=== PATIENT | male | born 1950 | race Caucasian/White ===

== ENCOUNTER 2017-01-21 13:36 | Emergency (ER) | payer MEDICARE ==
--- NOTE | 2017-01-21 13:55 | Emergency Department Record ---
History of Present Illness - General Chief Complaint: Shortness of breath Stated Complaint: SOB,SWELLING IN HAND AND LOWER LEGS Time Seen by Provider: 01/21/17 13:48 Source: Patient, Family Mode of Arrival: Ambulatory Limitations: No limitations - History of Present Illness Initial Comments: 66 yo male presents with shortness of breath. He has developed symptoms over the last three weeks. He has noted shortness of breath with activity. His lower legs have had some swelling the last 2 months but he noticed a significant twisting frame changer the last three weeks. No fever. No significant cough. He denies chest pain. He denies any history of known CAD or CHF. No rash. He has a history of rheumatoid arthritis. He correlates the swelling with taking Madelaine that was last taken about three weeks prior. No syncope. PCP is at the [facility] in [place]. Complaint: Pain with inspiration, Shortness of breath -: Week(s) (3) Severity: Moderate Quality: Other Consistency: Constant Improves With: Rest Worsens With: Exertion, Lying flat, Movement Associated Symptoms: Edema, lower extremity pain, Orthopnia Treatments Prior to Arrival: None - Related Data Home Medications Medication Instructions Recorded Confirmed Last Taken Aspirin 81 mg PO DAILY 01/21/17 01/21/17 1 Day Ago ~01/20/17 Atorvastatin Calcium 20 mg PO DAILY 01/21/17 01/21/17 1 Day Ago ~01/20/17 Carvedilol [Coreg] 12.5 mg PO DAILY 01/21/17 01/21/17 1 Day Ago ~01/20/17 Cholecalciferol (Vitamin D3) 2,000 unit PO DAILY 01/21/17 01/21/17 1 Day Ago [Vitamin D3] ~01/20/17 Cyclobenzaprine HCl 10 mg PO TID 01/21/17 01/21/17 1 Day Ago ~01/20/17 Duloxetine HCl [Cymbalta] 60 mg PO QHS 01/21/17 01/21/17 1 Day Ago ~01/20/17 Fluticasone Propionate [Flonase 15.8 ml NS BID 01/21/17 01/21/17 1 Day Ago Allergy Relief] ~01/20/17 Hydroxychloroquine Sulfate 200 mg PO DAILY 01/21/17 01/21/17 1 Day Ago [Plaquenil] ~01/20/17 Insulin Aspart Protam & Aspart 34 unit SQ BID 01/21/17 01/21/17 1 Day Ago [Novolog Mix 70-30 Flexpen Syrn] ~01/20/17 Metformin HCl 1,000 mg PO BID 01/21/17 01/21/17 1 Day Ago ~01/20/17 Morphine Sulfate [Morphine Sulfate 60 mg PO Q12H 01/21/17 01/21/17 1 Day Ago Cr] ~01/20/17 Tiotropium [place] [Spiriva] 2 cap IH BID 01/21/17 01/21/17 1 Day Ago ~01/20/17 Allergies Allergy/AdvReac Type Severity Reaction Status Date / Time methotrexate Allergy SHORTNESS Verified 01/21/17 13:53 OF BREATH pregabalin [From Lyrica] Allergy SHORTNESS Verified 01/21/17 13:53 OF BREATH Review of Systems Constitutional: Reports: Malaise. Denies: Chills, Fever Eyes: Denies: Eye discharge, Eye pain, Photophobia ENT: Denies: Congestion, Epistaxis, Throat pain Respiratory: Reports: Dyspnea. Denies: Cough, Hemoptysis, Stridor, Wheezes Cardiovascular: Denies: Chest pain, Palpitations, Syncope Endocrine: Reports: Fatigue Gastrointestinal: Denies: Abdominal pain, Diarrhea, Nausea, Vomiting Genitourinary: Denies: Dysuria, Frequency, Hematuria Musculoskeletal: Denies: Arthralgia, Back pain, Joint swelling, Myalgia, Neck pain Skin: Denies: Bruising, Change in color, Rash Neurological: Denies: Headache, Numbness, Weakness Psychiatric: Denies: Anxiety Hematological/Lymphatic: Denies: Blood Clots, Easy bleeding, Easy bruising, Swollen glands Physical Exam - General General Appearance: Alert, Oriented x3, Cooperative, No acute distress Limitations: No limitations - Head Head exam: Normal inspection - Eye Eye exam: Normal appearance. negative: Conjunctival injection, Periorbital swelling, Scleral icterus - ENT ENT exam: Normal exam, Mucous membranes moist Ear exam: Normal external inspection Nasal Exam: Normal inspection Mouth exam: Normal external inspection Teeth exam: Normal inspection Throat exam: Normal inspection - Neck Neck exam: Normal inspection, Full ROM. negative: Tenderness - Respiratory Respiratory exam: Decreased breath sounds, Rales, Rhonchi. negative: Normal lung sounds bilaterally, Accessory muscle use, Chest wall tenderness, Prolonged expiratory, Respiratory distress, Stridor, Wheezes - Cardiovascular Cardiovascular Exam: Irregular rhythm, Tachycardia. negative: Normal heart sounds Peripheral Pulses: 2+: Radial (R), Radial (L) - GI/Abdominal GI/Abdominal exam: Soft. negative: Tenderness - Rectal Rectal exam: Deferred - exam: Deferred - Extremities Extremities exam: Normal capillary refill, Pedal edema (bilaterl 2+ to the knees symmetric, no abnormal warth or redness), Tenderness. negative: Normal inspection, Joint swelling - Back Back exam: Reports: Normal inspection, Full ROM. Denies: CVA tenderness (R), CVA tenderness (L), Muscle spasm, Paraspinal tenderness, Rash noted, Tenderness , Vertebral tenderness - Neurological Neurological exam: Alert, Normal gait, Oriented X3 - Psychiatric Psychiatric exam: Normal affect, Normal mood - Skin Skin exam: Dry, Intact, Normal color, Warm Course - Reevaluation(s) Reevaluation #1: EMR reviewed. No prior records at [facility] 01/21/17 13:55 Reevaluation #2: EKG sinus tach with bigemeny, RBBB, Qtc 550, axis normal, NS ST changes , No prior EKG on EMR 01/21/17 14:19 Reevaluation #3: The labs were reviewed Indeterminate Troponin of 0.046 Elevated BNP 2280 No acute changes on the CMP Hgb is 11.2 I discussed the results with the patient I recommend admission and work up. There is not available ECHO at [facility] until Friday so I recommend transfer I request [facility]. 01/21/17 14:30 Reevaluation #4: I SW Dr Horton of [facility] He accepts the patient for further work up of new onset CHF with Ventricular bigemeny 01/21/17 14:56 Reevaluation #5: CXR read as Mild to mod PVC with signs of fluid overload, CMG. 01/21/17 14:58 Medical Decision Making - Lab Data Result diagrams: 01/21/17 13:53 01/21/17 13:53 Disposition Disposition: Transfer Clinical Impression: Ventricular bigeminy, Elevated troponin CHF (congestive heart failure) Qualifiers: Congestive heart failure type: unspecified congestive heart failure type Congestive heart failure chronicity: acute Qualified Code(s): I50.9 - Heart failure, unspecified Disposition: Acute Care Hospital Transfer Transfer To: [facility] Reason For Transfer: New Onset CHF, Elevated Troponin Accepting Physician: Clifford Time Discussed w/Accepting Physician: 14:51 Condition: (2) Stable Forms: Patient Portal Access Time of Disposition: 14:51
[2017-01-21 13:58] LABS: BASO % 0.6 % (0-6); EOS % 3.7 % (0-6); GRAN % 73.9 % (47-80); HEMATOCRIT 37.1 % (42.0-52.0); HEMOGLOBIN 11.2 gm/dl (14.0-18.0); LYMPH % 12.7 % (16-45); MEAN CELL VOLUME 78.6 fl (81-97); MEAN CORPUSCULAR HEMOGLOBIN 23.7 pg (27-33); MEAN CORPUSCULAR HGB CONC 30.2 g/dl (32-36); MEAN PLATELET VOLUME 8.9 fl (7.4-10.4); MONO % 9.1 % (0-9); PLATELET COUNT 402 K/uL (130-400); RED BLOOD COUNT 4.72 M/uL (4.40-5.70); RED CELL DISTRIBUTION WIDTH 16.1 % (11.5-14.5); WHITE BLOOD COUNT W/O DIFF 8.3 K/uL (4.2-12.2)
[2017-01-21 14:10] LABS: ALB/GLOB RATIO 0.9 (1.1-1.8); ALBUMIN 3.7 gm/dL (3.5-5.0); ALKALINE PHOSPHATASE 154 U/L (38-126); ALT/SGPT 20 U/L (21-72); ANION GAP 11.6 (7-16); AST/SGOT 18 U/L (17-59); BILIRUBIN,TOTAL 0.53 mg/dL (0.2-1.3); BLOOD UREA NITROGEN 15 mg/dL (9-20); CARBON DIOXIDE 23.4 mmol/L (22-30); CREATINE PHOSPHOKINASE 25 U/L (55-170); EST GLOMERULAR FILTRATION RATE > 60 ml/min; GLUCOSE,RANDOM 138 mg/dL (70-110); TOTAL PROTEIN 7.9 gm/dL (6.3-8.2)
[2017-01-21 14:11] LABS: PARTIAL THROMBOPLASTIN TIME 27.6 SECONDS (24.5-39.1); PROTHROMBIN TIME (PATIENT) 11.3 SECONDS (9.5-12.1)
[2017-01-21 14:21] LABS: CKMB 1.7 ug/L (0-6); TROPONIN I 0.046 ng/mL (0.00-0.034)
[2017-01-21] MEDS ORDERED: FUROSEMIDE IV 40MG/4ML VIAL IVP ONE (14:29)
[2017-01-21] MEDS ORDERED: ASPIRIN 81 MG CHEWABLE TABLET PO ONE (14:29)
[2017-01-21] MEDS ORDERED: MAGNESIUM SULFATE 16 MEQ in 0.9 % SODIUM CHLORIDE 100ML 100 ML IV ONE (14:49)
--- NOTE | 2017-01-22 12:35 | RADIOLOGY REPORT ---
EXAM: PORTABLE CHEST HISTORY: SHORTNESS OF BREATH. LOWER EXTREMITY EDEMA. TECHNIQUE: A single mobile upright view of the chest was obtained. Comparison: None. FINDINGS: The cardiac silhouette projects mildly enlarged with borderline pulmonary venous hypertension. There right lateral costophrenic angle blunting consistent with small right basilar pleural effusion. These findings may relate to fluid overload/CHF. Patchy mixed opacities are noted in each lung base consistent with atelectasis, infiltrate or atypical edema. The lungs and pleural spaces are otherwise clear. There are mild degenerative changes of the visualized spine. IMPRESSION: 1. MILD CARDIOMEGALY WITH BORDERLINE TO MILD PULMONARY VENOUS HYPERTENSION AND SMALL RIGHT BASILAR PLEURAL EFFUSION SUSPICIOUS FOR FLUID OVERLOAD/CHF. 2. PATCHY MIXED OPACITIES IN EACH LUNG BASE CONSISTENT WITH ATELECTASIS, INFILTRATE OR ATYPICAL EDEMA. JOB NUMBER: [id number] [facility]
== END 2017-01-21 18:23 | disposition short-term general hospital (02) ==
LOC: ER 13:36
DX: I50.9 Heart failure, unspecified (principal); R00.8 Other abnormalities of heart beat; R79.89 Other specified abnormal findings of blood chemistry; R06.02 Shortness of breath; E11.9 Type 2 diabetes mellitus without complications; I10 Essential (primary) hypertension; Z87.891 Personal history of nicotine dependence; Z79.4 Long term (current) use of insulin
CPT/HCPCS: 71010; 80053; 82550; 82553; 83735; 83880; 84484; 85025; 85610; 85730; 93005; 93010; 96365; 96375; 99285; J1940

== ENCOUNTER 2017-01-31 00:09 | Inpatient (IN) | payer MEDICARE ==
[2017-01-31] MEDS ORDERED: ASPIRIN 325 MG TABLET PO ONE (00:14)
[2017-01-31] MEDS ORDERED: FUROSEMIDE IV 40MG/4ML VIAL IV ONE (00:14)
[2017-01-31] MEDS ORDERED: MORPHINE SULFATE 5 MG/ML PFS IVP ONE (00:14)
--- NOTE | 2017-01-31 00:19 | Emergency Department Record ---
History of Present Illness - General Chief Complaint: Shortness of breath Stated Complaint: SOB Time Seen by Provider: 01/31/17 00:14 Source: Patient, Family - History of Present Illness Initial Comments: The patient was admitted here and discharged Friday01-26-17 for CHF. Since being home he has continued to worsen: his swollen feet have increased into swelling up to below his knees, he has gained 7 pounds of weight in 5 days, and he has been sleeping upright in his chair, unable to sleep at all. He has had brief episodes of CP which last less than 5 minutes, but none this evening. He is a diabetic on insulin and has RA. MD Complaint: Shortness of breath - Related Data Home Medications Medication Instructions Recorded Confirmed Last Taken Aspirin 81 mg PO DAILY 01/21/17 01/31/17 01/30/17 Atorvastatin Calcium 20 mg PO DAILY 01/21/17 01/31/17 01/30/17 Carvedilol [Coreg] 12.5 mg PO DAILY 01/21/17 01/31/17 01/30/17 Cholecalciferol (Vitamin D3) 2,000 unit PO DAILY 01/21/17 01/31/17 01/30/17 [Vitamin D3] Cyclobenzaprine HCl 10 mg PO TID 01/21/17 01/31/17 01/30/17 Duloxetine HCl [Cymbalta] 60 mg PO QHS 01/21/17 01/31/17 01/30/17 Fluticasone Propionate [Flonase 15.8 ml NS BID 01/21/17 01/31/17 01/30/17 Allergy Relief] Hydroxychloroquine Sulfate 200 mg PO DAILY 01/21/17 01/31/17 01/30/17 [Plaquenil] Insulin Aspart Protam & Aspart 34 unit SQ BID 01/21/17 01/31/17 01/30/17 [Novolog Mix 70-30 Flexpen Syrn] Metformin HCl 1,000 mg PO BID 01/21/17 01/31/17 01/30/17 Morphine Sulfate [Morphine Sulfate 60 mg PO Q12H 01/21/17 01/31/17 01/30/17 Cr] Tiotropium [place] [Spiriva] 2 cap IH BID 01/21/17 01/31/17 01/30/17 Furosemide [Lasix] 40 mg PO DAILY 01/31/17 01/31/17 01/30/17 Lisinopril 2.5 mg PO DAILY 01/31/17 01/31/17 01/30/17 Potassium Chloride [Klor-Con] 20 meq PO DAILY 01/31/17 01/31/17 01/30/17 Allergies Allergy/AdvReac Type Severity Reaction Status Date / Time methotrexate Allergy SHORTNESS Verified 01/21/17 13:53 OF BREATH pregabalin [From Lyrica] Allergy SHORTNESS Verified 01/21/17 13:53 OF BREATH Review of Systems Reviewed: No additional complaints except as noted below Constitutional: Reports: As per HPI. Denies: Chills, Fever, Malaise, Night sweats, Weakness, Weight change Eyes: Reports: As per HPI. Denies: Eye discharge, Eye pain, Photophobia, Vision change ENT: Reports: As per HPI. Denies: Congestion, Dental pain, Ear pain, Epistaxis , Hearing loss, Throat pain Respiratory: Reports: As per HPI. Denies: Cough, Dyspnea, Hemoptysis, Stridor, Wheezes Cardiovascular: Reports: As per HPI. Denies: Arrhythmia, Chest pain, Dyspnea on exertion, Edema, Murmurs, Orthopnea, Palpitations, Paroxysmal nocturnal dyspnea, Rheumatic Fever, Syncope Endocrine: Reports: As per HPI. Denies: Fatigue, Heat or cold intolerance, Polydipsia, Polyuria Gastrointestinal: Reports: As per HPI. Denies: Abdominal pain, Constipation, Diarrhea, Hematemesis, Hematochezia, Melena, Nausea, Vomiting Genitourinary: Reports: As per HPI. Denies: Dysuria, Frequency, Hematuria, Incontinence, Retention, Testicular pain, Testicular mass, Urgency Musculoskeletal: Reports: As per HPI. Denies: Arthralgia, Back pain, Gout, Joint swelling, Myalgia, Neck pain Skin: Reports: As per HPI. Denies: Bruising, Change in color, Change in hair/ nails, Lesions, Pruritus, Rash Neurological: Reports: As per HPI. Denies: Abnormal gait, Confusion, Headache, Numbness, Paresthesias, Seizure, Tingling, Tremors, Vertigo, Weakness Psychiatric: Reports: As per HPI. Denies: Anxiety, Auditory hallucinations, Depression, Homicidal thoughts, Suicidal thoughts, Visual hallucinations Hematological/Lymphatic: Reports: As per HPI. Denies: Anemia, Blood Clots, Easy bleeding, Easy bruising, Swollen glands Past Medical History - SOCIAL HISTORY Smoking Status: Former smoker Drug Use: None - RESPIRATORY Hx Sleep Apnea: Yes (issues) - CARDIOVASCULAR Hx Hypertension: Yes - NEURO Hx Neuro Disorders: No - GI Hx Reflux: Yes - Hx Genitourinary Disorders: No - ENDOCRINE Hx Diabetes: Yes Hx Thyroid Disease: No - MUSCULOSKELETAL Hx Arthritis: Yes Comment:: Rheumatoid - PSYCH Hx Psych Problems: No Physical Exam - General General Appearance: Alert, Oriented x3, Cooperative, Moderate distress ( breathless speech, appears exhausted from lack of sleep) - Head Head exam: Normal inspection - Eye Eye exam: Normal appearance, PERRL Pupils: Normal accommodation - ENT ENT exam: Normal exam, Mucous membranes moist, Normal external ear exam, Normal orophraynx, TM's normal bilaterally Ear exam: Normal external inspection. negative: External canal tenderness Nasal Exam: Normal inspection. negative: Discharge, Sinus tenderness Mouth exam: Normal external inspection, Tongue normal Teeth exam: Normal inspection. negative: Dental caries Throat exam: Normal inspection. negative: Tonsillar erythema, Tonsillar exudate - Neck Neck exam: Normal inspection, Full ROM. negative: Tenderness - Respiratory Respiratory exam: Rales (1/3 way up lung buck posteriorly). negative: Respiratory distress - Cardiovascular Cardiovascular Exam: Normal heart sounds, Irregular rhythm, JVD (trace JVD sitting upright), Tachycardia - GI/Abdominal GI/Abdominal exam: Soft, Normal bowel sounds. negative: Tenderness - Rectal Rectal exam: Deferred - exam: Deferred - Extremities Extremities exam: Normal inspection, Full ROM, Normal capillary refill, Pedal edema (up to below knees bilaterally.). negative: Tenderness - Back Back exam: Reports: Normal inspection, Full ROM. Denies: Muscle spasm, Rash noted, Tenderness - Neurological Neurological exam: Alert, Normal gait, Oriented X3, Reflexes normal - Psychiatric Psychiatric exam: Normal affect, Normal mood - Skin Skin exam: Dry, Intact, Normal color, Warm Course - Reevaluation(s) Reevaluation #1: Reviewed old rec. from [facility] 01-21-17 last week: ECHO: global hypokinesis with specifically hypokinetic jefry-lateral childs. LV ejection fraction 30-35%. LEft ventricle appears borderline dilated. Restrictive pattern of LV diastolic filling. Mild-mod mitral regurg. Thickened and calcified mitral valve leaflets. Trivial pericardial effusion. 01/31/17 00:34 Reevaluation #2: Urine output is 700 cc after 40 lasix IV. 01/31/17 02:20 Reevaluation #3: Discussed case with Dr. Manuel HOLLAND who is comfortable with him being treated for CHF at [facility]. He will see the patient next week in the [facility] office for follow up after his diuresis here. Dr. Jackson states there is no indication for another ECHO , and the rhythm he currently is in does not need anti arrhythmic medication. the patient is in agreement with staying here, and is feeling better after his diuresis of 700 cc urine after 40 mg IV lasix. 01/31/17 02:33 Medical Decision Making - Management Options MDM Management: Additional Work-up Planned (e.g. ADM/Transfer/OP Study) (Admit to [facility]) - Data Complexity MDM Data: Labs Ordered and/or Reviewed, X-Ray Ordered and/or Reviewed (CXR two view: trace of cephalization with fluid in fissure, lungs otherwise clear. Per ED physician.), EKG Ordered and/or Reviewed - Lab Data Result diagrams: 01/31/17 00:15 01/31/17 00:15 - EKG Data -: EKG Interpreted by Mi EKG: Unchanged From Previous (Ventricular Bigeminy with RBBB as before from 01-21.) Disposition Disposition: Admit Clinical Impression: Ventricular bigeminy CHF (congestive heart failure) Qualifiers: Congestive heart failure type: systolic Congestive heart failure chronicity: unspecified congestive heart failure chronicity Qualified Code(s): I50.20 - Unspecified systolic (congestive) heart failure Disposition: Still a Patient at [facility] Decision to Admit: Admit from ER Decision to Admit Date: 01/31/17 Decision to Admit Time: 02:37 Accepting Physician: Dr. Rogel/Camilla Iyer Condition: (2) Stable Forms: Patient Portal Access
[2017-01-31 00:30] LABS: BASO % 0.6 % (0-6); EOS % 3.4 % (0-6); HEMATOCRIT 39.7 % (42.0-52.0); HEMOGLOBIN 12.1 gm/dl (14.0-18.0); LYMPH % 17.7 % (16-45); MEAN CELL VOLUME 77.8 fl (81-97); MEAN CORPUSCULAR HEMOGLOBIN 23.7 pg (27-33); MEAN CORPUSCULAR HGB CONC 30.5 g/dl (32-36); MEAN PLATELET VOLUME 9.2 fl (7.4-10.4); MONO % 11.3 % (0-9); PLATELET COUNT 497 K/uL (130-400); RED CELL DISTRIBUTION WIDTH 16.6 % (11.5-14.5); WHITE BLOOD COUNT W/O DIFF 10.3 K/uL (4.2-12.2)
[2017-01-31 00:51] LABS: INR 0.95; PARTIAL THROMBOPLASTIN TIME 26.9 SECONDS (24.5-39.1); PROTHROMBIN TIME (PATIENT) 10.7 SECONDS (9.5-12.1)
[2017-01-31 00:54] LABS: D-DIMER 4.05 mg/L FEU (0-0.59)
[2017-01-31 01:07] LABS: ANION GAP 11.6 (7-16); BLOOD UREA NITROGEN 24 mg/dL (9-20); CARBON DIOXIDE 25.4 mmol/L (22-30); CKMB 0.8 ug/L (0-6); CREATININE 1.1 mg/dL (0.66-1.25); EST GLOMERULAR FILTRATION RATE > 60 ml/min; GLUCOSE,RANDOM 186 mg/dL (70-110)
[2017-01-31 01:08] LABS: TROPONIN I < 0.012 ng/mL (0.00-0.034)
[2017-01-31 01:13] LABS: URINE APPEARANCE CLEAR; URINE BILIRUBIN NEGATIVE (NEGATIVE); URINE BLOOD NEGATIVE (NEGATIVE); URINE COLOR YELLOW; URINE GLUCOSE (UA) NEGATIVE (NEGATIVE); URINE KETONE NEGATIVE (NEGATIVE); URINE LEUKOCYTE ESTERASE NEGATIVE (NEGATIVE); URINE NITRITE NEGATIVE (NEGATIVE); URINE PROTEIN NEGATIVE (NEGATIVE); URINE UROBILINOGEN 0.2 E.U./dL (0.20 - 1.00)
[2017-01-31] MEDS ORDERED: ACETAMINOPHEN 500 MG TABLET PO PRN (03:18)
[2017-01-31] MEDS ORDERED: AL HYDROX/MAG HYDROX 30ML UD PO PRN (03:18)
[2017-01-31] MEDS: MORPHINE SULFATE 30MG TABLET.ER PO SCH ×2 (03:38→16:11)
--- NOTE | 2017-01-31 07:31 | History & Physical ---
History of Present Illness - Date of Service Date of Service for History & Physical: 01/31/17 - History of Present Illness Admitting Diagnosis: Congestive heart failure; ventricular bigeminy History of Present Illness: 66yo male with CC of shortness of breath. He has history of T2DM, rheumatoid arthritis, DM neuropathy, irregular heart rhythm (bigeminy), HTN in addition to CHF. He was recently admitted to [facility] for fluid overload. He was discharged from [facility] on 01/26/17 on lasix 40mg po daily. Since being home he has continued to worsen: his swollen feet have increased into swelling up to below his knees, he has gained 7 pounds of weight in 5 days , and he has been sleeping upright in his chair, unable to sleep at all. He has had brief episodes of CP which last less than 5 minutes and decided to come in to the ED. While in the ED, Patient had EKG which showed no acute changes from previous visit or recent [facility] hospitalization. His CXR showed findings consistent with mild pulmonary edema due to fluid overload. His BNP was 738. CBC and CMP were unremarkable. oxygen saturation of 97% on room air. Patient did have elevated D-dimer at 4.05. ED physician Discussed case with Dr. Manuel HOLLAND who was comfortable with him being treated for CHF at [facility]. He will see the patient next week in the [facility] office for follow up after his diuresis here. Dr. Jackson states there is no indication for another ECHO, and the rhythm he currently is in does not need anti arrhythmic medication. the patient was admitted for CHF exacerbation. 01/31/17- patient states he is feeling better but not much. He says he thinks the swelling in his legs have gone down some. He says he is a little less short of breath and is urinating frequently. He denies any chest pain here as well as nausea, fatigue, sweating, jaw pain. He had echo done while hospitalized last week for CHF exacerbation and showed EF of 30-35%. He was sent home on lasix 40mg po daily. he denies missing any doses. Sister states she thinks he isn't eating the right food, sticking to a low sodium diet. He has follow up on Friday with cardiology. He does state his left foot is in pain but thinks it is from his RA. pcp: [facility]: [facility] Travel Screening - Travel/Exposure Within Last 30 Days Have you traveled within the last 30 days?: No - Travel/Exposure Within Last Year Have you traveled outside the [place] in the last year?: No - Additonal Travel Details Have you been exposed to anyone with a communicable illness?: No - Travel Symptoms Symptom Screening: Fatigue Review of Systems Constitutional: Reports: As per HPI. Denies: Chills, Fever, Malaise, Night sweats, Weakness, Weight change Eyes: Reports: As per HPI. Denies: Eye discharge, Eye pain, Photophobia, Vision change ENT: Reports: As per HPI. Denies: Congestion, Dental pain, Ear pain, Epistaxis , Hearing loss, Throat pain Respiratory: Reports: As per HPI. Denies: Cough, Dyspnea, Hemoptysis, Stridor, Wheezes Cardiovascular: Reports: As per HPI, Edema, Orthopnea, Paroxysmal nocturnal dyspnea. Denies: Arrhythmia, Chest pain, Dyspnea on exertion, Murmurs, Palpitations, Rheumatic Fever, Syncope Endocrine: Reports: As per HPI. Denies: Fatigue, Heat or cold intolerance, Polydipsia, Polyuria Gastrointestinal: Reports: As per HPI. Denies: Abdominal pain, Constipation, Diarrhea, Hematemesis, Hematochezia, Melena, Nausea, Vomiting Genitourinary: Reports: As per HPI. Denies: Dysuria, Frequency, Hematuria, Incontinence, Retention, Testicular pain, Testicular mass, Urgency Musculoskeletal: Reports: As per HPI, Arthralgia. Denies: Back pain, Gout, Joint swelling, Myalgia, Neck pain Skin: Reports: As per HPI. Denies: Bruising, Change in color, Change in hair/ nails, Lesions, Pruritus, Rash Neurological: Reports: As per HPI. Denies: Abnormal gait, Confusion, Headache, Numbness, Paresthesias, Seizure, Tingling, Tremors, Vertigo, Weakness Psychiatric: Reports: As per HPI. Denies: Anxiety, Auditory hallucinations, Depression, Homicidal thoughts, Suicidal thoughts, Visual hallucinations Hematological/Lymphatic: Reports: As per HPI. Denies: Anemia, Blood Clots, Easy bleeding, Easy bruising, Swollen glands Past Medical History - SOCIAL HISTORY Smoking Status: Former smoker Alcohol Use: None Drug Use: None - RESPIRATORY Hx Respiratory Disorders: Yes Hx Sleep Apnea: Yes (has issues but does not use C-PAP) - CARDIOVASCULAR Hx Cardio Disorders: Yes Hx Abnormal EKG: Yes (hx of bigeminy) Hx CHF: Yes Hx Edema: Yes Hx Hypertension: Yes Hx Irregular Heartbeat: Yes - NEURO Hx Neuro Disorders: No Hx Neuropathy: Yes - GI Hx GI Disorders: Yes Hx Reflux: Yes - Hx Genitourinary Disorders: No - ENDOCRINE Hx Endocrine Disorders: Yes Hx Diabetes: Yes (for 20 years) Hx Thyroid Disease: No - MUSCULOSKELETAL Hx Musculoskeletal Disorders: Yes Hx Arthritis: Yes Comment:: Rheumatoid - PSYCH Hx Psych Problems: No - HEMATOLOGY/ONCOLOGY Hx Hematology/Oncology Disorders: No Family Medical History Any Significant Family History?: Yes Family Hx Comment (NOT TO BE USED IN PLACE OF ITEMS BELOW): mom w/thyroid issues Hx Cancer: Father, Mother Hx Heart Disease: Mother H&P Meds/Allergies - Allergies Allergies: Allergies Allergy/AdvReac Type Severity Reaction Status Date / Time methotrexate Allergy SHORTNESS Verified 01/21/17 13:53 OF BREATH pregabalin [From Lyrica] Allergy SHORTNESS Verified 01/21/17 13:53 OF BREATH - Home Medications Home Medications Medication Instructions Recorded Confirmed Last Taken Aspirin 81 mg PO DAILY 01/21/17 01/31/17 01/30/17 Atorvastatin Calcium 20 mg PO DAILY 01/21/17 01/31/17 01/30/17 Carvedilol [Coreg] 12.5 mg PO BID 01/21/17 01/31/17 01/30/17 Cholecalciferol (Vitamin D3) 2,000 unit PO DAILY 01/21/17 01/31/17 01/30/17 [Vitamin D3] Cyclobenzaprine HCl 10 mg PO TID 01/21/17 01/31/17 01/30/17 Duloxetine HCl [Cymbalta] 60 mg PO QHS 01/21/17 01/31/17 01/30/17 Fluticasone Propionate [Flonase 15.8 ml NS BID 01/21/17 01/31/17 01/30/17 Allergy Relief] Hydroxychloroquine Sulfate 200 mg PO DAILY 01/21/17 01/31/17 01/30/17 [Plaquenil] Insulin Aspart Protam & Aspart 34 unit SQ BID 01/21/17 01/31/17 01/30/17 [Novolog Mix 70-30 Flexpen Syrn] Metformin HCl 1,000 mg PO BID 01/21/17 01/31/17 01/30/17 Morphine Sulfate [Morphine Sulfate 60 mg PO Q12H 01/21/17 01/31/17 01/30/17 Cr] Furosemide [Lasix] 40 mg PO DAILY 01/31/17 01/31/17 01/30/17 Lisinopril 2.5 mg PO DAILY 01/31/17 01/31/17 01/30/17 Potassium Chloride [Klor-Con] 20 meq PO DAILY 01/31/17 01/31/17 01/30/17 Tiotropium [place] [Spiriva 2 puff IH DAILY 01/31/17 01/31/17 01/30/17 08:00 Respimat] - Active Medications Active Medications: Current Medications Acetaminophen (Tylenol 500mg Tab) 500 mg PO Q6H PRN PRN Reason: PAIN/TEMP Al Hydroxide/Mg Hydroxide (Maalox) 30 ml PO Q4H PRN PRN Reason: GI UPSET Aspirin (Ecotrin (Ec)) 81 mg PO DAILY [facility] Atorvastatin Calcium (Lipitor) 20 mg PO DAILY [facility] Carvedilol (Coreg) 12.5 mg PO DAILY [facility] Cyclobenzaprine HCl (Flexeril) 10 mg PO TID [facility] Duloxetine HCl (Cymbalta) 60 mg PO QHS [facility] Fluticasone Propionate (Flonase) 1 spray NA BID [facility] Furosemide (Lasix Iv) 40 mg IVP BID [facility] Hydroxychloroquine Sulfate (Plaquenil) 200 mg PO DAILY [facility] Lisinopril (Zestril) 2.5 mg PO DAILY [facility] Metformin HCl (Glucophage Ir) 1,000 mg PO BIDWM [facility] Morphine Sulfate () 60 mg PO Q12H [facility] Last Admin: 01/31/17 03:38 Dose: 60 mg Morphine Sulfate (Morphine Sulfate) 2.5 mg IVP Q4HR PRN PRN Reason: DIFFICULTY IN BREATHING Stop: 02/07/17 03:19 Potassium Chloride (Klor-Con) 20 meq PO DAILY [facility] Tiotropium [place] (Spiriva) 2 cap INH BID [facility] Vitamin D (Vitamin D3) 2,000 unit PO DAILY [facility] Physical Exam - Vital Signs Vital Signs: Vital Signs - Last 24 Hrs Temp Pulse Resp BP Pulse Ox 01/31/17 03:18 97.5 F L 54 L 20 160/71 97 - General General Appearance: Alert, Oriented x3, Cooperative, No acute distress - Head Head exam: Normal inspection - Eye Eye exam: Normal appearance, PERRL Pupils: Normal accommodation - ENT ENT exam: Normal exam, Mucous membranes moist, Normal external ear exam, Normal orophraynx, TM's normal bilaterally Ear exam: Normal external inspection. negative: External canal tenderness Nasal Exam: Normal inspection. negative: Discharge, Sinus tenderness Mouth exam: Normal external inspection, Tongue normal Teeth exam: Normal inspection. negative: Dental caries Throat exam: Normal inspection. negative: Tonsillar erythema, Tonsillar exudate - Neck Neck exam: Normal inspection, Full ROM. negative: Tenderness - Respiratory Respiratory exam: Normal lung sounds bilaterally. negative: Decreased breath sounds, Rales, Respiratory distress - Cardiovascular Cardiovascular Exam: Normal heart sounds, Irregular rhythm, JVD (trace JVD sitting upright), Tachycardia - GI/Abdominal GI/Abdominal exam: Soft, Normal bowel sounds. negative: Tenderness - Rectal Rectal exam: Deferred - exam: Deferred - Extremities Extremities exam: Normal inspection, Full ROM, Normal capillary refill, Pedal edema (trace edema of the shins, 1+ of the feet). negative: Tenderness - Back Back exam: Reports: Normal inspection, Full ROM. Denies: Muscle spasm, Rash noted, Tenderness - Neurological Neurological exam: Alert, Normal gait, Oriented X3, Reflexes normal - Psychiatric Psychiatric exam: Normal affect, Normal mood - Skin Skin exam: Dry, Intact, Normal color, Warm Results - Labs Result Diagrams: 01/31/17 00:15 01/31/17 00:15 - Imaging and Cardiology Chest x-ray Status: Report reviewed VTE H&P Assessment - Risk for VTE Risk for VTE: Yes Risk Level: High Risk Assessment Date: 01/31/17 Risk Assessment Time: 20:46 VTE Orders Placed or Will Be Placed: Yes Plan - Inpatient Certification Inpatient Certification: Admit to inpatient care: Based on my medical assessment, after consideration of patient's risk factors (age, co-morbidities and patient presenting symptoms and acuity), I expect that this patient will remain in the hospital greater than or equal to two midnights and that the services needed warrant inpatient care because: Patient Risk Factors: [age, CHF with recent exacerbation and hospitalization, elevated D-Dimer, shortness of breath] Estimated length of stay: [48-72H] The patient may reasonably be expected to be discharged or transferred to a hospital within 96 hours after admission to [facility]. Services needed: [IV diuretics, diagnostic imaging] Post hospital care (if known): [] I certify that my determination is in accordance with my understanding of Medicare requirements for reasonable and necessary inpatient services. 01/31/17 20:47 - Detailed Diagnosis and Plan (1) CHF (congestive heart failure) Current Visit: Yes Status: Acute Qualifiers: Congestive heart failure type: systolic Congestive heart failure chronicity : unspecified congestive heart failure chronicity Qualified Code(s): I50.20 - Unspecified systolic (congestive) heart failure Base Code: I50.9 - HEART FAILURE, UNSPECIFIED Comment: 01/31/17- CXR showed mild pulmonary edema consistent with CHF. Reviewed records from recent [facility] hospitalization. He had echo on 01/24/17 showing Ef of 30-35%. He was diuresed with lasix 40mg IV BID and did quite well through his stay. -continue lasix 40mg IV bid -daily weight -2000cc fluid restriction -low sodium diet -vitals q8H -labs qam -has follow up appointment with cardiology next Friday (2) Elevated d-dimer Current Visit: Yes Status: Acute Base Code: R79.89 - OTHER SPECIFIED ABNORMAL FINDINGS OF BLOOD CHEMISTRY Comment: 01/31/17- Patient had elevated D- Dimer while in the ED. complained of left lower extremity pain. Venous doppler showed small nonocclusive thrombus of the deep femoral vein which could be cause of elevated DDimer. Other considerations being that he has had two CHF exacerbations and his ongoing RA. -CTA ordered. -treatment dose of lovenox 1mg/kg q12h ordered (3) Full code status Current Visit: Yes Status: Acute Base Code: Z78.9 - OTHER SPECIFIED HEALTH STATUS Comment: 01/31/17- patient is full code (4) DVT prophylaxis Current Visit: Yes Status: Acute Base Code: [id number] - Comment: 01/31/17- Small nonocclusive thrombus of left Deep femoral vein noted on doppler. -will be put on therapeutic dose of lovenox
[2017-01-31] MEDS: METFORMIN 500 MG TABLET PO SCH (08:29)
[2017-01-31 08:34] LABS: CKMB 0.6 ug/L (0-6)
[2017-01-31 08:35] LABS: TROPONIN I < 0.012 ng/mL (0.00-0.034)
[2017-01-31] MEDS ORDERED: TIOTROPIUM BROMIDE 5 CAPSULES INH SCH (10:00)
[2017-01-31] MEDS ORDERED: CARVEDILOL 12.5 MG TABLET PO SCH (10:00)
[2017-01-31] MEDS ORDERED: NOVOLOG 70/30 FLEXPEN 100 UNITS/ML SQ SCH (10:00)
[2017-01-31] MEDS: FLUTICASONE PROPIONATE 50MCG NASAL 16 GM BTL SCH ×2 (10:50→22:18)
[2017-01-31] MEDS: ATORVASTATIN 20 MG TABLET PO SCH (10:51)
[2017-01-31] MEDS: LISINOPRIL 5 MG TABLET PO SCH (10:51)
[2017-01-31] MEDS: CYCLOBENZAPRINE 10MG TABLET PO SCH ×3 (10:51→22:21)
[2017-01-31] MEDS: POTASSIUM CHLORIDE 20 MEQ TABLET PO SCH (10:51)
[2017-01-31] MEDS: ASPIRIN 81 MG TABEC PO SCH (10:51)
[2017-01-31] MEDS: CHOLECALCIFEROL 1,000 UNIT TABLET PO SCH (10:51)
[2017-01-31] MEDS: HYDROXYCHLOROQUINE SULFATE 200 MG TABLET PO SCH (10:52)
[2017-01-31] MEDS: FUROSEMIDE IV 40MG/4ML VIAL IVP SCH ×2 (10:53→22:20)
[2017-01-31] MEDS: MORPHINE SULFATE 5 MG/ML PFS IVP PRN ×2 (11:09→22:21)
[2017-01-31] MEDS: SPIRIVA RESPIMAT PUFF SCH (15:34)
[2017-01-31] MEDS: NOVOLOG 70/30 FLEXPEN 100 UNITS/ML SQ SCH (17:38)
[2017-01-31 17:50] LABS: CKMB 0.6 ug/L (0-6)
[2017-01-31 17:51] LABS: TROPONIN I < 0.012 ng/mL (0.00-0.034)
[2017-01-31] MEDS ORDERED: ENOXAPARIN 40 MG/0.4 ML SYR SQ SCH (22:00)
[2017-01-31] MEDS: CARVEDILOL 12.5 MG TABLET PO SCH (22:20)
[2017-01-31] MEDS: ENOXAPARIN 100 MG/ML SYR SQ SCH (22:20)
[2017-01-31] MEDS: DULOXETINE HCL 30 MG CAPSULE.DR PO SCH (22:20)
[2017-01-31] MEDS: OMEPRAZOLE 20 MG PO SCH (22:34)
[2017-02-01] MEDS: MORPHINE SULFATE 30MG TABLET.ER PO SCH ×2 (03:22→16:57)
[2017-02-01] MEDS: NOVOLOG 70/30 FLEXPEN 100 UNITS/ML SQ SCH ×2 (08:18→16:55)
[2017-02-01] MEDS: MORPHINE SULFATE 5 MG/ML PFS IVP PRN (08:24)
[2017-02-01] MEDS: SPIRIVA RESPIMAT PUFF SCH (09:41)
[2017-02-01 09:52] LABS: ALB/GLOB RATIO 0.9 (1.1-1.8); ALBUMIN 3.7 gm/dL (3.5-5.0); ANION GAP 9.4 (7-16); BILIRUBIN,TOTAL 0.88 mg/dL (0.2-1.3); CARBON DIOXIDE 26.6 mmol/L (22-30); CREATININE 1.3 mg/dL (0.66-1.25); TOTAL PROTEIN 7.7 gm/dL (6.3-8.2)
--- NOTE | 2017-02-01 11:39 | Physician Progress Note ---
Subjective - Date Date of Physician Progress Note: 02/01/17 - Subjective Subjective Comment: 02/01/17- Patient states he feels about the same as yesterday. Still feeling short of breath with exertion and just fatigued. he is not coughing up phlegm. He denies chest pain. says the swelling in his feet has gone down. No fevers, chills. Objective - Vital Signs Vital Signs: Vital Signs - Last 24 Hrs Temp Pulse Pulse Resp BP Pulse Ox 02/01/17 09:47 97.6 F 101 H 16 113/77 94 L 02/01/17 09:15 91 H 16 104/65 02/01/17 09:00 95 H 16 02/01/17 06:00 97.9 F 89 18 110/72 96 02/01/17 03:00 98.3 F 92 H 20 129/68 95 01/31/17 21:00 88 18 01/31/17 20:00 94 H 18 128/71 96 01/31/17 18:41 98.3 F 56 L 16 113/45 95 01/31/17 15:00 97.5 F L 93 H 16 101/61 93 L - General General Appearance: Alert, Oriented x3, Cooperative, No acute distress - Head Head exam: Normal inspection - Eye Eye exam: Normal appearance, PERRL Pupils: Normal accommodation - ENT ENT exam: Normal exam, Mucous membranes moist, Normal external ear exam, Normal orophraynx, TM's normal bilaterally Ear exam: Normal external inspection. negative: External canal tenderness Nasal Exam: Normal inspection. negative: Discharge, Sinus tenderness Mouth exam: Normal external inspection, Tongue normal Teeth exam: Normal inspection. negative: Dental caries Throat exam: Normal inspection. negative: Tonsillar erythema, Tonsillar exudate - Neck Neck exam: Normal inspection, Full ROM. negative: Tenderness - Respiratory Respiratory exam: Normal lung sounds bilaterally. negative: Decreased breath sounds, Rales, Respiratory distress - Cardiovascular Cardiovascular Exam: Normal heart sounds, Irregular rhythm, JVD (trace JVD sitting upright), Tachycardia - GI/Abdominal GI/Abdominal exam: Soft, Normal bowel sounds. negative: Tenderness - Rectal Rectal exam: Deferred - exam: Deferred - Extremities Extremities exam: Normal inspection, Full ROM, Normal capillary refill. negative: Pedal edema, Tenderness - Back Back exam: Reports: Normal inspection, Full ROM. Denies: Muscle spasm, Rash noted, Tenderness - Neurological Neurological exam: Alert, Normal gait, Oriented X3, Reflexes normal - Psychiatric Psychiatric exam: Normal affect, Normal mood - Skin Skin exam: Dry, Intact, Normal color, Warm Assessment and Plan - Assessment and Plan (1) Pneumonia Current Visit: Yes Status: Acute Qualifiers: Pneumonia type: due to unspecified organism Laterality: right Lung location: upper lobe of lung Qualified Code(s): J18.1 - Lobar pneumonia, unspecified organism Base Code: J18.9 - PNEUMONIA, UNSPECIFIED ORGANISM Comment: 02/01/17- CTA done last night negative for PE or fluid overload but did reveal new right upper lobe infiltrate. patient has normal WBC count and is afebrile. Oxygen saturation is 94% on 2L. 2 blood cultures obtained prior to initiating abx -start levaquin 750mg IV q24H. Discussed case with Dr. Watt. Will start with empiric CAP coverage and assess response. will add nosocomial coverage if no improvement and certainly if any worsening of symptoms with recent hospitalization -continue supplemental O2 to keep sat >92% -breathign treatment q4H prn shortness of breath -incentive spirometry -vitals q8H -labs qam (2) CHF (congestive heart failure) Current Visit: Yes Status: Acute Qualifiers: Congestive heart failure type: systolic Congestive heart failure chronicity : unspecified congestive heart failure chronicity Qualified Code(s): I50.20 - Unspecified systolic (congestive) heart failure Base Code: I50.9 - HEART FAILURE, UNSPECIFIED Comment: 02/01/17- CTA done last night shows resolution of CHF findings but new right upper lobe infiltrate. Reviewed records from recent [facility] hospitalization. He had echo on 01/24/17 showing Ef of 30-35%. He was diuresed with lasix 40mg IV BID and did quite well through his stay. -will transition back to home diuretic dose with lasix 40mg po daily as repeat imaging shows resolution of fluid overload. -daily weight -2000cc fluid restriction -low sodium diet -vitals q8H -labs qam -has follow up appointment with cardiology next Friday (3) DVT (deep venous thrombosis) Current Visit: Yes Status: Acute Qualifiers: DVT location: lower extremity Affected thrombotic vein of extremity: femoral Laterality: left Chronicity: unspecified Qualified Code(s): I82.412 - Acute embolism and thrombosis of left femoral vein Base Code: I82.409 - ACUTE EMBOLISM AND THOMBOS UNSP DEEP VN UNSP LOWER EXTREMITY Comment: 02/01/17- Patient had elevated D-Dimer while in the ED. complained of left lower extremity pain. Venous doppler showed small nonocclusive thrombus of the deep femoral vein. Radiology noted this could be chronic. Patient was recently hospitalized but had prophylactic treatment during that stay. treatment dose of lovenox 1mg/kg q12h initiated -will transition to oral anticoagulation with eliquis -will do eliquis 10mg po bid for 7 days then 5mg po bid (4) Full code status Current Visit: Yes Status: Acute Base Code: Z78.9 - OTHER SPECIFIED HEALTH STATUS Comment: 02/01/17- patient is full code Results - Labs Result Diagrams: 02/01/17 09:35 02/01/17 09:35 Labs Last 24 Hours: Laboratory Results - last 24 hr 01/31/17 01/31/17 01/31/17 11:30 17:09 17:38 Sodium Potassium Chloride Carbon Dioxide Anion Gap BUN Creatinine Estimated GFR POC Glucose 277 H 102 Random Glucose Calcium Total Bilirubin AST ALT Alkaline Phosphatase CK-MB (CK-2) 0.6 Troponin I < 0.012 Total Protein Albumin Globulin Albumin/Globulin Ratio 01/31/17 02/01/17 02/01/17 22:00 07:45 09:35 Sodium 129 L Potassium 4.1 Chloride 93 L Carbon Dioxide 26.6 Anion Gap 9.4 BUN 29 H Creatinine 1.3 H Estimated GFR 59 POC Glucose 166 H 188 H Random Glucose 230 H Calcium 9.1 Total Bilirubin 0.88 AST 37 ALT 33 Alkaline Phosphatase 127 H CK-MB (CK-2) Troponin I Total Protein 7.7 Albumin 3.7 Globulin 4.0 Albumin/Globulin Ratio 0.9 L DVT/PE Assessment - Risk for VTE Risk for VTE: No Risk Level: High Risk Assessment Date: 01/31/17 Risk Assessment Time: 20:46 VTE Orders Placed or Will Be Placed: Yes - Active Medicaitons Current Medications: Current Medications Acetaminophen (Tylenol 500mg Tab) 500 mg PO Q6H PRN PRN Reason: PAIN/TEMP Al Hydroxide/Mg Hydroxide (Maalox) 30 ml PO Q4H PRN PRN Reason: GI UPSET Aspirin (Ecotrin (Ec)) 81 mg PO DAILY [facility] Last Admin: 01/31/17 10:51 Dose: 81 mg Atorvastatin Calcium (Lipitor) 20 mg PO DAILY [facility] Last Admin: 01/31/17 10:51 Dose: 20 mg Carvedilol (Coreg) 12.5 mg PO BID [facility] Last Admin: 01/31/17 22:20 Dose: 12.5 mg Cyclobenzaprine HCl (Flexeril) 10 mg PO TID [facility] Last Admin: 01/31/17 22:21 Dose: 10 mg Duloxetine HCl (Cymbalta) 60 mg PO QHS [facility] Last Admin: 01/31/17 22:20 Dose: 60 mg Enoxaparin Sodium (Lovenox) 90 mg SQ Q12HR [facility] Last Admin: 01/31/17 22:20 Dose: 90 mg Fluticasone Propionate (Flonase) 1 spray NA BID [facility] Last Admin: 01/31/17 22:18 Dose: 1 spray Furosemide (Lasix) 40 mg PO DAILY [facility] Hydroxychloroquine Sulfate (Plaquenil) 200 mg PO DAILY [facility] Last Admin: 01/31/17 10:52 Dose: 200 mg Levofloxacin/Dextrose (Levaquin 750mg Ivpb) 750 mg in 150 mls @ 125 mls/hr IVPB Q24H [facility] Stop: 02/06/17 10:01 Lisinopril (Zestril) 2.5 mg PO DAILY [facility] Last Admin: 01/31/17 10:51 Dose: 2.5 mg Metformin HCl (Glucophage Ir) 1,000 mg PO BIDWM [facility] Last Admin: 01/31/17 08:29 Dose: 1,000 mg Morphine Sulfate () 60 mg PO Q12H [facility] Last Admin: 02/01/17 03:22 Dose: 60 mg Morphine Sulfate (Morphine Sulfate) 2.5 mg IVP Q4HR PRN PRN Reason: DIFFICULTY IN BREATHING Stop: 02/07/17 03:19 Last Admin: 02/01/17 08:24 Dose: 2.5 mg Patient Own Med: (Spiriva Respimat) 2 each PUFF DAILY [facility] Last Admin: 02/01/17 09:41 Dose: 2 each Patient Own Med: (Omeprazole 20 Mg) 1 each PO Q24H [facility] Last Admin: 01/31/17 22:34 Dose: 1 each Potassium Chloride (Klor-Con) 20 meq PO DAILY [facility] Last Admin: 01/31/17 10:51 Dose: 20 meq Vitamin D (Vitamin D3) 2,000 unit PO DAILY [facility] Last Admin: 01/31/17 10:51 Dose: 2,000 unit AMI Plan - Labs Result Diagrams: 02/01/17 09:35 02/01/17 09:35
[2017-02-01] MEDS: POTASSIUM CHLORIDE 20 MEQ TABLET PO SCH (11:43)
[2017-02-01] MEDS: CHOLECALCIFEROL 1,000 UNIT TABLET PO SCH (11:43)
[2017-02-01] MEDS: HYDROXYCHLOROQUINE SULFATE 200 MG TABLET PO SCH (11:43)
[2017-02-01] MEDS: ASPIRIN 81 MG TABEC PO SCH (11:43)
[2017-02-01] MEDS: LISINOPRIL 5 MG TABLET PO SCH (11:44)
[2017-02-01] MEDS: FUROSEMIDE 40 MG TABLET PO SCH (11:44)
[2017-02-01] MEDS: CARVEDILOL 12.5 MG TABLET PO SCH ×2 (11:44→22:18)
[2017-02-01] MEDS: FLUTICASONE PROPIONATE 50MCG NASAL 16 GM BTL SCH ×2 (11:45→22:18)
[2017-02-01] MEDS: CYCLOBENZAPRINE 10MG TABLET PO SCH ×3 (11:45→22:18)
[2017-02-01] MEDS: LEVOFLOXACIN/D5W 750 MG/150 ML BAG IVPB SCH (11:45)
[2017-02-01] MEDS: ATORVASTATIN 20 MG TABLET PO SCH (11:45)
[2017-02-01] MEDS: ENOXAPARIN 100 MG/ML SYR SQ SCH (11:46)
[2017-02-01 12:10] LABS: BASO % 0.8 % (0-6); EOS % 4.4 % (0-6); GRAN % 64.6 % (47-80); HEMATOCRIT 36.3 % (42.0-52.0); HEMOGLOBIN 11.6 gm/dl (14.0-18.0); LYMPH % 17.2 % (16-45); MEAN CELL VOLUME 78.1 fl (81-97); MEAN CORPUSCULAR HEMOGLOBIN 24.9 pg (27-33); MEAN PLATELET VOLUME 10.1 fl (7.4-10.4); PLATELET COUNT 391 K/uL (130-400); RED BLOOD COUNT 4.65 M/uL (4.40-5.70); RED CELL DISTRIBUTION WIDTH 16.3 % (11.5-14.5); WHITE BLOOD COUNT W/O DIFF 9.7 K/uL (4.2-12.2)
--- NOTE | 2017-02-01 15:42 | RADIOLOGY REPORT ---
DATE: at 0039. EXAM: CHEST, TWO VIEWS. HISTORY: Shortness of breath. Bilateral lower extremity weakness with 7-pound weight gain in 4 days. TECHNIQUE: Upright PA and lateral views of the chest are obtained. COMPARISON: Portable chest dated 01/21/2017 at 14:27. FINDINGS: The heart is no longer enlarged. The pulmonary venous hypertension and mild bilateral interstitial edema have cleared. There has been interval clearing of the right lateral costophrenic angle blunting. Degenerative changes are again noted within the visualized spine. The lungs are hyperinflated consistent with COPD. IMPRESSION: 1. THE HEART NOW PROJECTS ENLARGED, AND THERE HAS BEEN INTERVAL CLEARING OF CHANGES OF CHF. NO EVIDENCE OF AN ACUTE PULMONARY PROCESS. 2. HYPERINFLATION OF THE LUNGS CONSISTENT WITH COPD. JOB NUMBER: [id number] [facility]
[2017-02-01] MEDS: APIXABAN 5MG TABLET PO SCH (22:18)
[2017-02-01] MEDS: DULOXETINE HCL 30 MG CAPSULE.DR PO SCH (22:18)
[2017-02-01] MEDS: OMEPRAZOLE 20 MG PO SCH (22:19)
--- NOTE | 2017-02-02 00:43 | US VENOUS DOPPLER REPORT ---
EXAM: ULTRASOUND VENOUS DOPPLER LOWER EXT LT HISTORY: LEFT LOWER EXTREMITY PAIN AND SWELLING. ELEVATED D-DIMER. DIABETES. TECHNIQUE: [place] scale, color Doppler, and duplex Doppler evaluation of the deep venous structures of the left lower extremity performed from the level of the common femoral vein through the lower leg. COMPARISON: None. FINDINGS: There is a questionable isoechoic/slightly hyperechoic luminal filling defect in the anterior aspect of the deep femoral vein measuring 11 x 5 mm. This is suspicious for non-occlusive thrombus. The technologist did not feel this completely compressed. Otherwise, there is no evidence of filling defect within the deep venous structures from the common femoral vein through the popliteal vein with these segments easily compressible. Normal venous waveforms are visualized throughout and are augmentable. The deep veins of the lower leg, to the extent visualized, are without definite thrombosis. There is soft tissue edema in the lower leg. IMPRESSION: 1. APPARENT SHORT-SEGMENT NON-OCCLUSIVE THROMBUS WITHIN THE DEEP FEMORAL VEIN. NO OTHER EVIDENCE OF DEEP VENOUS THROMBOSIS WITHIN THE LEFT LOWER EXTREMITY. 2. EDEMA WITHIN THE LEFT LOWER LEG SOFT TISSUES. JOB NUMBER: [id number] [facility]
[2017-02-02] MEDS: MORPHINE SULFATE 30MG TABLET.ER PO SCH ×2 (02:47→15:17)
[2017-02-02 06:21] LABS: ALB/GLOB RATIO 0.9 (1.1-1.8); ALBUMIN 3.6 gm/dL (3.5-5.0); ANION GAP 11.2 (7-16); BILIRUBIN,TOTAL 0.72 mg/dL (0.2-1.3); CARBON DIOXIDE 25.8 mmol/L (22-30); CREATININE 1.5 mg/dL (0.66-1.25); TOTAL PROTEIN 7.4 gm/dL (6.3-8.2)
[2017-02-02 06:22] LABS: BASO % 0.5 % (0-6); EOS % 3.3 % (0-6); GRAN % 69.1 % (47-80); HEMATOCRIT 33.2 % (42.0-52.0); HEMOGLOBIN 10.7 gm/dl (14.0-18.0); MEAN CELL VOLUME 76.1 fl (81-97); MEAN CORPUSCULAR HEMOGLOBIN 24.5 pg (27-33); MEAN CORPUSCULAR HGB CONC 32.2 g/dl (32-36); MEAN PLATELET VOLUME 9.4 fl (7.4-10.4); MONO % 12.1 % (0-9); PLATELET COUNT 377 K/uL (130-400); RED BLOOD COUNT 4.36 M/uL (4.40-5.70); WHITE BLOOD COUNT W/O DIFF 10.3 K/uL (4.2-12.2)
[2017-02-02] MEDS: NOVOLOG 70/30 FLEXPEN 100 UNITS/ML SQ SCH ×2 (08:07→17:51)
[2017-02-02] MEDS ORDERED: 0.9 % SODIUM CHLORIDE 1000ML 1,000 ML IV PRN (09:22)
[2017-02-02] MEDS ORDERED: IPRATROPIUM/ALBUTEROL (0.5MG/3MG) NEB INH PRN (09:23)
--- NOTE | 2017-02-02 09:25 | Physician Progress Note ---
Subjective - Date Date of Physician Progress Note: 02/02/17 - Subjective Subjective Comment: 02/02/17- Patient states he is having chronic joint pains from his RA. Says his shoulder and knees are really bothering him today. he did sit up in his chair for breakfast but is more comfortable laying down. Thinks his breathing might be a little better compared to yesterday. He is coughing some today but not productive. denies fevers, chills, cp. He says he typically lays in bed most days when he is at his baseline. Objective - Vital Signs Vital Signs: Vital Signs - Last 24 Hrs Temp Pulse Pulse Resp BP BP Pulse Ox 02/02/17 04:31 97.6 F 93 H 18 97/57 94 L 02/02/17 00:24 97.5 F L 89 16 91/44 97 02/01/17 21:00 97.5 F L 80 16 96/57 96 02/01/17 15:00 97.5 F L 83 14 110/58 93 L 02/01/17 09:47 97.6 F 101 H 16 113/77 94 L - General General Appearance: Alert, Oriented x3, Cooperative, No acute distress - Head Head exam: Normal inspection - Eye Eye exam: Normal appearance, PERRL Pupils: Normal accommodation - ENT ENT exam: Normal exam, Mucous membranes moist, Normal external ear exam, Normal orophraynx, TM's normal bilaterally Ear exam: Normal external inspection. negative: External canal tenderness Nasal Exam: Normal inspection. negative: Discharge, Sinus tenderness Mouth exam: Normal external inspection, Tongue normal Teeth exam: Normal inspection. negative: Dental caries Throat exam: Normal inspection. negative: Tonsillar erythema, Tonsillar exudate - Neck Neck exam: Normal inspection, Full ROM. negative: Tenderness - Respiratory Respiratory exam: Decreased breath sounds (throughout). negative: Rales, Respiratory distress - Cardiovascular Cardiovascular Exam: Normal heart sounds, Irregular rhythm, JVD (trace JVD sitting upright), Tachycardia - GI/Abdominal GI/Abdominal exam: Soft, Normal bowel sounds. negative: Tenderness - Rectal Rectal exam: Deferred - exam: Deferred - Extremities Extremities exam: Normal inspection, Full ROM, Normal capillary refill. negative: Pedal edema, Tenderness - Back Back exam: Reports: Normal inspection, Full ROM. Denies: Muscle spasm, Rash noted, Tenderness - Neurological Neurological exam: Alert, Normal gait, Oriented X3, Reflexes normal - Psychiatric Psychiatric exam: Normal affect, Normal mood - Skin Skin exam: Dry, Intact, Normal color, Warm Assessment and Plan - Assessment and Plan (1) Pneumonia Current Visit: Yes Status: Acute Qualifiers: Pneumonia type: due to unspecified organism Laterality: right Lung location: upper lobe of lung Qualified Code(s): J18.1 - Lobar pneumonia, unspecified organism Base Code: J18.9 - PNEUMONIA, UNSPECIFIED ORGANISM Comment: 02/02/17- mild improvement clinically. Still feeling short of breath with exertion. CTA done negative for PE or fluid overload but did reveal new right upper lobe infiltrate. patient has normal WBC count and is afebrile. Oxygen saturation is 94% on 2L. 2 blood cultures obtained prior to initiating abx and pending. -continue levaquin 750mg IV q24H. Discussed case with Dr. Watt. Will start with empiric CAP coverage and assess response. will add nosocomial coverage if no improvement and certainly if any worsening of symptoms with recent hospitalization -Will add solumedrol wtih concomittant emphysema. loading dose today 125mg IV. 40mg daily after that. will monitor fluid status closely with addition of steroids. -continue supplemental O2 to keep sat >92% -breathing treatment q4H prn shortness of breath -incentive spirometry -mucinex 1200mg po bid -vitals q8H -labs qam (2) CHF (congestive heart failure) Current Visit: Yes Status: Acute Qualifiers: Congestive heart failure type: systolic Congestive heart failure chronicity : unspecified congestive heart failure chronicity Qualified Code(s): I50.20 - Unspecified systolic (congestive) heart failure Base Code: I50.9 - HEART FAILURE, UNSPECIFIED Comment: 02/02/17- CTA done shows resolution of CHF findings but new right upper lobe infiltrate. Reviewed records from recent [facility] hospitalization. He had echo on 01/24/17 showing Ef of 30-35%. He was diuresed with lasix 40mg IV BID and did quite well through his stay. -continue home diuretic dose with lasix 40mg po daily as repeat imaging shows resolution of fluid overload. -daily weight -2000cc fluid restriction -low sodium diet -vitals q8H -labs qam -has follow up appointment with cardiology next Friday (3) DVT (deep venous thrombosis) Current Visit: Yes Status: Acute Qualifiers: DVT location: lower extremity Affected thrombotic vein of extremity: femoral Laterality: left Chronicity: unspecified Qualified Code(s): I82.412 - Acute embolism and thrombosis of left femoral vein Base Code: I82.409 - ACUTE EMBOLISM AND THOMBOS UNSP DEEP VN UNSP LOWER EXTREMITY Comment: 02/02/17- Patient had elevated D-Dimer while in the ED. complained of left lower extremity pain. Venous doppler showed small nonocclusive thrombus of the deep femoral vein. Radiology noted this could be chronic. Patient was recently hospitalized but had prophylactic treatment during that stay. -continue oral anticoagulation with eliquis -will do eliquis 10mg po bid for 7 days then 5mg po bid (4) Full code status Current Visit: Yes Status: Acute Base Code: Z78.9 - OTHER SPECIFIED HEALTH STATUS Comment: 02/02/17- patient is full code Results - Labs Result Diagrams: 02/02/17 05:55 02/02/17 05:55 Labs Last 24 Hours: Laboratory Results - last 24 hr 02/01/17 02/01/17 02/01/17 07:45 09:35 09:35 WBC 9.7 RBC 4.65 Hgb 11.6 L Hct 36.3 L MCV 78.1 L MCH 24.9 L MCHC 32.0 RDW 16.3 H Plt Count 391 MPV 10.1 Gran % 64.6 Lymphocytes % 17.2 Monocytes % 13.0 H Eosinophils % 4.4 Basophils % 0.8 Sodium 129 L Potassium 4.1 Chloride 93 L Carbon Dioxide 26.6 Anion Gap 9.4 BUN 29 H Creatinine 1.3 H Estimated GFR 59 POC Glucose 188 H Random Glucose 230 H Calcium 9.1 Total Bilirubin 0.88 AST 37 ALT 33 Alkaline Phosphatase 127 H Total Protein 7.7 Albumin 3.7 Globulin 4.0 Albumin/Globulin Ratio 0.9 L 02/01/17 02/01/17 02/01/17 11:50 16:40 21:34 WBC RBC Hgb Hct MCV MCH MCHC RDW Plt Count MPV Gran % Lymphocytes % Monocytes % Eosinophils % Basophils % Sodium Potassium Chloride Carbon Dioxide Anion Gap BUN Creatinine Estimated GFR POC Glucose 100 80 179 H Random Glucose Calcium Total Bilirubin AST ALT Alkaline Phosphatase Total Protein Albumin Globulin Albumin/Globulin Ratio 02/02/17 02/02/17 02/02/17 05:55 05:55 06:07 WBC 10.3 RBC 4.36 L Hgb 10.7 L Hct 33.2 L MCV 76.1 L MCH 24.5 L MCHC 32.2 RDW 16.0 H Plt Count 377 MPV 9.4 Gran % 69.1 Lymphocytes % 15.0 L Monocytes % 12.1 H Eosinophils % 3.3 Basophils % 0.5 Sodium 128 L Potassium 4.5 Chloride 91 L Carbon Dioxide 25.8 Anion Gap 11.2 BUN 35 H Creatinine 1.5 H Estimated GFR 50 POC Glucose 136 H Random Glucose 129 H Calcium 9.2 Total Bilirubin 0.72 AST 29 ALT 37 Alkaline Phosphatase 139 H Total Protein 7.4 Albumin 3.6 Globulin 3.8 Albumin/Globulin Ratio 0.9 L DVT/PE Assessment - Risk for VTE Risk for VTE: No Risk Level: High Risk Assessment Date: 01/31/17 Risk Assessment Time: 20:46 VTE Orders Placed or Will Be Placed: Yes - Active Medicaitons Current Medications: Current Medications Acetaminophen (Tylenol 500mg Tab) 500 mg PO Q6H PRN PRN Reason: PAIN/TEMP Al Hydroxide/Mg Hydroxide (Maalox) 30 ml PO Q4H PRN PRN Reason: GI UPSET Albuterol/Ipratropium (Duoneb) 3 ml INH RESP.Q4H PRN PRN Reason: shortness of breath Apixaban (Eliquis) 10 mg PO BID [facility] Last Admin: 02/01/17 22:18 Dose: 10 mg Aspirin (Ecotrin (Ec)) 81 mg PO DAILY [facility] Last Admin: 02/01/17 11:43 Dose: 81 mg Atorvastatin Calcium (Lipitor) 20 mg PO DAILY [facility] Last Admin: 02/01/17 11:45 Dose: 20 mg Carvedilol (Coreg) 12.5 mg PO BID [facility] Last Admin: 02/01/17 22:18 Dose: 12.5 mg Cyclobenzaprine HCl (Flexeril) 10 mg PO TID [facility] Last Admin: 02/01/17 22:18 Dose: 10 mg Duloxetine HCl (Cymbalta) 60 mg PO QHS [facility] Last Admin: 02/01/17 22:18 Dose: 60 mg Fluticasone Propionate (Flonase) 1 spray NA BID [facility] Last Admin: 02/01/17 22:18 Dose: 1 spray Furosemide (Lasix) 40 mg PO DAILY [facility] Last Admin: 02/01/17 11:44 Dose: 40 mg Guaifenesin (Mucinex) 1,200 mg PO BID [facility] Hydroxychloroquine Sulfate (Plaquenil) 200 mg PO DAILY [facility] Last Admin: 02/01/17 11:43 Dose: 200 mg Levofloxacin/Dextrose (Levaquin 750mg Ivpb) 750 mg in 150 mls @ 125 mls/hr IVPB Q24H [facility] Stop: 02/06/17 10:01 Last Infusion: 02/01/17 13:00 Dose: Infused Sodium Chloride () 1,000 mls @ 50 mls/hr IV .Q20H PRN PRN Reason: LARGE VOLUME IV Lisinopril (Zestril) 2.5 mg PO DAILY [facility] Last Admin: 02/01/17 11:44 Dose: 2.5 mg Metformin HCl (Glucophage Ir) 1,000 mg PO BIDWM [facility] Last Admin: 01/31/17 08:29 Dose: 1,000 mg Morphine Sulfate () 60 mg PO Q12H [facility] Last Admin: 02/02/17 02:47 Dose: 60 mg Morphine Sulfate (Morphine Sulfate) 2.5 mg IVP Q4HR PRN PRN Reason: DIFFICULTY IN BREATHING Stop: 02/07/17 03:19 Last Admin: 02/01/17 08:24 Dose: 2.5 mg Patient Own Med: (Spiriva Respimat) 2 each PUFF DAILY [facility] Last Admin: 02/01/17 09:41 Dose: 2 each Patient Own Med: (Omeprazole 20 Mg) 1 each PO Q24H [facility] Last Admin: 02/01/17 22:19 Dose: 1 each Potassium Chloride (Klor-Con) 20 meq PO DAILY [facility] Last Admin: 02/01/17 11:43 Dose: 20 meq Vitamin D (Vitamin D3) 2,000 unit PO DAILY [facility] Last Admin: 02/01/17 11:43 Dose: 2,000 unit AMI Plan - Labs Result Diagrams: 02/02/17 05:55 02/02/17 05:55
[2017-02-02] MEDS: SPIRIVA RESPIMAT PUFF SCH (09:55)
[2017-02-02] MEDS ORDERED: ALBUTEROL SULFATE (0.083%) 2.5 MG/3 ML NEB INH PRN (09:57)
[2017-02-02] MEDS: DULOXETINE HCL 30 MG CAPSULE.DR PO SCH (10:36)
[2017-02-02] MEDS: CYCLOBENZAPRINE 10MG TABLET PO SCH ×3 (10:36→22:35)
[2017-02-02] MEDS: CHOLECALCIFEROL 1,000 UNIT TABLET PO SCH (10:38)
[2017-02-02] MEDS: POTASSIUM CHLORIDE 20 MEQ TABLET PO SCH (10:39)
[2017-02-02] MEDS: FUROSEMIDE 40 MG TABLET PO SCH (10:39)
[2017-02-02] MEDS: HYDROXYCHLOROQUINE SULFATE 200 MG TABLET PO SCH (10:39)
[2017-02-02] MEDS: GUAIFENESIN 1,200 MG TABLET PO SCH ×2 (10:39→22:35)
[2017-02-02] MEDS: APIXABAN 5MG TABLET PO SCH ×2 (10:40→22:35)
[2017-02-02] MEDS: CARVEDILOL 12.5 MG TABLET PO SCH ×2 (10:41→22:36)
[2017-02-02] MEDS: ASPIRIN 81 MG TABEC PO SCH (10:41)
[2017-02-02] MEDS: LEVOFLOXACIN/D5W 750 MG/150 ML BAG IVPB SCH (10:42)
[2017-02-02] MEDS: FLUTICASONE PROPIONATE 50MCG NASAL 16 GM BTL SCH ×2 (10:42→22:35)
[2017-02-02] MEDS: LISINOPRIL 5 MG TABLET PO SCH (10:43)
[2017-02-02] MEDS: ATORVASTATIN 20 MG TABLET PO SCH (10:47)
[2017-02-02] MEDS ORDERED: METHYLPREDNISOLONE PF 125MG/VIAL IVP ONE (12:51)
--- NOTE | 2017-02-02 15:06 | CT ANGIOGRAM REPORT ---
EXAM: CT ANGIOGRAM CHEST CTA w contrast HISTORY: SHORTNESS OF BREATH. 7 LB WEIGHT GAIN SINCE FRIDAY. RECENT CHF. ELEVATED D-DIMER. LOWER EXTREMITY DVT. TECHNIQUE: CT angiography of the chest was performed with postprocessing following the bolus administration of 100 mL of Omnipaque-350. Additional coronal and sagittal maximum intensity projection reformatted images were performed on an independent workstation under concurrent supervision. COMPARISON: None. FINDINGS: The heart is normal in size. There are moderate coronary artery calcifications. There are moderate to severe atherosclerotic changes within the descending thoracic aorta with no aneurysm or dissection. The pulmonary arterial tree is normal. There is no pulmonary embolus. There is no mediastinal or hilar lymphadenopathy. There is mild focal infiltrate within the right upper lobe suggesting mild pneumonia. Mild dependent atelectasis is present within both lungs. The lungs are otherwise clear. There are no pleural effusions. There are moderate emphysematous changes within the upper lung buck. There is a 9 x 5 mm noncalcified nodule within the right lower lung just above the hemidiaphragm. Follow-up is recommended. A faint stone is present within the gallbladder with no evidence for acute cholecystitis. The upper abdomen is otherwise normal. IMPRESSION: 1. NO EVIDENCE FOR PULMONARY EMBOLUS. 2. MILD FOCAL INFILTRATE WITHIN THE RIGHT UPPER LOBE CONSISTENT WITH PNEUMONIA. 3. A 9 X 5 MM NONCALCIFIED NODULE AT THE RIGHT LUNG BASE. A FOLLOW-UP CT SCAN OF THE CHEST IS RECOMMENDED IN THREE MONTHS TO CONFIRM STABILITY OF THIS AREA. 4. MODERATE EMPHYSEMATOUS CHANGES WITHIN BOTH LUNGS. 5. MODERATE TO SEVERE ATHEROSCLEROTIC CHANGES WITHIN THE DESCENDING THORACIC AORTA WITH NO ANEURYSM OR DISSECTION. 6. MODERATE CORONARY ARTERY CALCIFICATIONS. JOB NUMBER: [id number] [facility]
[2017-02-02 20:13] LABS: ANION GAP 14.6 (7-16); CARBON DIOXIDE 23.4 mmol/L (22-30); CREATININE 1.4 mg/dL (0.66-1.25)
[2017-02-02] MEDS: OMEPRAZOLE 20 MG PO SCH (22:35)
[2017-02-03] MEDS: MORPHINE SULFATE 30MG TABLET.ER PO SCH ×3 (02:23→17:35)
[2017-02-03 06:13] LABS: HEMATOCRIT 33.5 % (42.0-52.0); HEMOGLOBIN 11.1 gm/dl (14.0-18.0); MEAN CELL VOLUME 75.5 fl (81-97); MEAN CORPUSCULAR HGB CONC 33.1 g/dl (32-36); MEAN PLATELET VOLUME 9.3 fl (7.4-10.4); PLATELET COUNT 318 K/uL (130-400); RED BLOOD COUNT 4.44 M/uL (4.40-5.70); RED CELL DISTRIBUTION WIDTH 15.9 % (11.5-14.5); WHITE BLOOD COUNT W/O DIFF 11.7 K/uL (4.2-12.2)
[2017-02-03 06:27] LABS: PLATELET ESTIMATE NORMAL (NORMAL)
[2017-02-03 06:32] LABS: ALBUMIN 4.1 gm/dL (3.5-5.0); ANION GAP 16.4 (7-16); BILIRUBIN,TOTAL 0.92 mg/dL (0.2-1.3); CARBON DIOXIDE 22.6 mmol/L (22-30); CREATININE 1.3 mg/dL (0.66-1.25); TOTAL PROTEIN 8.2 gm/dL (6.3-8.2)
--- NOTE | 2017-02-03 07:26 | Physician Progress Note ---
Subjective - Date Date of Physician Progress Note: 02/03/17 - Subjective Subjective Comment: 02/03/17-Patient states he is feeling better today. Says his shortness of breath has improved. He is not getting as winded with ambulation to the bathroom and back. He denies cough, fever, chills. appetite has improved as well. Objective - Vital Signs Vital Signs: Vital Signs - Last 24 Hrs Temp Pulse Pulse Pulse Resp BP Pulse Ox 02/03/17 06:00 97.6 F 96 H 18 116/66 94 L 02/02/17 22:00 98.7 F 102 H 18 138/78 94 L 02/02/17 17:31 97.4 F L 103 H 16 130/68 92 L 02/02/17 14:00 97.9 F 105 H 16 140/73 93 L 02/02/17 10:25 96 H 16 98 02/02/17 09:00 98.3 F 99 H 16 99/59 95 - General General Appearance: Alert, Oriented x3, Cooperative, No acute distress - Head Head exam: Normal inspection - Eye Eye exam: Normal appearance, PERRL Pupils: Normal accommodation - ENT ENT exam: Normal exam, Mucous membranes moist, Normal external ear exam, Normal orophraynx, TM's normal bilaterally Ear exam: Normal external inspection. negative: External canal tenderness Nasal Exam: Normal inspection. negative: Discharge, Sinus tenderness Mouth exam: Normal external inspection, Tongue normal Teeth exam: Normal inspection. negative: Dental caries Throat exam: Normal inspection. negative: Tonsillar erythema, Tonsillar exudate - Neck Neck exam: Normal inspection, Full ROM. negative: Tenderness - Respiratory Respiratory exam: Decreased breath sounds (RUL). negative: Rales, Respiratory distress - Cardiovascular Cardiovascular Exam: Normal heart sounds, Irregular rhythm, JVD (trace JVD sitting upright), Tachycardia - GI/Abdominal GI/Abdominal exam: Soft, Normal bowel sounds. negative: Tenderness - Rectal Rectal exam: Deferred - exam: Deferred - Extremities Extremities exam: Normal inspection, Full ROM, Normal capillary refill. negative: Pedal edema, Tenderness - Back Back exam: Reports: Normal inspection, Full ROM. Denies: Muscle spasm, Rash noted, Tenderness - Neurological Neurological exam: Alert, Normal gait, Oriented X3, Reflexes normal - Psychiatric Psychiatric exam: Normal affect, Normal mood - Skin Skin exam: Dry, Intact, Normal color, Warm Assessment and Plan - Assessment and Plan (1) Pneumonia Current Visit: Yes Status: Acute Qualifiers: Pneumonia type: due to unspecified organism Laterality: right Lung location: upper lobe of lung Qualified Code(s): J18.1 - Lobar pneumonia, unspecified organism Base Code: J18.9 - PNEUMONIA, UNSPECIFIED ORGANISM Comment: 02/03/17- improving. shortness of breath improved from yesterday. CTA done 01/31/17 negative for PE or fluid overload but did reveal new right upper lobe infiltrate. patient has normal WBC count and is afebrile. Oxygen saturation is 93% on RA. 2 blood cultures obtained prior to initiating abx and pending. -continue levaquin 750mg IV q24H. -continue solumedrol 40mg IVP daily wtih concomittant emphysema. will monitor fluid status closely with addition of steroids. -continue supplemental O2 to keep sat >92% -breathing treatment q4H prn shortness of breath -incentive spirometry -mucinex 1200mg po bid -vitals q8H -labs qam (2) CHF (congestive heart failure) Current Visit: Yes Status: Acute Qualifiers: Congestive heart failure type: systolic Congestive heart failure chronicity : unspecified congestive heart failure chronicity Qualified Code(s): I50.20 - Unspecified systolic (congestive) heart failure Base Code: I50.9 - HEART FAILURE, UNSPECIFIED Comment: 02/03/17- CTA done shows resolution of CHF findings but new right upper lobe infiltrate. Reviewed records from recent [facility] hospitalization. He had echo on 01/24/17 showing Ef of 30-35%. He was diuresed with lasix 40mg IV BID and did quite well through his stay. -continue home diuretic dose with lasix 40mg po daily as repeat imaging shows resolution of fluid overload. 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 Nursing had also been holding his night time insulin appropriately due to blood sugar of 102. His metformin was held past day following contrast dye use. -will resume metformin 1000mg po bid -will resume insulin 70/30 34units bid -continue accucheck QID -will treat wtih steroid burst (5 days) vs taper to avoid prolonged hyperglycemia (4) DVT (deep venous thrombosis) Current Visit: Yes Status: Acute Qualifiers: DVT location: lower extremity Affected thrombotic vein of extremity: femoral Laterality: left Chronicity: unspecified Qualified Code(s): I82.412 - Acute embolism and thrombosis of left femoral vein Base Code: I82.409 - ACUTE EMBOLISM AND THOMBOS UNSP DEEP VN UNSP LOWER EXTREMITY Comment: 02/03/17- Patient had elevated D-Dimer while in the ED. complained of left lower extremity pain. Venous doppler showed small nonocclusive thrombus of the deep femoral vein. Radiology noted this could be chronic. Patient was recently hospitalized but had prophylactic treatment during that stay. -continue oral anticoagulation with eliquis -will do eliquis 10mg po bid for 7 days then 5mg po bid (5) Physical deconditioning Current Visit: Yes Status: Acute Base Code: R53.81 - OTHER [place] Comment : 02/03/17- patient is physically deconditioned due to sedentary lifestyle -PT/OT consult (6) Full code status Current Visit: Yes Status: Acute Base Code: Z78.9 - OTHER SPECIFIED HEALTH STATUS Comment: 02/03/17- patient is full code Results - Labs Result Diagrams: 02/03/17 06:00 02/03/17 06:00 Labs Last 24 Hours: Laboratory Results - last 24 hr 02/02/17 02/02/17 02/02/17 11:30 17:00 20:00 WBC RBC Hgb Hct MCV MCH MCHC RDW Plt Count MPV Neutrophils % Eosinophils % Basophils % Lymphocytes Monocytes Platelet Estimate RBC Morphology Sodium 129 L Potassium 4.5 Chloride 91 L Carbon Dioxide 23.4 Anion Gap 14.6 BUN 33 H Creatinine 1.4 H Estimated GFR 54 POC Glucose 102 109 Random Glucose 162 H Calcium 9.5 Total Bilirubin AST ALT Alkaline Phosphatase Total Protein Albumin Globulin Albumin/Globulin Ratio 02/03/17 02/03/17 06:00 06:00 WBC 11.7 RBC 4.44 Hgb 11.1 L Hct 33.5 L MCV 75.5 L MCH 25.0 L MCHC 33.1 RDW 15.9 H Plt Count 318 MPV 9.3 Neutrophils % 91.0 H Eosinophils % Not Reportable Basophils % Not Reportable Lymphocytes 1.0 L Monocytes 8.0 Platelet Estimate Normal RBC Morphology Normal Sodium 129 L Potassium 4.5 Chloride 90 L Carbon Dioxide 22.6 Anion Gap 16.4 H BUN 35 H Creatinine 1.3 H Estimated GFR 59 POC Glucose Random Glucose 323 H Calcium 9.2 Total Bilirubin 0.92 AST 20 ALT 29 Alkaline Phosphatase 138 H Total Protein 8.2 Albumin 4.1 Globulin 4.1 Albumin/Globulin Ratio 1.0 L DVT/PE Assessment - Risk for VTE Risk for VTE: No Risk Level: High Risk Assessment Date: 01/31/17 Risk Assessment Time: 20:46 VTE Orders Placed or Will Be Placed: Yes - Active Medicaitons Current Medications: Current Medications Acetaminophen (Tylenol 500mg Tab) 500 mg PO Q6H PRN PRN Reason: PAIN/TEMP Al Hydroxide/Mg Hydroxide (Maalox) 30 ml PO Q4H PRN PRN Reason: GI UPSET Albuterol Sulfate () 2.5 mg INH RESP.Q4H PRN PRN Reason: DIFFICULTY IN BREATHING Apixaban (Eliquis) 10 mg PO BID [facility] Last Admin: 02/02/17 22:35 Dose: 10 mg Aspirin (Ecotrin (Ec)) 81 mg PO DAILY [facility] Last Admin: 02/02/17 10:41 Dose: Not Given Atorvastatin Calcium (Lipitor) 20 mg PO DAILY [facility] Last Admin: 02/02/17 10:47 Dose: 20 mg Carvedilol (Coreg) 12.5 mg PO BID [facility] Last Admin: 02/02/17 22:36 Dose: 12.5 mg Cyclobenzaprine HCl (Flexeril) 10 mg PO TID [facility] Last Admin: 02/02/17 22:35 Dose: 10 mg Duloxetine HCl (Cymbalta) 60 mg PO QHS [facility] Last Admin: 02/02/17 10:36 Dose: 60 mg Fluticasone Propionate (Flonase) 1 spray NA BID [facility] Last Admin: 02/02/17 22:35 Dose: Not Given Furosemide (Lasix) 40 mg PO DAILY [facility] Last Admin: 02/02/17 10:39 Dose: 40 mg Guaifenesin (Mucinex) 1,200 mg PO BID [facility] Last Admin: 02/02/17 22:35 Dose: 1,200 mg Hydroxychloroquine Sulfate (Plaquenil) 200 mg PO DAILY [facility] Last Admin: 02/02/17 10:39 Dose: 200 mg Levofloxacin/Dextrose (Levaquin 750mg Ivpb) 750 mg in 150 mls @ 125 mls/hr IVPB Q24H [facility] Stop: 02/06/17 10:01 Last Infusion: 02/02/17 12:04 Dose: Infused Sodium Chloride () 1,000 mls @ 50 mls/hr IV .Q20H PRN PRN Reason: LARGE VOLUME IV Last Admin: 02/02/17 10:48 Dose: 50 mls/hr Lisinopril (Zestril) 2.5 mg PO DAILY [facility] Last Admin: 02/02/17 10:43 Dose: Not Given Metformin HCl (Glucophage Ir) 1,000 mg PO BIDWM [facility] Last Admin: 01/31/17 08:29 Dose: 1,000 mg Methylprednisolone Sodium Succinate (Solu-Medrol) 40 mg IVP DAILY [facility] Morphine Sulfate () 60 mg PO Q12H [facility] Last Admin: 02/03/17 03:55 Dose: Not Given Patient Own Med: (Spiriva Respimat) 2 each PUFF DAILY [facility] Last Admin: 02/02/17 09:55 Dose: 2 each Patient Own Med: (Omeprazole 20 Mg) 1 each PO Q24H [facility] Last Admin: 02/02/17 22:35 Dose: 1 each Potassium Chloride (Klor-Con) 20 meq PO DAILY [facility] Last Admin: 02/02/17 10:39 Dose: 20 meq Vitamin D (Vitamin D3) 2,000 unit PO DAILY [facility] Last Admin: 02/02/17 10:38 Dose: 2,000 unit AMI Plan - Labs Result Diagrams: 02/03/17 06:00 02/03/17 06:00
[2017-02-03] MEDS: NOVOLOG 70/30 FLEXPEN 100 UNITS/ML SQ SCH ×2 (08:07→17:51)
[2017-02-03] MEDS: METFORMIN 500 MG TABLET PO SCH ×2 (08:09→17:34)
[2017-02-03] MEDS: SPIRIVA RESPIMAT PUFF SCH (09:38)
[2017-02-03] MEDS: LISINOPRIL 5 MG TABLET PO SCH (10:46)
[2017-02-03] MEDS: ASPIRIN 81 MG TABEC PO SCH (10:46)
[2017-02-03] MEDS: HYDROXYCHLOROQUINE SULFATE 200 MG TABLET PO SCH (10:46)
[2017-02-03] MEDS: POTASSIUM CHLORIDE 20 MEQ TABLET PO SCH (10:46)
[2017-02-03] MEDS: GUAIFENESIN 1,200 MG TABLET PO SCH ×2 (10:47→22:04)
[2017-02-03] MEDS: CHOLECALCIFEROL 1,000 UNIT TABLET PO SCH (10:47)
[2017-02-03] MEDS: FUROSEMIDE 40 MG TABLET PO SCH (10:47)
[2017-02-03] MEDS: ATORVASTATIN 20 MG TABLET PO SCH (10:47)
[2017-02-03] MEDS: APIXABAN 5MG TABLET PO SCH ×2 (10:48→22:03)
[2017-02-03] MEDS: CYCLOBENZAPRINE 10MG TABLET PO SCH ×3 (10:48→22:02)
[2017-02-03] MEDS: METHYLPREDNISOLONE PF 125MG/VIAL IVP SCH (10:49)
[2017-02-03] MEDS: CARVEDILOL 12.5 MG TABLET PO SCH ×2 (11:40→22:03)
--- NOTE | 2017-02-03 11:44 | Rehab Evaluation ---
Patient Information - Patient Information Diagnosis: CHF exacerbation Ordered Treatment: PT Evaluate and Treat Status: Initial Evaluation History: Detail (The patient presented in ED on 01/31. The patient was discharged from [facility] on 01/26 , however patient reports his LE edema persisted with a weight gain of 7# in 5 days. The patient was admitted to the inpatient unit and is referred to PT for an assessement. The patient fell in the bathroom over the weekend per nursing staff.) Past Medical/Surgical Hx: PAST MEDICAL/SURGICAL HISTORY Past Surgical History Right knee surgery hemorrhoidectomyx3 PMH - Respiratory Hx Respiratory Disorders Yes Hx Sleep Apnea Yes: has issues but does not use C-PAP PMH - Cardiovascular Hx Cardiovascular Disorders Yes Hx Abnormal EKG Yes: hx of bigeminy Hx Congestive Heart Failure Yes Hx Edema Yes Hx Hypertension Yes Hx Irregular Heartbeat Yes PMH - Neuro Hx Neurological Disorders No Hx Neuropathy Yes PMH - GI Hx Gastrointestinal Disorders Yes Hx Gastroesophageal Reflux Yes PMH - Hx Genitourinary Disorders No PMH - Endocrine Hx Endocrine Disorders Yes Hx Diabetes Yes: for 20 years Hx Thyroid Disease No PMH - Musculoskeletal Hx Musculoskeletal Disorders Yes Hx Arthritis Yes Comment: Rheumatoid PMH - Psych Hx Psychiatric Problems No PMH - Hematology/Oncology Hx Hematology/Oncology No Disorders Premorbid Status: Detail (The patient was independent with mobility and using a wheeled walker for ambulating distances and a cane for household distances.) Social History: Detail (The patient lives in a bilevel home with his sister and her . The home has chair lifts on both stairways and one step without a railing at the home enterance. The patient lives in the [place] [facility] beds [facility] the [facility] primarily which has his bedroom, bathroom and kitchen . The downstairs bathroom has a tub/shower combination with a sliding glass door and a standard toilet without grab bars. The patient states he has a shower chair. The upstairs bathroom is a shower stall with a seat and grab bars. The patient is alone per his report for most of the day and does his own cooking and cleaning. His sister does his laundry. The patient has a standard cane, two wheeled and an ellipitical machine that he uses twice a week.) Precautions: [place], Fall - Time With Patient Total Time Spent With Patient (Min): 25 Subjective Information - Subjective Information Per Patient (The patient compained of lightheadness with standing and walking.) Objective Data - Pain Pain Present: Yes (The patient complained of pain in L shoulder and bilateral knees.) Pain Intensity: 8 Pain Scale Used: Numeric (1 - 10) - Mental Status Patient Orientation: Oriented x3 - Visual Perception Appears within normal limits for therapeutic activities - ROM Not within normal limits (LE AROM was WNL except bilateral knee AROM which was limited to 90 degrees due to pain complaints. Refer to OT note for UE AROM.) - Strength/Tone Not within normal limits (The patients LE strength was bilaterally hip musculature 4+/5, hamstrings 4/5, quadriceps 4+/5, ankle musculature 4+/5.) - Bed Mobility Independent (The patient was independent with supine to and from sit.) - Transfers Needs Assist (The patient was independent with sit to stand. Supervision with toilet transfer is recommended due to complaints of lightheadness.) - Balance Balance Sitting: Fair (The patient lost his balance when putting on his O2.) Balance Standing: Fair (The patient's balance was not formally tested secondary to complaints of fatigue. The patient required a cane for support.) - Sensation Deficit (The patient's LE sensation to light touch is absent from mid echols to toes due to neuropathy.) - Gait Detail (The patient ambulated with standard cane 26 feet x 1 with 2 Lof O2 and with supervision for safety. The patient ambulated with decreased gait speed, increased trunk sway and cautious steps due to lightheadiness.) Therapy Assessment - Therapy Assessment Detail (The patient exhibits decreased LE strength, decreased balance and decreased ability to complete sustained physical activity. The patient's symptoms of lightheadness were affecting his balance. Feel the patient would benefit from PT to increase LE strength, ability to complete sustained physical activities and balance. At this point the patient would benefit from ongoing PT to return to previous functional level and require supervision in home environment secondary to lightheadness.) Problem List - Problem List Physical Therapy Problem List: Detail (1)Decreased LE strength 2) Decreased Balance 3) Supervision with ambulation and transfers due to lightheadness 4) Decreased ability to complete sustained physical activity) Goals - Goals Physical Therapy Goals: 1) Evaluate the patient's balance using standardized balance test. 2) The patient will ambulate independent with assistive device distances of 50 feet plus. 3) The patient will be independent with all transfers. 4) The patient will tolerate 20 to 25 minutes of physical activity with one rest period. Prognosis - Prognosis Moderate Plan - Plan Physical Therapy Plan: PT M-F once daily for balance and LE strengthening exercises, transfer and gait training.
[2017-02-03] MEDS: LEVOFLOXACIN/D5W 750 MG/150 ML BAG IVPB SCH (13:00)
--- NOTE | 2017-02-03 13:45 | Rehab Evaluation ---
Patient Information - Patient Information Diagnosis: CHF exacerbation Ordered Treatment: OT Evaluate and Treat Status: Initial Evaluation History: Detail (The patient presented in ED on 01/31. The patient was discharged from [facility] on 01/26 , however patient reports his LE edema persisted with a weight gain of 7# in 5 days. The patient was admitted to the inpatient unit and is referred to OT for an assessement. The patient fell in the bathroom over the weekend per nursing staff.) Past Medical/Surgical Hx: PAST MEDICAL/SURGICAL HISTORY Past Surgical History Right knee surgery hemorrhoidectomyx3 PMH - Respiratory Hx Respiratory Disorders Yes Hx Sleep Apnea Yes: has issues but does not use C-PAP PMH - Cardiovascular Hx Cardiovascular Disorders Yes Hx Abnormal EKG Yes: hx of bigeminy Hx Congestive Heart Failure Yes Hx Edema Yes Hx Hypertension Yes Hx Irregular Heartbeat Yes PMH - Neuro Hx Neurological Disorders No Hx Neuropathy Yes PMH - GI Hx Gastrointestinal Disorders Yes Hx Gastroesophageal Reflux Yes PMH - Hx Genitourinary Disorders No PMH - Endocrine Hx Endocrine Disorders Yes Hx Diabetes Yes: for 20 years Hx Thyroid Disease No PMH - Musculoskeletal Hx Musculoskeletal Disorders Yes Hx Arthritis Yes Comment: Rheumatoid PMH - Psych Hx Psychiatric Problems No PMH - Hematology/Oncology Hx Hematology/Oncology No Disorders Premorbid Status: Detail (The patient was independent with mobility and using a wheeled walker for ambulating distances and a cane for household distances. 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 The home has chair lifts on both stairways and one step without a railing at the home enterance. The patient lives in the downstairs primarily which has his bedroom, bathroom and kitchen . The downstairs bathroom has a tub/shower combination with a sliding glass door and a standard toilet without grab bars. The patient states he has a shower chair. The upstairs bathroom is a shower stall with a seat and grab bars. The patient is alone per his report for most of the day and does his own cooking and cleaning. His sister does his laundry. The patient has a standard cane, two wheeled and an ellipitical machine that he uses twice a week.) Precautions: [place], Fall - Time With Patient Total Time Spent With Patient (Min): 20 Treatment Procedures: Detail (OT evaluation LOW) Subjective Information - Subjective Information Per Patient (Patient not wanting to get out of bed or to trial doffing socks.) Objective Data - Pain Pain Present: Yes (L shld and [place]. knees) Pain Intensity: 8 Pain Scale Used: Numeric (1 - 10) - Mental Status Patient Orientation: Oriented x3 - Visual Perception Appears within normal limits for therapeutic activities - ROM Not within normal limits (RUE WNL for shld, elbow and wrist. LUE shld ROM impaired. L Shld flex to approx 70 deg w/ reports of pain. Shld abd approx 60 deg w/ pain. L Elbow flex & ext WNL but w/ facial grimacing due to subjective reports of pain in L shld.) - Strength/Tone Within normal limits, Not within normal limits (RUE: shld flex/ext 4/5, shld abd /add 4/5, Elbow flex/ext 4+/5, Wrist strength not tested secondary to IV. Weakness R gross grasp. LUE: Shld flex/ext 3/5 w/pain, Shld abd/add 3/5 pain. Elbow flex/ext 4/5, wrist flex/ext 4/5, weakness in L gross grasp) - Coordination Appears within normal limits for therapeutic activities - ADL's/IADL's Detail (Refer to PT evaluation for balance & t/f's. Pt was sleeping upon arrival and required assistance from g staff to wake up. Once awake, willing to go through eval. Pt refused to trial LB drsg or sock don/doff stating "not right now." He refused showering w/ OT. Pt does state that he has difficulty with LB drsg secondary to decreased ROM to reach BLE's, he feels he may need some ADL equipment. Pt will need to be further evaluated for ADLs. Pt states he "thinks" there are grab bars in shower. He has a shower chair available but stands to shower when at home.) Therapy Assessment - Therapy Assessment Detail (Pt sleepy and refused any drsg evaluation or showering. Further OT evaluation of ADLs will be needed before fully knowing pt's needs at home. He presents with BUE weakness and decreased ROM in left shld. Pt reports thinking L shld ROM has decreased since his admittance into hospital. Pt c/o 03/13 pain in L shld. Feel pt would benefit from further skilled OT services to address decreased ind. w/ ADLs, ADL equipment needs, and for BUE strengthening and ROM ex's.) Problem List - Problem List Physical Therapy Problem List: Detail (1)Decreased LE strength 2) Decreased Balance 3) Supervision with ambulation and transfers due to lightheadness 4) Decreased ability to complete sustained physical activity) Occupational Therapy Problem List: Detail (1. Unable to evaluate ADLs 2. Weakness BUE's with Left worse then Right 3. Subjective report of decreased ind. with ADLs 4. Decreased knowledge of ADL equipment 5. Decreased ROM Left shld) Goals - Goals Physical Therapy Goals: 1) Evaluate the patient's balance using standardized balance test. 2) The patient will ambulate independent with assistive device distances of 50 feet plus. 3) The patient will be independent with all transfers. 4) The patient will tolerate 20 to 25 minutes of physical activity with one rest period. Occupational Therapy Goals: 1. Further evaluate ADLs to include drsg and if possible showering. 2. Pt to be ind w/ UB drsg. 3. Pt to be ind w/ LB drsg using ADL equipment if needed. 4. Pt to be ind w/ HEP for BUE strengthening & ROM Prognosis - Prognosis Good, Moderate Plan - Plan Physical Therapy Plan: PT M-F once daily for balance and LE strengthening exercises, transfer and gait training. Occupational Therapy Plan: OT to further evaluate and treat 2-4x per week M-F to address BUE weakness, pain, decreased independence with ADLs, and decreased knowledge of ADL equipment.
[2017-02-03] MEDS: FLUTICASONE PROPIONATE 50MCG NASAL 16 GM BTL SCH ×2 (19:26→22:04)
[2017-02-03] MEDS: OMEPRAZOLE 20 MG PO SCH (22:02)
[2017-02-03] MEDS: DULOXETINE HCL 30 MG CAPSULE.DR PO SCH (22:03)
[2017-02-04] MEDS: MORPHINE SULFATE 30MG TABLET.ER PO SCH (04:11)
[2017-02-04 05:53] LABS: HEMATOCRIT 32.1 % (42.0-52.0); HEMOGLOBIN 10.3 gm/dl (14.0-18.0); MEAN CELL VOLUME 77.7 fl (81-97); MEAN CORPUSCULAR HEMOGLOBIN 24.9 pg (27-33); MEAN CORPUSCULAR HGB CONC 32.1 g/dl (32-36); MEAN PLATELET VOLUME 9.5 fl (7.4-10.4); PLATELET COUNT 307 K/uL (130-400); RED BLOOD COUNT 4.13 M/uL (4.40-5.70); RED CELL DISTRIBUTION WIDTH 16.3 % (11.5-14.5); WHITE BLOOD COUNT W/O DIFF 16.1 K/uL (4.2-12.2)
[2017-02-04 06:10] LABS: ALB/GLOB RATIO 0.9 (1.1-1.8); ALBUMIN 3.5 gm/dL (3.5-5.0); ANION GAP 13.9 (7-16); BILIRUBIN,TOTAL 0.71 mg/dL (0.2-1.3); CARBON DIOXIDE 23.1 mmol/L (22-30); CREATININE 1.3 mg/dL (0.66-1.25); TOTAL PROTEIN 7.3 gm/dL (6.3-8.2)
[2017-02-04 06:17] LABS: PLATELET ESTIMATE NORMAL (NORMAL)
[2017-02-04] MEDS: METFORMIN 500 MG TABLET PO SCH (08:04)
[2017-02-04] MEDS: NOVOLOG 70/30 FLEXPEN 100 UNITS/ML SQ SCH (08:37)
[2017-02-04] MEDS: SPIRIVA RESPIMAT PUFF SCH (09:56)
[2017-02-04] MEDS: ATORVASTATIN 20 MG TABLET PO SCH (10:59)
[2017-02-04] MEDS: POTASSIUM CHLORIDE 20 MEQ TABLET PO SCH (11:00)
[2017-02-04] MEDS: CYCLOBENZAPRINE 10MG TABLET PO SCH (11:00)
[2017-02-04] MEDS: LISINOPRIL 5 MG TABLET PO SCH (11:00)
[2017-02-04] MEDS: GUAIFENESIN 1,200 MG TABLET PO SCH ×2 (11:01→11:07)
[2017-02-04] MEDS: CHOLECALCIFEROL 1,000 UNIT TABLET PO SCH (11:01)
[2017-02-04] MEDS: HYDROXYCHLOROQUINE SULFATE 200 MG TABLET PO SCH (11:01)
[2017-02-04] MEDS: CARVEDILOL 12.5 MG TABLET PO SCH (11:01)
[2017-02-04] MEDS: FUROSEMIDE 40 MG TABLET PO SCH (11:01)
[2017-02-04] MEDS: ASPIRIN 81 MG TABEC PO SCH (11:02)
[2017-02-04] MEDS: APIXABAN 5MG TABLET PO SCH (11:02)
[2017-02-04] MEDS: METHYLPREDNISOLONE PF 125MG/VIAL IVP SCH (11:03)
[2017-02-04] MEDS: FLUTICASONE PROPIONATE 50MCG NASAL 16 GM BTL SCH (11:03)
[2017-02-04] MEDS: LEVOFLOXACIN/D5W 750 MG/150 ML BAG IVPB SCH (11:49)
--- NOTE | 2017-02-04 12:01 | Discharge Summary ---
Providers Discharge Summary Date: 02/04/17 Date of admission: 01/31/17 03:06 Expected Date of Discharge: 02/04/17 Attending physician: VALENTINA TAN Physical Exam - Vital Signs Vital Signs: Vital Signs - Last 24 Hrs Temp Pulse Pulse Resp BP Pulse Ox 02/04/17 10:00 97 02/04/17 09:00 16 02/04/17 08:00 97.4 F L 103 H 16 117/63 97 02/04/17 04:00 97.6 F 99 H 16 94/58 95 02/03/17 23:35 98.0 F 96 H 16 97/56 96 02/03/17 20:00 97.8 F 96 H 16 102/63 95 02/03/17 14:00 97.7 F 91 H 14 105/67 93 L - General General Appearance: Alert, Oriented x3, Cooperative, No acute distress - Head Head exam: Normal inspection - Eye Eye exam: Normal appearance, PERRL Pupils: Normal accommodation - ENT ENT exam: Normal exam, Mucous membranes moist, Normal external ear exam, Normal orophraynx, TM's normal bilaterally Ear exam: Normal external inspection. negative: External canal tenderness Nasal Exam: Normal inspection. negative: Discharge, Sinus tenderness Mouth exam: Normal external inspection, Tongue normal Teeth exam: Normal inspection. negative: Dental caries Throat exam: Normal inspection. negative: Tonsillar erythema, Tonsillar exudate - Neck Neck exam: Normal inspection, Full ROM. negative: Tenderness - Respiratory Respiratory exam: Rales (few crackles in the right upper/middle lobe). negative : Respiratory distress - Cardiovascular Cardiovascular Exam: Normal heart sounds, Irregular rhythm, JVD (trace JVD sitting upright), Tachycardia - GI/Abdominal GI/Abdominal exam: Soft, Normal bowel sounds. negative: Tenderness - Rectal Rectal exam: Deferred - exam: Deferred - Extremities Extremities exam: Normal inspection, Full ROM, Normal capillary refill. negative: Pedal edema, Tenderness - Back Back exam: Reports: Normal inspection, Full ROM. Denies: Muscle spasm, Rash noted, Tenderness - Neurological Neurological exam: Alert, Normal gait, Oriented X3, Reflexes normal - Psychiatric Psychiatric exam: Normal affect, Normal mood - Skin Skin exam: Dry, Intact, Normal color, Warm Hospitalization - Hospitalization Admission Diagnosis: Congestive heart failure; ventricular bigeminy - Problem List/Discharge Diagnosis (1) Pneumonia Current Visit: Yes Status: Acute Discharge Diagnosis: Pneumonia type: due to unspecified organism Laterality: right Lung location: upper lobe of lung Qualified Code(s): J18.1 - Lobar pneumonia, unspecified organism Base Code: J18.9 - PNEUMONIA, UNSPECIFIED ORGANISM Comment: 02/04/17- Continues to improve. shortness of breath resolved. CTA done 01/31/17 negative for PE or fluid overload but did reveal new right upper lobe infiltrate. WBC count up to 16 today following administration of steroids x2 days. patient remains afebrile. Oxygen saturation is 97% on RA. Both prelim blood cultures with no growth. -continue levaquin 500mg po daily x4 more days total 7 day course -continue prednisone 40mg po daily x 2 more days. -incentive spirometry QID at home -mucinex 1200mg po bid for 5 more days -patient will call tomorrow to schedule follow up [facility] PCP. office closed today for holiday (2) CHF (congestive heart failure) Current Visit: Yes Status: Acute Discharge Diagnosis: Congestive heart failure type: systolic Congestive heart failure chronicity : unspecified congestive heart failure chronicity Qualified Code(s): I50.20 - Unspecified systolic (congestive) heart failure Base Code: I50.9 - HEART FAILURE, UNSPECIFIED Comment: 02/04/17- CTA done shows resolution of CHF findings but new right upper lobe infiltrate. Reviewed records from recent [facility] hospitalization. He had echo on 01/24/17 showing Ef of 30-35%. He was diuresed with lasix 40mg IV BID and did quite well through his stay. -continue home diuretic dose with lasix 40mg po daily as repeat imaging shows resolution of fluid overload. -[facility] fluid restriction -low sodium diet -has follow up appointment with cardiology tomorrow (3) T2DM (type 2 diabetes mellitus) Current Visit: Yes Status: Acute Discharge Diagnosis: Diabetes mellitus complication status: with neurologic complications Diabetes mellitus complication detail: with polyneuropathy Diabetes mellitus jail insulin use: with joint terminal attack controller use Qualified Code(s): E11.42 - Type 2 diabetes mellitus with diabetic polyneuropathy; Z79.4 - terminologist (current) use of insulin Base Code: E11.9 - TYPE 2 DIABETES MELLITUS WITHOUT COMPLICATIONS Comment: 11/18-Blood sugar improved with restarting home medications. Nursing had also been holding his night time insulin appropriately due to blood sugar of 102. His metformin was held past day following contrast dye use. Both have been restarted and blood sugar at 142 today down from >300 yesterday. -continue metformin 1000mg po bid -continue insulin 70/30 34units bid -will treat wtih steroid burst (5 days) vs taper to avoid prolonged hyperglycemia -patient will call to make apt. with pcp tomorrow (4) DVT (deep venous thrombosis) Current Visit: Yes Status: Acute Discharge Diagnosis: DVT location: lower extremity Affected thrombotic vein of extremity: femoral Laterality: left Chronicity: unspecified Qualified Code(s): I82.412 - Acute embolism and thrombosis of left femoral vein Base Code: I82.409 - ACUTE EMBOLISM AND THOMBOS UNSP DEEP VN UNSP LOWER EXTREMITY Comment: 02/04/17- Patient had elevated D-Dimer while in the ED. complained of left lower extremity pain. Venous doppler showed small nonocclusive thrombus of the deep femoral vein. Radiology noted this could be chronic. Patient was recently hospitalized but had prophylactic treatment during that stay. -continue oral anticoagulation with eliquis -will do eliquis 10mg po bid for 7 days then 5mg po bid (5) Physical deconditioning Current Visit: Yes Status: Acute Base Code: R53.81 - OTHER MALAISE Comment : 02/04/17- patient is physically deconditioned due to sedentary lifestyle -PT/OT consulted and patient is safe to discharge. (6) Full code status Current Visit: Yes Status: Acute Base Code: Z78.9 - OTHER SPECIFIED HEALTH STATUS Comment: 02/04/17- patient is full code - Hospitalization Course Disposition: Home, Self-Care Hospital Course: 66yo male with CC of shortness of breath. He has history of T2DM, rheumatoid arthritis, DM neuropathy, irregular heart rhythm (bigeminy), HTN in addition to CHF. He was recently admitted to [facility] for fluid overload. He was discharged from [facility] on 01/26/17 on lasix 40mg po daily. Since being home he has continued to worsen: his swollen feet have increased into swelling up to below his knees, he has gained 7 pounds of weight in 5 days , and he has been sleeping upright in his chair, unable to sleep at all. He has had brief episodes of CP which last less than 5 minutes and decided to come in to the ED. While in the ED, Patient had EKG which showed no acute changes from previous visit or recent [facility] hospitalization. His CXR showed findings consistent with mild pulmonary edema due to fluid overload. His BNP was 738. CBC and CMP were unremarkable. oxygen saturation of 97% on room air. Patient did have elevated D-dimer at 4.05. ED physician Discussed case with Dr. Manuel HOLLAND who was comfortable with him being treated for CHF at [facility]. He will see the patient next week in the [facility] office for follow up after his diuresis here. Dr. Jackson states there is no indication for another ECHO, and the rhythm he currently is in does not need anti arrhythmic medication. the patient was admitted for CHF exacerbation. 01/31/17- patient states he is feeling better but not much. He says he thinks the swelling in his legs have gone down some. He says he is a little less short of breath and is urinating frequently. He denies any chest pain here as well as nausea, fatigue, sweating, jaw pain. He had echo done while hospitalized last week for CHF exacerbation and showed EF of 30-35%. He was sent home on lasix 40mg po daily. he denies missing any doses. Sister states she thinks he isn't eating the right food, sticking to a low sodium diet. He has follow up on Friday with cardiology. He does state his left foot is in pain but thinks it is from his RA. 02/01/17- Patient states he feels about the same as yesterday. Still feeling short of breath with exertion and just fatigued. he is not coughing up phlegm. He denies chest pain. says the swelling in his feet has gone down. No fevers, chills. 02/02/17- Patient states he is having chronic joint pains from his RA. Says his shoulder and knees are really bothering him today. he did sit up in his chair for breakfast but is more comfortable laying down. Thinks his breathing might be a little better compared to yesterday. He is coughing some today but not productive. denies fevers, chills, cp. He says he typically lays in bed most days when he is at his baseline. 02/03/17-Patient states he is feeling better today. Says his shortness of breath has improved. He is not getting as winded with ambulation to the bathroom and back. He denies cough, fever, chills. appetite has improved as well. 02/04/17-Patient continues to improve. He says he is no longer short of breath and energy levels have improved. Has been up and forth to the bathroom without assistance. Says he is not having any lower extremity swelling, chest pain, cough, fatigue. He has cardiology follow up tomorrow. Procedures: Imaging and X-Rays 01/31/17 11:08 VENOUS DOPPLER LOWER EXT LT [US] Stat 01/31/17 16:09 CHEST CTA w contrast [CTA] Stat Abnormal Labs: Abnormal Lab Results 01/31/17 01/31/17 01/31/17 Range/Units 08:04 08:09 11:30 WBC (4.2-12.2) K/uL RBC (4.40-5.70) M/uL Hgb (14.0-18.0) gm/dl Hct (42.0-52.0) % MCV (81-97) fl MCH (27-33) pg RDW (11.5-14.5) % Neutrophils % (47-80) % Lymphocytes % (16-45) % Monocytes % (0-9) % Lymphocytes (16-45) % Sodium (136-145) mmol/L Chloride (98-107) mmol/L Anion Gap (7-16) BUN (9-20) mg/dL Creatinine (0.66-1.25) mg/dL POC Glucose 238 H 277 H (70-110) mg/dL Random Glucose (70-110) mg/dL ALT (21-72) U/L Alkaline Phosphatase (38-126) U/L NT-Pro-B Natriuret Pep 746.00 H (<125) pg/mL Albumin/Globulin Ratio (1.1-1.8) 01/31/17 02/01/17 02/01/17 Range/Units 22:00 07:45 09:35 WBC (4.2-12.2) K/uL RBC (4.40-5.70) M/uL Hgb (14.0-18.0) gm/dl Hct (42.0-52.0) % MCV (81-97) fl MCH (27-33) pg RDW (11.5-14.5) % Neutrophils % (47-80) % Lymphocytes % (16-45) % Monocytes % (0-9) % Lymphocytes (16-45) % Sodium 129 L (136-145) mmol/L Chloride 93 L (98-107) mmol/L Anion Gap (7-16) BUN 29 H (9-20) mg/dL Creatinine 1.3 H (0.66-1.25) mg/dL POC Glucose 166 H 188 H (70-110) mg/dL Random Glucose 230 H (70-110) mg/dL ALT (21-72) U/L Alkaline Phosphatase 127 H (38-126) U/L NT-Pro-B Natriuret Pep (<125) pg/mL Albumin/Globulin Ratio 0.9 L (1.1-1.8) 02/01/17 02/01/17 02/02/17 Range/Units 09:35 21:34 05:55 WBC (4.2-12.2) K/uL RBC 4.36 L (4.40-5.70) M/uL Hgb 11.6 L 10.7 L (14.0-18.0) gm/dl Hct 36.3 L 33.2 L (42.0-52.0) % MCV 78.1 L 76.1 L (81-97) fl MCH 24.9 L 24.5 L (27-33) pg RDW 16.3 H 16.0 H (11.5-14.5) % Neutrophils % (47-80) % Lymphocytes % 15.0 L (16-45) % Monocytes % 13.0 H 12.1 H (0-9) % Lymphocytes (16-45) % Sodium (136-145) mmol/L Chloride (98-107) mmol/L Anion Gap (7-16) BUN (9-20) mg/dL Creatinine (0.66-1.25) mg/dL POC Glucose 179 H (70-110) mg/dL Random Glucose (70-110) mg/dL ALT (21-72) U/L Alkaline Phosphatase (38-126) U/L NT-Pro-B Natriuret Pep (<125) pg/mL Albumin/Globulin Ratio (1.1-1.8) 02/02/17 02/02/17 02/02/17 Range/Units 05:55 06:07 20:00 WBC (4.2-12.2) K/uL RBC (4.40-5.70) M/uL Hgb (14.0-18.0) gm/dl Hct (42.0-52.0) % MCV (81-97) fl MCH (27-33) pg RDW (11.5-14.5) % Neutrophils % (47-80) % Lymphocytes % (16-45) % Monocytes % (0-9) % Lymphocytes (16-45) % Sodium 128 L 129 L (136-145) mmol/L Chloride 91 L 91 L (98-107) mmol/L Anion Gap (7-16) BUN 35 H 33 H (9-20) mg/dL Creatinine 1.5 H 1.4 H (0.66-1.25) mg/dL POC Glucose 136 H (70-110) mg/dL Random Glucose 129 H 162 H (70-110) mg/dL ALT (21-72) U/L Alkaline Phosphatase 139 H (38-126) U/L NT-Pro-B Natriuret Pep (<125) pg/mL Albumin/Globulin Ratio 0.9 L (1.1-1.8) 02/03/17 02/03/17 02/03/17 Range/Units 06:00 06:00 11:48 WBC (4.2-12.2) K/uL RBC (4.40-5.70) M/uL Hgb 11.1 L (14.0-18.0) gm/dl Hct 33.5 L (42.0-52.0) % MCV 75.5 L (81-97) fl MCH 25.0 L (27-33) pg RDW 15.9 H (11.5-14.5) % Neutrophils % 91.0 H (47-80) % Lymphocytes % (16-45) % Monocytes % (0-9) % Lymphocytes 1.0 L (16-45) % Sodium 129 L (136-145) mmol/L Chloride 90 L (98-107) mmol/L Anion Gap 16.4 H (7-16) BUN 35 H (9-20) mg/dL Creatinine 1.3 H (0.66-1.25) mg/dL POC Glucose 324 H (70-110) mg/dL Random Glucose 323 H (70-110) mg/dL ALT (21-72) U/L Alkaline Phosphatase 138 H (38-126) U/L NT-Pro-B Natriuret Pep (<125) pg/mL Albumin/Globulin Ratio 1.0 L (1.1-1.8) 02/03/17 02/03/17 02/04/17 Range/Units 17: 21:45 05:50 WBC 16.1 H (4.2-12.2) K/uL RBC 4.13 L (4.40-5.70) M/uL Hgb 10.3 L (14.0-18.0) gm/dl Hct 32.1 L (42.0-52.0) % MCV 77.7 L (81-97) fl MCH 24.9 L (27-33) pg RDW 16.3 H (11.5-14.5) % Neutrophils % 90.0 H (47-80) % Lymphocytes % (16-45) % Monocytes % (0-9) % Lymphocytes 4.0 L (16-45) % Sodium (136-145) mmol/L Chloride (98-107) mmol/L Anion Gap (7-16) BUN (9-20) mg/dL Creatinine (0.66-1.25) mg/dL POC Glucose 314 H 140 H (70-110) mg/dL Random Glucose (70-110) mg/dL ALT (21-72) U/L Alkaline Phosphatase (38-126) U/L NT-Pro-B Natriuret Pep (<125) pg/mL Albumin/Globulin Ratio (1.1-1.8) 02/04/17 Range/Units 05:50 WBC (4.2-12.2) K/uL RBC (4.40-5.70) M/uL Hgb (14.0-18.0) gm/dl Hct (42.0-52.0) % MCV (81-97) fl MCH (27-33) pg RDW (11.5-14.5) % Neutrophils % (47-80) % Lymphocytes % (16-45) % Monocytes % (0-9) % Lymphocytes (16-45) % Sodium 133 L (136-145) mmol/L Chloride 96 L (98-107) mmol/L Anion Gap (7-16) BUN 44 H (9-20) mg/dL Creatinine 1.3 H (0.66-1.25) mg/dL POC Glucose (70-110) mg/dL Random Glucose 142 H (70-110) mg/dL ALT 19 L (21-72) U/L Alkaline Phosphatase (38-126) U/L NT-Pro-B Natriuret Pep (<125) pg/mL Albumin/Globulin Ratio 0.9 L (1.1-1.8) Condition at Discharge: (2) Stable Discharge Medications - Discharge Medications Prescriptions: Apixaban [Eliquis] 5 mg PO BID #60 tab Guaifenesin [Mucinex] 1,200 mg PO BID #60 tab.er.12h Levofloxacin [Levaquin Tab] 500 mg PO DAILY #4 tab Prednisone [Prednisone 20Mg] 40 mg PO DAILY #4 tab Home Medications: Ambulatory Orders Aspirin 81 mg PO DAILY 01/21/17 [Last Taken 01/30/17] Atorvastatin Calcium 20 mg PO DAILY 01/21/17 [Last Taken 01/30/17] Carvedilol [Coreg] 12.5 mg PO BID 01/21/17 [Last Taken 01/30/17] Cholecalciferol (Vitamin D3) [Vitamin D3] 2,000 unit PO DAILY 01/21/17 [Last Taken 01/30/17] Cyclobenzaprine HCl 10 mg PO TID 01/21/17 [Last Taken 01/30/17] Duloxetine HCl [Cymbalta] 60 mg PO QHS 01/21/17 [Last Taken 01/30/17] Fluticasone Propionate [Flonase Allergy Relief] 15.8 ml NS BID 01/21/17 [Last Taken 01/30/17] Hydroxychloroquine Sulfate [Plaquenil] 200 mg PO DAILY 01/21/17 [Last Taken ] Insulin Aspart Protam & Aspart [Novolog Mix 70-30 Flexpen Syrn] 34 unit SQ BID 01/21/17 [Last Taken 01/30/17] Metformin HCl 1,000 mg PO BID 01/21/17 [Last Taken 01/30/17] Morphine Sulfate [Morphine Sulfate Cr] 60 mg PO Q12H 01/21/17 [Last Taken ] Furosemide [Lasix] 40 mg PO DAILY 01/31/17 [Last Taken 01/30/17] Lisinopril 2.5 mg PO DAILY 01/31/17 [Last Taken 01/30/17] Potassium Chloride [Klor-Con] 20 meq PO DAILY 01/31/17 [Last Taken 01/30/17] Tiotropium [place] [Spiriva Respimat] 2 puff IH DAILY 01/31/17 [Last Taken 01/30 08:00] Apixaban [Eliquis] 5 mg PO BID #60 tab 02/04/17 [Last Taken Unknown] Guaifenesin [Mucinex] 1,200 mg PO BID #60 tab.er.12h 02/04/17 [Last Taken Unknown] Levofloxacin [Levaquin Tab] 500 mg PO DAILY #4 tab 02/04/17 [Last Taken Unknown] Prednisone [Prednisone 20Mg] 40 mg PO DAILY #4 tab 02/04/17 [Last Taken Unknown] Discharge Plan - Discharge Instructions Activity at Discharge: Resume Usual Activities As Tolerated Diet at Discharge: Diabetic Diet, Low Salt Diet Additional Instructions: Follow up tomorrow with Cardiology as scheduled Continue levaquin 500mg po daily starting tomorrow for 4 more days Continue prednisone 40mg po daily starting tomorrow for 2 more days continue muxcinex 1200mg po twice daily for 4 more days Continue eliquis 10mg twice daily through February 07, then starting February 08 start eliquis 5mg twice daily. follow up with primary care for DVt of the left leg. please call with any questions or concerns Return to ED for any new or worsening symptoms
[2017-02-04] MEDS ORDERED: FLUTICASONE PROPIONATE 50MCG NASAL 16 GM BTL ONE (13:20)
== END 2017-02-04 13:30 | disposition home or self-care (01) | DRG 194 ==
LOC: ER 00:09 → MEDSURG 03:06
PROVIDERS: ADMIT Family Medicine; ATTEND Family Medicine
DX: J18.1 Lobar pneumonia, unspecified organism (principal); I50.20 Unspecified systolic (congestive) heart failure; I82.412 Acute embolism and thrombosis of left femoral vein; R79.89 Other specified abnormal findings of blood chemistry; Z78.9 Other specified health status; R00.8 Other abnormalities of heart beat; I10 Essential (primary) hypertension; E11.40 Type 2 diabetes mellitus with diabetic neuropathy, unspecified; Z79.84 Long term (current) use of oral hypoglycemic drugs; M06.9 Rheumatoid arthritis, unspecified; Z79.4 Long term (current) use of insulin; R53.81 Other malaise
CPT/HCPCS: 36416; 71020; 71275; 80048; 80053; 81003; 82553; 82948; 83880; 84443; 84484; 85025; 85027; 85379; 85610; 85730; 87040; 93005; 93010; 93041; 94010; 94640; 94760; 96374; 96375; 97165; 99223; 99233; 99239; 99285; J1650; J1940; J1956; J2930

== ENCOUNTER 2017-02-10 08:24 | Observation (INO) | payer MEDICARE ==
--- NOTE | 2017-02-10 08:46 | Emergency Department Record ---
History of Present Illness - General Chief Complaint: Difficulty Breathing Stated Complaint: SUSAN Time Seen by Provider: 02/10/17 08:35 Source: Patient Mode of Arrival: Wheelchair Limitations: No limitations - History of Present Illness Initial Comments: The patient is here due to waking up at 7am today with SOB. The SOB is present constantly and is not associated with any CP, back pain, fever, chills, cough, or leg swelling. The patient was just admitted here from 01/31 - 02/04 due to a RUL pneumonia. He has a CTA done on 01/31 which did not demonstrate any CHF or PE but did show the pneumonia. At discharge the patient felt much better. The patient does have a hx of CHF and did have an echo done recently with an EF of 30-35%. MD Complaint: Shortness of breath Onset/Timin -: Hour(s) Severity: Mild Consistency: Intermittent Improves With: Nothing Worsens With: Nothing Known History Of: Other Associated Symptoms: Nausea/vomiting Treatments Prior to Arrival: None - Related Data Home Medications Medication Instructions Recorded Confirmed Last Taken Aspirin 81 mg PO DAILY 01/21/17 02/10/17 01/30/17 Atorvastatin Calcium 20 mg PO DAILY 01/21/17 02/10/17 01/30/17 Carvedilol [Coreg] 12.5 mg PO BID 01/21/17 02/10/17 01/30/17 Cholecalciferol (Vitamin D3) 2,000 unit PO DAILY 01/21/17 02/10/17 01/30/17 [Vitamin D3] Cyclobenzaprine HCl 10 mg PO TID 01/21/17 02/10/17 01/30/17 Duloxetine HCl [Cymbalta] 60 mg PO QHS 01/21/17 02/10/17 01/30/17 Fluticasone Propionate [Flonase 15.8 ml NS BID 01/21/17 02/10/17 01/30/17 Allergy Relief] Hydroxychloroquine Sulfate 200 mg PO DAILY 01/21/17 02/10/17 01/30/17 [Plaquenil] Insulin Aspart Protam & Aspart 34 unit SQ BID 01/21/17 02/10/17 01/30/17 [Novolog Mix 70-30 Flexpen Syrn] Metformin HCl 1,000 mg PO BID 01/21/17 02/10/17 01/30/17 Morphine Sulfate [Morphine Sulfate 60 mg PO Q12H 01/21/17 02/10/17 01/30/17 Cr] Furosemide [Lasix] 40 mg PO DAILY 01/31/17 02/10/17 01/30/17 Lisinopril 2.5 mg PO DAILY 01/31/17 02/10/17 01/30/17 Potassium Chloride [Klor-Con] 20 meq PO DAILY 01/31/17 02/10/17 01/30/17 Tiotropium [place] [Spiriva 2 puff IH DAILY 01/31/17 02/10/17 01/30/17 08:00 Respimat] Previous Rx's Medication Instructions Recorded Apixaban [Eliquis] 5 mg PO BID #60 tab 02/04/17 Guaifenesin [Mucinex] 1,200 mg PO BID #60 tab.er.12h 02/04/17 Levofloxacin [Levaquin Tab] 500 mg PO DAILY #4 tab 02/04/17 Allergies Allergy/AdvReac Type Severity Reaction Status Date / Time methotrexate Allergy SHORTNESS Verified 02/10/17 08:27 OF BREATH pregabalin [From Lyrica] Allergy SHORTNESS Verified 02/10/17 08:27 OF BREATH Travel Screening - Travel/Exposure Within Last 30 Days Have you traveled within the last 30 days?: No Review of Systems Constitutional: Denies: Chills, Fever, Malaise Eyes: Denies: Eye discharge ENT: Denies: Congestion, Dental pain Respiratory: Reports: Dyspnea. Denies: Cough, Hemoptysis Cardiovascular: Denies: Arrhythmia, Chest pain Endocrine: Reports: Fatigue Gastrointestinal: Denies: Abdominal pain Genitourinary: Denies: Dysuria Musculoskeletal: Denies: Back pain Past Medical History - SOCIAL HISTORY Smoking Status: Former smoker Alcohol Use: None Drug Use: None - RESPIRATORY Hx Respiratory Disorders: Yes Hx Pneumonia: Yes Hx Sleep Apnea: Yes (has issues but does not use C-PAP) - CARDIOVASCULAR Hx Cardio Disorders: Yes Hx Abnormal EKG: Yes (hx of bigeminy) Hx CHF: Yes Hx Deep Vein Thrombosis: Yes Hx Edema: Yes Hx Hypertension: Yes Hx Irregular Heartbeat: Yes - NEURO Hx Neuro Disorders: No Hx Neuropathy: Yes - GI Hx GI Disorders: Yes Hx Reflux: Yes - Hx Genitourinary Disorders: No - ENDOCRINE Hx Endocrine Disorders: Yes Hx Diabetes: Yes (for 20 years) Hx Thyroid Disease: No - MUSCULOSKELETAL Hx Musculoskeletal Disorders: Yes Hx Arthritis: Yes Comment:: Rheumatoid - PSYCH Hx Psych Problems: No - HEMATOLOGY/ONCOLOGY Hx Hematology/Oncology Disorders: No Family Medical History Any Significant Family History?: Yes Family Hx Comment (NOT TO BE USED IN PLACE OF ITEMS BELOW): mom w/thyroid issues Hx Cancer: Father, Mother Hx Heart Disease: Mother Physical Exam - General General Appearance: Alert, Oriented x3, Cooperative, No acute distress - Head Head exam: Atraumatic, Normocephalic, Normal inspection - Eye Eye exam: Normal appearance, PERRL - ENT Throat exam: Normal inspection. negative: Tonsillar erythema, Tonsillar exudate - Neck Neck exam: Normal inspection, Full ROM. negative: Tenderness - Respiratory Respiratory exam: Normal lung sounds bilaterally. negative: Rales, Respiratory distress, Rhonchi, Stridor, Wheezes - Cardiovascular Cardiovascular Exam: Normal rhythm, Normal heart sounds, Tachycardia - GI/Abdominal GI/Abdominal exam: Soft, Normal bowel sounds. negative: Tenderness - Extremities Extremities exam: Normal inspection, Full ROM, Normal capillary refill. negative: Tenderness - Neurological Neurological exam: Alert, Normal gait. negative: Abnormal gait, Motor sensory deficit - Psychiatric Psychiatric exam: negative: Agitated Course Vital Signs 02/10/17 08:28 Temperature 97.7 F Pulse Rate 133 H Respiratory 20 Rate Blood Pressure 137/72 Pulse Ox 97 - Reevaluation(s) Reevaluation #1: The patient is doing better. He is resting comfortably with a RA biox of 97%. His CXR does appear WNL but his BNP is elevated. Due to his persistent tachycardia and SUSAN I did recommend hospital admission. I then did discuss the case with Dr. Helm and he does accept the admission and I will consult Dr. Benz for TCI. 02/10/17 10:06 Medical Decision Making - Data Complexity MDM Data: Labs Ordered and/or Reviewed, X-Ray Ordered and/or Reviewed - Lab Data Result diagrams: 02/10/17 08:52 02/10/17 08:45 - EKG Data -: EKG Interpreted by Me EKG: No Acute Changes, Unchanged From Previous (Sinus tach at 120 with RBBB.) - Radiology Data Radiology results: Report reviewed (CXR: Neg) Disposition Disposition: Admit Clinical Impression: Ventricular bigeminy, CHF (congestive heart failure) Disposition: Still a Patient at [facility] Decision to Admit: Admit from ER Decision to Admit Date: 02/10/17 Decision to Admit Time: 10:08 Accepting Physician: Alicja Time Discussed w/Accepting Physician: 10:08 Condition: (2) Stable Time of Disposition: 10:08 Quality - Quality Measures Quality Measures: N/A - Blood Pressure Screening Blood Pressure Classification: Pre-Hypertensive BP Reading Systolic Measurement: 137 Diastolic Measurement: 72 Screening for High Blood Pressure: < Pre-Hypertensive BP, F/U Documented > [ [id number]] Pre-Hypertensive Follow-up Interventions: Follow-up with rescreen every year.
[2017-02-10 08:57] LABS: HEMATOCRIT 38.6 % (42.0-52.0); HEMOGLOBIN 12.5 gm/dl (14.0-18.0); MEAN CELL VOLUME 76.6 fl (81-97); MEAN CORPUSCULAR HEMOGLOBIN 24.8 pg (27-33); MEAN CORPUSCULAR HGB CONC 32.4 g/dl (32-36); MEAN PLATELET VOLUME 8.7 fl (7.4-10.4); PLATELET COUNT 393 K/uL (130-400); RED BLOOD COUNT 5.04 M/uL (4.40-5.70); RED CELL DISTRIBUTION WIDTH 16.8 % (11.5-14.5); WHITE BLOOD COUNT W/O DIFF 11.9 K/uL (4.2-12.2)
[2017-02-10 09:10] LABS: ANION GAP 12.9 (7-16); BLOOD UREA NITROGEN 28 mg/dL (9-20); CARBON DIOXIDE 25.1 mmol/L (22-30); CREATININE 1.1 mg/dL (0.66-1.25); EST GLOMERULAR FILTRATION RATE > 60 ml/min; GLUCOSE,RANDOM 130 mg/dL (70-110)
[2017-02-10 09:11] LABS: CREATINE PHOSPHOKINASE < 20 U/L (55-170)
[2017-02-10 09:16] LABS: INR 0.96; PARTIAL THROMBOPLASTIN TIME 26.2 SECONDS (24.5-39.1); PROTHROMBIN TIME (PATIENT) 10.8 SECONDS (9.5-12.1)
[2017-02-10 09:22] LABS: CKMB 1.1 ug/L (0-6); TROPONIN I < 0.012 ng/mL (0.00-0.034)
[2017-02-10] MEDS ORDERED: FUROSEMIDE IV 40MG/4ML VIAL IVP ONE (09:49)
[2017-02-10] MEDS ORDERED: ASPIRIN 325 MG TABLET PO SCH (10:56)
[2017-02-10] MEDS ORDERED: MORPHINE SULFATE 60 MG PO SCH (10:56)
[2017-02-10] MEDS: PANTOPRAZOLE SODIUM 40 MG TABLET PO SCH (11:51)
[2017-02-10] MEDS: APIXABAN 5MG TABLET PO SCH ×2 (11:51→21:23)
[2017-02-10] MEDS: CYCLOBENZAPRINE 10MG TABLET PO SCH ×3 (11:52→21:23)
[2017-02-10] MEDS: CARVEDILOL 12.5 MG TABLET PO SCH ×2 (11:52→21:23)
[2017-02-10] MEDS ORDERED: LISINOPRIL 5 MG TABLET PO SCH (12:30)
[2017-02-10 13:36] LABS: CKMB 0.9 ug/L (0-6); TROPONIN I < 0.012 ng/mL (0.00-0.034)
[2017-02-10] MEDS: METFORMIN 500 MG TABLET PO SCH (17:28)
[2017-02-10] MEDS: NOVOLOG 70/30 FLEXPEN 100 UNITS/ML SQ SCH (17:29)
[2017-02-10] MEDS ORDERED: DULOXETINE HCL 30 MG CAPSULE.DR PO SCH (22:00)
[2017-02-10] MEDS ORDERED: MORPHINE SULFATE 30MG TABLET.ER PO SCH (22:00)
[2017-02-10] MEDS ORDERED: GUAIFENESIN 1,200 MG TABLET PO SCH (22:00)
[2017-02-10] MEDS ORDERED: [UNRECOGNIZED DRUG - REMARK] NS SCH (22:00)
[2017-02-10 22:16] LABS: CKMB 0.6 ug/L (0-6)
[2017-02-10 22:17] LABS: TROPONIN I < 0.012 ng/mL (0.00-0.034)
[2017-02-11 06:22] LABS: HEMATOCRIT 34.2 % (42.0-52.0); MEAN CORPUSCULAR HGB CONC 32.2 g/dl (32-36); MEAN PLATELET VOLUME 8.4 fl (7.4-10.4); PLATELET COUNT 325 K/uL (130-400); RED BLOOD COUNT 4.44 M/uL (4.40-5.70); RED CELL DISTRIBUTION WIDTH 16.8 % (11.5-14.5); WHITE BLOOD COUNT W/O DIFF 8.5 K/uL (4.2-12.2)
[2017-02-11 06:34] LABS: MEAN CORPUSCULAR HEMOGLOBIN 24.7 pg (27-33)
[2017-02-11 06:36] LABS: ANION GAP 8.6 (7-16); CARBON DIOXIDE 27.4 mmol/L (22-30); CREATININE 1.3 mg/dL (0.66-1.25)
[2017-02-11 06:48] LABS: CKMB 0.5 ug/L (0-6)
[2017-02-11 06:51] LABS: TROPONIN I < 0.012 ng/mL (0.00-0.034)
[2017-02-11] MEDS ORDERED: PATIENT OWN MED: PO SCH (07:00)
--- NOTE | 2017-02-11 07:21 | Medical Records Consult ---
DATE OF CONSULTATION: 02/10/17 Shravan Mary is a 66-year-old male recently seen by [facility] on when he was admitted to [facility] for a work-up of his cardiomyopathy. At the time he was placed on a combination of a beta rommel and ELENITA inhibitor and an echo did demonstrate an ejection fraction of 30-35%. It was recommended that he undergo diagnostic cardiac catheterization, but the patient refused the procedure. He was then seen as an outpatient on 02/05/17 with our nurse practitioner Malou Gonzalez and supervised by my associate Dr. Demar Kaur. At the time he states that he was significantly improved and that his shortness of breath was improved as well. We were unable to up-titrate his beta rommel or ELENITA inhibitor. He showed up in the Emergency Room at [facility] and states that he was more short of breath. His resting O2 sat was 94% on room air. He has no rales in his lungs. Today he has no peripheral edema, no jugular venous distention nor does he have conversational dyspnea. It is also to be noted that the patient was a fifty pack year smoker, he did stop smoking six years ago. He is on a very high dose of Prednisone 40 mg on a daily basis, apparently this is for arthritis. As far as his cardiac medicine he is taking Carvedilol 12.5 b.i.d. and small doses of Lisinopril 2.5 and Lasix 40 mg a day. He is also on various inhalants. His other medical conditions are agent orange exposure, peripheral edema, post traumatic stress disorder, he is a [place] . No past surgical history on file. Family history is unknown. Smoking status as previously eluded to. Further review of systems: The patient has no GI symptoms and no genitourinary symptoms. His major complaints are in the cardiac and respiratory arena. Physical examination reveals a well nourished, well hydrated apparently depressed male in no acute distress. Again there is no jugular venous distention. There are no rales in his lungs. His heart sounds are clear without murmurs. His abdomen was soft with no masses and absolutely no evidence of peripheral edema. IMPRESSION: 1. DILATED CARDIOMYOPATHY WITHOUT AVERT EVIDENCE OF CONGESTIVE HEART FAILURE. 2. COPD. 3. DEPRESSION. RECOMMENDATION: At this point I do not think further diuresis would be helpful. I do not think that he needs home oxygen. I do not seen any evidence of volume overload. I again broached the subject of a cardiac catheterization and Mr. Mary does not wish to undergo this procedure. As far as his treatment strategy I do think he would benefit from pulmonary rehab and I have encouraged him strongly to be enrolled in a pulmonary rehab program. No further diagnostic studies are indicated at this time. Sai Benz D.O. Date & Time JOB NUMBER: [id number] MTDD
[2017-02-11] MEDS: PANTOPRAZOLE SODIUM 40 MG TABLET PO SCH (07:24)
--- NOTE | 2017-02-11 07:26 | RADIOLOGY REPORT ---
EXAM: CHEST, TWO VIEWS HISTORY: DIFFICULTY IN BREATHING SINCE THIS MORNING. CHF HISTORY. TECHNIQUE: Upright PA and lateral views of the chest were obtained. Comparison: Two view chest radiographic examination dated 01/31/17. FINDINGS: The heart is not enlarged and the pulmonary vasculature is nondilated. No new confluent air space opacity is seen nor is there costophrenic angle blunting or pneumothorax. There are degenerative changes scattered throughout the visualized spine. Single small nodular opacities measuring 6 mm project at the hemithorax spaces in asymmetric fashion consistent with nipple shadows. IMPRESSION: 1. NO RADIOGRAPHIC EVIDENCE OF ACUTE CARDIOPULMONARY DISEASE. 2. HYPERINFLATION OF THE LUNGS CONSISTENT WITH COPD. JOB NUMBER: [id number] MTDD
[2017-02-11] MEDS: NOVOLOG 70/30 FLEXPEN 100 UNITS/ML SQ SCH (07:35)
[2017-02-11] MEDS: METFORMIN 500 MG TABLET PO SCH (07:39)
--- NOTE | 2017-02-11 07:45 | Discharge Note ---
VTE H&P Assessment - Risk for VTE Risk for VTE: Yes Risk Level: Moderate Risk Assessment Date: 02/10/17 Risk Assessment Time: 08:00 VTE Orders Placed or Will Be Placed: Yes Discharge Medications - Discharge Medications Prescriptions: Albuterol Sulfate [Ventolin Hfa] 1 - 2 puff IH .EVERY 4-6 HRS PRN #1 inhaler PRN Reason: Wheezing Home Medications: Ambulatory Orders Aspirin 81 mg PO DAILY 01/21/17 [Last Taken 01/30/17] Atorvastatin Calcium 20 mg PO DAILY 01/21/17 [Last Taken 01/30/17] Carvedilol [Coreg] 12.5 mg PO BID 01/21/17 [Last Taken 01/30/17] Cholecalciferol (Vitamin D3) [Vitamin D3] 2,000 unit PO DAILY 01/21/17 [Last Taken 01/30/17] Cyclobenzaprine HCl 10 mg PO TID 01/21/17 [Last Taken 01/30/17] Duloxetine HCl [Cymbalta] 60 mg PO QHS 01/21/17 [Last Taken 01/30/17] Fluticasone Propionate [Flonase Allergy Relief] 15.8 ml NS BID 01/21/17 [Last Taken 01/30/17] Hydroxychloroquine Sulfate [Plaquenil] 200 mg PO DAILY 01/21/17 [Last Taken ] Insulin Aspart Protam & Aspart [Novolog Mix 70-30 Flexpen Syrn] 34 unit SQ BID 01/21/17 [Last Taken 01/30/17] Metformin HCl 1,000 mg PO BID 01/21/17 [Last Taken 01/30/17] Morphine Sulfate [Morphine Sulfate Cr] 60 mg PO Q12H 01/21/17 [Last Taken ] Furosemide [Lasix] 40 mg PO DAILY 01/31/17 [Last Taken 01/30/17] Lisinopril 2.5 mg PO DAILY 01/31/17 [Last Taken 01/30/17] Potassium Chloride [Klor-Con] 20 meq PO DAILY 01/31/17 [Last Taken 01/30/17] Tiotropium [place] [Spiriva Respimat] 2 puff IH DAILY 01/31/17 [Last Taken 01/30 08:00] Apixaban [Eliquis] 5 mg PO BID #60 tab 02/04/17 [Last Taken Unknown] Guaifenesin [Mucinex] 1,200 mg PO BID #60 tab.er.12h 02/04/17 [Last Taken Unknown] Levofloxacin [Levaquin] 500 mg PO DAILY #4 tab 02/04/17 [Last Taken Unknown] Albuterol Sulfate [Ventolin Hfa] 1 - 2 puff IH .EVERY 4-6 HRS PRN #1 inhaler 06/20 [Last Taken Unknown] Discharge Note - Date Date of Discharge Note: 02/11/17 Disposition: Home, Self-Care Condition: (2) Stable Additional Instructions: follow up with Dr. Crowe at [facility] in one week Have Dr. Crowe set up outpatient pulmonary rehab to help his conditioning as recommended by Dr. Benz Follow up with [facility] fiber machine tender Dr. Dalton as scheduled in [place] and if having more trobles try to move appointment sooner add on ventolin inhaler to his meds continue his home meds Forms: Patient Portal Access
[2017-02-11] MEDS ORDERED: POTASSIUM CHLORIDE 20 MEQ TABLET PO SCH (10:00)
[2017-02-11] MEDS ORDERED: HYDROXYCHLOROQUINE SULFATE 200 MG TABLET PO SCH (10:00)
[2017-02-11] MEDS ORDERED: CHOLECALCIFEROL 1,000 UNIT TABLET PO SCH (10:00)
[2017-02-11] MEDS ORDERED: FUROSEMIDE 40 MG TABLET PO SCH (10:00)
[2017-02-11] MEDS ORDERED: ATORVASTATIN 20 MG TABLET PO SCH (10:00)
[2017-02-11] MEDS ORDERED: PATIENT OWN MED: SPIRIVA RESPIMAT INH SCH (10:00)
--- NOTE | 2017-02-12 08:50 | History and Physical Report ---
DATE OF ADMISSION: 02/10/2017 CHIEF COMPLAINT: Dyspnea. HISTORY OF CHIEF COMPLAINT: This 66-year-old male woke up today at 7 a.m. short of breath. He came in to the emergency department and evaluated by Dr. Garcia for dyspnea. Dr. Garcia gave him 40 of Lasix IV and he has diuresed twice since receiving the Lasix. He denies any chest pain, back pain, fever, chills, cough or leg swelling. He did have a little bit of shoulder pain which is musculoskeletal in origin. The patient was recently at [facility] from 01/31/2017 to 02/04/2017 due to right upper lobe pneumonia. He has finished his Levaquin from that. He is also on Eliquis because he was diagnosed with a left DVT, which was a non-occlusive thrombus in the deep femoral vein. See the venous Doppler, which is a new diagnosis for him. [facility] [place] Dr. Dominguez. The patient states he was feeling better when he left the hospital on 02/04/2017. The patient has a history of congestive heart failure; was seen at [facility] approximately a week prior to that and had an echo showing a 30-35% ejection fraction. He also possibly had a heart cath done and he was recommended to have heart stents, but he refused the heart stents. He cannot remember the [facility] Toby Maker that he has seen in the past. He saw him twice, once in [place] and once in the hospital at [facility]. PAST MEDICAL HISTORY: Diabetes mellitus on insulin for 3-4 months; he has been on oral medications for 10-15 years prior to that. Rheumatoid arthritis. He sees a radiology technologist at Dr. Bustos's office. He walks with a cane. Coronary artery disease. He is recommended to have cardiac stents; he refused about 2 weeks ago. COPD. He stopped smoking about 6 months ago, was smoking a pack a day for 50 years. DVT in the left leg which is non-occlusive thrombus and he is on Eliquis which started about 1-2 weeks ago. Hypercholesterolemia. He also has sleep apnea and he has used a CPAP. He has had a history of bigeminy in the past. He has hypertension. He has had some neuropathy of his legs from his diabetes. He has GERD. No thyroid disease. PAST SURGICAL HISTORY: Right knee surgery, hemorrhoidectomy x3. MEDICATIONS ON ADMISSION: Spiriva 2 puffs a day, potassium chloride 20 mEq daily. It looks like he takes morphine sulfate CR 60 mg q.12 hours, Metformin 1000 mg b.i.d., lisinopril 2.5 mg daily, insulin 34 units b.i.d.; it is a NovoLog mix 70/30, Plaquenil 200 mg daily, Mucinex 1200 mg b.i.d., Lasix 40 mg daily, Flonase 1 squirt in each nostril daily, Cymbalta 60 mg at h.s., Flexeril 10 mg t.i.d., vitamin D3 2000 units daily, Coreg 12.5 b.i.d., atorvastatin 20 mg daily, aspirin 81 mg daily, Eliquis 5 mg b.i.d. for his DVT of his left leg. ALLERGIES: Methotrexate and Lyrica. Both those cause shortness of breath. FAMILY PSYCHOSOCIAL HISTORY: As stated, he was a smoker, at least 1 pack a day for 50 years and he stopped that in the beginning of 2016. No alcohol or drug use. His mother has thyroid issues. Father had cancer. Mother had cancer and mother had heart disease. REVIEW OF SYSTEMS: HEENT: No upper respiratory infection symptoms, cough, cold or congestion. Cardiovascular: He has no chest pain, palpitations or arrhythmias but he was short of breath when he woke up this morning. Respiratory : He is short of breath. See chief complaint. He has a history of COPD. Gastrointestinal: No nausea, vomiting, diarrhea, black stools or bloody stools. Genitourinary: No dysuria, hematuria, frequency or burning on urination. Musculoskeletal: He has arthritis in his joints, rheumatoid arthritis. Neurologic: No CVA, paralysis or paresthesias. Endocrine: He has diabetes mellitus for 20 years, on insulin for about 6 months, using NovoLog 70/30 twice a day. Integument: No rash, changes in moles or skin problems. PHYSICAL EXAMINATION: VITAL SIGNS: Height is 6 feet. Weight is 196 pounds. Temperature 97.8. Pulse 101. Blood pressure 147/84. Respiratory rate 24. Pulse ox 99% on 2 L. HEENT: Pupils equal, round and reactive to light and accommodation. Extraocular muscles intact. Throat is clear. Nose is clear. Tympanic membranes mendes. NECK: Supple. No jugular venous distention. No hepatojugular reflux. No carotid bruits. Thyroid is smooth. CARDIOVASCULAR: Regular rate and rhythm. Rate is running about 101. RESPIRATORY: Breath sounds equal bilaterally. ABDOMEN: Soft, nontender. No hepatosplenomegaly. No masses. No tenderness. Bowel sounds are active. No bruits. EXTREMITIES: No pitting edema. No cyanosis or clubbing. Full range of motion. Peripheral pulses good. BREASTS: Normal male breasts. RECTAL: Deferred. NEUROLOGIC: Cranial nerves II-XII intact. No gross deficits. Sensation normal. Strength normal. Deep tendon reflexes equal bilaterally. Babinski negative. MENTAL STATUS: Alert and oriented x3. IMPRESSION: 1. Congestive heart failure, on Lasix IV, 40 in the ER. He has normally taken 40 once a day. 2. Tachycardia. Rate is running at 101. It was a little bit higher in the emergency room to 130. 3. History of left DVT, non occlusive, on the left leg in the femoral vein. Eliquis 5 mg twice a day. 4. He has coronary artery disease. He refused a heart cath and stents. 5. Diabetes mellitus type 2. Recently started on insulin. He has been on oral meds for 20 years. 6. Hypercholesterolemia. 7. Hypertension. 8. Chronic obstructive pulmonary disease. 9. Chronic pain with rheumatoid arthritis. PLAN: Serial cardiac enzymes. Serial EKGs. Cardiology consult. Will gently diurese him. MTDD
--- NOTE | 2017-02-12 08:51 | Discharge Summary ---
OBSERVATION PATIENT DATE OF ADMISSION: 02/10/2017 DATE OF DISCHARGE: 02/11/2017 DISCHARGE DIAGNOSES: 1. Cardiomyopathy. 2. CHF, stable. Patient is not fluid-overloaded. 3. COPD, stable. 4. Weakness from the above two. 5. Depression. 6. In need of pulmonary rehab to get his conditioning up. 7. History of left DVT and on Eliquis 5 mg b.i.d. 8. History of diabetes mellitus. 9. History of chronic back pain. 10. History of rheumatoid arthritis. 11. History of hypercholesterolemia. ATTENDING PHYSICIAN: Leo Helm DO REASON FOR HOSPITALIZATION: Patient with dyspnea and weakness. HISTORY: This patient woke up at 7 a.m. He was short of breath. He was also very weak. He denied any chest pain, back pain, fever, chills, cough or leg swelling. Patient was in the hospital from 01/31/2017 to 02/04/2017, also at [facility] previous to that about a week, and seen Cardiology at that time. Patient has a history of cardiomyopathy and congestive heart failure. Echo at that time was 30% to 35% ejection fraction. Patient was admitted to the hospital by Dr. Garcia. SIGNIFICANT FINDINGS FROM EXAMINATION: Chest x-ray was negative. Laboratory: Cardiac enzymes were negative. His brain natriuretic peptide is 1330. His last set of electrolytes, potassium was 4.5, sodium was 131, chloride 95, BUN 35, creatinine 1.3. His WBC was 8500. Hemoglobin was 11. Three sets of cardiac enzymes were negative. EKG showed no acute changes. Right bundle branch block. PVCs. Rate running between 90 and 100. THERAPY PROVIDED: He was given IV Lasix, which was then switched over the oral Lasix. Consultation with Dr. Benz, [facility] seater grinder. His recommendations were he had a dilated cardiomyopathy without overt evidence of congestive heart failure, 2) COPD and depression. He felt that pulmonary rehab would be very beneficial for conditioning for him. He recommended his primary doctor set that up. Patient is refusing heart cath and heart stents at this time. HOSPITAL COURSE: The patient has gradually gotten better with his breathing. He still feels weak, and this is mostly a deconditioning because of his COPD and CHF. His oxygen levels at rest were 93% on room air. Will check him prior to discharge to see what his oxygen levels are with ambulation. CONDITION AT DISCHARGE: Stable and improved. DISCHARGE INSTRUCTIONS: Follow up with Dr. Crowe, the [place] doctor in the clinic in [address] Crowe set up the pulmonary rehab. Will start Ventolin 2 puffs every 4 hours to help his breathing. Continue with his home medications of Spiriva 2 puffs daily, potassium chloride 20 mEq daily, morphine sulfate 12 hours 60 mg every 12 hours, metformin 1000 mg b.i.d., lisinopril 2.5 daily, NovoLog 70/30 34 in the morning 34 at night, Plaquenil 200 daily, Mucinex 1200 mg b.i.d., Lasix 40 mg daily, Flonase 1 squirt each nostril b.i.d., Cymbalta 60 mg at bedtime, Flexeril 10 mg t.i.d. p.r.n., vitamin D3 2000 units daily, Coreg 12.5 b.i.d., atorvastatin 20 mg daily, aspirin 81 mg daily, Francheska 5 mg b.i.d. He should be on Francheska for 3 months and then consider stopping that. His venous Doppler was not really an acute thrombosis. There was a nonoccluding thrombus seen, so it could be just plaquing of the vein. CC[facility]
== END 2017-02-11 11:30 | disposition home or self-care (01) ==
LOC: ER 08:24 → INTOOBSV 10:40 → MEDSURG 10:40
PROVIDERS: ADMIT Emergency Medicine; ATTEND Emergency Medicine
DX: I42.0 Dilated cardiomyopathy (principal); I82.412 Acute embolism and thrombosis of left femoral vein; J44.1 Chronic obstructive pulmonary disease with (acute) exacerbation; I50.9 Heart failure, unspecified; R79.89 Other specified abnormal findings of blood chemistry; I10 Essential (primary) hypertension; E11.40 Type 2 diabetes mellitus with diabetic neuropathy, unspecified; Z79.84 Long term (current) use of oral hypoglycemic drugs; Z79.4 Long term (current) use of insulin; R53.81 Other malaise; E78.00 Pure hypercholesterolemia, unspecified; M06.9 Rheumatoid arthritis, unspecified; R53.1 Weakness; M54.9 Dorsalgia, unspecified
CPT/HCPCS: 36416; 71020; 80048; 82550; 82553; 82948; 83880; 84484; 85027; 85610; 85730; 93005; 93010; 94620; 94760; 96374; 99220; 99285; J1940

== ENCOUNTER 2017-09-20 12:20 | Emergency (ER) | payer MEDICARE ==
--- NOTE | 2017-09-20 12:38 | Emergency Department Record ---
History of Present Illness - General Chief Complaint: Shortness of breath Stated Complaint: SUSAN Time Seen by Provider: 09/20/17 12:35 Source: Patient Mode of Arrival: Ambulatory Limitations: No limitations - History of Present Illness Initial Comments: 67 yo male presents with progressive shortness of breath for one week. He is short of breath with activity. No cough or fever. He states it has increased gradually. NO chest pain. No nausea or vomiting. He had the same symptoms about one year ago. He is unsure of the diagnosis at that time. He has known ventricular bigeminy. Prior records indicate he has cardiomyopathy, CHF, COPD, DM,RA, elevated cholesterol. His EF is 30-35% MD Complaint: Shortness of breath Onset/Timin -: Days(s) Severity: Moderate Consistency: Constant Improves With: Rest Worsens With: Exertion Known History Of: Other (CHF) Context: Other Associated Symptoms: Diaphoresis, Orthopnia Treatments Prior to Arrival: None - Related Data Previous Rx's Medication Instructions Recorded Apixaban [Eliquis] 5 mg PO BID #60 tab 02/04/17 Albuterol Sulfate [Ventolin Hfa] 1 - 2 puff IH .EVERY 4-6 HRS PRN 02/11/17 #1 inhaler Furosemide [Lasix] 40 mg PO DAILY #30 tablet 09/20/17 Allergies Allergy/AdvReac Type Severity Reaction Status Date / Time methotrexate Allergy SHORTNESS Verified 02/10/17 08:27 OF BREATH pregabalin [From Lyrica] Allergy SHORTNESS Verified 02/10/17 08:27 OF BREATH Travel Screening - Travel/Exposure Within Last 30 Days Have you traveled within the last 30 days?: No - Travel Symptoms Symptom Screening: None Review of Systems Constitutional: Denies: Chills, Fever, Malaise, Weakness Eyes: Denies: Eye discharge ENT: Reports: Congestion. Denies: Throat pain Respiratory: Reports: Cough, Dyspnea Cardiovascular: Reports: Dyspnea on exertion, Edema. Denies: Chest pain, Palpitations, Syncope Endocrine: Denies: Fatigue Gastrointestinal: Denies: Abdominal pain, Diarrhea, Nausea, Vomiting Genitourinary: Denies: Dysuria, Frequency, Hematuria Musculoskeletal: Denies: Arthralgia, Back pain, Myalgia, Neck pain Skin: Denies: Bruising, Change in color, Rash Neurological: Denies: Headache, Numbness, Weakness Psychiatric: Denies: Anxiety Hematological/Lymphatic: Denies: Blood Clots, Easy bleeding, Easy bruising, Swollen glands Past Medical History - SOCIAL HISTORY Smoking Status: Former smoker Alcohol Use: None Drug Use: None - RESPIRATORY Hx Respiratory Disorders: Yes Hx Pneumonia: Yes Hx Sleep Apnea: Yes (has issues but does not use C-PAP) - CARDIOVASCULAR Hx Cardio Disorders: Yes Hx Abnormal EKG: Yes (hx of bigeminy) Hx CHF: Yes Hx Deep Vein Thrombosis: Yes Hx Edema: Yes Hx Hypertension: Yes Hx Irregular Heartbeat: Yes - NEURO Hx Neuro Disorders: Yes Hx Neuropathy: Yes - GI Hx GI Disorders: Yes Hx Reflux: Yes - Hx Genitourinary Disorders: No - ENDOCRINE Hx Endocrine Disorders: Yes Hx Diabetes: Yes (for 20 years) Hx Thyroid Disease: No - MUSCULOSKELETAL Hx Musculoskeletal Disorders: Yes Hx Arthritis: Yes Comment:: Rheumatoid - PSYCH Hx Psych Problems: No - HEMATOLOGY/ONCOLOGY Hx Hematology/Oncology Disorders: No Family Medical History Any Significant Family History?: Yes Family Hx Comment (NOT TO BE USED IN PLACE OF ITEMS BELOW): mom w/thyroid issues Hx Cancer: Father, Mother Hx Heart Disease: Mother Physical Exam - General General Appearance: Alert, Oriented x3, Cooperative, No acute distress Limitations: No limitations - Head Head exam: Normal inspection - Eye Eye exam: Normal appearance. negative: Conjunctival injection - ENT ENT exam: Normal exam, Mucous membranes moist Ear exam: Normal external inspection Nasal Exam: Normal inspection Mouth exam: Normal external inspection Teeth exam: Normal inspection Throat exam: Normal inspection - Neck Neck exam: Normal inspection, Full ROM. negative: Tenderness - Respiratory Respiratory exam: Decreased breath sounds, Rales. negative: Prolonged expiratory, Rhonchi, Stridor, Wheezes - Cardiovascular Cardiovascular Exam: Regular rate, Normal rhythm, Normal heart sounds Peripheral Pulses: 2+: Radial (R), Radial (L) - GI/Abdominal GI/Abdominal exam: Soft. negative: Tenderness - Rectal Rectal exam: Deferred - exam: Deferred - Extremities Extremities exam: Normal inspection, Full ROM, Normal capillary refill, Pedal edema (bilateral). negative: Tenderness - Back Back exam: Reports: Normal inspection, Full ROM. Denies: Muscle spasm, Rash noted, Tenderness - Neurological Neurological exam: Alert, Normal gait, Oriented X3 - Psychiatric Psychiatric exam: Normal affect, Normal mood - Skin Skin exam: Dry, Intact, Normal color, Warm Course Vital Signs 09/20/17 12:29 Temperature 97.6 F Pulse Rate 113 H Respiratory 16 Rate Blood Pressure 177/104 Pulse Ox 98 - Reevaluation(s) Reevaluation #1: 09/20/17 13:50 EKG 12:28 sinus tachycardia 105, QTc 506, RBBB, Tarrs R, ST NS changes. The labs were reviewed glucose is 253, The Troponin is elevated at 0.05 and the BNP is elevated at 2763 The CXR was reviewed small right effusion 09/20/17 14:42 09/20/17 14:50 I discussed OBV admission with the patient. Camilla Donato accepts the patient for admission 09/20/17 14:57 The patient now wants to leave and not be admitted. I explained I do recommend admission given his troponin and bnp are elevated. He needs serial enzymes and diuresis. He understands but still requests DC home. I explained the AMA process and that he would be leaving against my medical advice. He understands the risks of CHF and heart attack and agrees with signing out AMA. Medical Decision Making - Lab Data Result diagrams: 09/20/17 12:40 09/20/17 12:40 Disposition Disposition: Discharge Clinical Impression: CHF (congestive heart failure), Left against medical advice Disposition: Against Medical Advice Condition: (3) Guarded Instructions: Heart Failure (ED), Low-Sodium Diet (ED) Additional Instructions: You are signing out AMA You may return at anytime for care and treatment Increase your Lasix to every 12 hours the next 3 days Weight yourself daily to monitor fluid losses Call your doctor Friday for close follow up Prescriptions: Furosemide [Lasix] 40 mg PO DAILY #30 tablet Forms: Patient Portal Access Time of Disposition: 15:03 Quality - Quality Measures Quality Measures: N/A - Blood Pressure Screening Does Patient Have Any of the Following: Active Dx of HTN Blood Pressure Classification: Hypertensive Reading Systolic Measurement: 177 Diastolic Measurement: 104 Screening for High Blood Pressure: Patient Exclusion, Hx of HTN [[id number]]
[2017-09-20 12:53] LABS: BASO % 0.6 % (0-6); EOS % 2.2 % (0-6); HEMATOCRIT 42.3 % (42.0-52.0); LYMPH % 9.7 % (16-45); MEAN CELL VOLUME 84.4 fl (81-97); MEAN CORPUSCULAR HEMOGLOBIN 27.9 pg (27-33); MEAN CORPUSCULAR HGB CONC 33.1 g/dl (32-36); MEAN PLATELET VOLUME 10.2 fl (7.4-10.4); MONO % 7.5 % (0-9); PLATELET COUNT 286 K/uL (130-400); RED BLOOD COUNT 5.01 M/uL (4.40-5.70); RED CELL DISTRIBUTION WIDTH 15.1 % (11.5-14.5); WHITE BLOOD COUNT W/O DIFF 8.3 K/uL (4.2-12.2)
[2017-09-20 13:00] LABS: BLOOD UREA NITROGEN 17 mg/dL (8-23); CREATININE 1.1 mg/dL (0.7-1.2); EST GLOMERULAR FILTRATION RATE > 60 mL/min
[2017-09-20 13:01] LABS: TOTAL PROTEIN 7.6 g/dL (6.6-8.7)
[2017-09-20 13:03] LABS: GLUCOSE,RANDOM 253 mg/dL (74-109)
[2017-09-20 13:05] LABS: ALT/SGPT 20 U/L (<41); PARTIAL THROMBOPLASTIN TIME 27.3 SECONDS (24.5-39.1); PROTHROMBIN TIME (PATIENT) 10.4 SECONDS (9.5-12.1)
[2017-09-20 13:06] LABS: ALB/GLOB RATIO 1.2 (1.1-1.8); ALBUMIN 4.1 g/dL (4.0-5.0); ALKALINE PHOSPHATASE 75 U/L (40-129); AST/SGOT 18 U/L (10.0-50.0)
[2017-09-20] MEDS ORDERED: FUROSEMIDE IV 40MG/4ML VIAL IVP ONE (14:42)
--- NOTE | 2017-09-21 09:11 | RADIOLOGY REPORT ---
DATE: 09/20/2017 at 1425 hours. EXAM: TWO-VIEW, CHEST. HISTORY: Difficulty breathing. A history of congestive heart failure. TECHNIQUE: PA and lateral upright views of the chest were obtained. COMPARISON: February 10, 2017. FINDINGS: The heart, mediastinum, and pulmonary vasculature are normal. The lungs are hyperinflated. There are no acute infiltrates. There is a small right pleural effusion with mild right basilar atelectasis. There are no definite acute pulmonary infiltrates. Nipple shadows project over the lower lung buck. Degenerative changes and mild dextroconvex curvature are present within the thoracic spine. IMPRESSION: 1. A TINY RIGHT PLEURAL EFFUSION WITH MILD RIGHT BASILAR ATELECTASIS. 2. CHRONIC OBSTRUCTIVE PULMONARY DISEASE. JOB NUMBER: [id number] MTDD
== END 2017-09-20 15:15 | disposition left against medical advice (07) ==
LOC: ER 12:20
DX: I50.9 Heart failure, unspecified (principal); R79.89 Other specified abnormal findings of blood chemistry; J44.9 Chronic obstructive pulmonary disease, unspecified; I42.9 Cardiomyopathy, unspecified; E11.9 Type 2 diabetes mellitus without complications; M06.9 Rheumatoid arthritis, unspecified; I10 Essential (primary) hypertension; Z87.891 Personal history of nicotine dependence
CPT/HCPCS: 71046; 80053; 83880; 84484; 85025; 85610; 85730; 93005; 93010; 96374; 99284; J1940

== ENCOUNTER 2017-10-14 07:07 | Inpatient (IN) | payer BC ==
[2017-10-14] MEDS ORDERED: HUMULIN R 100 UNIT/ML VIAL SC ONE (07:08)
[2017-10-14] MEDS ORDERED: FUROSEMIDE IV 40MG/4ML VIAL IVP ONE (07:41)
[2017-10-14 07:50] LABS: HEMATOCRIT 42.3 % (42.0-52.0); HEMOGLOBIN 13.8 gm/dl (14.0-18.0); MEAN CELL VOLUME 84.9 fl (81-97); MEAN CORPUSCULAR HEMOGLOBIN 27.7 pg (27-33); MEAN CORPUSCULAR HGB CONC 32.6 g/dl (32-36); PLATELET COUNT 301 K/uL (130-400); RED BLOOD COUNT 4.98 M/uL (4.40-5.70); RED CELL DISTRIBUTION WIDTH 15.8 % (11.5-14.5); WHITE BLOOD COUNT W/O DIFF 7.9 K/uL (4.2-12.2)
[2017-10-14 08:01] LABS: PLATELET ESTIMATE NORMAL (NORMAL)
[2017-10-14 08:02] LABS: BLOOD UREA NITROGEN 22 mg/dL (8-23); CREATININE 1.1 mg/dL (0.7-1.2); EST GLOMERULAR FILTRATION RATE > 60 mL/min
[2017-10-14 08:03] LABS: TOTAL PROTEIN 7.5 g/dL (6.6-8.7)
--- NOTE | 2017-10-14 08:03 | Emergency Department Record ---
History of Present Illness - General Chief Complaint: Shortness of breath Stated Complaint: SUSAN Time Seen by Provider: 10/14/17 07:18 Source: Patient Mode of Arrival: Wheelchair Limitations: No limitations - History of Present Illness Initial Comments: pt has been increasingly sob over last few days along with increasing swelling of his legs. pt denies cp, fever MD Complaint: Shortness of breath Onset/Timin -: Hour(s) Severity: Mild Consistency: Constant Improves With: Upright position Worsens With: Lying flat Known History Of: Congestive heart failure Associated Symptoms: Edema, Orthopnia Treatments Prior to Arrival: None - Related Data Home Oxygen Therapy: No Home Medications Medication Instructions Recorded Confirmed Last Taken Gabapentin [Neurontin] 100 mg PO TID PRN 10/14/17 10/14/17 Unknown Meloxicam [Mobic] 15 mg PO ASDIR 10/14/17 10/14/17 Unknown Omeprazole Magnesium [Prilosec Otc] 20 mg PO DAILY 10/14/17 10/14/17 Unknown Previous Rx's Medication Instructions Recorded Furosemide [Lasix] 40 mg PO DAILY #30 tablet 09/20/17 Allergies Allergy/AdvReac Type Severity Reaction Status Date / Time methotrexate Allergy SHORTNESS Verified 02/10/17 08:27 OF BREATH pregabalin [From Lyrica] Allergy SHORTNESS Verified 02/10/17 08:27 OF BREATH Travel Screening - Travel/Exposure Within Last 30 Days Have you traveled within the last 30 days?: No Review of Systems Reviewed: No additional complaints except as noted below Constitutional: Reports: As per HPI. Denies: Chills, Fever, Malaise, Night sweats, Weakness, Weight change Eyes: Reports: As per HPI. Denies: Eye discharge, Eye pain, Photophobia, Vision change ENT: Reports: As per HPI. Denies: Congestion, Dental pain, Ear pain, Epistaxis , Hearing loss, Throat pain Respiratory: Reports: As per HPI, Cough, Dyspnea. Denies: Hemoptysis, Stridor, Wheezes Cardiovascular: Reports: As per HPI, Edema. Denies: Arrhythmia, Chest pain, Dyspnea on exertion, Murmurs, Orthopnea, Palpitations, Paroxysmal nocturnal dyspnea, Rheumatic Fever, Syncope Endocrine: Reports: As per HPI. Denies: Fatigue, Heat or cold intolerance, Polydipsia, Polyuria Gastrointestinal: Reports: As per HPI. Denies: Abdominal pain, Constipation, Diarrhea, Hematemesis, Hematochezia, Melena, Nausea, Vomiting Genitourinary: Reports: As per HPI. Denies: Dysuria, Frequency, Hematuria, Incontinence, Retention, Testicular pain, Testicular mass, Urgency Musculoskeletal: Reports: As per HPI. Denies: Arthralgia, Back pain, Gout, Joint swelling, Myalgia, Neck pain Skin: Reports: As per HPI. Denies: Bruising, Change in color, Change in hair/ nails, Lesions, Pruritus, Rash Neurological: Reports: As per HPI. Denies: Abnormal gait, Confusion, Headache, Numbness, Paresthesias, Seizure, Tingling, Tremors, Vertigo, Weakness Psychiatric: Reports: As per HPI. Denies: Anxiety, Auditory hallucinations, Depression, Homicidal thoughts, Suicidal thoughts, Visual hallucinations Hematological/Lymphatic: Reports: As per HPI. Denies: Anemia, Blood Clots, Easy bleeding, Easy bruising, Swollen glands Past Medical History - SOCIAL HISTORY Smoking Status: Former smoker Alcohol Use: None Drug Use: None - RESPIRATORY Hx Respiratory Disorders: Yes Hx Pneumonia: Yes Hx Sleep Apnea: Yes (has issues but does not use C-PAP) - CARDIOVASCULAR Hx Cardio Disorders: Yes Hx Abnormal EKG: Yes (hx of bigeminy) Hx CHF: Yes Hx Deep Vein Thrombosis: Yes Hx Edema: Yes Hx Hypertension: Yes Hx Irregular Heartbeat: Yes - NEURO Hx Neuro Disorders: Yes Hx Neuropathy: Yes - GI Hx GI Disorders: Yes Hx Reflux: Yes - Hx Genitourinary Disorders: No - ENDOCRINE Hx Endocrine Disorders: Yes Hx Diabetes: Yes (for 20 years) Hx Thyroid Disease: No - MUSCULOSKELETAL Hx Musculoskeletal Disorders: Yes Hx Arthritis: Yes Comment:: Rheumatoid - PSYCH Hx Psych Problems: No - HEMATOLOGY/ONCOLOGY Hx Hematology/Oncology Disorders: No Family Medical History Any Significant Family History?: Yes Family Hx Comment (NOT TO BE USED IN PLACE OF ITEMS BELOW): mom w/thyroid issues Hx Cancer: Father, Mother Hx Heart Disease: Mother Physical Exam - General General Appearance: Alert, Oriented x3, Cooperative, Mild distress - Head Head exam: Normal inspection - Eye Eye exam: Normal appearance, PERRL, EOMI Pupils: Normal accommodation - ENT ENT exam: Normal exam, Mucous membranes moist, Normal external ear exam, Normal orophraynx, TM's normal bilaterally Ear exam: Normal external inspection. negative: External canal tenderness Nasal Exam: Normal inspection. negative: Discharge, Sinus tenderness Mouth exam: Normal external inspection, Tongue normal Teeth exam: Normal inspection. negative: Dental caries Throat exam: Normal inspection. negative: Tonsillar erythema, Tonsillar exudate - Neck Neck exam: Normal inspection, Full ROM. negative: Tenderness - Respiratory Respiratory exam: Rales. negative: Respiratory distress - Cardiovascular Cardiovascular Exam: Normal rhythm, Normal heart sounds, Tachycardia - GI/Abdominal GI/Abdominal exam: Soft, Normal bowel sounds. negative: Tenderness - Rectal Rectal exam: Deferred - exam: Deferred - Extremities Extremities exam: Full ROM, Normal capillary refill, Pedal edema. negative: Tenderness - Back Back exam: Reports: Normal inspection, Full ROM. Denies: Muscle spasm, Rash noted, Tenderness - Neurological Neurological exam: Alert, CN II-XII intact, Normal gait, Oriented X3 - Psychiatric Psychiatric exam: Normal affect, Normal mood - Skin Skin exam: Dry, Intact, Normal color, Warm Course Vital Signs 10/14/17 10/14/17 07:11 07:25 Temperature 98.7 F Pulse Rate 111 H Respiratory 30 H Rate Blood Pressure 171/99 Pulse Ox 97 - Reevaluation(s) Reevaluation #1: 10/14/17 10:46 transfer to a [facility] d/w pt and he refused saying he prefers to stay here. considering his physical state it is probably better for the pt to stay here as well Medical Decision Making - Management Options MDM Management: Additional Work-up Planned (e.g. ADM/Transfer/OP Study) - Data Complexity MDM Data: Labs Ordered and/or Reviewed, X-Ray Ordered and/or Reviewed, EKG Ordered and/or Reviewed - Lab Data Result diagrams: 10/14/17 07:30 10/14/17 07:30 Lab Results 10/14/17 Range/Units 07:30 WBC 7.9 (4.2-12.2) K/uL RBC 4.98 (4.40-5.70) M/uL Hgb 13.8 L (14.0-18.0) gm/dl Hct 42.3 (42.0-52.0) % MCV 84.9 (81-97) fl MCH 27.7 (27-33) pg MCHC 32.6 (32-36) g/dl RDW 15.8 H (11.5-14.5) % Plt Count 301 (130-400) K/uL MPV 10.0 (7.4-10.4) fl Eosinophils % Not Reportable Basophils % Not Reportable - EKG Data -: EKG Interpreted by Me EKG: Unchanged From Previous - Radiology Data Radiology results: Report reviewed, Image reviewed Disposition Disposition: Admit Clinical Impression: Hyperglycemia, Pleural effusion, Thyroid nodule Pulmonary embolism Qualifiers: Pulmonary embolism type: other Chronicity: acute Acute cor pulmonale presence: without acute cor pulmonale Qualified Code(s): I26.99 - Other pulmonary embolism without acute cor pulmonale CHF (congestive heart failure) Qualifiers: Heart failure type: unspecified Heart failure chronicity: acute Qualified Code( s): I50.9 - Heart failure, unspecified Disposition: Still a Patient at [facility] Decision to Admit: Admit from ER Decision to Admit Date: 10/14/17 Decision to Admit Time: 10:46 Forms: Patient Portal Access Quality - Quality Measures Quality Measures: N/A - Blood Pressure Screening Does Patient Have Any of the Following: Active Dx of HTN Blood Pressure Classification: Hypertensive Reading Systolic Measurement: 171 Diastolic Measurement: 99 Screening for High Blood Pressure: Patient Exclusion, Hx of HTN [[id number]]
[2017-10-14 08:05] LABS: GLUCOSE,RANDOM 328 mg/dL (74-109)
[2017-10-14 08:07] LABS: ALB/GLOB RATIO 1.2 (1.1-1.8); ALBUMIN 4.1 g/dL (4.0-5.0); ALKALINE PHOSPHATASE 87 U/L (40-129); ALT/SGPT 23 U/L (<41); AST/SGOT 18 U/L (10.0-50.0)
[2017-10-14] MEDS ORDERED: LORAZEPAM 2 MG/ML VIAL IV ONE (08:42)
[2017-10-14] MEDS ORDERED: HUMULIN R 100 UNIT/ML VIAL SQ ONE (09:50)
[2017-10-14] MEDS ORDERED: CYCLOBENZAPRINE 10MG TABLET PO ONE (10:03)
[2017-10-14] MEDS ORDERED: APIXABAN 5MG TABLET PO ONE (10:39)
[2017-10-14 10:40] LABS: URINE APPEARANCE CLEAR; URINE BILIRUBIN NEGATIVE (NEGATIVE); URINE BLOOD NEGATIVE (NEGATIVE); URINE KETONE NEGATIVE (NEGATIVE); URINE LEUKOCYTE ESTERASE NEGATIVE (NEGATIVE); URINE NITRITE NEGATIVE (NEGATIVE); URINE PROTEIN NEGATIVE (NEGATIVE); URINE UROBILINOGEN 0.2 E.U./dL (0.20 - 1.00)
[2017-10-14 10:48] LABS: URINE COLOR STRAW
[2017-10-14 11:04] LABS: PARTIAL THROMBOPLASTIN TIME 25.2 SECONDS (24.5-39.1); PROTHROMBIN TIME (PATIENT) 10.3 SECONDS (9.5-12.1)
[2017-10-14 11:11] LABS: CKMB 7.1 ng/mL (<6.73)
[2017-10-14 11:26] LABS: CKMB RELATIVE INDEX 5.6 % (0-4)
[2017-10-14] MEDS ORDERED: ACETAMINOPHEN 500 MG TABLET PO PRN (12:00)
[2017-10-14] MEDS ORDERED: GABAPENTIN 100 MG CAPSULE PO PRN (12:00)
[2017-10-14] MEDS ORDERED: NITROGLYCERIN 0.4MG SL TABLET #25 BTL SL PRN (12:00)
[2017-10-14] MEDS ORDERED: TEMAZEPAM 15 MG CAPSULE PO PRN (12:00)
[2017-10-14] MEDS ORDERED: MORPHINE SULFATE 60 MG PO SCH (12:00)
[2017-10-14] MEDS ORDERED: FLU VAC QS 2017-18 (INPT, 6MO+) 60MCG/0.5ML IM ONE (12:26)
[2017-10-14] MEDS: CARVEDILOL 12.5 MG TABLET PO SCH ×2 (14:18→21:07)
[2017-10-14] MEDS: CYCLOBENZAPRINE 10MG TABLET PO PRN ×2 (14:18→21:07)
[2017-10-14] MEDS: POTASSIUM CHLORIDE 20 MEQ TABLET PO SCH (14:18)
[2017-10-14] MEDS: ASPIRIN 81 MG TABEC PO SCH (14:18)
[2017-10-14] MEDS: HYDROXYCHLOROQUINE SULFATE 200 MG TABLET PO SCH (14:18)
[2017-10-14] MEDS: LISINOPRIL 5 MG TABLET PO SCH (14:18)
[2017-10-14] MEDS: OMEPRAZOLE MAGNESIUM 20 MG PO SCH (14:28)
[2017-10-14] MEDS ORDERED: LORAZEPAM 0.5 MG TABLET PO ONE (15:24)
[2017-10-14] MEDS ORDERED: CYCLOBENZAPRINE 10MG TABLET PO SCH (16:00)
--- NOTE | 2017-10-14 16:21 | History & Physical ---
History of Present Illness - Date of Service Date of Service for History & Physical: 10/14/17 - History of Present Illness Admitting Diagnosis: PE, CHF,pleural effusions, hyperglycemia, thyroid nodule History of Present Illness: 67yo male with CC of shortness of breath. He has history of CHF, bigeminy, HTN, T2DM with peripheral neuropathy (follows with podiatry), RA, sleep apnea, h/o agent orange exposure. Patient presented to the ED with progressively worse SOB that had started about a week ago. He denied any associated chest pain or heaviness, but did note increased swelling in his feet and legs. While in the ED, patient had room air sat of 97%. He had EKG which showed sinus tachycardia with old RBBB, and no acute ST changes. Labs revealed several abnormalities. His BNP was elevated at 1660, CKMB elevated at 7.2 with relative index of 5.6, and troponin T in indeterminate range at 0.021. He had an elevated D-Dimer and underwent CTA of the chest which revealed a small PE in the left upper lobe with bilateral pleural effusions. ED reported 1800cc in urine output after receiving 40mg of lasix IV. Patient was given first dose of eliquis 10mg and admitted for PE and CHF exacerbation. 10/14/17- Patient states he is feeling better since receiving the lasix. He has no increased work of breathing. He states his legs were quite swollen compared to normal. He follows with a sprayer machine for chronic wound care of the right ankle. He had previously been admitted to [facility] for systolic heart failure exacerbation last summer and [facility] had been consulted. He had an echo done at that time showing an Ef of 30-35% and was recommended to undergo cardiac cath which he had declined. He was started on a BB and ACEI at that time but did not ever follow up with cardiology afterwards. [facility] and they currently manage his diabetes. He takes metformin 1000mg po bid and novolog 70/ 30 mix 34units twice daily. He states that his BG typically runs around 140-150 when he checks it at home. He doesn't know his last A1C. Travel Screening - Travel/Exposure Within Last 30 Days Have you traveled within the last 30 days?: No - Travel/Exposure Within Last Year Have you traveled outside the [place] in the last year?: No - Additonal Travel Details Have you been exposed to anyone with a communicable illness?: No - Travel Symptoms Symptom Screening: None Review of Systems Constitutional: Reports: As per HPI. Denies: Chills, Fever, Malaise, Night sweats, Weakness, Weight change Eyes: Reports: As per HPI. Denies: Eye discharge, Eye pain, Photophobia, Vision change ENT: Reports: As per HPI. Denies: Congestion, Dental pain, Ear pain, Epistaxis , Hearing loss, Throat pain Respiratory: Reports: As per HPI, Cough, Dyspnea. Denies: Hemoptysis, Stridor, Wheezes Cardiovascular: Reports: As per HPI, Edema. Denies: Arrhythmia, Chest pain, Dyspnea on exertion, Murmurs, Orthopnea, Palpitations, Paroxysmal nocturnal dyspnea, Rheumatic Fever, Syncope Endocrine: Reports: As per HPI. Denies: Fatigue, Heat or cold intolerance, Polydipsia, Polyuria Gastrointestinal: Reports: As per HPI. Denies: Abdominal pain, Constipation, Diarrhea, Hematemesis, Hematochezia, Melena, Nausea, Vomiting Genitourinary: Reports: As per HPI. Denies: Dysuria, Frequency, Hematuria, Incontinence, Retention, Testicular pain, Testicular mass, Urgency Musculoskeletal: Reports: As per HPI. Denies: Arthralgia, Back pain, Gout, Joint swelling, Myalgia, Neck pain Skin: Reports: As per HPI. Denies: Bruising, Change in color, Change in hair/ nails, Lesions, Pruritus, Rash Neurological: Reports: As per HPI. Denies: Abnormal gait, Confusion, Headache, Numbness, Paresthesias, Seizure, Tingling, Tremors, Vertigo, Weakness Psychiatric: Reports: As per HPI. Denies: Anxiety, Auditory hallucinations, Depression, Homicidal thoughts, Suicidal thoughts, Visual hallucinations Hematological/Lymphatic: Reports: As per HPI. Denies: Anemia, Blood Clots, Easy bleeding, Easy bruising, Swollen glands Past Medical History - SOCIAL HISTORY Smoking Status: Former smoker Alcohol Use: None Drug Use: None - RESPIRATORY Hx Respiratory Disorders: Yes Hx Pneumonia: Yes Hx Sleep Apnea: Yes (has issues but does not use C-PAP) - CARDIOVASCULAR Hx Cardio Disorders: Yes Hx Abnormal EKG: Yes (hx of bigeminy) Hx CHF: Yes Hx Deep Vein Thrombosis: Yes Hx Edema: Yes Hx Hypertension: Yes Hx Irregular Heartbeat: Yes - NEURO Hx Neuro Disorders: Yes Hx Neuropathy: Yes - GI Hx GI Disorders: Yes Hx Reflux: Yes - Hx Genitourinary Disorders: No - ENDOCRINE Hx Endocrine Disorders: Yes Hx Diabetes: Yes (for 20 years) Hx Thyroid Disease: No - MUSCULOSKELETAL Hx Musculoskeletal Disorders: Yes Hx Arthritis: Yes Comment:: Rheumatoid - PSYCH Hx Psych Problems: No - HEMATOLOGY/ONCOLOGY Hx Hematology/Oncology Disorders: No Family Medical History Any Significant Family History?: Yes Family Hx Comment (NOT TO BE USED IN PLACE OF ITEMS BELOW): mom w/thyroid issues Hx Cancer: Father, Mother Hx Heart Disease: Mother H&P Meds/Allergies - Allergies Allergies: Allergies Allergy/AdvReac Type Severity Reaction Status Date / Time methotrexate Allergy SHORTNESS Verified 02/10/17 08:27 OF BREATH pregabalin [From Lyrica] Allergy SHORTNESS Verified 02/10/17 08:27 OF BREATH - Home Medications Home Medications Medication Instructions Recorded Confirmed Last Taken Gabapentin [Neurontin] 100 mg PO TID PRN 10/14/17 10/14/17 Unknown Meloxicam [Mobic] 15 mg PO ASDIR 10/14/17 10/14/17 Unknown Omeprazole Magnesium [Prilosec Otc] 20 mg PO DAILY 10/14/17 10/14/17 Unknown Previous Rx's Medication Instructions Recorded Furosemide [Lasix] 40 mg PO DAILY #30 tablet 09/20/17 - Active Medications Active Medications: Current Medications Acetaminophen (Tylenol 500mg Tab) 1,000 mg PO Q6H PRN PRN Reason: PAIN/TEMP Apixaban (Eliquis) 10 mg PO BID [facility] Aspirin (Ecotrin (Ec)) 81 mg PO DAILY [facility] Last Admin: 10/14/17 14:18 Dose: 81 mg Atorvastatin Calcium (Lipitor) 20 mg PO QHS [facility] Carvedilol (Coreg) 12.5 mg PO BID [facility] Last Admin: 10/14/17 14:18 Dose: 12.5 mg Cyclobenzaprine HCl (Flexeril) 10 mg PO TID PRN PRN Reason: MUSCLE SPASM Last Admin: 10/14/17 14:18 Dose: 10 mg Duloxetine HCl (Cymbalta) 60 mg PO QHS [facility] Furosemide (Lasix) 40 mg PO DAILY [facility] Gabapentin (Neurontin) 100 mg PO TID PRN PRN Reason: nerve pain Hydroxychloroquine Sulfate (Plaquenil) 200 mg PO DAILY [facility] Last Admin: 10/14/17 14:18 Dose: 200 mg Lisinopril (Zestril) 2.5 mg PO DAILY [facility] Last Admin: 10/14/17 14:18 Dose: 2.5 mg Lorazepam (Ativan) 0.5 mg PO NOW ONE Stop: 10/14/17 15:25 Last Admin: 10/14/17 15:28 Dose: 0.5 mg Metformin HCl (Glucophage Ir) 1,000 mg PO BIDWM [facility] Morphine Sulfate () 60 mg PO Q12HR [facility] Nitroglycerin (Nitrostat 0.4mg) 0.4 mg SL Q5MIN PRN PRN Reason: CHEST PAIN Non-Formulary Medication (Omeprazole [facility] [[facility]c [facility]c]) [facility] Last Admin: 10/14/17 14:28 Dose: 20 mg Patient Own Med: (Xeljanz Er 11 Mg) 1 each PO DAILY [facility] Potassium Chloride (Klor-Con) 20 meq PO DAILY [facility] Last Admin: 10/14/17 14:18 Dose: 20 meq Temazepam (Restoril) 15 mg PO QHS PRN PRN Reason: INSOMNIA Physical Exam - Vital Signs Vital Signs: Vital Signs - Last 24 Hrs Temp Pulse Pulse Resp BP BP Pulse Ox 10/14/17 14:00 97.7 F 109 H 18 135/78 97 10/14/17 13:23 24 10/14/17 12:49 108 H 21 99 10/14/17 11:59 97.5 F L 103 H 18 152/86 98 10/14/17 11:50 97.4 F L 108 H 16 135/93 96 - General General Appearance: Alert, Oriented x3, Cooperative, No acute distress Limitations: No limitations - Head Head exam: Normal inspection - Eye Eye exam: Normal appearance, PERRL, EOMI Pupils: Normal accommodation - ENT ENT exam: Normal exam, Mucous membranes moist, Normal external ear exam, Normal orophraynx, TM's normal bilaterally Ear exam: Normal external inspection. negative: External canal tenderness Nasal Exam: Normal inspection. negative: Discharge, Sinus tenderness Mouth exam: Normal external inspection, Tongue normal Teeth exam: Normal inspection. negative: Dental caries Throat exam: Normal inspection. negative: Tonsillar erythema, Tonsillar exudate - Neck Neck exam: Normal inspection, Full ROM. negative: Tenderness - Respiratory Respiratory exam: Rales (bilateral ). negative: Accessory muscle use, Respiratory distress, Wheezes - Cardiovascular Cardiovascular Exam: Normal rhythm, Normal heart sounds, Tachycardia - GI/Abdominal GI/Abdominal exam: Soft, Normal bowel sounds. negative: Tenderness - Rectal Rectal exam: Deferred - exam: Deferred - Extremities Extremities exam: Full ROM, Normal capillary refill, Pedal edema (2+). negative : Tenderness - Back Back exam: Reports: Normal inspection, Full ROM. Denies: Muscle spasm, Rash noted, Tenderness - Neurological Neurological exam: Alert, CN II-XII intact, Normal gait, Oriented X3 - Psychiatric Psychiatric exam: Normal affect, Normal mood - Skin Skin exam: Dry, Intact, Normal color, Warm Results - Labs Result Diagrams: 10/14/17 07:30 10/14/17 07:30 Labs Last 24 Hours: Laboratory Results - last 24 hr 10/14/17 10/14/17 10/14/17 11:40 12:00 20:00 POC Glucose 354 H CK-MB (CK-2) Cancelled Cancelled 10/15/17 10/15/17 04:00 12:00 POC Glucose CK-MB (CK-2) Cancelled Cancelled - Imaging and Cardiology CT scan - chest Status: Report reviewed (small, peripheral upper left lobe PE) VTE H&P Assessment - Risk for VTE Risk for VTE: Yes Risk Level: High Risk Assessment Date: 10/14/17 Risk Assessment Time: 22:12 VTE Orders Placed or Will Be Placed: Yes Plan - Inpatient Certification Inpatient Certification: Admit to inpatient care: Based on my medical assessment, after consideration of patient's risk factors (age, co-morbidities and patient presenting symptoms and acuity), I expect that this patient will remain in the hospital greater than or equal to two midnights and that the services needed warrant inpatient care because: Patient Risk Factors: [age, pulmonary embolism, systolic heart failure exacerbation, T2DM ] Estimated length of stay: [48-72H] The patient may reasonably be expected to be discharged or transferred to a hospital within 96 hours after admission to [facility]. Services needed: [IV diuretics, initiations of anticoagulation, cardiology consultation] Post hospital care (if known): [] I certify that my determination is in accordance with my understanding of Medicare requirements for reasonable and necessary inpatient services. 10/14/17 22:13 - Detailed Diagnosis and Plan (1) Acute exacerbation of congestive heart failure Current Visit: Yes Status: Acute Qualifiers: Heart failure type: systolic Qualified Code(s): I50.23 - Acute on chronic systolic (congestive) heart failure Base Code: I50.9 - HEART FAILURE, UNSPECIFIED Comment: 10/14/17- improved following 40mg IV lasix in ED with 1800cc urine output. CTA showing bilateral pleural effusions. Most recent echo done within 6 months showed EF of 30-35%. EKG in ED was unchanged from previous visit and was without acute ishcemic changes. 1st and 2nd set of CE in the indeterminate range as they were at previous visit a month ago. BNP elevated at 1665. Patient had previously declined any interventions aside from medication therapy. Curently on BB, ACEI, and baby aspirin. -continue diuresis with lasix 40mg IV -fluid restriction -I&O's -daily weights -continue BB and ACEI -vitals q8H -continuous tele -consult cardiology (2) Pulmonary embolism Current Visit: Yes Status: Acute Qualifiers: Pulmonary embolism type: other Chronicity: acute Acute cor pulmonale presence: without acute cor pulmonale Qualified Code(s): I26.99 - Other pulmonary embolism without acute cor pulmonale Base Code: I26.99 - OTHER PULMONARY EMBOLISM WITHOUT ACUTE COR PULMONALE Comment: 10/14/17- patient had elevated DDimer of 1.56 in ED and underwent CTA showing a peripheral PE in the left upper lobe of the lung. 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 He says his BG typically runs 140-150 and he doesn't check this at any specific time. -hold metformin for 48H s/p contrast dye for CTA -continue insulin 70/30 34units bid -will get A1C with labs in the am -accucheck QID (4) Thyroid nodule Current Visit: Yes Status: Acute Base Code: E04.1 - NONTOXIC SINGLE THYROID NODULE Comment: 10/14/17- thyroid nodule noted on CTA as incidental finding. -will ensure he gets set up for nonemergent U/S of the thyroid as outpatient and ensure pcp folllow up on this issue. (5) Full code status Current Visit: No Status: Acute Base Code: Z78.9 - OTHER SPECIFIED HEALTH STATUS Comment: 10/14/17- patient is full code
[2017-10-14] MEDS: NOVOLOG 70/30 FLEXPEN 100 UNITS/ML SQ SCH (17:24)
[2017-10-14] MEDS ORDERED: METFORMIN 500 MG TABLET PO SCH (17:30)
[2017-10-14] MEDS: FUROSEMIDE IV 40MG/4ML VIAL IVP SCH (19:19)
[2017-10-14] MEDS: ISOSORBIDE MONONITRATE 30 MG TAB.ER.24H PO SCH (19:19)
--- NOTE | 2017-10-14 20:45 | Medical Records Consult ---
DATE OF CONSULTATION: 10/14/17 REFERRING PROVIDER: CAMILLA TONG PA-C. REASON FOR CONSULTATION: CONGESTIVE HEART FAILURE. HISTORY OF PRESENT ILLNESS: Mr. Mary is a 66-year-old with a history of cardiomyopathy. The patient was diagnosed with dilated cardiomyopathy when he was admitted to [facility] back in January of 2017. He was recommended to have cardiac catheterization, however he declined cardiac catheterization at that time. He had an echocardiogram in August of 2017, when he LV function was reported to be 30 to 35%. However, I don't have the echo report available to me and he was once again asked to have cardiac catheterization but he adamantly declined it. The patient has been on beta-blockers and ELENITA inhibiters as well as oral diuretic and presented to the Emergency Department at [facility] with complaints of shortness of breath. He denies any chest pain. He does have progressively worsening pedal edema as well. The patient was admitted for heart failure exacerbation and a CT of the chest was performed because of his continued shortness of breath and he was found to have a pulmonary embolism. The patient's D-dimer was elevated, which led to the CT scan. The patient has indeterminate troponin elevation, which was noticed in the previous admission as well. The patient was then approached by Camilla Tong PA-C and explained to the patient in detail about cardiac catheterization and he agreed to have coronary angiography. However, he would not want to go to [facility] and he would like to switch his cardiac care to us, so I was consulted. PAST MEDICAL HISTORY: Significant for a DVT about two years ago, diabetes mellitus type II (longstanding), hypertension. Cardiomyopathy with an ejection fraction of 30 to 35%. ALLERGIES: THE PATIENT IS ALLERGIC TO LYRICA AND METHOTREXATE: Both of these cause shortness of breath. HOME MEDICATIONS: Carvedilol 12.5 mg b.i.d. Lisinopril 2.5 mg daily Lasix 40 mg daily Atorvastatin 20 mg every h.s. Plaquenil 200 mg p.o. daily Lorazepam 0.5 mg p.o. p.r.n. Metformin 1000 mg p.o. b.i.d. Potassium Chloride 20 mg p.o. daily Restoril 15 mg p.o. every h.s. p.r.n. FAMILY HISTORY: Mother had thyroid issues and both parents had a history of cancer. Mother also had coronary artery disease. SOCIAL HISTORY: The patient is a former smoker and also has a history of COPD. He also has obstructive sleep apnea. REVIEW OF SYSTEMS: The patient complains of pedal edema and weight gain as well as progressive shortness of breath, as explained in the HPI. He denies any bleeding complications. The patient has neuropathy and has been on medications for that for over 20 years. He denies any thyroid issues. PHYSICAL EXAMINATION: GENERAL: Mr. Mary is a 66-year-old gentleman who had just walked out of the bathroom and was fairly short of breath and appears weak. Telemeter shows sinus tachycardia. The patient, however, is alert and oriented x3. HEENT: On HEENT examination, he is normocephalic/atraumatic. Extraocular muscles are intact. NECK: Neck is supple. CVS: On CVS examination, he has normal S1 and S2 with tachycardia. RESPIRATORY: Lungs are clear to auscultation bilaterally. EXTREMITIES: He has +2 bilateral pedal edema. NEUROLOGIC: Neurologic examination is nonfocal. LABORATORY DATA: Shows a white count of 7.9. Hemoglobin 13.8. Hematocrit 42.3. Platelet count 301. BUN 22. Creatinine 1.1. Sodium 137. Potassium 3.9. Chloride 98. CO2 25. Blood glucose is elevated at 328. EKG: Shows sinus tachycardia at 111 beats per minute with occasional PVCs. A right bundle branch block is observed as well. His D-dimer is elevated at 1.56. ASSESSMENT AND PLAN: 1. SHORTNESS OF BREATH, MOST LIKELY BECAUSE OF THE PULMONARY EMBOLISM. 2. SYSTOLIC HEART FAILURE EXACERBATION. 3. HISTORY OF DIABETES MELLITUS TYPE II. 4. HISTORY OF OBSTRUCTIVE SLEEP APNEA. 5. HISTORY OF COPD. The patient has already been started on Eliquis. I would recommend continuing Eliquis 10 mg b.i.d. for his acute P.E. and 5 mg b.i.d. thereafter. The patient' s lungs are clear as compared to has shortness of breath and, in my opinion, the shortness of breath most likely is because of his acute P.E. rather than mainly because of heart failure exacerbation. However, he would benefit from IV diuresis, given his progressively worsening pedal edema. Because of his significant risk factors and his exposure to [place], he probably will have significant obstructive pulmonary artery disease as well and so I would recommend adding a long-acting nitroglycerine to the current regimen including beta-blockers and ELENITA inhibitors as well as Aspirin and statin therapy. I would recommend coronary angiography for evaluation of the etiology of his cardiomyopathy. The patient, however, doesn't have any acute chest pain at this time and he has acute pulmonary embolism. I would recommend to not interrupt the anticoagulation for at least 4 to 6 weeks and we will schedule him for coronary angiography at that time. The patient should have strict I's and O's and daily weight and should also have fluid and sodium restriction to 2 liters and 2 gm per day, respectively. Aggressive management of diabetes and COPD, as per your recommendation. I would like the patient to follow-up with us as an outpatient in 1 to 2 weeks. JOB NUMBER: [id number] MTDD
[2017-10-14] MEDS ORDERED: DIPHENHYDRAMINE HCL 25 MG CAPSULE PO ONE (21:02)
[2017-10-14] MEDS: MORPHINE SULFATE 30MG TABLET.ER PO SCH (21:06)
[2017-10-14] MEDS: ATORVASTATIN 20 MG TABLET PO SCH (21:07)
[2017-10-14] MEDS: DULOXETINE HCL 30 MG CAPSULE.DR PO SCH (21:07)
[2017-10-14] MEDS: APIXABAN 5MG TABLET PO SCH (21:07)
[2017-10-15 00:15] LABS: CKMB 7.4 ng/mL (<6.73)
[2017-10-15] MEDS ORDERED: DEXTROSE 50 % IVP 50 ML DISP.SYRIN IVP ONE (00:16)
[2017-10-15 00:44] LABS: CKMB RELATIVE INDEX 4.4 % (0-4)
[2017-10-15] MEDS: OMEPRAZOLE MAGNESIUM 20 MG PO SCH (06:00)
--- NOTE | 2017-10-15 07:40 | CT ANGIOGRAM REPORT ---
EXAM: CTA OF THE CHEST WITH CONTRAST WITH POST PROCESSING HISTORY: SHORTNESS OF BREATH, INCREASING DIFFICULTY IN BREATHING FOR FOUR DAYS , ELEVATED D-DIMER, POSSIBLE PULMONARY EMBOLISM. TECHNIQUE: CTA of the chest was performed following the intravenous administration of 82 ml of Omnipaque 350 as the IV contrast. Post processing on an independent workstation was performed with multiple 3D MIP series obtained. Comparison: Prior Chest CTA 01/31/17. Two view chest x-ray dated 09/20/17. FINDINGS: There does appear to be a single small focus of PE in the left upper lobe best seen on image number [id number] of [id number]. Elsewhere no definite PE identified although some of the peripheral branches are relatively poorly seen. No central PE identified. No thoracic aortic aneurysm or dissection is seen. Coronary artery calcification is present. No pericardial effusion evident. There are moderate bilateral pleural effusions, new from the prior CT. Mild bibasilar streaky atelectasis or infiltrate posteriorly. There is probably a partially calcified nodule in the lower pole of the left lobe of the thyroid more obvious than before, probably measuring at least 2 cm in size. Correlation with physical exam is suggested and follow-up nonemergent thyroid ultrasound may be useful. Hypertrophic spurring in the thoracic spine. Old fracture deformity posteriorly in the right eleventh rib probably with an incomplete bony union. This was present previously on 01/31/17 as well. The region of the previously seen 9 mm noncalcified nodule at the right lung base posteriorly is largely obscured by the atelectasis or infiltrate in this location on the current chest CT. IMPRESSION: 1. SMALL AMOUNT OF APPARENT PERIPHERAL PE IN THE LEFT UPPER LOBE. 2. MODERATE BILATERAL PLEURAL EFFUSIONS WITH BIBASILAR ATELECTASIS OR INFILTRATE. 3. CHRONIC RIB FRACTURE POSTERIORLY IN THE RIGHT ELEVENTH RIB WITH A NONBONY UNION BEFORE. 4. PROBABLE RELATIVELY LARGE THYROID NODULE LOWER POLE LEFT LOBE OF THE THYROID. FOLLOW-UP NONEMERGENT THYROID ULTRASOUND MIGHT BE USEFUL. 5. CORONARY ARTERY CALCIFICATION AGAIN EVIDENT. JOB NUMBER: [id number] [facility]
[2017-10-15 08:27] LABS: CKMB 9.1 ng/mL (<6.73)
[2017-10-15 08:49] LABS: CKMB RELATIVE INDEX 5.4 % (0-4)
[2017-10-15] MEDS: MORPHINE SULFATE 30MG TABLET.ER PO SCH ×2 (09:21→22:00)
[2017-10-15] MEDS: ASPIRIN 81 MG TABEC PO SCH (09:22)
[2017-10-15] MEDS: HYDROXYCHLOROQUINE SULFATE 200 MG TABLET PO SCH (09:22)
[2017-10-15] MEDS: LISINOPRIL 5 MG TABLET PO SCH (09:22)
[2017-10-15] MEDS: ISOSORBIDE MONONITRATE 30 MG TAB.ER.24H PO SCH (09:22)
[2017-10-15] MEDS: POTASSIUM CHLORIDE 20 MEQ TABLET PO SCH (09:22)
[2017-10-15] MEDS: CARVEDILOL 12.5 MG TABLET PO SCH ×2 (09:22→21:58)
[2017-10-15] MEDS: FUROSEMIDE IV 40MG/4ML VIAL IVP SCH ×3 (09:23→19:02)
[2017-10-15] MEDS: APIXABAN 5MG TABLET PO SCH ×2 (09:23→21:39)
[2017-10-15] MEDS: NOVOLOG 70/30 FLEXPEN 100 UNITS/ML SQ SCH ×2 (09:24→18:02)
[2017-10-15] MEDS: XELJANZ 11 MG PO SCH (09:39)
[2017-10-15] MEDS ORDERED: FUROSEMIDE 40 MG TABLET PO SCH (10:00)
[2017-10-15] MEDS ORDERED: ASPIRIN 81 MG CHEWABLE TABLET PO SCH (10:00)
[2017-10-15] MEDS: UMECLIDINIUM BROMIDE (INCRUSE) 62.5MCG IH SCH (10:53)
--- NOTE | 2017-10-15 12:23 | Physician Progress Note ---
Subjective - Date Date of Physician Progress Note: 10/15/17 - Subjective Subjective Comment: 10/15/17-Patient states he is feeling a little better today. he is no longer feeling as short of breath. He didn't sleep well last evening and has been feeling tired today. He does think his legs are less swollen today. He continues to deny chest pain. His blood sugar did drop to 48 last evening. He admits that his diet at home is not typically as strict as what he has been eating here. He says he doesn't usually count his carbs at home. Objective - Vital Signs Vital Signs: Vital Signs - Last 24 Hrs Temp Pulse Pulse Pulse Resp BP BP 10/15/17 10:57 93 H 15 10/15/17 09:54 97.9 F 92 H 16 97/53 10/15/17 09:00 97 H 16 10/15/17 05:14 97.8 F 92 H 22 132/72 10/14/17 23:50 76 18 125/81 10/14/17 21:00 98 H 98 H 18 10/14/17 20:00 97.7 F 103 H 20 145/89 10/14/17 14:00 97.7 F 109 H 18 135/78 10/14/17 13:23 24 10/14/17 12:49 108 H 21 Pulse Ox 10/15/17 10:57 93 L 10/15/17 09:54 93 L 10/15/17 09:00 10/15/17 05:14 94 L 10/14/17 23:50 95 10/14/17 21:00 10/14/17 20:00 97 10/14/17 14:00 97 10/14/17 13:23 10/14/17 12:49 99 - General General Appearance: Alert, Oriented x3, Cooperative, No acute distress Limitations: No limitations - Head Head exam: Normal inspection - Eye Eye exam: Normal appearance, PERRL, EOMI Pupils: Normal accommodation - ENT ENT exam: Normal exam, Mucous membranes moist, Normal external ear exam, Normal orophraynx, TM's normal bilaterally Ear exam: Normal external inspection. negative: External canal tenderness Nasal Exam: Normal inspection. negative: Discharge, Sinus tenderness Mouth exam: Normal external inspection, Tongue normal Teeth exam: Normal inspection. negative: Dental caries Throat exam: Normal inspection. negative: Tonsillar erythema, Tonsillar exudate - Neck Neck exam: Normal inspection, Full ROM. negative: Tenderness - Respiratory Respiratory exam: Rales (bilateral bases). negative: Accessory muscle use, Respiratory distress, Wheezes - Cardiovascular Cardiovascular Exam: Regular rate, Normal rhythm, Normal heart sounds - GI/Abdominal GI/Abdominal exam: Soft, Normal bowel sounds. negative: Tenderness - Rectal Rectal exam: Deferred - exam: Deferred - Extremities Extremities exam: Full ROM, Normal capillary refill, Pedal edema (trace). negative: Tenderness - Back Back exam: Reports: Normal inspection, Full ROM. Denies: Muscle spasm, Rash noted, Tenderness - Neurological Neurological exam: Alert, CN II-XII intact, Normal gait, Oriented X3 - Psychiatric Psychiatric exam: Normal affect, Normal mood - Skin Skin exam: Dry, Intact, Normal color, Warm Assessment and Plan - Assessment and Plan (1) Acute exacerbation of congestive heart failure Current Visit: Yes Status: Acute Qualifiers: Heart failure type: systolic Qualified Code(s): I50.23 - Acute on chronic systolic (congestive) heart failure Base Code: I50.9 - HEART FAILURE, UNSPECIFIED Comment: 10/15/17- continues to improve symptomatically. Most recent echo done within 6 months showed EF of 30- 35%. Dr. Queen consulted and evaluated patient last evening. He would like patient to continue anticogulation therapy for at least 4-6 weeks prior to undergoing cath. He started patient on long acting nitrate and agrees with continued diuresis. Curently on BB, ACEI, and baby aspirin. -continue diuresis with lasix 40mg IV. -fluid restriction 2L daily -I&O's -daily weights -continue BB and ACEI -vitals q8H -continuous tele (2) Pulmonary embolism Current Visit: Yes Status: Acute Qualifiers: Pulmonary embolism type: other Chronicity: acute Acute cor pulmonale presence: without acute cor pulmonale Qualified Code(s): I26.99 - Other pulmonary embolism without acute cor pulmonale Base Code: I26.99 - OTHER PULMONARY EMBOLISM WITHOUT ACUTE COR PULMONALE Comment: 10/15/17- patient had elevated DDimer of 1.56 in ED and underwent CTA showing a peripheral PE in the left upper lobe of the lung. -continue eliquis 10mg po bid for 7 days then 5mg po bid for at least 3 months but probably 6 months with 2nd incidence of VTE -continue tele -continue vitals q8H -continue supplemental O2 prn to keep sat >92% (3) T2DM (type 2 diabetes mellitus) Current Visit: No Status: Acute Qualifiers: Diabetes mellitus shelter insulin use: with shelter use Diabetes mellitus complication status: with neurologic complications Diabetes mellitus complication detail: with polyneuropathy Qualified Code(s): E11.42 - Type 2 diabetes mellitus with diabetic polyneuropathy; Z79.4 - manager intermediate (current) use of insulin Base Code: E11.9 - TYPE 2 DIABETES MELLITUS WITHOUT COMPLICATIONS Comment: -A1C pending. BG dropped to 48 last night, improved following 1amp D50 to 154. He admits diet at home is not as strict as diet here in hospital. Will decrease insulin to 17units this morning and continue to follow accuchecks. -accucheck QID -ADA diet (4) Thyroid nodule Current Visit: Yes Status: Acute Base Code: E04.1 - NONTOXIC SINGLE THYROID NODULE Comment: 10/15/17- thyroid nodule noted on CTA as incidental finding. -will ensure he gets set up for nonemergent U/S of the thyroid as outpatient and ensure pcp folllow up on this issue. (5) Full code status Current Visit: No Status: Acute Base Code: Z78.9 - OTHER SPECIFIED HEALTH STATUS Comment: 10/15/17- patient is full code Results - Labs Result Diagrams: 10/14/17 07:30 10/14/17 23:50 Labs Last 24 Hours: Laboratory Results - last 24 hr 10/14/17 10/14/17 10/14/17 12:00 16:07 16:07 POC Glucose Random Glucose Creatine Kinase CK-MB (CK-2) Cancelled 5.9 CK-MB (CK-2) Rel Index Troponin T 0.024 H 10/14/17 10/14/17 10/14/17 20:00 23:50 23:50 POC Glucose 48 L* Random Glucose 53 L Creatine Kinase 167 CK-MB (CK-2) Cancelled 7.4 H CK-MB (CK-2) Rel Index 4.40 H Troponin T 0.026 H 10/15/17 10/15/17 10/15/17 00:00 00:15 00:35 POC Glucose 54 L 153 H Random Glucose Creatine Kinase CK-MB (CK-2) CK-MB (CK-2) Rel Index Troponin T Cancelled 10/15/17 10/15/17 10/15/17 04:00 05:52 07:30 POC Glucose 124 H Cancelled Random Glucose Creatine Kinase CK-MB (CK-2) Cancelled CK-MB (CK-2) Rel Index Troponin T 10/15/17 10/15/17 10/15/17 08:00 08:00 11:46 POC Glucose 132 H Random Glucose Creatine Kinase 167 CK-MB (CK-2) 9.1 H Cancelled CK-MB (CK-2) Rel Index 5.40 H Troponin T 0.017 H 10/15/17 10/15/17 12:00 16:00 POC Glucose Random Glucose Creatine Kinase CK-MB (CK-2) Cancelled Cancelled CK-MB (CK-2) Rel Index Troponin T DVT/PE Assessment - Risk for VTE Risk for VTE: No Risk Level: High Risk Assessment Date: 10/14/17 Risk Assessment Time: 22:12 VTE Orders Placed or Will Be Placed: Yes - Active Medicaitons Current Medications: Current Medications Acetaminophen (Tylenol 500mg Tab) 1,000 mg PO Q6H PRN PRN Reason: PAIN/TEMP Apixaban (Eliquis) 10 mg PO BID [facility] Last Admin: 10/15/17 09:23 Dose: 10 mg Aspirin (Ecotrin (Ec)) 81 mg PO DAILY [facility] Last Admin: 10/15/17 09:22 Dose: 81 mg Atorvastatin Calcium (Lipitor) 20 mg PO QHS [facility] Last Admin: 10/14/17 21:07 Dose: 20 mg Carvedilol (Coreg) 12.5 mg PO BID [facility] Last Admin: 10/15/17 09:22 Dose: 12.5 mg Cyclobenzaprine HCl (Flexeril) 10 mg PO TID PRN PRN Reason: MUSCLE SPASM Last Admin: 10/14/17 21:07 Dose: 10 mg Duloxetine HCl (Cymbalta) 60 mg PO QHS [facility] Last Admin: 10/14/17 21:07 Dose: 60 mg Furosemide (Lasix Iv) 40 mg IVP DAILY [facility] Last Admin: 10/14/17 19:19 Dose: 40 mg Gabapentin (Neurontin) 100 mg PO TID PRN PRN Reason: nerve pain Hydroxychloroquine Sulfate (Plaquenil) 200 mg PO DAILY [facility] Last Admin: 10/15/17 09:22 Dose: 200 mg Isosorbide Mononitrate (Imdur) 30 mg PO DAILY [facility] Last Admin: 10/15/17 09:22 Dose: 30 mg Lisinopril (Zestril) 2.5 mg PO DAILY [facility] Last Admin: 10/15/17 09:22 Dose: 2.5 mg Metformin HCl (Glucophage Ir) 1,000 mg PO BIDWM [facility] Morphine Sulfate () 60 mg PO Q12HR [facility] Last Admin: 10/15/17 09:21 Dose: 60 mg Nitroglycerin (Nitrostat 0.4mg) 0.4 mg SL Q5MIN PRN PRN Reason: CHEST PAIN Non-Formulary Medication (Omeprazole Magnesium [Prilosec Otc]) [facility] Last Admin: 10/15/17 06:00 Dose: 20 mg Patient Own Med: (Xeljanz Er 11 Mg) 1 each PO DAILY [facility] Last Admin: 10/15/17 09:39 Dose: 1 each Potassium Chloride (Klor-Con) 20 meq PO DAILY [facility] Last Admin: 10/15/17 09:22 Dose: 20 meq Temazepam (Restoril) 15 mg PO QHS PRN PRN Reason: INSOMNIA AMI Plan - Labs Result Diagrams: 10/14/17 07:30 10/14/17 23:50
[2017-10-15 17:04] LABS: CKMB 7.5 ng/mL (<6.73)
[2017-10-15 17:35] LABS: CKMB RELATIVE INDEX 4.7 % (0-4)
[2017-10-15] MEDS ORDERED: LORAZEPAM 0.5 MG TABLET PO PRN (17:51)
[2017-10-15] MEDS: CYCLOBENZAPRINE 10MG TABLET PO PRN (21:39)
[2017-10-15] MEDS: DULOXETINE HCL 30 MG CAPSULE.DR PO SCH (21:39)
[2017-10-15] MEDS: ATORVASTATIN 20 MG TABLET PO SCH (22:04)
[2017-10-16] MEDS ORDERED: ONDANSETRON HCL IV 4 MG/2 ML VIAL IVP PRN ×2 (05:49→11:26)
[2017-10-16] MEDS: UMECLIDINIUM BROMIDE (INCRUSE) 62.5MCG IH SCH ×2 (06:03→10:45)
[2017-10-16] MEDS: OMEPRAZOLE MAGNESIUM 20 MG PO SCH (06:03)
[2017-10-16 07:23] LABS: HEMATOCRIT 38.5 % (42.0-52.0); HEMOGLOBIN 12.3 gm/dl (14.0-18.0); MEAN CORPUSCULAR HGB CONC 31.9 g/dl (32-36); MEAN PLATELET VOLUME 9.5 fl (7.4-10.4); PLATELET COUNT 301 K/uL (130-400); RED BLOOD COUNT 4.53 M/uL (4.40-5.70); RED CELL DISTRIBUTION WIDTH 15.5 % (11.5-14.5); WHITE BLOOD COUNT W/O DIFF 10.5 K/uL (4.2-12.2)
[2017-10-16 07:26] LABS: MEAN CORPUSCULAR HEMOGLOBIN 27.1 pg (27-33)
[2017-10-16 07:49] LABS: PLATELET ESTIMATE NORMAL (NORMAL)
[2017-10-16 07:57] LABS: ALB/GLOB RATIO 1.3 (1.1-1.8); ALBUMIN 3.7 g/dL (4.0-5.0); BILIRUBIN,TOTAL 0.4 mg/dL (0.2-1.0); CREATININE 1.5 mg/dL (0.7-1.2); TOTAL PROTEIN 6.6 g/dL (6.6-8.7)
[2017-10-16] MEDS: NOVOLOG 70/30 FLEXPEN 100 UNITS/ML SQ SCH ×2 (09:40→19:53)
[2017-10-16] MEDS: ASPIRIN 81 MG TABEC PO SCH (09:50)
[2017-10-16] MEDS: FUROSEMIDE IV 40MG/4ML VIAL IVP SCH (09:50)
[2017-10-16] MEDS: APIXABAN 5MG TABLET PO SCH ×2 (09:50→21:12)
[2017-10-16] MEDS: LISINOPRIL 5 MG TABLET PO SCH (09:51)
[2017-10-16] MEDS: ISOSORBIDE MONONITRATE 30 MG TAB.ER.24H PO SCH (09:51)
[2017-10-16] MEDS: CARVEDILOL 12.5 MG TABLET PO SCH ×2 (09:52→21:10)
[2017-10-16] MEDS: HYDROXYCHLOROQUINE SULFATE 200 MG TABLET PO SCH (09:54)
[2017-10-16] MEDS: XELJANZ 11 MG PO SCH (09:59)
[2017-10-16] MEDS: POTASSIUM CHLORIDE 20 MEQ TABLET PO SCH (10:00)
[2017-10-16] MEDS: MORPHINE SULFATE 30MG TABLET.ER PO SCH ×2 (10:57→21:10)
[2017-10-16 15:58] LABS: CRYPTOSPORIDIUM PARVUM ANTIGEN NOT DETECTED (NOT DETECT); GIARDIA LAMBLIA ANTIGEN NOT DETECTED (NOT DETECT)
[2017-10-16 16:22] LABS: MOLECULAR C DIFF TOXIN SCREEN NOT DETECTED (NOT DETECT)
[2017-10-16 16:27] LABS: CREATININE 1.4 mg/dL (0.7-1.2)
[2017-10-16 17:20] LABS: URINE APPEARANCE CLEAR; URINE BILIRUBIN NEGATIVE (NEGATIVE); URINE BLOOD NEGATIVE (NEGATIVE); URINE COLOR YELLOW; URINE GLUCOSE (UA) NEGATIVE (NEGATIVE); URINE KETONE TRACE (NEGATIVE); URINE LEUKOCYTE ESTERASE NEGATIVE (NEGATIVE); URINE NITRITE NEGATIVE (NEGATIVE); URINE PROTEIN NEGATIVE (NEGATIVE); URINE UROBILINOGEN 0.2 E.U./dL (0.20 - 1.00)
[2017-10-16] MEDS ORDERED: METOCLOPRAMIDE HCL 10 MG/2 ML VIAL IVP PRN (19:05)
--- NOTE | 2017-10-16 19:20 | Physician Progress Note ---
Subjective - Date Date of Physician Progress Note: 10/16/17 - Subjective Subjective Comment: 10/16/17- patient states he began feeling nauseated this morning and has vomited several times throughout the day, small bilious vomitus. He also had some looser than normal stools. He became drowsy this afternoon and was nodding off. 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 She notes that sometimes he will have vomiting for a few days and then resolves. She says he often complains of getting full easy. She also reports that patient feels his darrius causes loose stool intermittently. She reports that he sometimes will go several days where he is very fatigued and forgetful. Objective - Vital Signs Vital Signs: Vital Signs - Last 24 Hrs Temp Pulse Pulse Pulse Resp BP BP 10/16/17 18:00 97.6 F 92 H 18 101/57 10/16/17 12:00 92 H 18 89/45 10/16/17 09:00 18 10/16/17 06:05 74 16 10/16/17 06:04 80 16 10/16/17 06:00 104 H 20 135/76 10/16/17 05:59 76 16 10/16/17 02:00 104 H 18 140/80 10/15/17 22:30 76 16 10/15/17 22:27 76 16 10/15/17 22:00 97.4 F L 80 16 90/62 10/15/17 21:00 97 H 86 16 Pulse Ox 10/16/17 18:00 92 L 10/16/17 12:00 94 L 10/16/17 09:00 10/16/17 06:05 96 10/16/17 06:04 10/16/17 06:00 93 L 10/16/17 05:59 10/16/17 02:00 96 10/15/17 22:30 98 10/15/17 22:27 10/15/17 22:00 96 10/15/17 21:00 - General General Appearance: Alert, Oriented x3, Cooperative, Mild distress Limitations: No limitations - Head Head exam: Normal inspection - Eye Eye exam: Normal appearance, PERRL, EOMI Pupils: Normal accommodation - ENT ENT exam: Normal exam, Mucous membranes moist, Normal external ear exam, Normal orophraynx, TM's normal bilaterally Ear exam: Normal external inspection. negative: External canal tenderness Nasal Exam: Normal inspection. negative: Discharge, Sinus tenderness Mouth exam: Normal external inspection, Tongue normal Teeth exam: Normal inspection. negative: Dental caries Throat exam: Normal inspection. negative: Tonsillar erythema, Tonsillar exudate - Neck Neck exam: Normal inspection, Full ROM. negative: Tenderness - Respiratory Respiratory exam: Rales (bilateral bases). negative: Accessory muscle use, Respiratory distress, Wheezes - Cardiovascular Cardiovascular Exam: Regular rate, Normal rhythm, Normal heart sounds - GI/Abdominal GI/Abdominal exam: Soft, Normal bowel sounds. negative: Distended, Rebound, Rigid, Tenderness - Rectal Rectal exam: Deferred - exam: Deferred - Extremities Extremities exam: Full ROM, Normal capillary refill. negative: Pedal edema, Tenderness - Back Back exam: Reports: Normal inspection, Full ROM. Denies: Muscle spasm, Rash noted, Tenderness - Neurological Neurological exam: CN II-XII intact, Normal gait, Oriented X3, Other (lethargic) - Psychiatric Psychiatric exam: Normal affect, Normal mood - Skin Skin exam: Dry, Intact, Normal color, Warm Assessment and Plan - Assessment and Plan (1) Acute exacerbation of congestive heart failure Current Visit: Yes Status: Acute Qualifiers: Heart failure type: systolic Qualified Code(s): I50.23 - Acute on chronic systolic (congestive) heart failure Base Code: I50.9 - HEART FAILURE, UNSPECIFIED Comment: 10/15/17- continues to improve. Most recent echo done within 6 months showed EF of 30-35%. Currently on BB, ACEI, and baby aspirin. -continue diuresis with lasix 40mg IV today and transition to oral lasix tomorrow -fluid restriction 2L daily -I&O's -daily weights -continue BB and ACEI -vitals q8H -continuous tele (2) Pulmonary embolism Current Visit: Yes Status: Acute Qualifiers: Pulmonary embolism type: other Chronicity: acute Acute cor pulmonale presence: without acute cor pulmonale Qualified Code(s): I26.99 - Other pulmonary embolism without acute cor pulmonale Base Code: I26.99 - OTHER PULMONARY EMBOLISM WITHOUT ACUTE COR PULMONALE Comment: 10/16/17- patient had elevated DDimer of 1.56 in ED and underwent CTA showing a peripheral PE in the left upper lobe of the lung. -continue eliquis 10mg po bid for 7 days then 5mg po bid for at least 3 months but probably 6 months with 2nd incidence of VTE -continue tele -continue vitals q8H -continue supplemental O2 prn to keep sat >92% (3) Nausea & vomiting Current Visit: Yes Status: Acute Qualifiers: Vomiting type: bilious vomiting Qualified Code(s): R11.14 - Bilious vomiting Base Code: R11.2 - NAUSEA WITH VOMITING, UNSPECIFIED Comment: 10/16/17- started this am with minimal improvement with zofran. No abdominal pain. discussed with sister who states he has been having episodes of this that typically last a few days. -suspect 2/2 gastroparesis with premature filling. -start reglan 5mg IV q6H prn nausea -will likely need a gastric emptying study done as outpatient (4) Loose stools Current Visit: Yes Status: Acute Base Code: R19.5 - OTHER FECAL ABNORMALITIES Comment: 10/16/17- patient has had 2 loose bowel movements without blood. Patient states this happens several days out of the week since starting xeljanz. -will obtain stool studies and c. 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 Patient is frail diabetic. His BG is much better controlled since starting ADA diet, however, he is quite symptomatic. Sister says he has been having episodes of intermittent lethargy and fogetfulness at home. She tends to note this when his BG is either very high or low. Will hold the 70/30 and transition to novolog low intensity sliding scale to be given if he is tolerating solid food. -CT head to eval for other acute process. -accucheck QID -ADA diet (6) Thyroid nodule Current Visit: Yes Status: Acute Base Code: E04.1 - NONTOXIC SINGLE THYROID NODULE Comment: 10/16/17- thyroid nodule noted on CTA as incidental finding. -will ensure he gets set up for nonemergent U/S of the thyroid as outpatient and ensure pcp folllow up on this issue. (7) Full code status Current Visit: No Status: Acute Base Code: Z78.9 - OTHER SPECIFIED HEALTH STATUS Comment: 10/16/17- patient is full code Results - Labs Result Diagrams: 10/16/17 07:09 10/16/17 15:50 Labs Last 24 Hours: Laboratory Results - last 24 hr 10/15/17 10/16/17 10/16/17 22:00 07:09 07:09 WBC 10.5 RBC 4.53 Hgb 12.3 L Hct 38.5 L MCV 85.0 MCH 27.1 MCHC 31.9 L RDW 15.5 H Plt Count 301 MPV 9.5 Neutrophils % 80.0 Band Neutrophils % 1.0 Eosinophils % Not Reportable Basophils % Not Reportable Lymphocytes 10.0 L Monocytes 6.0 Platelet Estimate Normal RBC Morphology Normal Eosinophil Count 3.0 Sodium 136 Potassium 4.7 H Chloride 97 L Carbon Dioxide 28.0 Anion Gap 11.0 BUN 36 H Creatinine 1.5 H Estimated GFR 49 POC Glucose 324 H Random Glucose 88 Hemoglobin A1c Calcium 9.1 Total Bilirubin 0.40 AST 18 ALT 19 Alkaline Phosphatase 63 Total Protein 6.6 Albumin 3.7 L Globulin 2.9 Albumin/Globulin Ratio 1.3 Urine Color Urine Appearance Urine pH Ur Specific [place] Urine Protein Urine Glucose (UA) Urine Ketones Urine Blood Urine Nitrite Urine Bilirubin Urine Urobilinogen Ur Leukocyte Esterase Stool for White Cells C. difficile Ag & Toxin Cryptosporid parvum Ag Giardia lamblia Ag 10/16/17 10/16/17 10/16/17 07:09 07:30 12:42 WBC RBC Hgb Hct MCV MCH MCHC RDW Plt Count MPV Neutrophils % Band Neutrophils % Eosinophils % Basophils % Lymphocytes Monocytes Platelet Estimate RBC Morphology Eosinophil Count Sodium Potassium Chloride Carbon Dioxide Anion Gap BUN Creatinine Estimated GFR POC Glucose 91 142 H Random Glucose Hemoglobin A1c 10.70 H Calcium Total Bilirubin AST ALT Alkaline Phosphatase Total Protein Albumin Globulin Albumin/Globulin Ratio Urine Color Urine Appearance Urine pH Ur Specific [place] Urine Protein Urine Glucose (UA) Urine Ketones Urine Blood Urine Nitrite Urine Bilirubin Urine Urobilinogen Ur Leukocyte Esterase Stool for White Cells C. difficile Ag & Toxin Cryptosporid parvum Ag Giardia lamblia Ag 10/16/17 10/16/17 10/16/17 14:51 14:51 15:50 WBC RBC Hgb Hct MCV MCH MCHC RDW Plt Count MPV Neutrophils % Band Neutrophils % Eosinophils % Basophils % Lymphocytes Monocytes Platelet Estimate RBC Morphology Eosinophil Count Sodium 133 L Potassium 5.2 H Chloride 93 L Carbon Dioxide 24.0 Anion Gap 16.0 BUN 42 H Creatinine 1.4 H Estimated GFR 54 POC Glucose Random Glucose 219 H Hemoglobin A1c Calcium 8.5 L Total Bilirubin AST ALT Alkaline Phosphatase Total Protein Albumin Globulin Albumin/Globulin Ratio Urine Color Urine Appearance Urine pH Ur Specific [place] Urine Protein Urine Glucose (UA) Urine Ketones Urine Blood Urine Nitrite Urine Bilirubin Urine Urobilinogen Ur Leukocyte Esterase Stool for White Cells No wbc's observed C. difficile Ag & Toxin Not detected Cryptosporid parvum Ag Not detected Giardia lamblia Ag Not detected 10/16/17 10/16/17 17:10 17:11 WBC RBC Hgb Hct MCV MCH MCHC RDW Plt Count MPV Neutrophils % Band Neutrophils % Eosinophils % Basophils % Lymphocytes Monocytes Platelet Estimate RBC Morphology Eosinophil Count Sodium Potassium Chloride Carbon Dioxide Anion Gap BUN Creatinine Estimated GFR POC Glucose 256 H Random Glucose Hemoglobin A1c Calcium Total Bilirubin AST ALT Alkaline Phosphatase Total Protein Albumin Globulin Albumin/Globulin Ratio Urine Color Yellow Urine Appearance Clear Urine pH 5.0 Ur Specific [place] 1.020 Urine Protein Negative Urine Glucose (UA) Negative Urine Ketones Trace H Urine Blood Negative Urine Nitrite Negative Urine Bilirubin Negative Urine Urobilinogen 0.2 Ur Leukocyte Esterase Negative Stool for White Cells C. difficile Ag & Toxin Cryptosporid parvum Ag Giardia lamblia Ag DVT/PE Assessment - Risk for VTE Risk for VTE: No Risk Level: High Risk Assessment Date: 10/14/17 Risk Assessment Time: 22:12 VTE Orders Placed or Will Be Placed: Yes - Active Medicaitons Current Medications: Current Medications Acetaminophen (Tylenol 500mg Tab) 1,000 mg PO Q6H PRN PRN Reason: PAIN/TEMP Apixaban (Eliquis) 10 mg PO BID [facility] Last Admin: 10/16/17 09:50 Dose: 10 mg Aspirin (Ecotrin (Ec)) 81 mg PO DAILY [facility] Last Admin: 10/16/17 09:50 Dose: 81 mg Atorvastatin Calcium (Lipitor) 20 mg PO QHS [facility] Last Admin: 10/15/17 22:04 Dose: 20 mg Carvedilol (Coreg) 12.5 mg PO BID [facility] Last Admin: 10/16/17 09:52 Dose: 12.5 mg Cyclobenzaprine HCl (Flexeril) 10 mg PO TID PRN PRN Reason: MUSCLE SPASM Last Admin: 10/15/17 21:39 Dose: 10 mg Duloxetine HCl (Cymbalta) 60 mg PO QHS [facility] Last Admin: 10/15/17 21:39 Dose: 60 mg Furosemide (Lasix Iv) 40 mg IVP DAILY [facility] Last Admin: 10/16/17 09:50 Dose: 40 mg Gabapentin (Neurontin) 100 mg PO TID PRN PRN Reason: nerve pain Hydroxychloroquine Sulfate (Plaquenil) 200 mg PO DAILY [facility] Last Admin: 10/16/17 09:54 Dose: 200 mg Isosorbide Mononitrate (Imdur) 30 mg PO DAILY [facility] Last Admin: 10/16/17 09:51 Dose: 30 mg Lisinopril (Zestril) 2.5 mg PO DAILY [facility] Last Admin: 10/16/17 09:51 Dose: 2.5 mg Lorazepam (Ativan) 0.5 mg PO Q4H PRN PRN Reason: ANXIETY Last Admin: 10/15/17 21:39 Dose: 0.5 mg Metformin HCl (Glucophage Ir) 1,000 mg PO BIDWM [facility] Metoclopramide HCl (Reglan) 5 mg IVP Q6H PRN PRN Reason: nausea Morphine Sulfate () 60 mg PO Q12HR [facility] Last Admin: 10/16/17 10:57 Dose: Not Given Nitroglycerin (Nitrostat 0.4mg) 0.4 mg SL Q5MIN PRN PRN Reason: CHEST PAIN Non-Formulary Medication (Omeprazole Magn[facility] [[facility]c]) [facility] Last Admin: 10/16/17 06:03 Dose: 20 mg Ondansetron HCl (Zofran) 4 mg IVP Q4H PRN PRN Reason: NAUSEA Last Admin: 10/16/17 14:13 Dose: 4 mg Patient Own Med: (Xeljanz Er 11 Mg) 1 each PO DAILY [facility] Last Admin: 10/16/17 09:59 Dose: 1 each Potassium Chloride (Klor-Con) 20 meq PO DAILY [facility] Last Admin: 10/16/17 10:00 Dose: 20 meq Temazepam (Restoril) 15 mg PO QHS PRN PRN Reason: INSOMNIA AMI Plan - Labs Result Diagrams: 10/16/17 07:09 10/16/17 15:50
[2017-10-16] MEDS: DULOXETINE HCL 30 MG CAPSULE.DR PO SCH (21:12)
[2017-10-16] MEDS: ATORVASTATIN 20 MG TABLET PO SCH (21:12)
[2017-10-17] MEDS ORDERED: ZINC OXIDE 28.35 GM TUBE TOP PRN (03:23)
[2017-10-17] MEDS: OMEPRAZOLE MAGNESIUM 20 MG PO SCH (06:12)
[2017-10-17 06:54] LABS: HEMATOCRIT 36.4 % (42.0-52.0); HEMOGLOBIN 11.7 gm/dl (14.0-18.0); MEAN CELL VOLUME 83.7 fl (81-97); MEAN CORPUSCULAR HGB CONC 32.1 g/dl (32-36); MEAN PLATELET VOLUME 10.3 fl (7.4-10.4); PLATELET COUNT 264 K/uL (130-400); RED BLOOD COUNT 4.35 M/uL (4.40-5.70); RED CELL DISTRIBUTION WIDTH 15.8 % (11.5-14.5); WHITE BLOOD COUNT W/O DIFF 7.2 K/uL (4.2-12.2)
[2017-10-17 06:57] LABS: MEAN CORPUSCULAR HEMOGLOBIN 26.8 pg (27-33)
[2017-10-17 07:05] LABS: ALB/GLOB RATIO 1.2 (1.1-1.8); ALBUMIN 3.6 g/dL (4.0-5.0); BILIRUBIN,TOTAL 0.6 mg/dL (0.2-1.0); CREATININE 1.3 mg/dL (0.7-1.2); TOTAL PROTEIN 6.5 g/dL (6.6-8.7)
--- NOTE | 2017-10-17 07:40 | CT SCAN REPORT ---
EXAM: EMERGENCY HEAD CT WITHOUT CONTRAST HISTORY: ALTERED MENTAL STATUS, INCREASED CONFUSION. TECHNIQUE: Axial CT scan of the head was performed without IV contrast. Comparison: None. FINDINGS: No definite acute intracranial hemorrhage identified in the left frontal lobe. These are probably small areas of infarction and may be chronic although difficult to be absolutely certain of their age. Comparison with any prior head CT's would be useful in this regard. If there is a strong clinical suspicion of acute infarct, follow-up brain MRI with diffusion weighted sequence would be suggested. There is some moderate membrane thickening in the ethmoids bilaterally and extending into the left frontal sinus. No depressed calvarial fracture is evident. IMPRESSION: 1. NO ACUTE INTRACRANIAL HEMORRHAGE OR FOCAL MASS EFFECT EVIDENT. 2. MODERATE GENERALIZED ATROPHY. 3. THERE ARE PROBABLY SMALL INFARCTS IN THE LEFT FRONTAL LOBE AND ONE IN THE LEFT THALAMUS. THESE ARE PROBABLY CHRONIC IN NATURE ALTHOUGH DIFFICULT TO BE ABSOLUTELY CERTAIN. IF CLINICALLY WARRANTED, FOLLOW-UP MRI WOULD BE SUGGESTED IF NOT CONTRAINDICATED. JOB NUMBER: [id number] [facility]
[2017-10-17] MEDS: UMECLIDINIUM BROMIDE (INCRUSE) 62.5MCG IH SCH (09:55)
[2017-10-17] MEDS ORDERED: FUROSEMIDE 40 MG TABLET PO SCH (10:00)
--- NOTE | 2017-10-17 10:00 | Discharge Summary ---
Providers Discharge Summary Date: 10/17/17 Date of admission: 10/14/17 11:30 Expected Date of Discharge: 10/17/17 Attending physician: FLOYD TURNER Consults: Consult Orders 10/14/17 17:40 Consult - Cardiology NOW Consulting Provider: BETITO SAXENA Physician Instructions: Reason For Exam: CHF, irregular HR Does pt have current template reproduction technician?: Not Established Physical Exam - Vital Signs Vital Signs: Vital Signs - Last 24 Hrs Temp Pulse Pulse Pulse Resp BP BP 10/17/17 09:45 102 H 20 10/17/17 09:44 100 H 20 10/17/17 09:43 98.6 F 100 H 16 134/74 10/17/17 08:42 98 H 18 10/17/17 06:00 98.1 F 104 H 18 131/71 10/17/17 02:00 97.8 F 105 H 18 146/79 10/16/17 22:40 95 H 18 10/16/17 22:00 99.2 F 94 H 16 132/62 10/16/17 20:38 92 H 18 10/16/17 18:00 97.6 F 92 H 18 101/57 10/16/17 12:00 92 H 18 89/45 Pulse Ox 10/17/17 09:45 93 L 10/17/17 09:44 93 L 10/17/17 09:43 92 L 10/17/17 08:42 10/17/17 06:00 92 L 10/17/17 02:00 91 L 10/16/17 22:40 94 L 10/16/17 22:00 95 10/16/17 20:38 10/16/17 18:00 92 L 10/16/17 12:00 94 L - General General Appearance: Alert, Oriented x3, Cooperative, No acute distress Limitations: No limitations - Head Head exam: Normal inspection - Eye Eye exam: Normal appearance, PERRL, EOMI Pupils: Normal accommodation - ENT ENT exam: Normal exam, Mucous membranes moist, Normal external ear exam, Normal orophraynx, TM's normal bilaterally Ear exam: Normal external inspection. negative: External canal tenderness Nasal Exam: Normal inspection. negative: Discharge, Sinus tenderness Mouth exam: Normal external inspection, Tongue normal Teeth exam: Normal inspection. negative: Dental caries Throat exam: Normal inspection. negative: Tonsillar erythema, Tonsillar exudate - Neck Neck exam: Normal inspection, Full ROM. negative: Tenderness - Respiratory Respiratory exam: Rales (bilateral bases). negative: Accessory muscle use, Respiratory distress, Wheezes - Cardiovascular Cardiovascular Exam: Regular rate, Normal rhythm, Normal heart sounds - GI/Abdominal GI/Abdominal exam: Soft, Normal bowel sounds. negative: Distended, Rebound, Rigid, Tenderness - Rectal Rectal exam: Deferred - exam: Deferred - Extremities Extremities exam: Full ROM, Normal capillary refill. negative: Pedal edema, Tenderness - Back Back exam: Reports: Normal inspection, Full ROM. Denies: Muscle spasm, Rash noted, Tenderness - Neurological Neurological exam: CN II-XII intact, Normal gait, Oriented X3, Other (lethargic) - Psychiatric Psychiatric exam: Normal affect, Normal mood - Skin Skin exam: Dry, Intact, Normal color, Warm Hospitalization - Hospitalization Admission Diagnosis: PE, CHF,pleural effusions, hyperglycemia, thyroid nodule - Problem List/Discharge Diagnosis (1) Acute exacerbation of congestive heart failure Current Visit: Yes Status: Acute Discharge Diagnosis: Heart failure type: systolic Qualified Code(s): I50.23 - Acute on chronic systolic (congestive) heart failure Base Code: I50.9 - HEART FAILURE, UNSPECIFIED Comment: 10/17/17- continues to improve. weight down 4 pounds. Most recent echo done within 6 months showed EF of 30-35%. Currently on BB, ACEI, and baby aspirin. -transition back to lasix 40mg po daily -continue home medications -new script for imdur 30mg po daily sent to pharmacy -follow up with Dr. Saxena as outpatient on 11/04 (2) Pulmonary embolism Current Visit: Yes Status: Acute Discharge Diagnosis: Pulmonary embolism type: other Chronicity: acute Acute cor pulmonale presence: without acute cor pulmonale Qualified Code(s): I26.99 - Other pulmonary embolism without acute cor pulmonale Base Code: I26.99 - OTHER PULMONARY EMBOLISM WITHOUT ACUTE COR PULMONALE Comment: 10/17/17- patient had elevated DDimer of 1.56 in ED and underwent CTA showing a peripheral PE in the left upper lobe of the lung. -continue eliquis 10mg po bid for 7 days then 5mg po bid for at least 3 months but probably 6 months with 2nd incidence of VTE -[facility] -patient's sister who is his cuff folder, present and states he has appointment october 29 with his pcp. (3) T2DM (type 2 diabetes mellitus) Current Visit: No Status: Acute Discharge Diagnosis: Diabetes mellitus retirement insulin use: with retirement use Diabetes mellitus complication status: with neurologic complications Diabetes mellitus complication detail: with polyneuropathy Qualified Code(s): E11.42 - Type 2 diabetes mellitus with diabetic polyneuropathy; Z79.4 - custodial (current) use of insulin Base Code: E11.9 - TYPE 2 DIABETES MELLITUS WITHOUT COMPLICATIONS Comment: -A1C 10.7. patient's insulin was held last night and BG 196. Mentation improved. CT head negative for acute process. -spent 10 minutes counseling on need to maintain strict diet at home. He will need [facility] to discuss getting his A1C better controlled. From what his sister says, it seems dietary compliance and sedentary lifestyle are his biggest obstacles. When he was here folllowing ADA his BG was much better controlled. Discussed starting to track BG bid and log until his appointment with [facility]. holding insulin for blood sugars <110. Gave diet handout, discussed taking metformin with food to limit GI side effects. -home health has been arranged by social work (4) Nausea & vomiting Current Visit: Yes Status: Acute Discharge Diagnosis: Vomiting type: bilious vomiting Qualified Code(s): R11.14 - Bilious vomiting Base Code: R11.2 - NAUSEA WITH VOMITING, UNSPECIFIED Comment: 10/17/17- improving. has not needed any antiemetics today and no vomiting. -suspect he has gastroparesis -will likely need a gastric emptying study done as outpatient -[facility]. I discussed this with patient's sister as well (5) Loose stools Current Visit: Yes Status: Acute Base Code: R19.5 - OTHER FECAL ABNORMALITIES Comment: 10/17/17- improving. Stool studies negative for infectious etiology. could be 2/2 medications (6) Thyroid nodule Current Visit: Yes Status: Acute Base Code: E04.1 - NONTOXIC SINGLE THYROID NODULE Comment: 10/17/17- thyroid nodule noted on CTA as incidental finding. -he needs nonemergent U/S of the thyroid as outpatient and ensure pcp folllow up on this issue. Sister is aware and will make sure it is addressed at his follow up on 10/29 (7) Full code status Current Visit: No Status: Acute Base Code: Z78.9 - OTHER SPECIFIED HEALTH STATUS Comment: 10/17/17- patient is full code - Hospitalization Course Disposition: Home Health Service Hospital Course: 67yo male with CC of shortness of breath. He has history of CHF, bigeminy, HTN, T2DM with peripheral neuropathy (follows with podiatry), RA, sleep apnea, h/o agent orange exposure. Patient presented to the ED with progressively worse SOB that had started about a week ago. He denied any associated chest pain or heaviness, but did note increased swelling in his feet and legs. While in the ED, patient had room air sat of 97%. He had EKG which showed sinus tachycardia with old RBBB, and no acute ST changes. Labs revealed several abnormalities. His BNP was elevated at 1660, CKMB elevated at 7.2 with relative index of 5.6, and troponin T in indeterminate range at 0.021. He had an elevated D-Dimer and underwent CTA of the chest which revealed a small PE in the left upper lobe with bilateral pleural effusions. ED reported 1800cc in urine output after receiving 40mg of lasix IV. Patient was given first dose of eliquis 10mg and admitted for PE and CHF exacerbation. 10/14/17- Patient states he is feeling better since receiving the lasix. He has no increased work of breathing. He states his legs were quite swollen compared to normal. He follows with a supervisor drawing for chronic wound care of the right ankle. He had previously been admitted to [facility] for systolic heart failure exacerbation last summer and [facility] had been consulted. He had an echo done at that time showing an Ef of 30-35% and was recommended to undergo cardiac cath which he had declined. He was started on a BB and ACEI at that time but did not ever follow up with cardiology afterwards. [facility] and [facility] currently manage his diabetes. He takes metformin 1000mg po bid and novolog 70/ 30 mix 34units twice daily. He states that his BG typically runs around 140-150 when he checks it at home. He doesn't know his last A1C. 10/15/17-Patient states he is feeling a little better today. he is no longer feeling as short of breath. He didn't sleep well last evening and has been feeling tired today. He does think his legs are less swollen today. He continues to deny chest pain. His blood sugar did drop to 48 last evening. He admits that his diet at home is not typically as strict as what he has been eating here. He says he doesn't usually count his carbs at home. 10/16/17- patient states he began feeling nauseated this morning and has vomited several times throughout the day, small bilious vomitus. He also had some looser than normal stools. He became drowsy this afternoon and was nodding off. His sister who is his cuff folder at home states these episodes have been ongoing for several months. She notes that sometimes he will have vomiting for a few days and then resolves. She says he often complains of getting full easy. She also reports that patient feels his xeljanz causes loose stool intermittently. She reports that he sometimes will go several days where he is very fatigued and forgetful. 10/17/17- Patient is alert and oriented sitting up in chair today. Sister at bedside who states he is at his baseline. PAtient states his shortness of breath has improved since admission. He denies cough, chest pain. Swelling of his legs has resolved. He has not had any further vomiting and has been tolerating liquids and some solid foods without nausea. His stool studies were negative for any infectious causes. He has been up with his walker to and from bathroom. Sister would like script for new walker. he is feeling ready to go home. Home health services have been set up Procedures: Imaging and X-Rays 10/16/17 14:19 HEAD WO CONTRAST [CT] Stat Abnormal Labs: Abnormal Lab Results 10/14/17 10/14/17 10/14/17 Range/Units 11:40 16:07 23:50 RBC (4.40-5.70) M/uL Hgb (14.0-18.0) gm/dl Hct (42.0-52.0) % MCH (27-33) pg MCHC (32-36) g/dl RDW (11.5-14.5) % Neutrophils % (47-80) % Lymphocytes (16-45) % Sodium (136-145) mmol/L Potassium (3.4-4.5) mmol/L Chloride (98-107) mmol/L BUN (8-23) mg/dL Creatinine (0.7-1.2) mg/dL POC Glucose 354 H (70-110) mg/dL Random Glucose 53 L (74-109) mg/dL Hemoglobin A1c (4.0-6.00) % Calcium (8.8-10.2) mg/dL CK-MB (CK-2) 7.4 H (<6.73) ng/mL CK-MB (CK-2) Rel Index 4.40 H (0-4) % Troponin T 0.024 H 0.026 H (0-0.010) ng/mL Total Protein (6.6-8.7) g/dL Albumin (4.0-5.0) g/dL Urine Ketones (NEGATIVE) 10/14/17 10/15/17 10/15/17 Range/Units 23:50 00:15 00:35 RBC (4.40-5.70) M/uL Hgb (14.0-18.0) gm/dl Hct (42.0-52.0) % MCH (27-33) pg MCHC (32-36) g/dl RDW (11.5-14.5) % Neutrophils % (47-80) % Lymphocytes (16-45) % Sodium (136-145) mmol/L Potassium (3.4-4.5) mmol/L Chloride (98-107) mmol/L BUN (8-23) mg/dL Creatinine (0.7-1.2) mg/dL POC Glucose 48 L* 54 L 153 H (70-110) mg/dL Random Glucose (74-109) mg/dL Hemoglobin A1c (4.0-6.00) % Calcium (8.8-10.2) mg/dL CK-MB (CK-2) (<6.73) ng/mL CK-MB (CK-2) Rel Index (0-4) % Troponin T (0-0.010) ng/mL Total Protein (6.6-8.7) g/dL Albumin (4.0-5.0) g/dL Urine Ketones (NEGATIVE) 10/15/17 10/15/17 10/15/17 Range/Units 05:52 08:00 11:46 RBC (4.40-5.70) M/uL Hgb (14.0-18.0) gm/dl Hct (42.0-52.0) % MCH (27-33) pg MCHC (32-36) g/dl RDW (11.5-14.5) % Neutrophils % (47-80) % Lymphocytes (16-45) % Sodium (136-145) mmol/L Potassium (3.4-4.5) mmol/L Chloride (98-107) mmol/L BUN (8-23) mg/dL Creatinine (0.7-1.2) mg/dL POC Glucose 124 H 132 H (70-110) mg/dL Random Glucose (74-109) mg/dL Hemoglobin A1c (4.0-6.00) % Calcium (8.8-10.2) mg/dL CK-MB (CK-2) 9.1 H (<6.73) ng/mL CK-MB (CK-2) Rel Index 5.40 H (0-4) % Troponin T 0.017 H (0-0.010) ng/mL Total Protein (6.6-8.7) g/dL Albumin (4.0-5.0) g/dL Urine Ketones (NEGATIVE) 10/15/17 10/15/17 10/15/17 Range/Units 16:25 17:00 22:00 RBC (4.40-5.70) M/uL Hgb (14.0-18.0) gm/dl Hct (42.0-52.0) % MCH (27-33) pg MCHC (32-36) g/dl RDW (11.5-14.5) % Neutrophils % (47-80) % Lymphocytes (16-45) % Sodium (136-145) mmol/L Potassium (3.4-4.5) mmol/L Chloride (98-107) mmol/L BUN (8-23) mg/dL Creatinine (0.7-1.2) mg/dL POC Glucose 155 H 324 H (70-110) mg/dL Random Glucose (74-109) mg/dL Hemoglobin A1c (4.0-6.00) % Calcium (8.8-10.2) mg/dL CK-MB (CK-2) 7.5 H (<6.73) ng/mL CK-MB (CK-2) Rel Index 4.70 H (0-4) % Troponin T 0.024 H (0-0.010) ng/mL Total Protein (6.6-8.7) g/dL Albumin (4.0-5.0) g/dL Urine Ketones (NEGATIVE) 10/16/17 10/16/17 10/16/17 Range/Units 07:09 07:09 07:09 RBC (4.40-5.70) M/uL Hgb 12.3 L (14.0-18.0) gm/dl Hct 38.5 L (42.0-52.0) % MCH (27-33) pg MCHC 31.9 L (32-36) g/dl RDW 15.5 H (11.5-14.5) % Neutrophils % (47-80) % Lymphocytes 10.0 L (16-45) % Sodium (136-145) mmol/L Potassium 4.7 H (3.4-4.5) mmol/L Chloride 97 L (98-107) mmol/L BUN 36 H (8-23) mg/dL Creatinine 1.5 H (0.7-1.2) mg/dL POC Glucose (70-110) mg/dL Random Glucose (74-109) mg/dL Hemoglobin A1c 10.70 H (4.0-6.00) % Calcium (8.8-10.2) mg/dL CK-MB (CK-2) (<6.73) ng/mL CK-MB (CK-2) Rel Index (0-4) % Troponin T (0-0.010) ng/mL Total Protein (6.6-8.7) g/dL Albumin 3.7 L (4.0-5.0) g/dL Urine Ketones (NEGATIVE) 10/16/17 10/16/17 10/16/17 Range/Units 12:42 15:50 17:10 RBC (4.40-5.70) M/uL Hgb (14.0-18.0) gm/dl Hct (42.0-52.0) % MCH (27-33) pg MCHC (32-36) g/dl RDW (11.5-14.5) % Neutrophils % (47-80) % Lymphocytes (16-45) % Sodium 133 L (136-145) mmol/L Potassium 5.2 H (3.4-4.5) mmol/L Chloride 93 L (98-107) mmol/L BUN 42 H (8-23) mg/dL Creatinine 1.4 H (0.7-1.2) mg/dL POC Glucose 142 H (70-110) mg/dL Random Glucose 219 H (74-109) mg/dL Hemoglobin A1c (4.0-6.00) % Calcium 8.5 L (8.8-10.2) mg/dL CK-MB (CK-2) (<6.73) ng/mL CK-MB (CK-2) Rel Index (0-4) % Troponin T (0-0.010) ng/mL Total Protein (6.6-8.7) g/dL Albumin (4.0-5.0) g/dL Urine Ketones Trace H (NEGATIVE) 10/16/17 10/16/17 10/17/17 Range/Units 17:11 22:57 06:10 RBC 4.35 L (4.40-5.70) M/uL Hgb 11.7 L (14.0-18.0) gm/dl Hct 36.4 L (42.0-52.0) % MCH 26.8 L (27-33) pg MCHC (32-36) g/dl RDW 15.8 H (11.5-14.5) % Neutrophils % 86.0 H (47-80) % Lymphocytes 8.0 L (16-45) % Sodium (136-145) mmol/L Potassium (3.4-4.5) mmol/L Chloride (98-107) mmol/L BUN (8-23) mg/dL Creatinine (0.7-1.2) mg/dL POC Glucose 256 H 226 H (70-110) mg/dL Random Glucose (74-109) mg/dL Hemoglobin A1c (4.0-6.00) % Calcium (8.8-10.2) mg/dL CK-MB (CK-2) (<6.73) ng/mL CK-MB (CK-2) Rel Index (0-4) % Troponin T (0-0.010) ng/mL Total Protein (6.6-8.7) g/dL Albumin (4.0-5.0) g/dL Urine Ketones (NEGATIVE) 10/17/17 10/17/17 Range/Units 06:10 08:27 RBC (4.40-5.70) M/uL Hgb (14.0-18.0) gm/dl Hct (42.0-52.0) % MCH (27-33) pg MCHC (32-36) g/dl RDW (11.5-14.5) % Neutrophils % (47-80) % Lymphocytes (16-45) % Sodium 130 L (136-145) mmol/L Potassium (3.4-4.5) mmol/L Chloride 93 L (98-107) mmol/L BUN 39 H (8-23) mg/dL Creatinine 1.3 H (0.7-1.2) mg/dL POC Glucose 196 H (70-110) mg/dL Random Glucose 192 H (74-109) mg/dL Hemoglobin A1c (4.0-6.00) % Calcium 8.4 L (8.8-10.2) mg/dL CK-MB (CK-2) (<6.73) ng/mL CK-MB (CK-2) Rel Index (0-4) % Troponin T (0-0.010) ng/mL Total Protein 6.5 L (6.6-8.7) g/dL Albumin 3.6 L (4.0-5.0) g/dL Urine Ketones (NEGATIVE) Condition at Discharge: (2) Stable Discharge Medications - Discharge Medications Prescriptions: Apixaban [Eliquis] 5 mg PO BID #60 tablet Isosorbide Mononitrate [Imdur] 30 mg PO DAILY #30 tab.er.24h Home Medications: Ambulatory Orders Aspirin 81 mg PO DAILY 01/21/17 [Last Taken 01/30/17] Atorvastatin Calcium 20 mg PO DAILY 01/21/17 [Last Taken 01/30/17] Carvedilol [Coreg] 12.5 mg PO BID 01/21/17 [Last Taken 01/30/17] Cholecalciferol (Vitamin D3) [Vitamin D3] 2,000 unit PO DAILY 01/21/17 [Last Taken 01/30/17] Cyclobenzaprine HCl 10 mg PO TID 01/21/17 [Last Taken 01/30/17] Duloxetine HCl [Cymbalta] 60 mg PO QHS 01/21/17 [Last Taken 01/30/17] Fluticasone Propionate [Flonase Allergy Relief] 15.8 ml NS BID 01/21/17 [Last Taken 01/30/17] Hydroxychloroquine Sulfate [Plaquenil] 200 mg PO DAILY 01/21/17 [Last Taken ] Insulin Aspart Protam & Aspart [Novolog Mix 70-30 Flexpen Syrn] 34 unit SQ BID 01/21/17 [Last Taken 01/30/17] Metformin HCl 1,000 mg PO BID 01/21/17 [Last Taken 01/30/17] Morphine Sulfate [Morphine Sulfate Cr] 60 mg PO Q12H 01/21/17 [Last Taken ] Lisinopril 2.5 mg PO DAILY 01/31/17 [Last Taken 01/30/17] Potassium Chloride [Klor-Con] 20 meq PO DAILY 01/31/17 [Last Taken 01/30/17] Furosemide [Lasix] 40 mg PO DAILY #30 tablet 09/20/17 [Last Taken Unknown] Gabapentin [Neurontin] 100 mg PO TID PRN 10/14/17 [Last Taken Unknown] Omeprazole Magnesium [Prilosec Otc] 20 mg PO DAILY 10/14/17 [Last Taken Unknown] Apixaban [Eliquis] 5 mg PO BID #60 tablet 10/17/17 [Last Taken Unknown] Isosorbide Mononitrate [Imdur] 30 mg PO DAILY #30 tab.er.24h 10/17/17 [Last Taken Unknown] Discharge Plan - Discharge Instructions Activity at Discharge: Resume Usual Activities As Tolerated Diet at Discharge: Diabetic Diet Instructions: Cimetidine (By mouth), Heart Failure (DC), Pulmonary Embolism (DC ), Meal Planning with Diabetes Exchanges (DC) Additional Instructions: Follow up with Dr. Saxena at [facility] on 11/04/17 at 2:30pm [facility] for diabetes, thyroid nodule and pulmonary embolism Continue Eliquis 10mg by mouth twice daily through October 20. Your next dose will be due tonight. Start Eliquis 5mg by mouth twice daily on October 21 Continue Imdur 30mg by mouth once daily Start checking you BG twice daily and keep a log for your [facility] appointment. Hold your insulin if your BG is less than 110 or if you are skipping a meal. Be sure to take your metformin with food to prevent GI side effects Please call with any questions or concerns Return to ED for any new or worsening symptoms Quality Measures - Quality Measures Quality Measures: Advance Directives, Documentation of Current Medications in Medical Record, Elder Maltreatment Screen and Follow-Up Plan, Heart Failure, Screening for High Blood Pressure and F/U Documented - Current Medications Quality Measure: Measure #130: Documentation of Current Medications Documentation of Current Medications: <Current Medications Documented/Reviewed> [G7517] - Blood Pressure Screening Quality Measure: Screening for High Blood Pressure and Follow-Up Documented Does Patient Have Any of the Following: Active Dx of HTN Blood Pressure Classification: Pre-Hypertensive BP Reading Systolic Measurement: 152 Diastolic Measurement: 86 Screening for High Blood Pressure: Patient Exclusion, Hx of HTN [G9744] - Heart Failure (ELENITA/ARB Therapy) Quality Measure: Heart Failure Left Ventricular Systolic Function: LV Ejection Fraction less than 40% [3021F] ELENITA Inhibitor or ARB Therapy for LVSD: <ELENITA Inhibitor or ARB therapy prescribed or currently taken> [4010F] - Heart Failure (Beta-jeanette Therapy) Quality Measure: Heart Failure Left Ventricular Systolic Function: LV Ejection Fraction less than 40% [3021F] Beta-Jeanette Therapy for LVEF < 40%: <Beta-Jeanette Therapy Prescribed> [O6850] - Advance Directives Quality Measure: Measure #47: Care Plan Advance Directives Established: No Advance Directives Information Provided To Patient: Yes Advance Directives on File: No Living Will: No Power of Scrap Drop Operator: No Advance Care Planning: <Care Plan/Decision Maker Not Decided; Discussed & Documented> [2624F] - Elder Abuse Suspicion Index Screening: Elder Abuse Suspicion Index Screening Rely on people for bathing, dressing, shopping, banking, etc: No Prevented from getting food, clothes, medication, etc: No Made to feel shamed or threatened by someone: No Forced to sign papers or use money against will: No Feel afraid, touched in ways not wanted or hurt physically: No Poor eye contact, withdrawn, malnourished, cuts or bruises: No Screening Result: Negative result EASI Reference Information: Masoud ALFRED, Anita C, Marah D, Juan Burdick.Development and validation of a tool to assist physicians identification of elder abuse: The Elder Abuse Suspicion Index (EASI ). Journal of Elder Abuse and Neglect, 2008; 20 (3): 276-300. - Elder Maltreatment Screen Quality Measures: Elder Maltreatment Screen and Follow-Up Plan Elder Maltreatment Screen: <Negative, No Follow-Up Plan Required> [G8734]
[2017-10-17] MEDS: MORPHINE SULFATE 30MG TABLET.ER PO SCH (10:01)
[2017-10-17] MEDS: LISINOPRIL 5 MG TABLET PO SCH (10:02)
[2017-10-17] MEDS: ASPIRIN 81 MG TABEC PO SCH (10:02)
[2017-10-17] MEDS: ISOSORBIDE MONONITRATE 30 MG TAB.ER.24H PO SCH (10:02)
[2017-10-17] MEDS: HYDROXYCHLOROQUINE SULFATE 200 MG TABLET PO SCH (10:02)
[2017-10-17] MEDS: CARVEDILOL 12.5 MG TABLET PO SCH (10:02)
[2017-10-17] MEDS: APIXABAN 5MG TABLET PO SCH (10:03)
[2017-10-17] MEDS: XELJANZ 11 MG PO SCH (10:03)
== END 2017-10-17 12:40 | disposition home health service (06) | DRG 291 ==
LOC: ER 07:07 → MEDSURG 11:30
PROVIDERS: ADMIT Internal Medicine; ATTEND Internal Medicine
DX: I50.23 Acute on chronic systolic (congestive) heart failure (principal); R06.02 Shortness of breath; I26.99 Other pulmonary embolism without acute cor pulmonale; I42.9 Cardiomyopathy, unspecified; R11.14 Bilious vomiting; E11.42 Type 2 diabetes mellitus with diabetic polyneuropathy; Z79.4 Long term (current) use of insulin; E04.1 Nontoxic single thyroid nodule; I49.3 Ventricular premature depolarization; I10 Essential (primary) hypertension; R60.9 Edema, unspecified; M06.9 Rheumatoid arthritis, unspecified; Z86.718 Personal history of other venous thrombosis and embolism; Z79.01 Long term (current) use of anticoagulants; R19.5 Other fecal abnormalities; G47.30 Sleep apnea, unspecified; Z87.891 Personal history of nicotine dependence; J44.9 Chronic obstructive pulmonary disease, unspecified
CPT/HCPCS: 99285 ×2; 96374; 96375; 82550; 85730; 85610; 82553; 80053; 81003; 84484; 85379; 85027; 83880; 71275; 93005; 93010; Q9967; J1815; J2060; J3490; 36416; 70450; 80048; 82947; 82948; 83036; 87329; 87427; 87493; 89055; 90686; 94010; 94760; 94761; 94762; 99223; 99233; 99239; J1940; J2405

== ENCOUNTER 2017-10-18 14:10 | Inpatient (IN) | payer BC ==
--- NOTE | 2017-10-18 14:48 | Emergency Department Record ---
History of Present Illness - General Chief complaint: Weakness Stated complaint: WEAKNESS Time Seen by Provider: 10/18/17 14:15 Source: Patient, Family Mode of Arrival: EMS Limitations: No limitations - History of Present Illness Initial comments: The patient is here due to a worsening of his generalized weakness. He was just admitted here at [facility] 4 days ago due to a small PE and SOB and was discharged yesterday to home with his sister. Since discharge he has become MUCH weaker and now is unable to stand and transfer on his own. There has been no hx of fall or trauma at home and no fever, chills, nausea, vomiting, CP, SOB, or SUSAN. The patient has also not been able to make it to the bathroom overnight and has been sitting in his urine. The patient did have a normal Head CT and UA performed here at [facility] 2 days ago. Per the patient he has been coughing mildly at home. MD Complaint: Generalized weakness Onset/Timin -: Week(s) Location: Generalized Improves with: None Worsens with: None Context: History of similar Associated Symptoms: Denies other symptoms - Stanford Coma Scale Eye Response: (4) Open spontaneously Motor Response: (6) Obeys commands Verbal Response: (5) Oriented Stanford Total: 15 - Related Data Previous Rx's Medication Instructions Recorded Furosemide [Lasix] 40 mg PO DAILY #30 tablet 09/20/17 Apixaban [Eliquis] 5 mg PO BID #60 tablet 10/17/17 Isosorbide Mononitrate [Imdur] 30 mg PO DAILY #30 tab.er.24h 10/17/17 Allergies Allergy/AdvReac Type Severity Reaction Status Date / Time methotrexate Allergy SHORTNESS Verified 10/18/17 14:25 OF BREATH pregabalin [From Lyrica] Allergy SHORTNESS Verified 10/18/17 14:25 OF BREATH Travel Screening - Travel/Exposure Within Last 30 Days Have you traveled within the last 30 days?: No - Travel/Exposure Within Last Year Have you traveled outside the [place] in the last year?: No - Additonal Travel Details Have you been exposed to anyone with a communicable illness?: No - Travel Symptoms Symptom Screening: None Review of Systems Constitutional: Denies: Chills, Fever Eyes: Denies: Eye discharge ENT: Denies: Congestion Respiratory: Denies: Cough, Dyspnea Cardiovascular: Denies: Arrhythmia, Chest pain Endocrine: Reports: Fatigue Gastrointestinal: Denies: Abdominal pain Genitourinary: Denies: Dysuria Musculoskeletal: Denies: Arthralgia Past Medical History - SOCIAL HISTORY Smoking Status: Former smoker Alcohol Use: None Drug Use: None - RESPIRATORY Hx Respiratory Disorders: Yes Hx Pneumonia: Yes Hx Sleep Apnea: Yes (has issues but does not use C-PAP) - CARDIOVASCULAR Hx Cardio Disorders: Yes Hx Abnormal EKG: Yes (hx of bigeminy) Hx CHF: Yes Hx Deep Vein Thrombosis: Yes Hx Edema: Yes Hx Hypertension: Yes Hx Irregular Heartbeat: Yes - NEURO Hx Neuro Disorders: Yes Hx Neuropathy: Yes - GI Hx GI Disorders: Yes Hx Reflux: Yes - Hx Genitourinary Disorders: No - ENDOCRINE Hx Endocrine Disorders: Yes Hx Diabetes: Yes (for 20 years) Hx Thyroid Disease: No - MUSCULOSKELETAL Hx Musculoskeletal Disorders: Yes Hx Arthritis: Yes Comment:: Rheumatoid - PSYCH Hx Psych Problems: No - HEMATOLOGY/ONCOLOGY Hx Hematology/Oncology Disorders: No Family Medical History Any Significant Family History?: Yes Family Hx Comment (NOT TO BE USED IN PLACE OF ITEMS BELOW): mom w/thyroid issues Hx Cancer: Father, Mother Hx Heart Disease: Mother Physical Exam - General General Appearance: Alert, Oriented x3, No acute distress (The patient appears very weak and fatigued.) - Head Head exam: Atraumatic, Normocephalic - Eye Eye exam: Normal appearance, PERRL - ENT Throat exam: Normal inspection. negative: Tonsillar erythema, Tonsillar exudate - Neck Neck exam: Normal inspection, Full ROM. negative: Tenderness - Respiratory Respiratory exam: Normal lung sounds bilaterally. negative: Respiratory distress - Cardiovascular Cardiovascular Exam: Regular rate, Normal rhythm, Normal heart sounds - GI/Abdominal GI/Abdominal exam: Soft, Normal bowel sounds. negative: Tenderness - Extremities Extremities exam: Pedal edema (1+ bilaterally.). negative: Normal inspection - Neurological Neurological exam: Alert. negative: Motor sensory deficit Course Vital Signs 10/18/17 14:27 Temperature 98.9 F Pulse Rate 89 Respiratory 20 Rate Blood Pressure 110/69 Pulse Ox 97 - Reevaluation(s) Reevaluation #1: The patient is stable at this time and is resting comfortably. He has a stable BP and pulse and his cardiac enzymes are not changed from his previous levels. It appears he has a new infiltrate in the RLL and that may be the source of his cough and weakness. We will admit the patient to the hospital for IV Abx's and further evaluation. I did discuss the case with Camilla (DENIA) and she does accept the patient to the hospital for Dr. Willoughby. 10/18/17 15:48 Medical Decision Making - Data Complexity MDM Data: Labs Ordered and/or Reviewed, X-Ray Ordered and/or Reviewed, EKG Ordered and/or Reviewed - Lab Data Result diagrams: 10/18/17 14:06 10/18/17 14:06 - EKG Data -: EKG Interpreted by Me EKG: Abnormal EKG (NSR at 85, Lateral T wave changes. ) - Radiology Data Radiology results: Report reviewed (CXR: R lower lobe infiltrate) Disposition Disposition: Admit Clinical Impression: Pneumonia Qualifiers: Pneumonia type: due to unspecified organism Laterality: right Lung location: lower lobe of lung Qualified Code(s): J18.1 - Lobar pneumonia, unspecified organism Disposition: Still a Patient at [facility] Decision to Admit: Admit from ER Decision to Admit Date: 10/18/17 Decision to Admit Time: 15:50 Accepting Physician: Fartun Time Discussed w/Accepting Physician: 15:50 Condition: (2) Stable Time of Disposition: 15:50 Quality - Quality Measures Quality Measures: N/A - Blood Pressure Screening View Details: Yes Does Patient Have Any of the Following: No Blood Pressure Classification: Normal BP Reading Systolic Measurement: 104 Diastolic Measurement: 69 Screening for High Blood Pressure: < Normal BP, F/U Not Required > [[id number]]
[2017-10-18 15:05] LABS: HEMATOCRIT 38.6 % (42.0-52.0); HEMOGLOBIN 12.6 gm/dl (14.0-18.0); MEAN CELL VOLUME 84.5 fl (81-97); MEAN CORPUSCULAR HGB CONC 32.6 g/dl (32-36); MEAN PLATELET VOLUME 10.5 fl (7.4-10.4); PLATELET COUNT 267 K/uL (130-400); RED BLOOD COUNT 4.57 M/uL (4.40-5.70); RED CELL DISTRIBUTION WIDTH 16.2 % (11.5-14.5); WHITE BLOOD COUNT W/O DIFF 16.8 K/uL (4.2-12.2)
[2017-10-18 15:16] LABS: CREATININE 1.3 mg/dL (0.7-1.2)
[2017-10-18 15:17] LABS: INR 1.2; PARTIAL THROMBOPLASTIN TIME 36.8 SECONDS (24.5-39.1); PROTHROMBIN TIME (PATIENT) 12.9 SECONDS (9.5-12.1)
[2017-10-18 15:24] LABS: CKMB 2.3 ng/mL (<6.73)
[2017-10-18 15:27] LABS: MEAN CORPUSCULAR HEMOGLOBIN 27.5 pg (27-33)
[2017-10-18 15:31] LABS: THYROID STIMULATING HORMONE 0.3 uIU/mL (0.270-4.20)
[2017-10-18] MEDS ORDERED: CEFTRIAXONE SODIUM 1 GM in 0.9 % SODIUM CHLORIDE 100ML 100 ML IVPB ONE (15:35)
[2017-10-18] MEDS ORDERED: PIPERACILLIN SODIUM/TAZOBACTAM 4.5 GM in 0.9 % SODIUM CHLORIDE 100ML 100 ML IVPB ONE (15:44)
[2017-10-18] MEDS ORDERED: GABAPENTIN 100 MG CAPSULE PO PRN (16:08)
[2017-10-18] MEDS ORDERED: ACETAMINOPHEN 500 MG TABLET PO PRN (16:08)
[2017-10-18] MEDS: IPRATROPIUM/ALBUTEROL (0.5MG/3MG) NEB INH SCH ×2 (17:18→22:00)
[2017-10-18] MEDS: METFORMIN 500 MG TABLET PO SCH (18:27)
[2017-10-18] MEDS: MORPHINE SULFATE 30MG TABLET.ER PO SCH (18:27)
[2017-10-18] MEDS: APIXABAN 5MG TABLET PO SCH (21:54)
[2017-10-18] MEDS: GUAIFENESIN 1,200 MG TABLET PO SCH (21:54)
[2017-10-18] MEDS: DULOXETINE HCL 30 MG CAPSULE.DR PO SCH (21:54)
[2017-10-18] MEDS: CARVEDILOL 12.5 MG TABLET PO SCH (21:54)
[2017-10-18] MEDS ORDERED: NOVOLOG 70/30 FLEXPEN 100 UNITS/ML SQ SCH (22:00)
[2017-10-18] MEDS: PIPERACILLIN SODIUM/TAZOBACTAM 4.5 GM in 0.9 % SODIUM CHLORIDE 100ML 100 ML IVPB SCH (22:17)
[2017-10-18] MEDS: NOVOLOG 70/30 FLEXPEN 100 UNITS/ML SQ SCH (22:19)
[2017-10-19 02:14] LABS: URINE APPEARANCE CLEAR; URINE BILIRUBIN NEGATIVE (NEGATIVE); URINE BLOOD NEGATIVE (NEGATIVE); URINE COLOR YELLOW; URINE GLUCOSE (UA) NEGATIVE (NEGATIVE); URINE KETONE NEGATIVE (NEGATIVE); URINE LEUKOCYTE ESTERASE NEGATIVE (NEGATIVE); URINE NITRITE NEGATIVE (NEGATIVE); URINE PROTEIN NEGATIVE (NEGATIVE); URINE UROBILINOGEN 0.2 E.U./dL (0.20 - 1.00)
[2017-10-19] MEDS: PIPERACILLIN SODIUM/TAZOBACTAM 4.5 GM in 0.9 % SODIUM CHLORIDE 100ML 100 ML IVPB SCH ×4 (03:33→21:50)
[2017-10-19] MEDS: MORPHINE SULFATE 30MG TABLET.ER PO SCH ×2 (04:45→16:51)
[2017-10-19] MEDS: IPRATROPIUM/ALBUTEROL (0.5MG/3MG) NEB INH SCH ×5 (05:48→21:23)
[2017-10-19 06:27] LABS: HEMATOCRIT 30.2 % (42.0-52.0); HEMOGLOBIN 9.6 gm/dl (14.0-18.0); MEAN CELL VOLUME 85.1 fl (81-97); MEAN CORPUSCULAR HGB CONC 31.8 g/dl (32-36); MEAN PLATELET VOLUME 10.3 fl (7.4-10.4); PLATELET COUNT 190 K/uL (130-400); RED BLOOD COUNT 3.55 M/uL (4.40-5.70); RED CELL DISTRIBUTION WIDTH 15.8 % (11.5-14.5); WHITE BLOOD COUNT W/O DIFF 13.9 K/uL (4.2-12.2)
[2017-10-19 06:43] LABS: ALB/GLOB RATIO 1.1 (1.1-1.8); ALBUMIN 3.2 g/dL (4.0-5.0); BILIRUBIN,TOTAL 0.9 mg/dL (0.2-1.0); CREATININE 1.5 mg/dL (0.7-1.2); PLATELET ESTIMATE NORMAL (NORMAL); TOTAL PROTEIN 6.2 g/dL (6.6-8.7)
[2017-10-19] MEDS: PANTOPRAZOLE SODIUM 40 MG TABLET PO SCH (06:47)
[2017-10-19] MEDS: METFORMIN 500 MG TABLET PO SCH ×2 (08:42→18:47)
--- NOTE | 2017-10-19 08:52 | History & Physical ---
History of Present Illness - Date of Service Date of Service for History & Physical: 10/19/17 - History of Present Illness Admitting Diagnosis: 1. Acute RLL Pneumonia History of Present Illness: 67yo male with CC of weakness. He has history of PE on eliquis, CHF, bigeminy, HTN, T2DM with peripheral neuropathy (follows with podiatry), RA, sleep apnea, h /o agent orange exposure. Patient was discharged on 10/17/17, but sister brought him back to ED on 10/18 due to severe, generalized weakness. Sister states they got home yesterday ok but during the day patient became much more weak. He was no longer ambulating with his walker and 1x assist so she brought him back to the ED. While in the ED, patient was found to have elevated WBC count up significantly from the previous day. repeat CXR showed new RLL infiltrate. UA was repeated and was negative for infection. His sodium was low at 133. CT head done two days prior was negative. Patient was started on zosyn for nosocomial pneumonia and admitted. 10/19/18- Patient is up in chair after showering today. He is feeling much better. He is alert, oriented and has been a minimal assist. He denies having any cough and says his shortness of breath has not gotten worse. He is still taking eliquis for PE diagnosed this week. Has not had much appetite at home. Has not had a BM today. He is drinking fluids but sticking to 2L fluid restriction. He denies any lower extremity swelling. He does have some bruising of the left elbow where patient reports he fell during previous admission. Night nursing had reported no falls. Patient denies pain in the elbow and no decreased range of motion. Travel Screening - Travel/Exposure Within Last 30 Days Have you traveled within the last 30 days?: No - Travel/Exposure Within Last Year Have you traveled outside the [place] in the last year?: No - Additonal Travel Details Have you been exposed to anyone with a communicable illness?: No - Travel Symptoms Symptom Screening: None Review of Systems Constitutional: Denies: Chills, Fever Eyes: Denies: Eye discharge ENT: Denies: Congestion Respiratory: Denies: Cough, Dyspnea Cardiovascular: Denies: Arrhythmia, Chest pain Endocrine: Reports: Fatigue Gastrointestinal: Denies: Abdominal pain Genitourinary: Denies: Dysuria Musculoskeletal: Denies: Arthralgia Neurological: Reports: Weakness (generalized) Past Medical History - SOCIAL HISTORY Smoking Status: Former smoker - RESPIRATORY Hx Respiratory Disorders: Yes Hx Pneumonia: Yes Hx Sleep Apnea: Yes (has issues but does not use C-PAP) - CARDIOVASCULAR Hx Cardio Disorders: Yes Hx Abnormal EKG: Yes (hx of bigeminy) Hx CHF: Yes Hx Deep Vein Thrombosis: Yes Hx Edema: Yes Hx Hypertension: Yes Hx Irregular Heartbeat: Yes - NEURO Hx Neuro Disorders: Yes Hx Neuropathy: Yes - GI Hx GI Disorders: Yes Hx Reflux: Yes - Hx Genitourinary Disorders: No - ENDOCRINE Hx Endocrine Disorders: Yes Hx Diabetes: Yes (for 20 years) Hx Thyroid Disease: No - MUSCULOSKELETAL Hx Musculoskeletal Disorders: Yes Hx Arthritis: Yes Comment:: Rheumatoid - PSYCH Hx Psych Problems: No 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[place], agent orange - HEMATOLOGY/ONCOLOGY Hx Hematology/Oncology Disorders: No Family Medical History Any Significant Family History?: Yes Family Hx Comment (NOT TO BE USED IN PLACE OF ITEMS BELOW): mom w/thyroid issues Hx Cancer: Father, Mother Hx Heart Disease: Mother H&P Meds/Allergies - Allergies Allergies: Allergies Allergy/AdvReac Type Severity Reaction Status Date / Time methotrexate Allergy SHORTNESS Verified 10/18/17 14:25 OF BREATH pregabalin [From Lyrica] Allergy SHORTNESS Verified 10/18/17 14:25 OF BREATH - Home Medications Previous Rx's Medication Instructions Recorded Furosemide [Lasix] 40 mg PO DAILY #30 tablet 09/20/17 Apixaban [Eliquis] 5 mg PO BID #60 tablet 10/17/17 Isosorbide Mononitrate [Imdur] 30 mg PO DAILY #30 tab.er.24h 10/17/17 - Active Medications Active Medications: Current Medications Acetaminophen (Tylenol 500mg Tab) 650 mg PO Q6H PRN PRN Reason: PAIN/TEMP Last Admin: 10/19/17 01:15 Dose: 650 mg Albuterol/Ipratropium (Duoneb) 3 ml INH RESP.Q4H.[facility] Last Admin: 10/19/17 05:48 Dose: Not Given Apixaban (Eliquis) 10 mg PO BID [facility] Last Admin: 10/18/17 21:54 Dose: 10 mg Aspirin (Aspirin Chewable) 81 mg PO DAILY [facility] Atorvastatin Calcium (Lipitor) 20 mg PO DAILY [facility] Carvedilol (Coreg) 12.5 mg PO BID [facility] Last Admin: 10/18/17 21:54 Dose: 12.5 mg Duloxetine HCl (Cymbalta) 60 mg PO QHS [facility] Last Admin: 10/18/17 21:54 Dose: 60 mg Ferrous Sulfate (Iron) 325 mg PO DAILYWM [facility] Furosemide (Lasix) 40 mg PO DAILY [facility] Gabapentin (Neurontin) 100 mg PO TID PRN PRN Reason: nerve pain Guaifenesin (Mucinex) 1,200 mg PO BID [facility] Last Admin: 10/18/17 21:54 Dose: 1,200 mg Hydroxychloroquine Sulfate (Plaquenil) 200 mg PO DAILY [facility] Piperacillin Sod/Tazobactam (Sod 4.5 gm/ Sodium Chloride) 100 mls @ 200 mls/hr IVPB Q6H [facility] Last Infusion: 10/19/17 04:00 Dose: Infused Isosorbide Mononitrate (Imdur) 30 mg PO DAILY [facility] Lisinopril (Zestril) 2.5 mg PO DAILY [facility] Metformin HCl (Glucophage Ir) 1,000 mg PO BIDWM [facility] Last Admin: 10/19/17 08:42 Dose: Not Given Morphine Sulfate () 60 mg PO Q12H [facility] Last Admin: 10/19/17 04:45 Dose: Not Given Pantoprazole Sodium (Protonix) 40 mg PO DAILYAC [facility] Last Admin: 10/19/17 06:47 Dose: 40 mg Potassium Chloride (Klor-Con) 20 meq PO DAILY [facility] Physical Exam - Vital Signs Vital Signs: Vital Signs - Last 24 Hrs Temp Pulse Pulse Pulse Resp BP Pulse Ox 10/19/17 07:50 98.8 F 69 18 82/55 97 10/19/17 06:27 97.5 F L 10/19/17 01:15 99.1 F 89 18 98/52 98 10/18/17 22:05 84 20 10/18/17 22:00 84 20 93 L 10/18/17 21:00 90 18 10/18/17 18:00 98.6 F 85 18 110/63 94 L 10/18/17 17:55 98 10/18/17 17:30 81 17 99 10/18/17 16:38 98.5 F 85 18 126/62 95 - General General Appearance: Alert, Oriented x3, Cooperative Limitations: No limitations - Head Head exam: Atraumatic, Normocephalic - Eye Eye exam: Normal appearance, PERRL - ENT ENT exam: Normal exam, Mucous membranes moist, Normal external ear exam, Normal orophraynx, TM's normal bilaterally Throat exam: Normal inspection. negative: Tonsillar erythema, Tonsillar exudate - Neck Neck exam: Normal inspection, Full ROM. negative: Tenderness - Respiratory Respiratory exam: Rhonchi (RLL). negative: Respiratory distress - Cardiovascular Cardiovascular Exam: Regular rate, Normal rhythm, Normal heart sounds - GI/Abdominal GI/Abdominal exam: Soft, Normal bowel sounds. negative: Tenderness - Extremities Extremities exam: negative: Normal inspection, Pedal edema - Neurological Neurological exam: Alert, Oriented X3. negative: Motor sensory deficit - Psychiatric Psychiatric exam: Normal affect, Normal mood Results - Labs Result Diagrams: 10/19/17 06:10 10/19/17 06:10 Labs Last 24 Hours: Laboratory Results - last 24 hr 10/18/17 10/18/17 10/19/17 17:42 22:22 00:15 WBC RBC Hgb Hct MCV MCH MCHC RDW Plt Count MPV Neutrophils % Band Neutrophils % Eosinophils % Basophils % Lymphocytes Monocytes Platelet Estimate RBC Morphology Sodium Potassium Chloride Carbon Dioxide Anion Gap BUN Creatinine Estimated GFR POC Glucose 239 H 264 H Random Glucose Calcium Total Bilirubin AST ALT Alkaline Phosphatase Total Protein Albumin Globulin Albumin/Globulin Ratio Urine Color Yellow Urine Appearance Clear Urine pH 6.0 Ur Specific Edwards 1.020 Urine Protein Negative Urine Glucose (UA) Negative Urine Ketones Negative Urine Blood Negative Urine Nitrite Negative Urine Bilirubin Negative Urine Urobilinogen 0.2 Ur Leukocyte Esterase Negative 10/19/17 10/19/17 10/19/17 06:10 06:10 07:20 WBC 13.9 H RBC 3.55 L Hgb 9.6 L Hct 30.2 L MCV 85.1 MCH 27.0 MCHC 31.8 L RDW 15.8 H Plt Count 190 MPV 10.3 Neutrophils % 87.0 H Band Neutrophils % 1.0 Eosinophils % Not Reportable Basophils % Not Reportable Lymphocytes 6.0 L Monocytes 6.0 Platelet Estimate Normal RBC Morphology Normal Sodium 133 L Potassium 3.7 Chloride 95 L Carbon Dioxide 23.0 Anion Gap 15.0 BUN 32 H Creatinine 1.5 H Estimated GFR 49 POC Glucose 119 H Random Glucose 105 Calcium 8.3 L Total Bilirubin 0.90 AST 17 ALT 15 Alkaline Phosphatase 53 Total Protein 6.2 L Albumin 3.2 L Globulin 3.0 Albumin/Globulin Ratio 1.1 Urine Color Urine Appearance Urine pH Ur Specific Edwards Urine Protein Urine Glucose (UA) Urine Ketones Urine Blood Urine Nitrite Urine Bilirubin Urine Urobilinogen Ur Leukocyte Esterase - Imaging and Cardiology Chest x-ray Status: Report reviewed (RLL infiltrate) VTE H&P Assessment - Risk for VTE Risk for VTE: Yes Risk Level: High Risk Assessment Date: 10/19/17 Risk Assessment Time: 23:08 VTE Orders Placed or Will Be Placed: Yes Plan - Inpatient Certification Inpatient Certification: Admit to inpatient care: Based on my medical assessment, after consideration of patient's risk factors (age, co-morbidities and patient presenting symptoms and acuity), I expect that this patient will remain in the hospital greater than or equal to two midnights and that the services needed warrant inpatient care because: Patient Risk Factors: [age, nosocomial pneumonia, PE, CHF, T2DM, generalized weakness Estimated length of stay: [48-72H] The patient may reasonably be expected to be discharged or transferred to a hospital within 96 hours after admission to [facility]. Services needed: [IV antibiotics, PT/OT] Post hospital care (if known): [home health services vs subacute rehab] I certify that my determination is in accordance with my understanding of Medicare requirements for reasonable and necessary inpatient services. 10/19/17 23:08 - Detailed Diagnosis and Plan (1) Nosocomial pneumonia Current Visit: Yes Status: Acute Base Code: J18.9 - PNEUMONIA, UNSPECIFIED ORGANISM Comment: 10/19/17- CXR on 10/18/17 showed new RLL infiltrate. WBC count trending down to 13.9 today. Patient remains afebrile. Oxygen saturation is 97% on room air. -continue zosyn 4.5gm q6H -continuous tele -vitals q8H -labs qam (2) Physical deconditioning Current Visit: No Status: Acute Base Code: R53.81 - OTHER MALAISE Comment : 10/19/17- patient is physically deconditioned due to sedentary lifestyle, acute illness and hospitalization. -PT/OT consulted -SW consulted (3) CHF (congestive heart failure) Current Visit: No Status: Acute Qualifiers: Heart failure type: unspecified Heart failure chronicity: acute Qualified Code(s): I50.9 - Heart failure, unspecified Base Code: I50.9 - HEART FAILURE, UNSPECIFIED Comment: 10/19/17- Stable. He had echo on 01/24/17 showing Ef of 30-35%. -continue home diuretic dose with lasix 40mg po daily as repeat imaging shows resolution of fluid overload. -2000cc fluid restriction -low sodium diet -has follow up appointment with cardiology 11/04/17 (4) Pulmonary embolism Current Visit: No Status: Acute Qualifiers: Pulmonary embolism type: other Chronicity: acute Acute cor pulmonale presence: without acute cor pulmonale Qualified Code(s): I26.99 - Other pulmonary embolism without acute cor pulmonale Base Code: I26.99 - OTHER PULMONARY EMBOLISM WITHOUT ACUTE COR PULMONALE Comment: 10/19/17- patient diagnosed with peripheral PE in the left upper lobe of the lung during previous admission. -continue eliquis 10mg po bid through 10/20/17 then 5mg po bid for at least 3 months but probably 6 months with 2nd incidence of VTE (5) T2DM (type 2 diabetes mellitus) Current Visit: No Status: Acute Qualifiers: Diabetes mellitus assisted insulin use: with assisted use Diabetes mellitus complication status: with neurologic complications Diabetes mellitus complication detail: with polyneuropathy Qualified Code(s): E11.42 - Type 2 diabetes mellitus with diabetic polyneuropathy; Z79.4 - snf (current) use of insulin Base Code: E11.9 - TYPE 2 DIABETES MELLITUS WITHOUT COMPLICATIONS Comment: -A1C 10.7. Patient has had decreased appetite -continue metformin 1000mg po bid -decrease 70/30 to 17 units BID -accucheck QID -ADA diet (6) Full code status Current Visit: No Status: Acute Base Code: Z78.9 - OTHER SPECIFIED HEALTH STATUS Comment: 10/19/17- patient is full code
[2017-10-19] MEDS: LISINOPRIL 5 MG TABLET PO SCH (09:31)
[2017-10-19] MEDS: GUAIFENESIN 1,200 MG TABLET PO SCH ×2 (10:04→21:50)
[2017-10-19] MEDS: APIXABAN 5MG TABLET PO SCH ×2 (10:05→21:51)
[2017-10-19] MEDS: CARVEDILOL 12.5 MG TABLET PO SCH ×2 (10:05→21:54)
[2017-10-19] MEDS: ATORVASTATIN 20 MG TABLET PO SCH (10:05)
[2017-10-19] MEDS: FUROSEMIDE 40 MG TABLET PO SCH (10:05)
[2017-10-19] MEDS: POTASSIUM CHLORIDE 20 MEQ TABLET PO SCH (10:05)
[2017-10-19] MEDS: HYDROXYCHLOROQUINE SULFATE 200 MG TABLET PO SCH (10:06)
[2017-10-19] MEDS: ISOSORBIDE MONONITRATE 30 MG TAB.ER.24H PO SCH (10:06)
[2017-10-19] MEDS: FERROUS SULFATE 325 MG TAB PO SCH (13:35)
[2017-10-19] MEDS: ASPIRIN 81 MG CHEWABLE TABLET PO SCH (13:35)
[2017-10-19] MEDS: NOVOLOG 70/30 FLEXPEN 100 UNITS/ML SQ SCH ×2 (16:06→22:10)
[2017-10-19] MEDS: BIFIDOBACTERIUM INFANTIS 4 MG CAPSULE PO SCH (16:29)
--- NOTE | 2017-10-19 17:50 | RADIOLOGY REPORT ---
EXAM: CHEST 1 VIEW HISTORY: CHEST PAIN. TECHNIQUE: Portable frontal view of the chest. COMPARISON: 09/20/17 chest. FINDINGS: The heart size is normal. Patchy right basilar infiltrate. Osteopenia. No pneumothorax. IMPRESSION: RIGHT BASILAR INFILTRATE. JOB NUMBER: [id number] MTDD
[2017-10-19] MEDS ORDERED: DIPHENHYDRAMINE HCL 25 MG CAPSULE PO PRN (21:07)
[2017-10-19] MEDS: DULOXETINE HCL 30 MG CAPSULE.DR PO SCH (21:51)
[2017-10-20] MEDS: PIPERACILLIN SODIUM/TAZOBACTAM 4.5 GM in 0.9 % SODIUM CHLORIDE 100ML 100 ML IVPB SCH ×4 (03:43→22:48)
[2017-10-20] MEDS: MORPHINE SULFATE 30MG TABLET.ER PO SCH ×3 (04:57→17:37)
[2017-10-20] MEDS: PANTOPRAZOLE SODIUM 40 MG TABLET PO SCH (06:03)
[2017-10-20] MEDS: IPRATROPIUM/ALBUTEROL (0.5MG/3MG) NEB INH SCH ×5 (06:03→21:55)
[2017-10-20 06:49] LABS: BASO % 0.1 % (0-6); EOS % 0.1 % (0-6); HEMATOCRIT 32.1 % (42.0-52.0); HEMOGLOBIN 10.5 gm/dl (14.0-18.0); LYMPH % 3.9 % (16-45); MEAN CELL VOLUME 84.5 fl (81-97); MEAN CORPUSCULAR HEMOGLOBIN 27.6 pg (27-33); MEAN CORPUSCULAR HGB CONC 32.7 g/dl (32-36); MEAN PLATELET VOLUME 10.1 fl (7.4-10.4); MONO % 8.1 % (0-9); PLATELET COUNT 216 K/uL (130-400); RED CELL DISTRIBUTION WIDTH 15.5 % (11.5-14.5); WHITE BLOOD COUNT W/O DIFF 17.4 K/uL (4.2-12.2)
[2017-10-20] MEDS: METFORMIN 500 MG TABLET PO SCH ×2 (08:03→17:37)
[2017-10-20] MEDS: FERROUS SULFATE 325 MG TAB PO SCH (08:03)
[2017-10-20] MEDS: POTASSIUM CHLORIDE 20 MEQ TABLET PO SCH (09:33)
[2017-10-20] MEDS: ISOSORBIDE MONONITRATE 30 MG TAB.ER.24H PO SCH (09:34)
[2017-10-20] MEDS: ATORVASTATIN 20 MG TABLET PO SCH (09:34)
[2017-10-20] MEDS: FUROSEMIDE 40 MG TABLET PO SCH (09:34)
[2017-10-20] MEDS: LISINOPRIL 5 MG TABLET PO SCH (09:34)
[2017-10-20] MEDS: CARVEDILOL 12.5 MG TABLET PO SCH ×2 (09:34→22:50)
[2017-10-20] MEDS: ASPIRIN 81 MG CHEWABLE TABLET PO SCH (09:34)
[2017-10-20] MEDS: BIFIDOBACTERIUM INFANTIS 4 MG CAPSULE PO SCH (09:35)
[2017-10-20] MEDS: APIXABAN 5MG TABLET PO SCH ×2 (09:35→22:50)
[2017-10-20] MEDS: HYDROXYCHLOROQUINE SULFATE 200 MG TABLET PO SCH (09:35)
[2017-10-20] MEDS: GUAIFENESIN 1,200 MG TABLET PO SCH ×2 (09:35→22:49)
[2017-10-20] MEDS: NOVOLOG 70/30 FLEXPEN 100 UNITS/ML SQ SCH ×2 (09:45→22:50)
--- NOTE | 2017-10-20 10:18 | Rehab Evaluation ---
Patient Information - Patient Information Diagnosis: Acute RLL Pneumonia Ordered Treatment: PT Evaluate and Treat Status: Initial Evaluation Surgery: No Past Medical/Surgical Hx: PAST MEDICAL/SURGICAL HISTORY Past Surgical History Right knee surgery hemorrhoidectomyx3 PMH - Respiratory Hx Respiratory Disorders Yes Hx Pneumonia Yes Hx Sleep Apnea Yes: has issues but does not use C-PAP PMH - Cardiovascular Hx Cardiovascular Disorders Yes Hx Abnormal EKG Yes: hx of bigeminy Hx Congestive Heart Failure Yes Hx Deep Vein Thrombosis Yes Hx Edema Yes Hx Hypertension Yes Hx Irregular Heartbeat Yes PMH - Neuro Hx Neurological Disorders Yes Hx Neuropathy Yes PMH - GI Hx Gastrointestinal Disorders Yes Hx Gastroesophageal Reflux Yes PMH - Hx Genitourinary Disorders No PMH - Endocrine Hx Endocrine Disorders Yes Hx Diabetes Yes: for 20 years Hx Thyroid Disease No PMH - Musculoskeletal Hx Musculoskeletal Disorders Yes Hx Arthritis Yes Comment: Rheumatoid PMH - Psych Hx Psychiatric Problems No Comment: PTSD from [place], agent orange PMH - Hematology/Oncology Hx Hematology/Oncology No Disorders Social History: Detail (The patient lives in a 2 Story home with his sister and her . The patient has a live in apartment in the basement. The patient's living space does not have stairs to enter, but requires him to walk around the back of the house to enter. The patient does not do stairs in the home, as he has a chair lift to get from the basement to the main level. The patient uses a walk-in shower with a seat, but says he mainly stands. The shower does have grab bars. The patient's toilet seat is elevated and has grab bars present. The patient says he uses a single point cane from ambulation.) - Time With Patient Total Time Spent With Patient (Min): 30 Treatment Procedures: Detail (PT Initial Evaluation) Subjective Information - Subjective Information Per Patient (The patient has reports of increased weakness since admission last week, and even further weakness at readmission on Friday. The patient has no reports of pain, but is extremely weak and fatigued.) Objective Data - Pain Pain Present: No Pain Intensity: 0 Pain Scale Used: Numeric (1 - 10) - Mental Status Patient Orientation: Oriented x3 (The patient incorrectly answered what year it was, but after redirection was able to identify.) - ROM Within normal limits (Gross LE ROM screen was completed and the patient was within functional limits for activities at initial evaluation) - Strength/Tone Within normal limits (R Hip Flexion 4/5, Abduction 4/5, Adduction 4+/5, R Knee Flexion 4/5, Knee Extension 4/5, R Ankle Plantarflexion 4/5, Dorsiflexion 4/5. L Hip Flexion 4/5, Abduction 4/5, Adduction 4+/5, R Knee Flexion 4/5, Knee Extension 4/5, R Ankle Plantarflexion 4/5, Dorsiflexion 4/5) - Bed Mobility Independent (The patient was independent with supine to sit and sit to supine, but required the use of the bed rails to complete the transfer.) - Transfers Independent (The patient required CGA x 1 to transfer from sit to stand and stand to sit. The patient was able to complete both transfers, but required increased time for the transfer.) - Balance Balance Sitting: Fair (The patient showed fair sitting balance. During strength testing of the LEs, the patient leaned back on to the R Elbow. Unknown if the patient needed to lean due to decreased balance or due to fatigue with sitting.) Balance Standing: Fair (The patient required UE support on the walker during standing, but he did not have a LOB while static standing. Gait balance was not assessed.) - Sensation Deficit (The patient reports Neuropathy in both the hands and in the feet.) - Gait Detail (The patient's gait skills were not assessed due to increased fatigue.) Therapy Assessment - Therapy Assessment Detail (The patient was independent with bed mobility, and required CGA x 1 for transfers. The patient's strength is moderately decreased, and transfers required increased time for completetion. The patient's gait skills were not assessed due to increased fatigue. The patient would benefit from further inpatient therapy for gait training and LE strengthening activities. The patient would also benefit from further home therapy or subacute rehab once discharged from inpatient therapy for endurance activities, gait training, assessment of safety in home environment, and LE strengthening activities.) Problem List - Problem List Physical Therapy Problem List: Detail (1) Gait skills not assessed 2) Decreased LE strength bilaterally 3) Increased fatigue with activity/decreased endurance) Goals - Goals Physical Therapy Goals: 1) The patient's gait skills will be assessed at subsequent visit. 2) The patient will be able to ambulate household distances with supervision with least restrictive assistive device for a safe inpatient discharge. 3) The patient will be able to tolerate 20 minutes of physical activity to increase endurance for activities of daily living Prognosis - Prognosis Good Plan - Plan Physical Therapy Plan: The patient will be seen 1-2x/day M-F until inpatient discharge for gait training, transfer training, and LE strengthening activities.
[2017-10-20 10:56] LABS: ALB/GLOB RATIO 0.9 (1.1-1.8); ALBUMIN 3.2 g/dL (4.0-5.0); BILIRUBIN,TOTAL 0.8 mg/dL (0.2-1.0); CREATININE 1.4 mg/dL (0.7-1.2); TOTAL PROTEIN 6.7 g/dL (6.6-8.7)
--- NOTE | 2017-10-20 11:00 | Rehab Evaluation ---
Patient Information - Patient Information Diagnosis: Acute RLL Pneumonia Ordered Treatment: OT Evaluate and Treat Surgery: No Past Medical/Surgical Hx: PAST MEDICAL/SURGICAL HISTORY Past Surgical History Right knee surgery hemorrhoidectomyx3 PMH - Respiratory Hx Respiratory Disorders Yes Hx Pneumonia Yes Hx Sleep Apnea Yes: has issues but does not use C-PAP PMH - Cardiovascular Hx Cardiovascular Disorders Yes Hx Abnormal EKG Yes: hx of bigeminy Hx Congestive Heart Failure Yes Hx Deep Vein Thrombosis Yes Hx Edema Yes Hx Hypertension Yes Hx Irregular Heartbeat Yes PMH - Neuro Hx Neurological Disorders Yes Hx Neuropathy Yes PMH - GI Hx Gastrointestinal Disorders Yes Hx Gastroesophageal Reflux Yes PMH - Hx Genitourinary Disorders No PMH - Endocrine Hx Endocrine Disorders Yes Hx Diabetes Yes: for 20 years Hx Thyroid Disease No PMH - Musculoskeletal Hx Musculoskeletal Disorders Yes Hx Arthritis Yes Comment: Rheumatoid PMH - Psych Hx Psychiatric Problems No Comment: 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 The basement is a walk out but the entrance is in the back of the house. He uses the shower on the main level and the stairs have a stair lift so he does not need to ambulate up/down steps. He has a walk in shower with seat and grab bars but he typically stands to shower. The toilet is elevated and has grab bars. He reports being Ind with all self cares, meal prep, laundry and home mgmt. He ambulates with a straight cane and also has a 2 wheeled walker.) Precautions: [place], Fall - Time With Patient Total Time Spent With Patient (Min): 35 Treatment Procedures: Detail (OT eval low complexity) Subjective Information - Subjective Information Per Patient Objective Data - Pain Pain Present: No - Mental Status Patient Orientation: Oriented x3 (Pt reported year as 2017 but with was able to correct to 2018 with cueing.) - Visual Perception Appears within normal limits for therapeutic activities (Pt wears glasses at all times.) - ROM Within normal limits (Presley UE AROM WNL.) - Strength/Tone Within normal limits ([place]ley UE strength 4+/5) - Coordination Appears within normal limits for therapeutic activities - Bed Mobility Independent (Ind with supine to sit and sit to supine.) - Transfers Independent (Ind with sit to stand at EOB although pt very weak and required extra time.) - Balance Balance Sitting: Good Balance Standing: Good (Pt leaning on elbow during part of evaluation but he was able to right self Indly.) - Sensation Intact (Pt reports having neuropathy in hands and feet.) - Gait Detail (Not assessed as pt too fatigued and refusing to ambulate) - ADL's/IADL's Detail (Pt able to don sock type slippers with moderate difficulty and significant fatigue. Other ADLs not formally assessed.) Therapy Assessment - Therapy Assessment Detail (Pt presents with functional UE ROM and strength, significantly impaired endurance needed for self cares and functional mobility.) Problem List - Problem List Physical Therapy Problem List: Detail (1) Gait skills not assessed 2) Decreased LE strength bilaterally 3) Increased fatigue with activity/decreased endurance) Occupational Therapy Problem List: Detail (1. Significantly impaired endurance needed for safe and Ind self cares. 2. Need to further assess self cares and functional mobility.) Goals - Goals Physical Therapy Goals: 1) The patient's gait skills will be assessed at subsequent visit. 2) The patient will be able to ambulate household distances with supervision with least restrictive assistive device for a safe inpatient discharge. 3) The patient will be able to tolerate 20 minutes of physical activity to increase endurance for activities of daily living Occupational Therapy Goals: 1. Assess pts safety and Ind with self cares. 2. Pt will demonstrate improved endurance to allow safe and Ind self cares. Prognosis - Prognosis Good Plan - Plan Physical Therapy Plan: The patient will be seen 1-2x/day M-F until inpatient discharge for gait training, transfer training, and LE strengthening activities. Occupational Therapy Plan: OT 2-4 days per week until discharge to improve endurance and safety with self cares and functional mobility. Pt would benefit from home therapy or short IP rehab stay to ensure safety and Ind with ADLs/ IADLs.
--- NOTE | 2017-10-20 11:26 | Physician Progress Note ---
Subjective - Date Date of Physician Progress Note: 10/20/17 - Subjective Subjective Comment: 10/20/17- Patient sitting in chair at time of exam. He is a little more drowsy today and states he doesn't feel as good as yesterday. Still has poor appetite. He denies any shortness of breath or cough still. No mucus production. He denies lower extremity swelling, chest pain, fever, chills. Objective - Vital Signs Vital Signs: Vital Signs - Last 24 Hrs Temp Pulse Pulse Pulse Resp BP Pulse Ox 10/20/17 08:12 16 10/20/17 07:49 97.7 F 97 H 18 126/98 97 10/20/17 06:03 95 H 95 10/19/17 22:19 98.1 F 87 18 108/63 98 10/19/17 21:23 87 98 10/19/17 21:00 85 18 10/19/17 17:46 95 10/19/17 15:51 97.7 F 86 20 101/59 96 - General General Appearance: Alert, Oriented x3, Cooperative, No acute distress Limitations: No limitations - Head Head exam: Atraumatic, Normocephalic - Eye Eye exam: Normal appearance, PERRL - ENT ENT exam: Normal exam, Mucous membranes moist, Normal external ear exam, Normal orophraynx, TM's normal bilaterally Throat exam: Normal inspection. negative: Tonsillar erythema, Tonsillar exudate - Neck Neck exam: Normal inspection, Full ROM. negative: Tenderness - Respiratory Respiratory exam: Rhonchi (bilateral bases). negative: Respiratory distress - Cardiovascular Cardiovascular Exam: Regular rate, Normal rhythm, Normal heart sounds - GI/Abdominal GI/Abdominal exam: Soft, Normal bowel sounds. negative: Tenderness - Extremities Extremities exam: negative: Normal inspection, Pedal edema - Neurological Neurological exam: Alert, Oriented X3. negative: Motor sensory deficit - Psychiatric Psychiatric exam: Normal affect, Normal mood Assessment and Plan - Assessment and Plan (1) Nosocomial pneumonia Current Visit: Yes Status: Acute Base Code: J18.9 - PNEUMONIA, UNSPECIFIED ORGANISM Comment: 10/20/17- CXR on 10/18/17 showed new RLL infiltrate. WBC count back up to 17.4 today from 13.9 yesterday. Patient remains afebrile. Oxygen saturation is 97% on room air. Legionella antigen pending. -continue zosyn 4.5gm q6H -add levaquin 750mg IV q24H -continuous tele -vitals q8H -labs qam (2) Physical deconditioning Current Visit: No Status: Acute Base Code: R53.81 - OTHER MALAISE Comment : 10/20/17- patient is physically deconditioned due to sedentary lifestyle, acute illness and hospitalization. -PT/OT consulted and recommend [facility]. Patient refuses. -SW consulted and will be working on home therapy for discharge since he declines [facility] placement (3) CHF (congestive heart failure) Current Visit: No Status: Acute Qualifiers: Heart failure type: unspecified Heart failure chronicity: acute Qualified Code(s): I50.9 - Heart failure, unspecified Base Code: I50.9 - HEART FAILURE, UNSPECIFIED Comment: 10/20/17- Stable. He had echo on 01/24/17 showing Ef of 30-35%. -continue home diuretic dose with lasix 40mg po daily as repeat imaging shows resolution of fluid overload. -2000cc fluid restriction -low sodium diet -has follow up appointment with cardiology 11/04/17 (4) Pulmonary embolism Current Visit: No Status: Acute Qualifiers: Pulmonary embolism type: other Chronicity: acute Acute cor pulmonale presence: without acute cor pulmonale Qualified Code(s): I26.99 - Other pulmonary embolism without acute cor pulmonale Base Code: I26.99 - OTHER PULMONARY EMBOLISM WITHOUT ACUTE COR PULMONALE Comment: 10/20/17- patient diagnosed with peripheral PE in the left upper lobe of the lung during previous admission. -continue eliquis 10mg po bid through 10/20/17 then 5mg po bid for at least 3 months but probably 6 months with 2nd incidence of VTE (5) T2DM (type 2 diabetes mellitus) Current Visit: No Status: Acute Qualifiers: Diabetes mellitus assisted insulin use: with assisted use Diabetes mellitus complication status: with neurologic complications Diabetes mellitus complication detail: with polyneuropathy Qualified Code(s): E11.42 - Type 2 diabetes mellitus with diabetic polyneuropathy; Z79.4 - superintendent terminal (current) use of insulin Base Code: E11.9 - TYPE 2 DIABETES MELLITUS WITHOUT COMPLICATIONS Comment: -A1C 10.7. Patient has had decreased appetite -continue metformin 1000mg po bid -decrease 70/30 to 17 units BID -accucheck QID -ADA diet (6) Full code status Current Visit: No Status: Acute Base Code: Z78.9 - OTHER SPECIFIED HEALTH STATUS Comment: 10/20/17- patient is full code Results - Labs Result Diagrams: 10/20/17 06:30 10/20/17 06:30 Labs Last 24 Hours: Laboratory Results - last 24 hr 10/19/17 10/19/17 10/19/17 12:06 17:16 22:19 WBC RBC Hgb Hct MCV MCH MCHC RDW Plt Count MPV Neutrophils % Band Neutrophils % Lymphocytes % Monocytes % Eosinophils % Basophils % Lymphocytes Monocytes Basophils Eosinophil Count Sodium Potassium Chloride Carbon Dioxide Anion Gap BUN Creatinine Estimated GFR POC Glucose 177 H 254 H 218 H Random Glucose Calcium Total Bilirubin AST ALT Alkaline Phosphatase Total Protein Albumin Globulin Albumin/Globulin Ratio 10/20/17 10/20/17 10/20/17 06:30 06:30 07:49 WBC 17.4 H RBC 3.80 L Hgb 10.5 L Hct 32.1 L MCV 84.5 MCH 27.6 MCHC 32.7 RDW 15.5 H Plt Count 216 MPV 10.1 Neutrophils % 88.0 H Band Neutrophils % 0.0 Lymphocytes % 3.9 L Monocytes % 8.1 Eosinophils % 0.1 Basophils % 0.1 Lymphocytes 4.0 L Monocytes 8.0 Basophils 0.0 Eosinophil Count 0.0 Sodium 132 L Potassium 3.5 Chloride 93 L Carbon Dioxide 20.0 L Anion Gap 19.0 H BUN 25 H Creatinine 1.4 H Estimated GFR 54 POC Glucose 141 H Random Glucose 134 H Calcium 8.5 L Total Bilirubin 0.80 AST 20 ALT 17 Alkaline Phosphatase 89 Total Protein 6.7 Albumin 3.2 L Globulin 3.5 Albumin/Globulin Ratio 0.9 L DVT/PE Assessment - Risk for VTE Risk for VTE: No Risk Level: High Risk Assessment Date: 10/19/17 Risk Assessment Time: 23:08 VTE Orders Placed or Will Be Placed: Yes - Active Medicaitons Current Medications: Current Medications Acetaminophen (Tylenol 500mg Tab) 650 mg PO Q6H PRN PRN Reason: PAIN/TEMP Last Admin: 10/19/17 01:15 Dose: 650 mg Albuterol/Ipratropium (Duoneb) 3 ml INH RESP.Q4H.[facility] Last Admin: 10/20/17 09:49 Dose: Not Given Apixaban (Eliquis) 10 mg PO BID [facility] Last Admin: 10/20/17 09:35 Dose: 10 mg Aspirin (Aspirin Chewable) 81 mg PO DAILY [facility] Last Admin: 10/20/17 09:34 Dose: 81 mg Atorvastatin Calcium (Lipitor) 20 mg PO DAILY [facility] Last Admin: 10/20/17 09:34 Dose: 20 mg Carvedilol (Coreg) 12.5 mg PO BID [facility] Last Admin: 10/20/17 09:34 Dose: 12.5 mg Diphenhydramine HCl (Benadryl Capsule) 25 mg PO Q6H PRN PRN Reason: SLEEP Last Admin: 10/19/17 21:53 Dose: 25 mg Duloxetine HCl (Cymbalta) 60 mg PO QHS [facility] Last Admin: 10/19/17 21:51 Dose: 60 mg Ferrous Sulfate (Iron) 325 mg PO DAILYWM [facility] Last Admin: 10/20/17 08:03 Dose: 325 mg Furosemide (Lasix) 40 mg PO DAILY [facility] Last Admin: 10/20/17 09:34 Dose: 40 mg Gabapentin (Neurontin) 100 mg PO TID PRN PRN Reason: nerve pain Guaifenesin (Mucinex) 1,200 mg PO BID [facility] Last Admin: 10/20/17 09:35 Dose: 1,200 mg Hydroxychloroquine Sulfate (Plaquenil) 200 mg PO DAILY [facility] Last Admin: 10/20/17 09:35 Dose: 200 mg Piperacillin Sod/Tazobactam (Sod 4.5 gm/ Sodium Chloride) 100 mls @ 200 mls/hr IVPB Q6H [facility] Last Infusion: 10/20/17 10:10 Dose: Infused Levofloxacin/Dextrose (Levaquin 750mg Ivpb) 750 mg in 150 mls @ 125 mls/hr IVPB Q24H [facility] Stop: 10/25/17 12:01 Isosorbide Mononitrate (Imdur) 30 mg PO DAILY [facility] Last Admin: 10/20/17 09:34 Dose: 30 mg Lisinopril (Zestril) 2.5 mg PO DAILY [facility] Last Admin: 10/20/17 09:34 Dose: 2.5 mg Metformin HCl (Glucophage Ir) 1,000 mg PO BIDWM [facility] Last Admin: 10/20/17 08:03 Dose: 1,000 mg Morphine Sulfate () 60 mg PO Q12H [facility] Last Admin: 10/20/17 04:57 Dose: Not Given Pantoprazole Sodium (Protonix) 40 mg PO DAILYAC [facility] Last Admin: 10/20/17 06:03 Dose: 40 mg Potassium Chloride (Klor-Con) 20 meq PO DAILY [facility] Last Admin: 10/20/17 09:33 Dose: 20 meq AMI Plan - Labs Result Diagrams: 10/20/17 06:30 10/20/17 06:30
[2017-10-20] MEDS: LEVOFLOXACIN/D5W 750 MG/150 ML BAG IVPB SCH (12:38)
[2017-10-20] MEDS: DULOXETINE HCL 30 MG CAPSULE.DR PO SCH (22:48)
[2017-10-21] MEDS: MORPHINE SULFATE 30MG TABLET.ER PO SCH ×2 (04:52→17:45)
[2017-10-21] MEDS: PIPERACILLIN SODIUM/TAZOBACTAM 4.5 GM in 0.9 % SODIUM CHLORIDE 100ML 100 ML IVPB SCH ×4 (04:52→21:59)
[2017-10-21] MEDS: PANTOPRAZOLE SODIUM 40 MG TABLET PO SCH (06:30)
[2017-10-21 06:38] LABS: BASO % 0.1 % (0-6); EOS % 0.1 % (0-6); HEMATOCRIT 29.6 % (42.0-52.0); HEMOGLOBIN 9.4 gm/dl (14.0-18.0); LYMPH % 5.5 % (16-45); MEAN CELL VOLUME 85.3 fl (81-97); MEAN CORPUSCULAR HGB CONC 31.8 g/dl (32-36); MEAN PLATELET VOLUME 10.4 fl (7.4-10.4); MONO % 8.6 % (0-9); PLATELET COUNT 198 K/uL (130-400); RED BLOOD COUNT 3.47 M/uL (4.40-5.70); RED CELL DISTRIBUTION WIDTH 15.2 % (11.5-14.5); WHITE BLOOD COUNT W/O DIFF 14.6 K/uL (4.2-12.2)
[2017-10-21] MEDS: IPRATROPIUM/ALBUTEROL (0.5MG/3MG) NEB INH SCH ×6 (07:14→21:08)
[2017-10-21 07:18] LABS: ALB/GLOB RATIO 0.9 (1.1-1.8); BILIRUBIN,TOTAL 0.8 mg/dL (0.2-1.0); CREATININE 1.4 mg/dL (0.7-1.2); TOTAL PROTEIN 6.2 g/dL (6.6-8.7)
[2017-10-21] MEDS: METFORMIN 500 MG TABLET PO SCH ×2 (08:13→17:47)
[2017-10-21] MEDS: FERROUS SULFATE 325 MG TAB PO SCH (08:15)
[2017-10-21] MEDS: LISINOPRIL 5 MG TABLET PO SCH (10:00)
[2017-10-21] MEDS: POTASSIUM CHLORIDE 20 MEQ TABLET PO SCH (10:01)
[2017-10-21] MEDS: ASPIRIN 81 MG CHEWABLE TABLET PO SCH (10:01)
[2017-10-21] MEDS: FUROSEMIDE 40 MG TABLET PO SCH (10:01)
[2017-10-21] MEDS: ISOSORBIDE MONONITRATE 30 MG TAB.ER.24H PO SCH (10:01)
[2017-10-21] MEDS: APIXABAN 5MG TABLET PO SCH ×2 (10:02→21:58)
[2017-10-21] MEDS: CARVEDILOL 12.5 MG TABLET PO SCH ×2 (10:02→21:58)
[2017-10-21] MEDS: GUAIFENESIN 1,200 MG TABLET PO SCH ×2 (10:02→21:59)
[2017-10-21] MEDS: ATORVASTATIN 20 MG TABLET PO SCH (10:02)
[2017-10-21] MEDS: BIFIDOBACTERIUM INFANTIS 4 MG CAPSULE PO SCH (10:02)
[2017-10-21] MEDS: HYDROXYCHLOROQUINE SULFATE 200 MG TABLET PO SCH (10:22)
[2017-10-21] MEDS: NOVOLOG 70/30 FLEXPEN 100 UNITS/ML SQ SCH ×2 (10:23→21:59)
--- NOTE | 2017-10-21 12:22 | Physician Progress Note ---
Subjective - Date Date of Physician Progress Note: 10/21/17 - Subjective Subjective Comment: Patient still complains of some weakness but says that he is feeling better compared to when he came in. He is upright in bed eating lunch and appears comfortable. Objective - Vital Signs Vital Signs: Vital Signs - Last 24 Hrs Temp Pulse Pulse Resp BP BP Pulse Ox 10/21/17 10:15 105 H 18 97 10/21/17 08:00 98.7 F 101 H 18 111/62 96 10/20/17 22:03 98.6 F 103 H 17 140/70 97 10/20/17 21:55 103 H 97 10/20/17 16:00 98.7 F 91 H 18 109/64 98 10/20/17 13:52 87 16 97 10/20/17 13:26 98.1 F 102/63 - General General Appearance: Alert, Oriented x3, Cooperative, No acute distress Limitations: No limitations - Head Head exam: Atraumatic, Normocephalic - Eye Eye exam: Normal appearance, PERRL - ENT ENT exam: Normal exam, Mucous membranes moist, Normal external ear exam, Normal orophraynx, TM's normal bilaterally Throat exam: Normal inspection. negative: Tonsillar erythema, Tonsillar exudate - Neck Neck exam: Normal inspection, Full ROM. negative: Tenderness - Respiratory Respiratory exam: Rhonchi (bilateral bases). negative: Respiratory distress - Cardiovascular Cardiovascular Exam: Regular rate, Normal rhythm, Normal heart sounds Peripheral Pulses: 2+: Radial (R), Radial (L), Dorsalis Pedis (R), Dorsalis Pedis (L) - GI/Abdominal GI/Abdominal exam: Soft, Normal bowel sounds. negative: Tenderness - Extremities Extremities exam: negative: Normal inspection, Pedal edema - Neurological Neurological exam: Alert, Oriented X3. negative: Motor sensory deficit - Psychiatric Psychiatric exam: Normal affect, Normal mood Assessment and Plan - Assessment and Plan (1) Nosocomial pneumonia Current Visit: Yes Status: Acute Base Code: J18.9 - PNEUMONIA, UNSPECIFIED ORGANISM Comment: 10/21/17 - CXR on 10/18/17 showed new RLL infiltrate. WBC 14 - Saturations maintained > 95% on room air. Patient remains afebrile. Legionella antigen pending, repeat labs inthe morning. -continue zosyn 4.5gm q6H, levaquin 750mg IV q24H -continuous tele, vitals q8H (2) Physical deconditioning Current Visit: No Status: Acute Base Code: R53.81 - OTHER MALAISE Comment : 10/21/17 - PT/OT evaluation daily. Home PT/OT set up as per KIMBER[facility]. - Will keep as inpatient for 1 additional day as there is concern about the patient's motivation and ability to immediately be engaged with home therapy. (3) Pulmonary embolism Current Visit: No Status: Acute Qualifiers: Pulmonary embolism type: other Chronicity: acute Acute cor pulmonale presence: without acute cor pulmonale Qualified Code(s): I26.99 - Other pulmonary embolism without acute cor pulmonale Base Code: I26.99 - OTHER PULMONARY EMBOLISM WITHOUT ACUTE COR PULMONALE Comment: 10/21/17 - patient diagnosed with peripheral PE in the left upper lobe of the lung during previous admission. - 5mg po bid, discussed with patient the risk associated with anticoagualtion. Outpatient follow up required for determination of lifetime anticoagualtion. (4) T2DM (type 2 diabetes mellitus) Current Visit: No Status: Acute Qualifiers: Diabetes mellitus shelter insulin use: with shelter use Diabetes mellitus complication status: with neurologic complications Diabetes mellitus complication detail: with polyneuropathy Qualified Code(s): E11.42 - Type 2 diabetes mellitus with diabetic polyneuropathy; Z79.4 - manager long term care (current) use of insulin Base Code: E11.9 - TYPE 2 DIABETES MELLITUS WITHOUT COMPLICATIONS Comment: 10/21/17 - A1C 10.7, serum glucose 112 this am. -continue metformin 1000mg po bid -decrease 70/30 to 17 units BID -accucheck QID, ADA diet (5) Full code status Current Visit: No Status: Acute Base Code: Z78.9 - OTHER SPECIFIED HEALTH STATUS Comment: - FULL CODE Results - Labs Result Diagrams: 10/21/17 06:18 10/21/17 06:18 Labs Last 24 Hours: Laboratory Results - last 24 hr 10/20/17 10/20/17 10/21/17 17:04 22:10 06:18 WBC 14.6 H RBC 3.47 L Hgb 9.4 L Hct 29.6 L MCV 85.3 MCH 27.0 MCHC 31.8 L RDW 15.2 H Plt Count 198 MPV 10.4 Neutrophils % 86.0 H Band Neutrophils % 0.0 Lymphocytes % 5.5 L Monocytes % 8.6 Eosinophils % 0.1 Basophils % 0.1 Lymphocytes 6.0 L Monocytes 8.0 Basophils 0.0 Eosinophil Count 0.0 Sodium Potassium Chloride Carbon Dioxide Anion Gap BUN Creatinine Estimated GFR POC Glucose 142 H 150 H Random Glucose Calcium Total Bilirubin AST ALT Alkaline Phosphatase Total Protein Albumin Globulin Albumin/Globulin Ratio 10/21/17 10/21/17 10/21/17 06:18 07:59 11:41 WBC RBC Hgb Hct MCV MCH MCHC RDW Plt Count MPV Neutrophils % Band Neutrophils % Lymphocytes % Monocytes % Eosinophils % Basophils % Lymphocytes Monocytes Basophils Eosinophil Count Sodium 131 L Potassium 3.4 Chloride 93 L Carbon Dioxide 23.0 Anion Gap 15.0 BUN 18 Creatinine 1.4 H Estimated GFR 54 POC Glucose 75 112 H Random Glucose 67 L Calcium 8.2 L Total Bilirubin 0.80 AST 33 ALT 26 Alkaline Phosphatase 104 Total Protein 6.2 L Albumin 3.0 L Globulin 3.2 Albumin/Globulin Ratio 0.9 L DVT/PE Assessment - Risk for VTE Risk for VTE: No Risk Level: High Risk Assessment Date: 10/19/17 Risk Assessment Time: 23:08 VTE Orders Placed or Will Be Placed: Yes - Active Medicaitons Current Medications: Current Medications Acetaminophen (Tylenol 500mg Tab) 650 mg PO Q6H PRN PRN Reason: PAIN/TEMP Last Admin: 10/19/17 01:15 Dose: 650 mg Albuterol/Ipratropium (Duoneb) 3 ml INH [facility]P.Q4H[facility] Last Admin: 10/21/17 10:13 Dose: 3 ml Apixaban (Eliquis) 5 mg PO BID [facility] Last Admin: 10/21/17 10:02 Dose: 5 mg Aspirin (Aspirin Chewable) 81 mg PO DAILY [facility] Last Admin: 10/21/17 10:01 Dose: 81 mg Atorvastatin Calcium (Lipitor) 20 mg PO DAILY [facility] Last Admin: 10/21/17 10:02 Dose: 20 mg Carvedilol (Coreg) 12.5 mg PO BID [facility] Last Admin: 10/21/17 10:02 Dose: 12.5 mg Diphenhydramine HCl (Benadryl Capsule) 25 mg PO Q6H PRN PRN Reason: SLEEP Last Admin: 10/19/17 21:53 Dose: 25 mg Duloxetine HCl (Cymbalta) 60 mg PO QHS [facility] Last Admin: 10/20/17 22:48 Dose: 60 mg Ferrous Sulfate (Iron) 325 mg PO DAILYWM [facility] Last Admin: 10/21/17 08:15 Dose: 325 mg Furosemide (Lasix) 40 mg PO DAILY [facility] Last Admin: 10/21/17 10:01 Dose: 40 mg Gabapentin (Neurontin) 100 mg PO TID PRN PRN Reason: nerve pain Guaifenesin (Mucinex) 1,200 mg PO BID [facility] Last Admin: 10/21/17 10:02 Dose: 1,200 mg Hydroxychloroquine Sulfate (Plaquenil) 200 mg PO DAILY [facility] Last Admin: 10/21/17 10:22 Dose: 200 mg Piperacillin Sod/Tazobactam (Sod 4.5 gm/ Sodium Chloride) 100 mls @ 200 mls/hr IVPB Q6H [facility] Last Infusion: 10/21/17 11:26 Dose: Infused Levofloxacin/Dextrose (Levaquin 750mg Ivpb) 750 mg in 150 mls @ 125 mls/hr IVPB Q24H [facility] Stop: 10/25/17 12:01 Last Infusion: 10/20/17 14:06 Dose: Infused Isosorbide Mononitrate (Imdur) 30 mg PO DAILY [facility] Last Admin: 10/21/17 10:01 Dose: 30 mg Lisinopril (Zestril) 2.5 mg PO DAILY [facility] Last Admin: 10/21/17 10:00 Dose: 2.5 mg Metformin HCl (Glucophage Ir) 1,000 mg PO BIDWM [facility] Last Admin: 10/21/17 08:13 Dose: Not Given Morphine Sulfate () 60 mg PO Q12H [facility] Last Admin: 10/21/17 04:52 Dose: Not Given Pantoprazole Sodium (Protonix) 40 mg PO DAILYAC [facility] Last Admin: 10/21/17 06:30 Dose: 40 mg Potassium Chloride (Klor-Con) 20 meq PO DAILY [facility] Last Admin: 10/21/17 10:01 Dose: 20 meq Temazepam (Restoril) 15 mg PO QHS PRN PRN Reason: INSOMNIA AMI Plan - Labs Result Diagrams: 10/21/17 06:18 10/21/17 06:18
[2017-10-21] MEDS: LEVOFLOXACIN/D5W 750 MG/150 ML BAG IVPB SCH (13:42)
[2017-10-21] MEDS: LEVOFLOXACIN 500 MG TABLET PO SCH (14:22)
--- NOTE | 2017-10-21 14:28 | Physical Therapy Tx Note ---
Physical Therapy Tx Note - Treatment Note Tolerated: Good Total Time Spent With Patient: 20 Physical Therapy Tx Note: Detail (The patient was laying in bed upon arrival. The patient is extremely fatigued and weak this afternoon. The patient required min. assist x 1 to transfer from supine to sit, and required verbal cues for scooting himself to the edge of the bed. The patient was very slow with movement to the edge of the bed. He was able to transfer from sit to stand with CGA x 2, and was able to ambulate from the bedside to the doorway before requesting to sit in a chair due to fatigue (about 10 feet). He required CGA x2 and use of 2WW. He required verbal cues for maintaining the feet inside the walker and stepping into the walker. The patient was then able to transfer from sit to stand independently, and was able to transfer from stand to sit back into bed with verbal cues for proper placement the body into bed. He was able to transfer from sit to supine with min. assist x1 for lowering the upper body into bed. The patient was left supine in bed with call light in reach. The patient would benefit from an emergency call system once discharged home as the patient is left alone for most of the day. The patient has safety concerns with ambulation as well because of the verbal cues he required during ambulation today.) Physical Therapy Problem List: Detail (1) Gait skills not assessed 2) Decreased LE strength bilaterally 3) Increased fatigue with activity/decreased endurance) Physical Therapy Goals: 1) The patient's gait skills will be assessed at subsequent visit. 2) The patient will be able to ambulate household distances with supervision with least restrictive assistive device for a safe inpatient discharge. 3) The patient will be able to tolerate 20 minutes of physical activity to increase endurance for activities of daily living Prognosis: Good Physical Therapy Plan: The patient will be seen 1-2x/day M-F until inpatient discharge for gait training, transfer training, and LE strengthening activities.
[2017-10-21] MEDS: DULOXETINE HCL 30 MG CAPSULE.DR PO SCH (21:57)
[2017-10-21] MEDS: TEMAZEPAM 15 MG CAPSULE PO PRN (21:58)
[2017-10-22] MEDS: LEVOFLOXACIN 500 MG TABLET PO SCH (05:04)
[2017-10-22] MEDS: MORPHINE SULFATE 30MG TABLET.ER PO SCH ×2 (05:04→16:41)
[2017-10-22] MEDS: PANTOPRAZOLE SODIUM 40 MG TABLET PO SCH ×2 (05:04→06:01)
[2017-10-22] MEDS: PIPERACILLIN SODIUM/TAZOBACTAM 4.5 GM in 0.9 % SODIUM CHLORIDE 100ML 100 ML IVPB SCH ×4 (05:04→22:44)
[2017-10-22] MEDS: IPRATROPIUM/ALBUTEROL (0.5MG/3MG) NEB INH SCH ×4 (05:42→17:51)
[2017-10-22 06:23] LABS: BASO % 0.2 % (0-6); EOS % 0.4 % (0-6); HEMATOCRIT 27.3 % (42.0-52.0); HEMOGLOBIN 8.9 gm/dl (14.0-18.0); LYMPH % 4.7 % (16-45); MEAN CELL VOLUME 84.3 fl (81-97); MEAN CORPUSCULAR HGB CONC 32.6 g/dl (32-36); MEAN PLATELET VOLUME 10.1 fl (7.4-10.4); MONO % 9.3 % (0-9); PLATELET COUNT 217 K/uL (130-400); RED BLOOD COUNT 3.24 M/uL (4.40-5.70); RED CELL DISTRIBUTION WIDTH 15.1 % (11.5-14.5); WHITE BLOOD COUNT W/O DIFF 12.9 K/uL (4.2-12.2)
[2017-10-22 06:24] LABS: MEAN CORPUSCULAR HEMOGLOBIN 27.4 pg (27-33)
[2017-10-22 06:50] LABS: ALB/GLOB RATIO 0.9 (1.1-1.8); ALBUMIN 2.8 g/dL (4.0-5.0); BILIRUBIN,TOTAL 0.8 mg/dL (0.2-1.0); CREATININE 1.3 mg/dL (0.7-1.2)
[2017-10-22] MEDS: FUROSEMIDE 40 MG TABLET PO SCH (09:23)
[2017-10-22] MEDS: APIXABAN 5MG TABLET PO SCH ×2 (09:24→22:44)
[2017-10-22] MEDS: FERROUS SULFATE 325 MG TAB PO SCH (09:24)
[2017-10-22] MEDS: ATORVASTATIN 20 MG TABLET PO SCH (09:24)
[2017-10-22] MEDS: ISOSORBIDE MONONITRATE 30 MG TAB.ER.24H PO SCH (09:25)
[2017-10-22] MEDS: HYDROXYCHLOROQUINE SULFATE 200 MG TABLET PO SCH (09:25)
[2017-10-22] MEDS: POTASSIUM CHLORIDE 20 MEQ TABLET PO SCH (09:26)
[2017-10-22] MEDS: ASPIRIN 81 MG CHEWABLE TABLET PO SCH (09:26)
[2017-10-22] MEDS: CARVEDILOL 12.5 MG TABLET PO SCH ×2 (09:26→22:44)
[2017-10-22] MEDS: BIFIDOBACTERIUM INFANTIS 4 MG CAPSULE PO SCH (09:26)
[2017-10-22] MEDS: GUAIFENESIN 1,200 MG TABLET PO SCH ×2 (09:27→22:43)
[2017-10-22] MEDS: LISINOPRIL 5 MG TABLET PO SCH (09:27)
[2017-10-22] MEDS: NOVOLOG 70/30 FLEXPEN 100 UNITS/ML SQ SCH (09:29)
[2017-10-22] MEDS: METFORMIN 500 MG TABLET PO SCH ×2 (09:41→17:30)
--- NOTE | 2017-10-22 12:11 | Physical Therapy Tx Note ---
Physical Therapy Tx Note - Treatment Note Tolerated: Good Total Time Spent With Patient: 30 Physical Therapy Tx Note: Detail (The patient was sitting at the bedside upon arrival. The patient required min. assist x1 to arise from sit to stand to use the bedside urinal. The patient was able to ambulate from the bedside to the opposite bedside. He required multiple breaks for the ambulation distance, but when transferring from sit to stand from the chair he required only CGA x 1. He required tactile cues for initiation of gait on the L LE to complete his steps, and had fair standing balance during gait activities. He had complaints of increased fatigue with activity. The patient was left in his chair for lunch. Nursing was notified that he did not have his chair alarm switched to the one he was sitting in. Nursing stated understanding, and he was left with his call light in reach.) Physical Therapy Problem List: Detail (1) Gait skills not assessed 2) Decreased LE strength bilaterally 3) Increased fatigue with activity/decreased endurance) Physical Therapy Goals: 1) The patient's gait skills will be assessed at subsequent visit - MET. 2) The patient will be able to ambulate household distances with supervision with least restrictive assistive device for a safe inpatient discharge. 3) The patient will be able to tolerate 20 minutes of physical activity to increase endurance for activities of daily living Prognosis: Moderate Physical Therapy Plan: The patient will be seen 1-2x/day M-F until inpatient discharge for gait training, transfer training, and LE strengthening activities.
--- NOTE | 2017-10-22 17:57 | Physician Progress Note ---
Subjective - Date Date of Physician Progress Note: 10/22/17 - Subjective Subjective Comment: The patient is AO x 3 but still appears weak on evaluation this afternoon. Objective - Vital Signs Vital Signs: Vital Signs - Last 24 Hrs Temp Pulse Pulse Pulse Resp BP BP 10/22/17 16:50 97.5 F L 80 18 93/58 10/22/17 12:00 97.6 F 81 20 106/67 10/22/17 10:03 95 H 16 10/22/17 08:00 98.2 F 97 H 16 118/62 10/21/17 22:03 97.4 F L 96 H 18 119/63 10/21/17 21:00 85 96 H 18 10/21/17 20:55 91 H 20 10/21/17 18:14 Pulse Ox 10/22/17 16:50 98 10/22/17 12:00 95 10/22/17 10:03 10/22/17 08:00 94 L 10/21/17 22:03 95 10/21/17 21:00 10/21/17 20:55 96 10/21/17 18:14 95 - General General Appearance: Alert, Oriented x3, Cooperative, No acute distress Limitations: No limitations - Head Head exam: Atraumatic, Normocephalic - Eye Eye exam: Normal appearance, PERRL - ENT ENT exam: Normal exam, Mucous membranes moist, Normal external ear exam, Normal orophraynx, TM's normal bilaterally Throat exam: Normal inspection. negative: Tonsillar erythema, Tonsillar exudate - Neck Neck exam: Normal inspection, Full ROM. negative: Tenderness - Respiratory Respiratory exam: Rhonchi (bilateral bases). negative: Respiratory distress - Cardiovascular Cardiovascular Exam: Regular rate, Normal rhythm, Normal heart sounds Peripheral Pulses: 2+: Radial (R), Radial (L), Dorsalis Pedis (R), Dorsalis Pedis (L) - GI/Abdominal GI/Abdominal exam: Soft, Normal bowel sounds. negative: Tenderness - Extremities Extremities exam: negative: Normal inspection, Pedal edema - Neurological Neurological exam: Alert, Oriented X3. negative: Motor sensory deficit - Psychiatric Psychiatric exam: Normal affect, Normal mood Assessment and Plan - Assessment and Plan (1) Nosocomial pneumonia Current Visit: Yes Status: Acute Base Code: J18.9 - PNEUMONIA, UNSPECIFIED ORGANISM Comment: 10/22/17 - WBC 14 -->12.9 - Saturations maintained > 95% on room air. Patient remains afebrile. -continue zosyn 4.5gm q6H, levaquin 750mg po q24H -continuous tele, vitals q8H (2) Physical deconditioning Current Visit: No Status: Acute Base Code: R53.81 - OTHER MALAISE Comment : 10/22/17 - PT/OT evaluation daily. Home PT/OT set up as per . - Patient is agreeable to transfer to [place] [facility] facility on discharge. The patient requires continuous motivation and daily PT/OT before returning home safely. - Documents have been signed. Pending trasnfer in the morning. (3) Pulmonary embolism Current Visit: No Status: Acute Qualifiers: Pulmonary embolism type: other Chronicity: acute Acute cor pulmonale presence: without acute cor pulmonale Qualified Code(s): I26.99 - Other pulmonary embolism without acute cor pulmonale Base Code: I26.99 - OTHER PULMONARY EMBOLISM WITHOUT ACUTE COR PULMONALE Comment: 10/22/17 - patient diagnosed with peripheral PE in the left upper lobe of the lung during previous admission. - 5mg po bid, discussed with patient the risk associated with anticoagualtion. Outpatient follow up required for determination of lifetime anticoagualtion. (4) T2DM (type 2 diabetes mellitus) Current Visit: No Status: Acute Qualifiers: Diabetes mellitus emt intermediate insulin use: with nursing home use Diabetes mellitus complication status: with neurologic complications Diabetes mellitus complication detail: with polyneuropathy Qualified Code(s): E11.42 - Type 2 diabetes mellitus with diabetic polyneuropathy; Z79.4 - USP (current) use of insulin Base Code: E11.9 - TYPE 2 DIABETES MELLITUS WITHOUT COMPLICATIONS Comment: 10/22/17 - A1C 10.7, serum glucose 114 --> 44 after 70/30 administered and the patient having minimal food intake. The patienet was given orange juice and CBG rebounded to 107. -continue metformin 1000mg po bid, pt refused doses this morning. -decrease 70/30 to 17 units BID -accucheck QID, ADA diet (5) Traumatic hematoma of right hip Current Visit: Yes Status: Acute Base Code: S70.01XA - CONTUSION OF RIGHT HIP, INITIAL ENCOUNTER Comment: - hematoma of right hip, s/p fall. Location of the fall is not established but there is no documentation of fall while admitted. - pt on anticoagulation so easy bruising. (6) Full code status Current Visit: No Status: Acute Base Code: Z78.9 - OTHER SPECIFIED HEALTH STATUS Comment: - FULL CODE - Disposition Disposition: D/C to facility at 11 am tomorrow morning. Results - Labs Result Diagrams: 10/22/17 06:16 10/22/17 06:16 Labs Last 24 Hours: Laboratory Results - last 24 hr 10/21/17 10/22/17 10/22/17 22:04 06:16 06:16 WBC 12.9 H RBC 3.24 L Hgb 8.9 L Hct 27.3 L MCV 84.3 MCH 27.4 MCHC 32.6 RDW 15.1 H Plt Count 217 MPV 10.1 Neutrophils % 86.0 H Band Neutrophils % 0.0 Lymphocytes % 4.7 L Monocytes % 9.3 H Eosinophils % 0.4 Basophils % 0.2 Lymphocytes 5.0 L Monocytes 9.0 Basophils 0.0 Eosinophil Count 0.0 Sodium 129 L Potassium 3.3 L Chloride 93 L Carbon Dioxide 20.0 L Anion Gap 16.0 BUN 14 Creatinine 1.3 H Estimated GFR 58 POC Glucose 325 H Random Glucose 114 H Calcium 8.0 L Total Bilirubin 0.80 AST 23 ALT 26 Alkaline Phosphatase 126 Total Protein 6.0 L Albumin 2.8 L Globulin 3.2 Albumin/Globulin Ratio 0.9 L 10/22/17 10/22/17 15:30 17:00 WBC RBC Hgb Hct MCV MCH MCHC RDW Plt Count MPV Neutrophils % Band Neutrophils % Lymphocytes % Monocytes % Eosinophils % Basophils % Lymphocytes Monocytes Basophils Eosinophil Count Sodium Potassium Chloride Carbon Dioxide Anion Gap BUN Creatinine Estimated GFR POC Glucose 86 107 Random Glucose Calcium Total Bilirubin AST ALT Alkaline Phosphatase Total Protein Albumin Globulin Albumin/Globulin Ratio DVT/PE Assessment - Risk for VTE Risk for VTE: No Risk Level: High Risk Assessment Date: 10/19/17 Risk Assessment Time: 23:08 VTE Orders Placed or Will Be Placed: Yes - Active Medicaitons Current Medications: Current Medications Acetaminophen (Tylenol 500mg Tab) 650 mg PO Q6H PRN PRN Reason: PAIN/TEMP Last Admin: 10/19/17 01:15 Dose: 650 mg Albuterol/Ipratropium (Duoneb) 3 ml INH RESP.Q4H.WA [facility] Last Admin: 10/22/17 16:46 Dose: Not Given Apixaban (Eliquis) 5 mg PO BID [facility] Last Admin: 10/22/17 09:24 Dose: 5 mg Aspirin (Aspirin Chewable) 81 mg PO DAILY [facility] Last Admin: 10/22/17 09:26 Dose: 81 mg Atorvastatin Calcium (Lipitor) 20 mg PO DAILY [facility] Last Admin: 10/22/17 09:24 Dose: 20 mg Carvedilol (Coreg) 12.5 mg PO BID [facility] Last Admin: 10/22/17 09:26 Dose: 12.5 mg Diphenhydramine HCl (Benadryl Capsule) 25 mg PO Q6H PRN PRN Reason: SLEEP Last Admin: 10/19/17 21:53 Dose: 25 mg Duloxetine HCl (Cymbalta) 60 mg PO QHS [facility] Last Admin: 10/21/17 21:57 Dose: 60 mg Ferrous Sulfate (Iron) 325 mg PO DAILYWM [facility] Last Admin: 10/22/17 09:24 Dose: 325 mg Furosemide (Lasix) 40 mg PO DAILY [facility] Last Admin: 10/22/17 09:23 Dose: 40 mg Gabapentin (Neurontin) 100 mg PO TID PRN PRN Reason: nerve pain Guaifenesin (Mucinex) 1,200 mg PO BID [facility] Last Admin: 10/22/17 09:27 Dose: 1,200 mg Hydroxychloroquine Sulfate (Plaquenil) 200 mg PO DAILY [facility] Last Admin: 10/22/17 09:25 Dose: 200 mg Piperacillin Sod/Tazobactam (Sod 4.5 gm/ Sodium Chloride) 100 mls @ 200 mls/hr IVPB Q6H [facility] Last Infusion: 10/22/17 17:30 Dose: Infused Isosorbide Mononitrate (Imdur) 30 mg PO DAILY [facility] Last Admin: 10/22/17 09:25 Dose: 30 mg Levofloxacin (Levaquin Tab) 500 mg PO DAILYFLUOR [facility] Last Admin: 10/22/17 05:04 Dose: 500 mg Lisinopril (Zestril) 2.5 mg PO DAILY [facility] Last Admin: 10/22/17 09:27 Dose: 2.5 mg Metformin HCl (Glucophage Ir) 1,000 mg PO BIDWM [facility] Last Admin: 10/22/17 17:30 Dose: Not Given Morphine Sulfate () 60 mg PO Q12H [facility]UAD Last Admin: 10/22/17 16:41 Dose: 60 mg Pantoprazole Sodium (Protonix) 40 mg PO DAILYAC [facility] Last Admin: 10/22/17 06:01 Dose: Not Given Potassium Chloride (Klor-Con) 20 meq PO DAILY [facility] Last Admin: 10/22/17 09:26 Dose: 20 meq Temazepam (Restoril) 15 mg PO QHS PRN PRN Reason: INSOMNIA Last Admin: 10/21/17 21:58 Dose: 15 mg AMI Plan - Labs Result Diagrams: 10/22/17 06:16 10/22/17 06:16
[2017-10-22] MEDS: DULOXETINE HCL 30 MG CAPSULE.DR PO SCH (22:43)
[2017-10-22] MEDS: TEMAZEPAM 15 MG CAPSULE PO PRN (22:44)
[2017-10-23] MEDS: NOVOLOG 70/30 FLEXPEN 100 UNITS/ML SQ SCH ×2 (00:06→10:08)
[2017-10-23] MEDS: PIPERACILLIN SODIUM/TAZOBACTAM 4.5 GM in 0.9 % SODIUM CHLORIDE 100ML 100 ML IVPB SCH ×2 (05:01→10:09)
[2017-10-23] MEDS: MORPHINE SULFATE 30MG TABLET.ER PO SCH (05:01)
[2017-10-23] MEDS: PANTOPRAZOLE SODIUM 40 MG TABLET PO SCH ×2 (05:01→06:16)
[2017-10-23] MEDS: LEVOFLOXACIN 500 MG TABLET PO SCH (05:01)
[2017-10-23] MEDS: IPRATROPIUM/ALBUTEROL (0.5MG/3MG) NEB INH SCH ×2 (07:13→10:48)
[2017-10-23] MEDS: APIXABAN 5MG TABLET PO SCH (09:25)
[2017-10-23] MEDS: METFORMIN 500 MG TABLET PO SCH (09:25)
[2017-10-23] MEDS: CARVEDILOL 12.5 MG TABLET PO SCH (09:25)
[2017-10-23] MEDS: ATORVASTATIN 20 MG TABLET PO SCH (09:25)
[2017-10-23] MEDS: POTASSIUM CHLORIDE 20 MEQ TABLET PO SCH (09:26)
[2017-10-23] MEDS: BIFIDOBACTERIUM INFANTIS 4 MG CAPSULE PO SCH (09:26)
[2017-10-23] MEDS: FERROUS SULFATE 325 MG TAB PO SCH (09:26)
[2017-10-23] MEDS: LISINOPRIL 5 MG TABLET PO SCH (09:27)
[2017-10-23] MEDS: ISOSORBIDE MONONITRATE 30 MG TAB.ER.24H PO SCH (09:27)
[2017-10-23] MEDS: HYDROXYCHLOROQUINE SULFATE 200 MG TABLET PO SCH (09:28)
[2017-10-23] MEDS: ASPIRIN 81 MG CHEWABLE TABLET PO SCH (09:28)
[2017-10-23] MEDS: FUROSEMIDE 40 MG TABLET PO SCH (09:28)
--- NOTE | 2017-10-23 09:29 | Discharge Summary ---
<Elizabet Shannon - Last Filed: 10/23/17 11:06> Providers Discharge Summary Date: 10/23/17 Date of admission: 10/18/17 16:05 Expected Date of Discharge: 10/23/17 Attending physician: FLOYD TURNER LOWELL A Primary care physician: CHUCKIE GARSIA M.D. Consults: Consult Orders 10/18/17 16:12 Consult - Case Management Now Comment: Reason For Exam: failed discharge, lack of home support Physical Exam - Vital Signs Vital Signs: Vital Signs - Last 24 Hrs Temp Pulse Pulse Resp BP Pulse Ox 10/23/17 09:18 98.6 F 95 H 16 111/61 95 10/23/17 09:00 95 H 16 10/22/17 21:00 95 H 16 10/22/17 20:00 98.4 F 87 16 104/60 98 10/22/17 16:50 97.5 F L 80 18 93/58 98 10/22/17 12:00 97.6 F 81 20 106/67 95 10/22/17 10:03 95 H 16 - General General Appearance: Alert, Oriented x3, Cooperative, No acute distress Limitations: No limitations - Head Head exam: Atraumatic, Normocephalic - Eye Eye exam: Normal appearance, PERRL - ENT ENT exam: Normal exam, Mucous membranes moist, Normal external ear exam, Normal orophraynx, TM's normal bilaterally Throat exam: Normal inspection. negative: Tonsillar erythema, Tonsillar exudate - Neck Neck exam: Normal inspection, Full ROM. negative: Tenderness - Respiratory Respiratory exam: Rhonchi (bilateral bases). negative: Respiratory distress - Cardiovascular Cardiovascular Exam: Regular rate, Normal rhythm, Normal heart sounds Peripheral Pulses: 1+: Dorsalis Pedis (R), Dorsalis Pedis (L), 2+: Radial (R), Radial (L) - GI/Abdominal GI/Abdominal exam: Soft, Normal bowel sounds. negative: Tenderness - Extremities Extremities exam: Pedal edema. negative: Normal inspection - Neurological Neurological exam: Alert, Oriented X3. negative: Motor sensory deficit - Psychiatric Psychiatric exam: Normal affect, Normal mood - Skin Skin exam: Dry, Intact, Other (bruising and edema noted to right hip. normal ROM , no increased c/o pain, DP +1, no warmth noted to area) Hospitalization - Hospitalization Admission Diagnosis: 1. Acute RLL Pneumonia - Problem List/Discharge Diagnosis (1) Nosocomial pneumonia Current Visit: Yes Status: Acute Base Code: J18.9 - PNEUMONIA, UNSPECIFIED ORGANISM Diagnosis Priority: Primary Onset Date: ~10/18/17 Comment: 10/22/17 - WBC 14 -->12.9 - Saturations maintained > 95% on room air. Patient remains afebrile. -continue zosyn 4.5gm q6H, levaquin 750mg po q24H -continuous tele, vitals q8H 10/23/17 D/C to [facility], -continue levaquin 500mg PO q 24hrs -d/c tele (2) Physical deconditioning Current Visit: No Status: Acute Base Code: R53.81 - OTHER MALAISE Diagnosis Priority: Primary Comment: 10/23/17 -PT/OT eval daily, [facility] PT/OT per facility protocol and home PT/OT per . -D/C today to [facility], pt is aware and agreeable to plan. Pt needs continued instructions and motivation for return to [facility] and mobility safety. - Awaiting D/C and transport to [facility] 10/22/17 - PT/OT evaluation daily. Home PT/OT set up as per . - Patient is agreeable to transfer to [facility] rehab facility on discharge. The patient requires continuous motivation and daily PT/OT before returning home safely. - Documents have been signed. Pending trasnfer in the morning. (3) Wound infection, posttraumatic Plan: 10/23/17 10:55 Keep wound clean and dry. Clean BID and cover with bandaid. Continue to monitor for signs and symptoms of infection or delayed healing. Control blood sugars via diet and insulin. Current Visit: Yes Status: Suspected Base Code: T14.8XXA - OTHER INJURY OF UNSPECIFIED BODY REGION, INITIAL ENCOUNTER; L08.9 - LOCAL INFECTION OF THE SKIN AND SUBCUTANEOUS TISSUE, UNSP Narrative Support Text: Pt reports that he was at home, no shoes or socks, and "ripped off my toenail with the bathroom door". Pt denies pain or discomfort with the injury related to his neuropathy. Original injury is approx 2 weeks old per patient timeline. No odor noted this AM, no drainage, extremities temp equal throughout. Some bruising noted to fifth toe, nail absent. BLE pulses +1. Diagnosis Priority: Secondary Onset Date: ~10/13/17 (4) Pulmonary embolism Current Visit: No Status: Acute QualifierTitle: Pulmonary embolism type: other Chronicity: acute Acute cor pulmonale presence: without acute cor pulmonale Qualified Code(s): I26.99 - Other pulmonary embolism without acute cor pulmonale Base Code: I26.99 - OTHER PULMONARY EMBOLISM WITHOUT ACUTE COR PULMONALE Comment: 10/23/17 -Continued treatment of PE noted on previous admission, peripheral PE in [place] -Continue with Eliquis 5mg PO BID -Continue to monitor for bleeding -Outpatient f/u for anticoagulation treatment timeline 10/22/17 - patient diagnosed with peripheral PE in the left upper lobe of the lung during previous admission. - 5mg po bid, discussed with patient the risk associated with anticoagualtion. Outpatient follow up required for determination of lifetime anticoagualtion. 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 - pt encouraged to eat ADA diet, routine meals and snacks -pt was refusing metformin 1000mg PO BID on some administrations but did take this AM -Accucheck QID -COntinue with treatment with d/c to [facility] 10/22/17 - A1C 10.7, serum glucose 114 --> 44 after 70/30 administered and the patient having minimal food intake. The patienet was given orange juice and CBG rebounded to 107. -continue metformin 1000mg po bid, pt refused doses this morning. -decrease 70/30 to 17 units BID -accucheck QID, ADA diet (6) Traumatic hematoma of right hip Current Visit: Yes Status: Acute Base Code: S70.01XA - CONTUSION OF RIGHT HIP, INITIAL ENCOUNTER Diagnosis Priority: Secondary Comment: 10/23/17 -hematoma right hip, s/p fall. Not witnessed. Localized edema to right hip, no erythema, no warmth, distal pulses present. -ROM normal for age. -No pain to palpation -pt on anticoagulation, bruising outlined by nursing to continue monitoring after d/c to [facility] 10/22/17 - hematoma of right hip, s/p fall. Location of the fall is not established but there is no documentation of fall while admitted. - pt on anticoagulation so easy bruising. (7) Full code status Current Visit: No Status: Acute Base Code: Z78.9 - OTHER SPECIFIED HEALTH STATUS Comment: 10/23/17 - FULL CODE - Hospitalization Course [facility] Hospital Course: 67yo male with CC of weakness. He has history of PE on eliquis, CHF, bigeminy, HTN, T2DM with peripheral neuropathy (follows with podiatry), RA, sleep apnea, h /o agent orange exposure. Patient was discharged on 10/17/17, but sister brought him back to ED on 10/18 due to severe, generalized weakness. Sister states they got home yesterday ok but during the day patient became much more weak. He was no longer ambulating with his walker and 1x assist so she brought him back to the ED. While in the ED, patient was found to have elevated WBC count up significantly from the previous day. repeat CXR showed new RLL infiltrate. UA was repeated and was negative for infection. His sodium was low at 133. CT head done two days prior was negative. Patient was started on zosyn for nosocomial pneumonia and admitted. 10/19/18- Patient is up in chair after showering today. He is feeling much better. He is alert, oriented and has been a minimal assist. He denies having any cough and says his shortness of breath has not gotten worse. He is still taking eliquis for PE diagnosed this week. Has not had much appetite at home. Has not had a BM today. He is drinking fluids but sticking to 2L fluid restriction. He denies any lower extremity swelling. He does have some bruising of the left elbow where patient reports he fell during previous admission. Night nursing had reported no falls. Patient denies pain in the elbow and no decreased range of motion. Procedures: Cardiology Procedures 10/18/17 17:11 EKG QDX1@0600 Abnormal Labs: Abnormal Lab Results 10/18/17 10/18/17 10/19/17 Range/Units 17:42 22:22 06:10 WBC 13.9 H (4.2-12.2) K/uL RBC 3.55 L (4.40-5.70) M/uL Hgb 9.6 L (14.0-18.0) gm/dl Hct 30.2 L (42.0-52.0) % MCHC 31.8 L (32-36) g/dl RDW 15.8 H (11.5-14.5) % Neutrophils % 87.0 H (47-80) % Lymphocytes % (16-45) % Monocytes % (0-9) % Lymphocytes 6.0 L (16-45) % Sodium (136-145) mmol/L Potassium (3.4-4.5) mmol/L Chloride (98-107) mmol/L Carbon Dioxide (22-29) mmol/L Anion Gap (7-16) BUN (8-23) mg/dL Creatinine (0.7-1.2) mg/dL POC Glucose 239 H 264 H (70-110) mg/dL Random Glucose (74-109) mg/dL Calcium (8.8-10.2) mg/dL Total Protein (6.6-8.7) g/dL Albumin (4.0-5.0) g/dL Albumin/Globulin Ratio (1.1-1.8) 10/19/17 10/19/17 10/19/17 Range/Units 06:10 07:20 12:06 WBC (4.2-12.2) K/uL RBC (4.40-5.70) M/uL Hgb (14.0-18.0) gm/dl Hct (42.0-52.0) % MCHC (32-36) g/dl RDW (11.5-14.5) % Neutrophils % (47-80) % Lymphocytes % (16-45) % Monocytes % (0-9) % Lymphocytes (16-45) % Sodium 133 L (136-145) mmol/L Potassium (3.4-4.5) mmol/L Chloride 95 L (98-107) mmol/L Carbon Dioxide (22-29) mmol/L Anion Gap (7-16) BUN 32 H (8-23) mg/dL Creatinine 1.5 H (0.7-1.2) mg/dL POC Glucose 119 H 177 H (70-110) mg/dL Random Glucose (74-109) mg/dL Calcium 8.3 L (8.8-10.2) mg/dL Total Protein 6.2 L (6.6-8.7) g/dL Albumin 3.2 L (4.0-5.0) g/dL Albumin/Globulin Ratio (1.1-1.8) 10/19/17 10/19/17 10/20/17 Range/Units 17:16 22:19 06:30 WBC 17.4 H (4.2-12.2) K/uL RBC 3.80 L (4.40-5.70) M/uL Hgb 10.5 L (14.0-18.0) gm/dl Hct 32.1 L (42.0-52.0) % MCHC (32-36) g/dl RDW 15.5 H (11.5-14.5) % Neutrophils % 88.0 H (47-80) % Lymphocytes % 3.9 L (16-45) % Monocytes % (0-9) % Lymphocytes 4.0 L (16-45) % Sodium (136-145) mmol/L Potassium (3.4-4.5) mmol/L Chloride (98-107) mmol/L Carbon Dioxide (22-29) mmol/L Anion Gap (7-16) BUN (8-23) mg/dL Creatinine (0.7-1.2) mg/dL POC Glucose 254 H 218 H (70-110) mg/dL Random Glucose (74-109) mg/dL Calcium (8.8-10.2) mg/dL Total Protein (6.6-8.7) g/dL Albumin (4.0-5.0) g/dL Albumin/Globulin Ratio (1.1-1.8) 10/20/17 10/20/17 10/20/17 Range/Units 06:30 07:49 11:45 WBC (4.2-12.2) K/uL RBC (4.40-5.70) M/uL Hgb (14.0-18.0) gm/dl Hct (42.0-52.0) % MCHC (32-36) g/dl RDW (11.5-14.5) % Neutrophils % (47-80) % Lymphocytes % (16-45) % Monocytes % (0-9) % Lymphocytes (16-45) % Sodium 132 L (136-145) mmol/L Potassium (3.4-4.5) mmol/L Chloride 93 L (98-107) mmol/L Carbon Dioxide 20.0 L (22-29) mmol/L Anion Gap 19.0 H (7-16) BUN 25 H (8-23) mg/dL Creatinine 1.4 H (0.7-1.2) mg/dL POC Glucose 141 H 170 H (70-110) mg/dL Random Glucose 134 H (74-109) mg/dL Calcium 8.5 L (8.8-10.2) mg/dL Total Protein (6.6-8.7) g/dL Albumin 3.2 L (4.0-5.0) g/dL Albumin/Globulin Ratio 0.9 L (1.1-1.8) 10/20/17 10/20/17 10/21/17 Range/Units 17:04 22:10 06:18 WBC 14.6 H (4.2-12.2) K/uL RBC 3.47 L (4.40-5.70) M/uL Hgb 9.4 L (14.0-18.0) gm/dl Hct 29.6 L (42.0-52.0) % MCHC 31.8 L (32-36) g/dl RDW 15.2 H (11.5-14.5) % Neutrophils % 86.0 H (47-80) % Lymphocytes % 5.5 L (16-45) % Monocytes % (0-9) % Lymphocytes 6.0 L (16-45) % Sodium (136-145) mmol/L Potassium (3.4-4.5) mmol/L Chloride (98-107) mmol/L Carbon Dioxide (22-29) mmol/L Anion Gap (7-16) BUN (8-23) mg/dL Creatinine (0.7-1.2) mg/dL POC Glucose 142 H 150 H (70-110) mg/dL Random Glucose (74-109) mg/dL Calcium (8.8-10.2) mg/dL Total Protein (6.6-8.7) g/dL Albumin (4.0-5.0) g/dL Albumin/Globulin Ratio (1.1-1.8) 10/21/17 10/21/17 10/21/17 Range/Units 06:18 11:41 17:40 WBC (4.2-12.2) K/uL RBC (4.40-5.70) M/uL Hgb (14.0-18.0) gm/dl Hct (42.0-52.0) % MCHC (32-36) g/dl RDW (11.5-14.5) % Neutrophils % (47-80) % Lymphocytes % (16-45) % Monocytes % (0-9) % Lymphocytes (16-45) % Sodium 131 L (136-145) mmol/L Potassium (3.4-4.5) mmol/L Chloride 93 L (98-107) mmol/L Carbon Dioxide (22-29) mmol/L Anion Gap (7-16) BUN (8-23) mg/dL Creatinine 1.4 H (0.7-1.2) mg/dL POC Glucose 112 H 161 H (70-110) mg/dL Random Glucose 67 L (74-109) mg/dL Calcium 8.2 L (8.8-10.2) mg/dL Total Protein 6.2 L (6.6-8.7) g/dL Albumin 3.0 L (4.0-5.0) g/dL Albumin/Globulin Ratio 0.9 L (1.1-1.8) 10/21/17 10/22/17 10/22/17 Range/Units 22:04 06:16 06:16 WBC 12.9 H (4.2-12.2) K/uL RBC 3.24 L (4.40-5.70) M/uL Hgb 8.9 L (14.0-18.0) gm/dl Hct 27.3 L (42.0-52.0) % MCHC (32-36) g/dl RDW 15.1 H (11.5-14.5) % Neutrophils % 86.0 H (47-80) % Lymphocytes % 4.7 L (16-45) % Monocytes % 9.3 H (0-9) % Lymphocytes 5.0 L (16-45) % Sodium 129 L (136-145) mmol/L Potassium 3.3 L (3.4-4.5) mmol/L Chloride 93 L (98-107) mmol/L Carbon Dioxide 20.0 L (22-29) mmol/L Anion Gap (7-16) BUN (8-23) mg/dL Creatinine 1.3 H (0.7-1.2) mg/dL POC Glucose 325 H (70-110) mg/dL Random Glucose 114 H (74-109) mg/dL Calcium 8.0 L (8.8-10.2) mg/dL Total Protein 6.0 L (6.6-8.7) g/dL Albumin 2.8 L (4.0-5.0) g/dL Albumin/Globulin Ratio 0.9 L (1.1-1.8) 10/22/17 10/23/17 Range/Units 22:00 00:00 WBC (4.2-12.2) K/uL RBC (4.40-5.70) M/uL Hgb (14.0-18.0) gm/dl Hct (42.0-52.0) % MCHC (32-36) g/dl RDW (11.5-14.5) % Neutrophils % (47-80) % Lymphocytes % (16-45) % Monocytes % (0-9) % Lymphocytes (16-45) % Sodium (136-145) mmol/L Potassium (3.4-4.5) mmol/L Chloride (98-107) mmol/L Carbon Dioxide (22-29) mmol/L Anion Gap (7-16) BUN (8-23) mg/dL Creatinine (0.7-1.2) mg/dL POC Glucose 255 H 235 H (70-110) mg/dL Random Glucose (74-109) mg/dL Calcium (8.8-10.2) mg/dL Total Protein (6.6-8.7) g/dL Albumin (4.0-5.0) g/dL Albumin/Globulin Ratio (1.1-1.8) Condition at Discharge: (2) Stable VTE Discharge VTE Reason For No Overlap Therapy: Not Indicated (pt on Eliquis) Discharge Medications - Discharge Medications Prescriptions: Levofloxacin [Levaquin] 500 mg PO DAILYFLUOR 6 Days #6 tablet Home Medications: Ambulatory Orders Aspirin 81 mg PO DAILY 01/21/17 [Last Taken 10/18/17] Atorvastatin Calcium 20 mg PO DAILY 01/21/17 [Last Taken 10/18/17] Carvedilol [Coreg] 12.5 mg PO BID 01/21/17 [Last Taken 10/18/17] Cholecalciferol (Vitamin D3) [Vitamin D3] 2,000 unit PO DAILY 01/21/17 [Last Taken 10/18/17] Cyclobenzaprine HCl 10 mg PO TID 01/21/17 [Last Taken 10/18/17] Duloxetine HCl [Cymbalta] 60 mg PO QHS 01/21/17 [Last Taken 10/18/17] Fluticasone Propionate [Flonase Allergy Relief] 15.8 ml NS BID 01/21/17 [Last Taken 10/18/17] Hydroxychloroquine Sulfate [Plaquenil] 200 mg PO DAILY 01/21/17 [Last Taken ] Metformin HCl 1,000 mg PO BID 01/21/17 [Last Taken 10/18/17] Morphine Sulfate [Morphine Sulfate Cr] 60 mg PO Q12H 01/21/17 [Last Taken ] Lisinopril 2.5 mg PO DAILY 01/31/17 [Last Taken 10/18/17] Potassium Chloride [Klor-Con] 20 meq PO DAILY 01/31/17 [Last Taken 10/18/17] Furosemide [Lasix] 40 mg PO DAILY #30 tablet 09/20/17 [Last Taken 10/18/17] Gabapentin [Neurontin] 100 mg PO TID PRN 10/14/17 [Last Taken 10/18/17] Omeprazole Magnesium [Prilosec Otc] 20 mg PO DAILY 10/14/17 [Last Taken 10/18/17 ] Apixaban [Eliquis] 5 mg PO BID #60 tablet 10/17/17 [Last Taken 10/18/17] Isosorbide Mononitrate [Imdur] 30 mg PO DAILY #30 tab.er.24h 10/17/17 [Last Taken 10/18/17] Apixaban [Eliquis] 5 mg PO BID tablet 10/23/17 [Last Taken Unknown] Bifidobacterium Infantis [Align] 4 mg PO DAILY capsule 10/23/17 [Last Taken Unknown] Ferrous Sulfate [Iron] 325 mg PO DAILYWM tablet 10/23/17 [Last Taken Unknown] Insulin Aspart Protam & Aspart [Novolog Mix 70-30 Flexpen Syrn] 17 unit SQ BID ml 10/23/17 [Last Taken Unknown] Ipratropium/Albuterol [Duoneb] 3 ml INH RESP.Q4H.WA ampul.neb 10/23/17 [Last Taken Unknown] Levofloxacin [Levaquin] 500 mg PO DAILYFLUOR 6 Days #6 tablet 10/23/17 [Last Taken Unknown] Temazepam [Restoril] 15 mg PO QHS PRN cap 10/23/17 [Last Taken Unknown] Discharge Plan - Discharge Instructions Activity at Discharge: As Per Physical Therapy Diet at Discharge: Diabetic Diet Wound Primary Dressing Type: Bandaid Dressing Change: Twice a day Instructions: Weakness (DC), Pneumonia (DC) Additional Instructions: 2 Activity: As Per Physical Therapy 2 Diet: Diabetic Diet 2 Consults: [] 2 Follow Up: [] 2 Dressing/Wound Care: (Type) Bandaid (Change) Twice a day 2 Additional: [] Continue home meds, start levaquin 500mg daily for six more days. -You will be discharging to [facility] for sub acute rehab. -[facility] will follow and plan to see you after you return home from [facility]. -A Community Health Worker from [facility] will contact you to see you at home. -RX provided for a shower chair and a bedside commode to be picked up from [place]. Quality Measures - Quality Measures Quality Measures: Advance Directives, Documentation of Current Medications in Medical Record, Elder Maltreatment Screen and Follow-Up Plan, Heart Failure, Screening for High Blood Pressure and F/U Documented - Current Medications Quality Measure: Measure #130: Documentation of Current Medications Documentation of Current Medications: <Current Medications Documented/Reviewed> [G1627] - Blood Pressure Screening Quality Measure: Screening for High Blood Pressure and Follow-Up Documented Does Patient Have Any of the Following: Active Dx of HTN Blood Pressure Classification: Normal BP Reading Systolic Measurement: 102 Diastolic Measurement: 63 Screening for High Blood Pressure: Patient Exclusion, Hx of HTN [G9234] - Coronary Artery Disease Antiplatelet Therapy: <ASA or clopidogrel prescribed> [4086F] - Heart Failure (ELENITA/ARB Therapy) Quality Measure: Heart Failure Left Ventricular Systolic Function: LV Ejection Fraction less than 40% [3021F] - Heart Failure (Beta-rommel Therapy) Quality Measure: Heart Failure Left Ventricular Systolic Function: LV Ejection Fraction less than 40% [3021F] - Advance Directives Quality Measure: Measure #47: Care Plan Advance Directives Established: No Advance Directives Information Provided To Patient: Yes Advance Directives on File: No Living Will: No Power of Bread Dough Mixer: No - Elder Abuse Suspicion Index Screening: Elder Abuse Suspicion Index Screening Rely on people for bathing, dressing, shopping, banking, etc: No Prevented from getting food, clothes, medication, etc: No Made to feel shamed or threatened by someone: No Forced to sign papers or use money against will: No Feel afraid, touched in ways not wanted or hurt physically: No Poor eye contact, withdrawn, malnourished, cuts or bruises: No Screening Result: Negative result EASI Reference Information: Masoud ALFRED, Anita C, Marah D, Juan Burdick.Development and validation of a tool to assist physicians identification of elder abuse: The Elder Abuse Suspicion Index (EASI ). Journal of Elder Abuse and Neglect, 2008; 20 (3): 276-300. - Elder Maltreatment Screen Quality Measures: Elder Maltreatment Screen and Follow-Up Plan Elder Maltreatment Screen: <Negative, No Follow-Up Plan Required> [G8734] <FLOYD TURNER - Last Filed: 10/23/17 11:21> Providers Date of admission: 10/18/17 16:05 Attending physician: FLOYD TURNER Primary care physician: CHUCKIE GARSIA M.D. Consults: Consult Orders 10/18/17 16:12 Consult - Case Management Now Comment: Reason For Exam: failed discharge, lack of home support Physical Exam - Vital Signs Vital Signs: Vital Signs - Last 24 Hrs Temp Pulse Pulse Resp BP Pulse Ox 10/23/17 09:18 98.6 F 95 H 16 111/61 95 10/23/17 09:00 95 H 16 10/22/17 21:00 95 H 16 10/22/17 20:00 98.4 F 87 16 104/60 98 10/22/17 16:50 97.5 F L 80 18 93/58 98 10/22/17 12:00 97.6 F 81 20 106/67 95 Hospitalization - Problem List/Discharge Diagnosis (1) Nosocomial pneumonia Current Visit: Yes Status: Acute Base Code: J18.9 - PNEUMONIA, UNSPECIFIED ORGANISM Onset Date: ~10/18/17 Comment: 10/22/17 - WBC 14 -->12.9 - Saturations maintained > 95% on room air. Patient remains afebrile. -continue zosyn 4.5gm q6H, levaquin 750mg po q24H -continuous tele, vitals q8H 10/23/17 D/C to [facility], -continue levaquin 500mg PO q 24hrs -d/c tele (2) Physical deconditioning Current Visit: No Status: Acute Base Code: R53.81 - OTHER MALAISE Comment : 10/23/17 -PT/OT eval daily, [facility] PT/OT per facility protocol and home PT/OT per . -D/C today to [facility], pt is aware and agreeable to plan. Pt needs continued instructions and motivation for return to [facility] and mobility safety. - Awaiting D/C and transport to [facility] 10/22/17 - PT/OT evaluation daily. Home PT/OT set up as per . - Patient is agreeable to transfer to [facility] rehab facility on discharge. The patient requires continuous motivation and daily PT/OT before returning home safely. - Documents have been signed. Pending trasnfer in the morning. (3) Pulmonary embolism Current Visit: No Status: Acute Discharge Diagnosis: Pulmonary embolism type: other Chronicity: acute Acute cor pulmonale presence: without acute cor pulmonale Qualified Code(s): I26.99 - Other pulmonary embolism without acute cor pulmonale Base Code: I26.99 - OTHER PULMONARY EMBOLISM WITHOUT ACUTE COR PULMONALE Comment: 10/23/17 -Continued treatment of PE noted on previous admission, peripheral PE in [place] -Continue with Eliquis 5mg PO BID -Continue to monitor for bleeding -Outpatient f/u for anticoagulation treatment timeline 10/22/17 - patient diagnosed with peripheral PE in the left upper lobe of the lung during previous admission. - 5mg po bid, discussed with patient the risk associated with anticoagualtion. Outpatient follow up required for determination of lifetime anticoagualtion. (4) T2DM (type 2 diabetes mellitus) Current Visit: No Status: Chronic Discharge Diagnosis: Diabetes mellitus jail insulin use: with core blower use Diabetes mellitus complication status: with neurologic complications Diabetes mellitus complication detail: with polyneuropathy Qualified Code(s): E11.42 - Type 2 diabetes mellitus with diabetic polyneuropathy; Z79.4 - residential (current) use of insulin Base Code: E11.9 - TYPE 2 DIABETES MELLITUS WITHOUT COMPLICATIONS Comment: -A1C 10.7, glucose ranging from 170-225 with 17 unites 70/30. - pt encouraged to eat ADA diet, routine meals and snacks -pt was refusing metformin 1000mg PO BID on some administrations but did take this AM -Accucheck QID -COntinue with treatment with d/c to [facility] 10/22/17 - A1C 10.7, serum glucose 114 --> 44 after 70/30 administered and the patient having minimal food intake. The patienet was given orange juice and CBG rebounded to 107. -continue metformin 1000mg po bid, pt refused doses this morning. -decrease 70/30 to 17 units BID -accucheck QID, ADA diet (5) Traumatic hematoma of right hip Current Visit: Yes Status: Acute Base Code: S70.01XA - CONTUSION OF RIGHT HIP, INITIAL ENCOUNTER Comment: 10/23/17 -hematoma right hip, s/p fall. Not witnessed. Localized edema to right hip, no erythema, no warmth, distal pulses present. -ROM normal for age. -No pain to palpation -pt on anticoagulation, bruising outlined by nursing to continue monitoring after d/c to [facility] 10/22/17 - hematoma of right hip, s/p fall. Location of the fall is not established but there is no documentation of fall while admitted. - pt on anticoagulation so easy bruising. (6) Full code status Current Visit: No Status: Acute Base Code: Z78.9 - OTHER SPECIFIED HEALTH STATUS Comment: 10/23/17 - FULL CODE - Hospitalization Course Procedures: Cardiology Procedures 10/18/17 17:11 EKG QDX1@0600 Abnormal Labs: Abnormal Lab Results 10/18/17 10/18/17 10/19/17 Range/Units 17:42 22:22 06:10 WBC 13.9 H (4.2-12.2) K/uL RBC 3.55 L (4.40-5.70) M/uL Hgb 9.6 L (14.0-18.0) gm/dl Hct 30.2 L (42.0-52.0) % MCHC 31.8 L (32-36) g/dl RDW 15.8 H (11.5-14.5) % Neutrophils % 87.0 H (47-80) % Lymphocytes % (16-45) % Monocytes % (0-9) % Lymphocytes 6.0 L (16-45) % Sodium (136-145) mmol/L Potassium (3.4-4.5) mmol/L Chloride (98-107) mmol/L Carbon Dioxide (22-29) mmol/L Anion Gap (7-16) BUN (8-23) mg/dL Creatinine (0.7-1.2) mg/dL POC Glucose 239 H 264 H (70-110) mg/dL Random Glucose (74-109) mg/dL Calcium (8.8-10.2) mg/dL Total Protein (6.6-8.7) g/dL Albumin (4.0-5.0) g/dL Albumin/Globulin Ratio (1.1-1.8) 10/19/17 10/19/17 10/19/17 Range/Units 06:10 07:20 12:06 WBC (4.2-12.2) K/uL RBC (4.40-5.70) M/uL Hgb (14.0-18.0) gm/dl Hct (42.0-52.0) % MCHC (32-36) g/dl RDW (11.5-14.5) % Neutrophils % (47-80) % Lymphocytes % (16-45) % Monocytes % (0-9) % Lymphocytes (16-45) % Sodium 133 L (136-145) mmol/L Potassium (3.4-4.5) mmol/L Chloride 95 L (98-107) mmol/L Carbon Dioxide (22-29) mmol/L Anion Gap (7-16) BUN 32 H (8-23) mg/dL Creatinine 1.5 H (0.7-1.2) mg/dL POC Glucose 119 H 177 H (70-110) mg/dL Random Glucose (74-109) mg/dL Calcium 8.3 L (8.8-10.2) mg/dL Total Protein 6.2 L (6.6-8.7) g/dL Albumin 3.2 L (4.0-5.0) g/dL Albumin/Globulin Ratio (1.1-1.8) 10/19/17 10/19/17 10/20/17 Range/Units 17:16 22:19 06:30 WBC 17.4 H (4.2-12.2) K/uL RBC 3.80 L (4.40-5.70) M/uL Hgb 10.5 L (14.0-18.0) gm/dl Hct 32.1 L (42.0-52.0) % MCHC (32-36) g/dl RDW 15.5 H (11.5-14.5) % Neutrophils % 88.0 H (47-80) % Lymphocytes % 3.9 L (16-45) % Monocytes % (0-9) % Lymphocytes 4.0 L (16-45) % Sodium (136-145) mmol/L Potassium (3.4-4.5) mmol/L Chloride (98-107) mmol/L Carbon Dioxide (22-29) mmol/L Anion Gap (7-16) BUN (8-23) mg/dL Creatinine (0.7-1.2) mg/dL POC Glucose 254 H 218 H (70-110) mg/dL Random Glucose (74-109) mg/dL Calcium (8.8-10.2) mg/dL Total Protein (6.6-8.7) g/dL Albumin (4.0-5.0) g/dL Albumin/Globulin Ratio (1.1-1.8) 10/20/17 10/20/17 10/20/17 Range/Units 06:30 07:49 11:45 WBC (4.2-12.2) K/uL RBC (4.40-5.70) M/uL Hgb (14.0-18.0) gm/dl Hct (42.0-52.0) % MCHC (32-36) g/dl RDW (11.5-14.5) % Neutrophils % (47-80) % Lymphocytes % (16-45) % Monocytes % (0-9) % Lymphocytes (16-45) % Sodium 132 L (136-145) mmol/L Potassium (3.4-4.5) mmol/L Chloride 93 L (98-107) mmol/L Carbon Dioxide 20.0 L (22-29) mmol/L Anion Gap 19.0 H (7-16) BUN 25 H (8-23) mg/dL Creatinine 1.4 H (0.7-1.2) mg/dL POC Glucose 141 H 170 H (70-110) mg/dL Random Glucose 134 H (74-109) mg/dL Calcium 8.5 L (8.8-10.2) mg/dL Total Protein (6.6-8.7) g/dL Albumin 3.2 L (4.0-5.0) g/dL Albumin/Globulin Ratio 0.9 L (1.1-1.8) 10/20/17 10/20/17 10/21/17 Range/Units 17:04 22:10 06:18 WBC 14.6 H (4.2-12.2) K/uL RBC 3.47 L (4.40-5.70) M/uL Hgb 9.4 L (14.0-18.0) gm/dl Hct 29.6 L (42.0-52.0) % MCHC 31.8 L (32-36) g/dl RDW 15.2 H (11.5-14.5) % Neutrophils % 86.0 H (47-80) % Lymphocytes % 5.5 L (16-45) % Monocytes % (0-9) % Lymphocytes 6.0 L (16-45) % Sodium (136-145) mmol/L Potassium (3.4-4.5) mmol/L Chloride (98-107) mmol/L Carbon Dioxide (22-29) mmol/L Anion Gap (7-16) BUN (8-23) mg/dL Creatinine (0.7-1.2) mg/dL POC Glucose 142 H 150 H (70-110) mg/dL Random Glucose (74-109) mg/dL Calcium (8.8-10.2) mg/dL Total Protein (6.6-8.7) g/dL Albumin (4.0-5.0) g/dL Albumin/Globulin Ratio (1.1-1.8) 10/21/17 10/21/17 10/21/17 Range/Units 06:18 11:41 17:40 WBC (4.2-12.2) K/uL RBC (4.40-5.70) M/uL Hgb (14.0-18.0) gm/dl Hct (42.0-52.0) % MCHC (32-36) g/dl RDW (11.5-14.5) % Neutrophils % (47-80) % Lymphocytes % (16-45) % Monocytes % (0-9) % Lymphocytes (16-45) % Sodium 131 L (136-145) mmol/L Potassium (3.4-4.5) mmol/L Chloride 93 L (98-107) mmol/L Carbon Dioxide (22-29) mmol/L Anion Gap (7-16) BUN (8-23) mg/dL Creatinine 1.4 H (0.7-1.2) mg/dL POC Glucose 112 H 161 H (70-110) mg/dL Random Glucose 67 L (74-109) mg/dL Calcium 8.2 L (8.8-10.2) mg/dL Total Protein 6.2 L (6.6-8.7) g/dL Albumin 3.0 L (4.0-5.0) g/dL Albumin/Globulin Ratio 0.9 L (1.1-1.8) 10/21/17 10/22/17 10/22/17 Range/Units 22:04 06:16 06:16 WBC 12.9 H (4.2-12.2) K/uL RBC 3.24 L (4.40-5.70) M/uL Hgb 8.9 L (14.0-18.0) gm/dl Hct 27.3 L (42.0-52.0) % MCHC (32-36) g/dl RDW 15.1 H (11.5-14.5) % Neutrophils % 86.0 H (47-80) % Lymphocytes % 4.7 L (16-45) % Monocytes % 9.3 H (0-9) % Lymphocytes 5.0 L (16-45) % Sodium 129 L (136-145) mmol/L Potassium 3.3 L (3.4-4.5) mmol/L Chloride 93 L (98-107) mmol/L Carbon Dioxide 20.0 L (22-29) mmol/L Anion Gap (7-16) BUN (8-23) mg/dL Creatinine 1.3 H (0.7-1.2) mg/dL POC Glucose 325 H (70-110) mg/dL Random Glucose 114 H (74-109) mg/dL Calcium 8.0 L (8.8-10.2) mg/dL Total Protein 6.0 L (6.6-8.7) g/dL Albumin 2.8 L (4.0-5.0) g/dL Albumin/Globulin Ratio 0.9 L (1.1-1.8) 10/22/17 10/23/17 10/23/17 Range/Units 22:00 00:00 07:30 WBC (4.2-12.2) K/uL RBC (4.40-5.70) M/uL Hgb (14.0-18.0) gm/dl Hct (42.0-52.0) % MCHC (32-36) g/dl RDW (11.5-14.5) % Neutrophils % (47-80) % Lymphocytes % (16-45) % Monocytes % (0-9) % Lymphocytes (16-45) % Sodium (136-145) mmol/L Potassium (3.4-4.5) mmol/L Chloride (98-107) mmol/L Carbon Dioxide (22-29) mmol/L Anion Gap (7-16) BUN (8-23) mg/dL Creatinine (0.7-1.2) mg/dL POC Glucose 255 H 235 H 170 H (70-110) mg/dL Random Glucose (74-109) mg/dL Calcium (8.8-10.2) mg/dL Total Protein (6.6-8.7) g/dL Albumin (4.0-5.0) g/dL Albumin/Globulin Ratio (1.1-1.8) 10/23/17 Range/Units 09:24 WBC (4.2-12.2) K/uL RBC (4.40-5.70) M/uL Hgb (14.0-18.0) gm/dl Hct (42.0-52.0) % MCHC (32-36) g/dl RDW (11.5-14.5) % Neutrophils % (47-80) % Lymphocytes % (16-45) % Monocytes % (0-9) % Lymphocytes (16-45) % Sodium (136-145) mmol/L Potassium (3.4-4.5) mmol/L Chloride (98-107) mmol/L Carbon Dioxide (22-29) mmol/L Anion Gap (7-16) BUN (8-23) mg/dL Creatinine (0.7-1.2) mg/dL POC Glucose 170 H (70-110) mg/dL Random Glucose (74-109) mg/dL Calcium (8.8-10.2) mg/dL Total Protein (6.6-8.7) g/dL Albumin (4.0-5.0) g/dL Albumin/Globulin Ratio (1.1-1.8) Quality Measures - Quality Measures Quality Measures: Advance Directives, Documentation of Current Medications in Medical Record, Elder Maltreatment Screen and Follow-Up Plan, Heart Failure, Screening for High Blood Pressure and F/U Documented - Current Medications Quality Measure: Measure #130: Documentation of Current Medications - Blood Pressure Screening Quality Measure: Screening for High Blood Pressure and Follow-Up Documented Blood Pressure Classification: Normal BP Reading Systolic Measurement: 102 Diastolic Measurement: 63 Screening for High Blood Pressure: < Normal BP, F/U Not Required > [G8782] - Heart Failure (ELENITA/ARB Therapy) Quality Measure: Heart Failure - Heart Failure (Beta-rommel Therapy) Quality Measure: Heart Failure - Advance Directives Quality Measure: Measure #47: Care Plan Advance Care Planning: <Care Plan/Decision Maker Not Decided; Discussed & Documented> [1124F] - Elder Abuse Suspicion Index Screening: Elder Abuse Suspicion Index Screening Screening Result: Negative result EASI Reference Information: Masoud ALFRED, Anita C, Marah D, Juan Burdick.Development and validation of a tool to assist physicians identification of elder abuse: The Elder Abuse Suspicion Index (EASI ). Journal of Elder Abuse and Neglect, 2008; 20 (3): 276-300. - Elder Maltreatment Screen Quality Measures: Elder Maltreatment Screen and Follow-Up Plan
[2017-10-23] MEDS: GUAIFENESIN 1,200 MG TABLET PO SCH (09:32)
== END 2017-10-23 12:10 | DRG 194 ==
LOC: ER 14:10 → MEDSURG 16:05
PROVIDERS: ADMIT Internal Medicine; ATTEND Internal Medicine
DX: J18.1 Lobar pneumonia, unspecified organism (principal); R53.1 Weakness; I50.1 Left ventricular failure, unspecified; R53.81 Other malaise; E11.42 Type 2 diabetes mellitus with diabetic polyneuropathy; Z79.4 Long term (current) use of insulin; R60.9 Edema, unspecified; I10 Essential (primary) hypertension; Z86.718 Personal history of other venous thrombosis and embolism; M06.9 Rheumatoid arthritis, unspecified; Z87.891 Personal history of nicotine dependence; Z86.711 Personal history of pulmonary embolism; Z79.01 Long term (current) use of anticoagulants
CPT/HCPCS: 36416; 71045; 80048; 80053; 81003; 82550; 82553; 82948; 83880; 84443; 84484; 85027; 85610; 85730; 93005; 93010; 94010; 94640; 94760; 94761; 97530; 99223; 99233; 99239; 99285; J1956; J2543

== ENCOUNTER 2018-07-10 11:34 | Emergency (ER) | payer OTHER, BC ==
[2018-07-10] MEDS ORDERED: Diph,Pert(Acell),Tet Vac 0.5 ML SYR IM ONE (11:51)
--- NOTE | 2018-07-10 12:03 | Emergency Department Record ---
History of Present Illness - General Chief Complaint: Fall Injury Stated Complaint: FELL THIS MORNING Time Seen by Provider: 07/10/18 11:45 Source: Patient Mode of Arrival: Ambulatory Limitations: No limitations - History of Present Illness Initial Comments: The patient is here due to tripping and falling last evening and injuring his R arm. He landed on his R elbow and has had pain since. The patient has also fallen on the arm 6 days ago. He denies any pain anywhere else and denies hitting his head or any LOC. There has been no recent illnesses, cough, fever, vomiting, CP or SOB. 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 Witnessed: No Place Fall Occurred: Home Loss of Consciousness: None Prolonged Down Time?: No Symptoms Prior to Fall: None Context: History of frequent falls Associated Symptoms: Denies - Related Data Home Medications Medication Instructions Recorded Confirmed Last Taken Diphenhydramine HCl [Benadryl] 50 mg PO QHS 07/10/18 07/10/18 Unknown Glimepiride [Amaryl] 1 mg PO DAILY 07/10/18 07/10/18 Unknown Magnesium 200 mg PO DAILY 07/10/18 07/10/18 Unknown Methotrexate Sodium [Trexall] 30 mg PO WEEKLY 07/10/18 07/10/18 Unknown Tramadol HCl 50 mg PO Q8H PRN 07/10/18 07/10/18 Unknown Previous Rx's Medication Instructions Recorded Furosemide [Lasix] 40 mg PO DAILY #30 tablet 09/20/17 Allergies Allergy/AdvReac Type Severity Reaction Status Date / Time methotrexate Allergy SHORTNESS Verified 10/18/17 14:25 OF BREATH pregabalin [From Lyrica] Allergy SHORTNESS Verified 10/18/17 14:25 OF BREATH Travel Screening - Travel/Exposure Within Last 30 Days Have you traveled within the last 30 days?: No Review of Systems Constitutional: Denies: Chills, Fever Eyes: Denies: Eye discharge ENT: Denies: Congestion Respiratory: Denies: Cough, Dyspnea Past Medical History - SOCIAL HISTORY Smoking Status: Former smoker Alcohol Use: None - RESPIRATORY Hx Respiratory Disorders: Yes Hx Pneumonia: Yes Hx Sleep Apnea: Yes (has issues but does not use C-PAP) - CARDIOVASCULAR Hx Cardio Disorders: Yes Hx Abnormal EKG: Yes (hx of bigeminy) Hx CHF: Yes Hx Deep Vein Thrombosis: Yes Hx Edema: Yes Hx Hypertension: Yes Hx Irregular Heartbeat: Yes - NEURO Hx Neuro Disorders: Yes Hx Neuropathy: Yes - GI Hx GI Disorders: Yes Hx Reflux: Yes - Hx Genitourinary Disorders: No - ENDOCRINE Hx Endocrine Disorders: Yes Hx Diabetes: Yes (for 20 years) Hx Thyroid Disease: No - MUSCULOSKELETAL Hx Musculoskeletal Disorders: Yes Hx Arthritis: Yes Comment:: Rheumatoid - PSYCH Hx Psych Problems: No 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 negative: Tenderness - Respiratory Respiratory exam: Normal lung sounds bilaterally. negative: Respiratory distress - Cardiovascular Cardiovascular Exam: Regular rate, Normal rhythm, Normal heart sounds - Extremities Extremities exam: Full ROM (with pain on full ROM.), Normal capillary refill, Tenderness (There is mild tenderness to palpation over the posterior and lateral elbow. There is no R shoulder or wrist tenderness.), Other (The R arm is NVI.). negative: Normal inspection (There are healing abrasions over the posterior elbow. ) - Neurological Neurological exam: Alert. negative: Motor sensory deficit Course Vital Signs 07/10/18 11:38 Temperature 97.8 F Pulse Rate 84 Respiratory 20 Rate Blood Pressure 174/97 Pulse Ox 100 - Reevaluation(s) Reevaluation #1: I did discuss the neg xrays with the patient and the need for F/U next week if not better. 07/10/18 12:36 Medical Decision Making - Data Complexity MDM Data: X-Ray Ordered and/or Reviewed - Radiology Data Radiology results: Report reviewed (R elbow: Neg per Rad.) Disposition Disposition: Discharge Clinical Impression: Contusion of elbow Qualifiers: Encounter type: initial encounter Laterality: right Qualified Code(s): S50.01XA - Contusion of right elbow, initial encounter Disposition: Home, Self-Care Condition: (2) Stable Instructions: Contusion in Adults (ED) Additional Instructions: Please take your home pain medicines as needed. Please see your family doctor if not better in 3 days. Forms: Patient Portal Access Time of Disposition: 12:38 Quality - Quality Measures Quality Measures: N/A - Blood Pressure Screening View Details: Yes Does Patient Have Any of the Following: No Blood Pressure Classification: Hypertensive Reading Systolic Measurement: 174 Diastolic Measurement: 97 Screening for High Blood Pressure: < First Hypertensive BP, F/U Documented > [ G8950] First Hypertensive Follow-up Interventions: Referral to alternative/primary care provider.
--- NOTE | 2018-07-12 21:16 | RADIOLOGY REPORT ---
EXAM: ELBOW, RIGHT 3 VIEWS HISTORY: FALL, RIGHT ELBOW PAIN. TECHNIQUE: Three views of the right elbow. COMPARISON: None. FINDINGS: No definite elbow joint effusion. No acute fracture is identified. No dislocation. Mild posterior elbow soft tissue swelling overlying the olecranon process; nonspecific but could represent olecranon bursitis. Suggestion of posterior ulnohumeral osteophytes, which may represent underlying osteoarthritis. Small triceps insertion enthesophyte. Medial and lateral epicondylar enthesophytes, which may be seen with chronic epicondylitis. IMPRESSION: 1. NO DEFINITE ACUTE OSSEOUS FINDINGS. 2. NONSPECIFIC POSTERIOR ELBOW SOFT TISSUE SWELLING, WHICH COULD BE SEEN WITH OLECRANON BURSITIS. 3. ADDITIONAL CHRONIC FINDINGS OF THE ELBOW, ABOVE. JOB NUMBER: [id number] [facility]
== END 2018-07-10 12:58 | disposition home or self-care (01) ==
LOC: ER 11:34
DX: S50.01XA Contusion of right elbow, initial encounter (principal); E11.9 Type 2 diabetes mellitus without complications; I10 Essential (primary) hypertension; Z91.81 History of falling; W01.0XXA Fall on same level from slipping, tripping and stumbling without subsequent striking against object, initial encounter; Y92.009 Unspecified place in unspecified non-institutional (private) residence as the place of occurrence of the external cause
CPT/HCPCS: 96372; 99283

== ENCOUNTER 2018-11-20 08:20 | Emergency (ER) | payer OTHER ==
--- NOTE | 2018-11-20 08:23 | Emergency Department Record ---
History of Present Illness - General Chief Complaint: Fall Injury Stated Complaint: FALL Time Seen by Provider: 11/20/18 08:22 Source: Patient, RN notes reviewed Mode of Arrival: Ambulatory - History of Present Illness Initial Comments: fall last night times two reaching to far and complaining of right rib cage pain and no dyspnea and no abdominal pain with palpation of his liver or spleen. Patient has an ulcer on the left foot from diabetes which he says [facility] [place] and being seen by visiting nurses and the nurse is the one who sent him to the hospital to get his ribs checked. He states the foot doesn't need to be checked. His fall happened at 11 PM last night MD Complaint: Fall Fall From: Standing Place Fall Occurred: Home Loss of Consciousness: None Prolonged Down Time?: No Symptoms Prior to Fall: None Location: Chest (right side of ribs) Severity: Moderate Quality: Sharp - Lamar Coma Scale Eye Response: (4) Open spontaneously Motor Response: (6) Obeys commands Verbal Response: (5) Oriented Henry Total: 15 - Related Data Home Medications Medication Instructions Recorded Confirmed Last Taken Folic Acid 1 mg PO DAILY 11/20/18 11/20/18 11/19/18 Glimepiride [Amaryl] 1 mg PO DAILY 11/20/18 11/20/18 11/20/18 Trazodone HCl 25 mg PO QHS 11/20/18 11/20/18 11/19/18 Previous Rx's Medication Instructions Recorded Furosemide [Lasix] 40 mg PO DAILY #30 tablet 09/20/17 Allergies Allergy/AdvReac Type Severity Reaction Status Date / Time pregabalin [From Lyrica] Allergy SHORTNESS Verified 10/18/17 14:25 OF BREATH Review of Systems Reviewed: No additional complaints except as noted below Constitutional: Reports: As per HPI. Denies: Chills, Fever, Malaise, Night sweats, Weakness, Weight change Eyes: Reports: As per HPI. Denies: Eye discharge, Eye pain, Photophobia, Vision change ENT: Reports: As per HPI. Denies: Congestion, Dental pain, Ear pain, Epistaxis , Hearing loss, Throat pain Respiratory: Reports: As per HPI. Denies: Cough, Dyspnea, Hemoptysis, Stridor, Wheezes Cardiovascular: Reports: As per HPI, Chest pain (right rib cage pain). Denies: Arrhythmia, Dyspnea on exertion, Edema, Murmurs, Orthopnea, Palpitations, Paroxysmal nocturnal dyspnea, Rheumatic Fever, Syncope Endocrine: Reports: As per HPI. Denies: Fatigue, Heat or cold intolerance, Polydipsia, Polyuria Gastrointestinal: Reports: As per HPI. Denies: Abdominal pain, Constipation, Diarrhea, Hematemesis, Hematochezia, Melena, Nausea, Vomiting Genitourinary: Reports: As per HPI. Denies: Dysuria, Frequency, Hematuria, Incontinence, Retention, Testicular pain, Testicular mass, Urgency Musculoskeletal: Reports: As per HPI. Denies: Arthralgia, Back pain, Gout, Joint swelling, Myalgia, Neck pain Skin: Reports: As per HPI. Denies: Bruising, Change in color, Change in hair/ nails, Lesions, Pruritus, Rash Neurological: Reports: As per HPI. Denies: Abnormal gait, Confusion, Headache, Numbness, Paresthesias, Seizure, Tingling, Tremors, Vertigo, Weakness Psychiatric: Reports: As per HPI. Denies: Anxiety, Auditory hallucinations, Depression, Homicidal thoughts, Suicidal thoughts, Visual hallucinations Hematological/Lymphatic: Reports: As per HPI. Denies: Anemia, Blood Clots, Easy bleeding, Easy bruising, Swollen glands Past Medical History - SOCIAL HISTORY Smoking Status: Former smoker - RESPIRATORY Hx Respiratory Disorders: Yes Hx Pneumonia: Yes Hx Sleep Apnea: Yes (has issues but does not use C-PAP) - CARDIOVASCULAR Hx Cardio Disorders: Yes Hx Abnormal EKG: Yes (hx of bigeminy) Hx CHF: Yes Hx Deep Vein Thrombosis: Yes Hx Edema: Yes Hx Hypertension: Yes Hx Irregular Heartbeat: Yes - NEURO Hx Neuro Disorders: Yes Hx Neuropathy: Yes - GI Hx GI Disorders: Yes Hx Reflux: Yes - Hx Genitourinary Disorders: No - ENDOCRINE Hx Endocrine Disorders: Yes Hx Diabetes: Yes (for 20 years) Hx Thyroid Disease: No - MUSCULOSKELETAL Hx Musculoskeletal Disorders: Yes Hx Arthritis: Yes Comment:: Rheumatoid - PSYCH Hx Psych Problems: No 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 negative: External canal tenderness Nasal Exam: Normal inspection. negative: Discharge, Sinus tenderness Mouth exam: Normal external inspection, Tongue normal Teeth exam: Normal inspection. negative: Dental caries Throat exam: Normal inspection. negative: Tonsillar erythema, Tonsillar exudate - Neck Neck exam: Normal inspection, Full ROM. negative: Tenderness - Respiratory Respiratory exam: Normal lung sounds bilaterally, Chest wall tenderness (right side chest wall pain). negative: Respiratory distress - Cardiovascular Cardiovascular Exam: Regular rate, Normal rhythm, Normal heart sounds - GI/Abdominal GI/Abdominal exam: Soft, Normal bowel sounds. negative: Tenderness - Rectal Rectal exam: Deferred - exam: Deferred - Extremities Extremities exam: Normal inspection, Full ROM, Normal capillary refill. negative: Tenderness - Back Back exam: Reports: Normal inspection, Full ROM. Denies: Muscle spasm, Rash noted, Tenderness - Neurological Neurological exam: Alert, Normal gait, Oriented X3, Reflexes normal - Psychiatric Psychiatric exam: Normal affect, Normal mood - Skin Skin exam: Dry, Intact, Normal color, Warm Course - Reevaluation(s) Reevaluation #1: sister is here with the patient and she regulates his medications. Talked about pain control with splinting and using his tramadol which he already has and he is taking the tramadol twice a dy for his chronic neuropathy pain of his legs and his RA pain of his joints. So for the rib fracture pain he can increase his dose to two pills three times a day if necessary and talked to him about deep breathing 10 breaths five times a day to prevent pneumonia. 11/20/18 09:33 Medical Decision Making - Data Complexity MDM Data: Labs Ordered and/or Reviewed (hg 12.0 bun 24 and creat 1.4), X-Ray Ordered and/or Reviewed (multiple rib fractures some old and some new and patient doesn't recall any rib fractures ) - Lab Data Result diagrams: 11/20/18 08:38 11/20/18 08:38 Disposition Clinical Impression: Rib fracture Qualifiers: Encounter type: initial encounter Rib fracture type: single rib Fracture type: closed Laterality: right Qualified Code(s): S22.31XA - Fracture of one rib, right side, initial encounter for closed fracture Ribs, multiple fractures Qualifiers: Encounter type: initial encounter Fracture type: closed Laterality: right Qualified Code(s): S22.41XA - Multiple fractures of ribs, right side, initial encounter for closed fracture Disposition: Home, Self-Care Condition: (1) Good Instructions: Rib Fracture (ED), Fall Prevention for Older Adults (ED) Additional Instructions: follow up with primary Dr at the [facility] in [place] in 5 days use tramadol 50 mg two pills three times a day if necessary for his rib fractures and than decrease it as he improves and talked about his side effects to increasing tramadol. Forms: Patient Portal Access Time of Disposition: 09:17 Quality - Quality Measures Quality Measures: N/A - Blood Pressure Screening Does Patient Have Any of the Following: No, Active Dx of HTN Blood Pressure Classification: Hypertensive Reading Systolic Measurement: 190 Diastolic Measurement: 99 Screening for High Blood Pressure: Patient Exclusion, Hx of HTN [G9744]
[2018-11-20] MEDS ORDERED: KETOROLAC 30 MG/ML VIAL IVP ONE (08:29)
[2018-11-20 08:48] LABS: HEMATOCRIT 38.3 % (42.0-52.0); MEAN CELL VOLUME 88.5 fl (81-97); MEAN CORPUSCULAR HEMOGLOBIN 27.7 pg (27-33); MEAN CORPUSCULAR HGB CONC 31.3 g/dl (32-36); MEAN PLATELET VOLUME 8.9 fl (7.4-10.4); PLATELET COUNT 249 K/uL (130-400); RED BLOOD COUNT 4.33 M/uL (4.40-5.70); WHITE BLOOD COUNT W/O DIFF 9.8 K/uL (4.2-12.2)
[2018-11-20 08:56] LABS: PLATELET ESTIMATE NORMAL (NORMAL)
[2018-11-20 09:00] LABS: CREATININE 1.4 mg/dL (0.7-1.2)
--- NOTE | 2018-11-23 18:16 | RADIOLOGY REPORT ---
EXAM: RIBS, RIGHT W/PA CHEST HISTORY: RIGHT ANTERIOR MID CHEST WALL PAIN POST FALL. TECHNIQUE: AP and oblique views of the right ribs are obtained as well as an upright PA view of the chest. COMPARISON: Portable chest dated 10/18/2017. FINDINGS: There is normal bone mineralization. There are deformities of the anterolateral aspects of the right fifth, sixth, and seventh ribs. The two more inferior are either chronic or subacute. The deformity of the right fifth rib is possibly acute. No definite displacement. Healing fracture deformities of the posterolateral left sixth and seventh ribs also suspected. The heart is not enlarged and the pulmonary vasculature is nondilated. No confluent airspace opacity is seen nor is there costophrenic angle blunting or pneumothorax. There are mild degenerative changes scattered throughout the visualized spine. IMPRESSION: 1. DEFORMITIES OF THE ANTEROLATERAL ASPECTS OF THE RIGHT FIFTH, SIXTH, AND SEVENTH RIBS. THE SIXTH AND SEVENTH RIB DEFORMITIES ARE PROBABLY CHRONIC OR SUBACUTE. THE DEFORMITY OF THE RIGHT FIFTH RIB IS AGE-INDETERMINATE. 2. HEALING NONDISPLACED FRACTURES OF THE POSTEROLATERAL LEFT SIXTH AND SEVENTH RIBS. 3. NO EVIDENCE OF ACUTE CARDIOPULMONARY DISEASE. JOB NUMBER: [id number] [facility]
== END 2018-11-20 09:57 | disposition home or self-care (01) ==
LOC: ER 08:20
DX: S22.41XA Multiple fractures of ribs, right side, initial encounter for closed fracture (principal); M06.9 Rheumatoid arthritis, unspecified; I50.9 Heart failure, unspecified; I10 Essential (primary) hypertension; W19.XXXA Unspecified fall, initial encounter; Y92.009 Unspecified place in unspecified non-institutional (private) residence as the place of occurrence of the external cause; Z87.891 Personal history of nicotine dependence
CPT/HCPCS: 99284 ×2; 96374; 80048; 85027; 71101; J1885

== ENCOUNTER 2018-12-03 11:23 | Emergency (ER) | payer OTHER ==
--- NOTE | 2018-12-03 12:07 | Emergency Department Record ---
History of Present Illness - General Chief complaint: Weakness Stated complaint: WEAKNESS Time Seen by Provider: 12/03/18 11:59 Source: Patient Mode of Arrival: Wheelchair - History of Present Illness Initial comments: the patient was ambulating into the doctor's office with is walker, trying to sit down, when "his feet stopped working" and he fell onto his right side, not hitting his head. He complains of continuing right rib pain, a new sore throat, and a cough. He has had pneumonia in the past. He denies fevers, or chills, ad denies shortness of breath. He broke his right ribs 2 weeks ago. Onset/Timin -: Days(s) Location: Generalized Severity: Moderate Associated Symptoms: Denies other symptoms - [place] Coma Scale Eye Response: (4) Open spontaneously Motor Response: (6) Obeys commands Verbal Response: (5) Oriented [place] Total: 15 - Symptoms of Stroke Symptoms of stroke: Unsteady When Walking - Related Data Previous Rx's Medication Instructions Recorded Furosemide [Lasix] 40 mg PO DAILY #30 tablet 09/20/17 Allergies Allergy/AdvReac Type Severity Reaction Status Date / Time pregabalin [From Lyrica] Allergy SHORTNESS Verified 12/03/18 11:25 OF BREATH Travel Screening - Travel/Exposure Within Last 30 Days Have you traveled within the last 30 days?: No - Travel/Exposure Within Last Year Have you traveled outside the [place] in the last year?: No - Additonal Travel Details Have you been exposed to anyone with a communicable illness?: No - Travel Symptoms Symptom Screening: None Review of Systems Reviewed: No additional complaints except as noted below Constitutional: Reports: As per HPI. Denies: Chills, Fever, Malaise, Night sweats, Weakness, Weight change Eyes: Reports: As per HPI. Denies: Eye discharge, Eye pain, Photophobia, Vision change ENT: Reports: As per HPI. Denies: Congestion, Dental pain, Ear pain, Epistaxis , Hearing loss, Throat pain Respiratory: Reports: As per HPI. Denies: Cough, Dyspnea, Hemoptysis, Stridor, Wheezes Cardiovascular: Reports: As per HPI. Denies: Arrhythmia, Chest pain, Dyspnea on exertion, Edema, Murmurs, Orthopnea, Palpitations, Paroxysmal nocturnal dyspnea, Rheumatic Fever, Syncope Endocrine: Reports: As per HPI. Denies: Fatigue, Heat or cold intolerance, Polydipsia, Polyuria Gastrointestinal: Reports: As per HPI. Denies: Abdominal pain, Constipation, Diarrhea, Hematemesis, Hematochezia, Melena, Nausea, Vomiting Genitourinary: Reports: As per HPI. Denies: Dysuria, Frequency, Hematuria, Incontinence, Retention, Testicular pain, Testicular mass, Urgency Musculoskeletal: Reports: As per HPI. Denies: Arthralgia, Back pain, Gout, Joint swelling, Myalgia, Neck pain Skin: Reports: As per HPI. Denies: Bruising, Change in color, Change in hair/ nails, Lesions, Pruritus, Rash Neurological: Reports: As per HPI. Denies: Abnormal gait, Confusion, Headache, Numbness, Paresthesias, Seizure, Tingling, Tremors, Vertigo, Weakness Psychiatric: Reports: As per HPI. Denies: Anxiety, Auditory hallucinations, Depression, Homicidal thoughts, Suicidal thoughts, Visual hallucinations Hematological/Lymphatic: Reports: As per HPI. Denies: Anemia, Blood Clots, Easy bleeding, Easy bruising, Swollen glands Past Medical History - SOCIAL HISTORY Smoking Status: Former smoker Alcohol Use: None Drug Use: Occasional Drug Use Detail:: Marijuana - RESPIRATORY Hx Respiratory Disorders: Yes Hx Pneumonia: Yes Hx Sleep Apnea: Yes (has issues but does not use C-PAP) - CARDIOVASCULAR Hx Cardio Disorders: Yes Hx Abnormal EKG: Yes (hx of bigeminy) Hx CHF: Yes Hx Deep Vein Thrombosis: Yes Hx Edema: Yes Hx Hypertension: Yes Hx Irregular Heartbeat: Yes - NEURO Hx Neuro Disorders: Yes Hx Neuropathy: Yes - GI Hx GI Disorders: Yes Hx Reflux: Yes - Hx Genitourinary Disorders: No - ENDOCRINE Hx Endocrine Disorders: Yes Hx Diabetes: Yes (for 20 years) Hx Thyroid Disease: No - MUSCULOSKELETAL Hx Musculoskeletal Disorders: Yes Hx Arthritis: Yes Comment:: Rheumatoid - PSYCH Hx Psych Problems: No 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[place], agent orange - HEMATOLOGY/ONCOLOGY Hx Hematology/Oncology Disorders: No Family Medical History Any Significant Family History?: Yes Family Hx Comment (NOT TO BE USED IN PLACE OF ITEMS BELOW): mom w/thyroid issues Hx Cancer: Father, Mother Hx Heart Disease: Mother Physical Exam - General General Appearance: Alert, Oriented x3, Cooperative, No acute distress - Head Head exam: Normal inspection - Eye Eye exam: Normal appearance, PERRL Pupils: Normal accommodation - ENT ENT exam: Normal exam, Mucous membranes moist, Normal external ear exam, Normal orophraynx, TM's normal bilaterally Ear exam: Normal external inspection. negative: External canal tenderness Nasal Exam: Normal inspection. negative: Discharge, Sinus tenderness Mouth exam: Normal external inspection, Tongue normal Teeth exam: Normal inspection. negative: Dental caries Throat exam: Normal inspection. negative: Tonsillar erythema, Tonsillar exudate - Neck Neck exam: Normal inspection, Full ROM. negative: Tenderness - Respiratory Respiratory exam: Normal lung sounds bilaterally, Chest wall tenderness (right mid rib tenderness). negative: Respiratory distress - Cardiovascular Cardiovascular Exam: Regular rate, Normal rhythm, Normal heart sounds - GI/Abdominal GI/Abdominal exam: Soft, Normal bowel sounds. negative: Tenderness - Rectal Rectal exam: Deferred - exam: Deferred - Extremities Extremities exam: Normal inspection, Full ROM, Normal capillary refill. negative: Tenderness - Back Back exam: Reports: Normal inspection, Full ROM. Denies: Muscle spasm, Rash noted, Tenderness - Neurological Neurological exam: Alert, Normal gait, Oriented X3, Reflexes normal - Psychiatric Psychiatric exam: Normal affect, Normal mood - Skin Skin exam: Dry, Intact, Normal color, Warm Course Vital Signs 12/03/18 11:27 Temperature 97.9 F Pulse Rate 84 Respiratory 18 Rate Blood Pressure 135/76 Pulse Ox 96 Medical Decision Making - Data Complexity MDM Data: Labs Ordered and/or Reviewed (Chronic abnormalities when compared tp previous. ), X-Ray Ordered and/or Reviewed (CXR: No acute findings. There are bilateral rib fractures which appear similar to 11-20-18.) - Lab Data Result diagrams: 12/03/18 12:20 12/03/18 12:20 Disposition Disposition: Discharge Clinical Impression: Rib injury Ribs, multiple fractures Qualifiers: Encounter type: subsequent encounter Fracture type: closed Laterality: bilateral Fracture healing: with routine healing Qualified Code(s): S22.43XD - Multiple fractures of ribs, bilateral, subsequent encounter for fracture with routine healing Fall Qualifiers: Encounter type: initial encounter Qualified Code(s): W19.XXXA - Unspecified fall, initial encounter Condition: (3) Guarded Instructions: Rib Fracture (ED), Weakness (ED) Additional Instructions: Increase fluid intake. Continue present medications. Follow up with your PCP for the chronic changes in your lab work. Tylenol alternated with ibuprofen as directed as needed for pain. PCP follow up as needed. Quality - Quality Measures Quality Measures: N/A - Blood Pressure Screening Does Patient Have Any of the Following: No Blood Pressure Classification: Pre-Hypertensive BP Reading Systolic Measurement: 135 Diastolic Measurement: 76 Screening for High Blood Pressure: Patient Exclusion, Hx of HTN [[id number]]
[2018-12-03 12:51] LABS: BASO % 0.3 % (0-6); EOS % 1.5 % (0-6); HEMATOCRIT 37.3 % (42.0-52.0); HEMOGLOBIN 11.5 gm/dl (14.0-18.0); LYMPH % 6.1 % (16-45); MEAN CELL VOLUME 88.6 fl (81-97); MEAN CORPUSCULAR HEMOGLOBIN 27.3 pg (27-33); MEAN CORPUSCULAR HGB CONC 30.8 g/dl (32-36); MEAN PLATELET VOLUME 9.4 fl (7.4-10.4); PLATELET COUNT 270 K/uL (130-400); RED BLOOD COUNT 4.21 M/uL (4.40-5.70); RED CELL DISTRIBUTION WIDTH 16.7 % (11.5-14.5); WHITE BLOOD COUNT W/O DIFF 11.4 K/uL (4.2-12.2)
[2018-12-03 13:06] LABS: BILIRUBIN,TOTAL 0.4 mg/dL (0.2-1.0); CREATININE 1.5 mg/dL (0.7-1.2)
[2018-12-03 13:07] LABS: TOTAL PROTEIN 7.7 g/dL (6.6-8.7)
[2018-12-03 13:11] LABS: ALBUMIN 3.8 g/dL (4.0-5.0)
[2018-12-03] MEDS ORDERED: 0.9 % SODIUM CHLORIDE 1,000 ML BAG IV ONE (13:52)
[2018-12-03 14:39] LABS: URINE APPEARANCE CLEAR; URINE BILIRUBIN NEGATIVE (NEGATIVE); URINE BLOOD NEGATIVE (NEGATIVE); URINE COLOR YELLOW; URINE GLUCOSE (UA) NEGATIVE (NEGATIVE); URINE KETONE NEGATIVE (NEGATIVE); URINE LEUKOCYTE ESTERASE NEGATIVE (NEGATIVE); URINE NITRITE NEGATIVE (NEGATIVE); URINE PROTEIN NEGATIVE (NEGATIVE); URINE UROBILINOGEN 0.2 E.U./dL (0.20 - 1.00)
--- NOTE | 2018-12-05 15:42 | RADIOLOGY REPORT ---
EXAM: CHEST 2 VIEWS HISTORY: WEAKNESS, FALL, RIGHT-SIDED CHEST PAIN. TECHNIQUE: Two view chest. COMPARISON: PA chest and right rib series, 11/20/2018. FINDINGS: Cardiac silhouette within normal size and limits. No focal pulmonary consolidation. No pleural effusion or pneumothorax. Bilateral rib fracture deformities appear similar from prior study. Diffuse thoracic spondylosis. IMPRESSION: 1. NO NEW/ACUTE LUNG FINDINGS. 2. BILATERAL RIB FRACTURE DEFORMITIES, SIMILAR APPEARANCE FROM 11/20/2018 COMPARISON. JOB NUMBER: [id number] MTDD
== END 2018-12-03 16:23 | disposition home or self-care (01) ==
LOC: ER 11:23
DX: S22.43XA Multiple fractures of ribs, bilateral, initial encounter for closed fracture (principal); R53.1 Weakness; R05 Cough; W19.XXXA Unspecified fall, initial encounter; E11.9 Type 2 diabetes mellitus without complications; I10 Essential (primary) hypertension; I50.9 Heart failure, unspecified; Z87.891 Personal history of nicotine dependence
CPT/HCPCS: 71046; 80053; 81003; 85027; 87880; 99283; 99284